=== PATIENT | female | born 1955 | race Caucasian/White ===

== ENCOUNTER 2016-05-12 15:11 | Emergency (ER) | payer MEDICARE, MEDICAID ==
[~2016-05-12] VITALS: Ht 170.2 cm; Wt 108.9 kg
[~2016-05-12 15:11] MED LIST: ALB.5NB20 HHN; ALBU8.5H2 IH; ALPR1T PO; ATEN50TA PO; CHL25T PO; CHLO100T22 PO; CHOL231P PO; CHOL4PAC2 PO; CLON1TAB36 PO; CPRH4T PO; CYCL-97 PO; DEXL60CA PO; DIPH25TA82 PO; FEXO180T PO; GBPN300C PO; HYDR-229 PO; LISI1TAB10 PO; LITH300T15 PO; LORA10TA7 PO; MAG355OR19 PO; MELO-198 PO; MIRT15TA6 PO; NIFE60TA19 PO; OMEP20CA6 PO; OMEP20TA2 PO; ONDAN4ODT PO; PRM25T PO; ROPI2TAB3 PO; SCR1T PO; SCR1T1 PO; SIMV20TA3 PO; SMV20T PO; TOPI200T19 PO; TRAM50TA2 PO; [UNRECOGNIZED DRUG - OTHER] PO
--- OUTSIDE RECORDS SUMMARY | 2016-05-12 15:20 | XMS REPORT | Continuity of Care Document ---
Author Author [facility] Organization [facility] Address Unknown Phone Unavailable Care Team Providers Care Train Station Server Name Role Phone Kwasi Rice PCP [phone] Source Comments Some departments are not documenting in the electronic medical record. If you do not see the information that you expected, contact Release of Information in the Health Information Management department at [phone] for further assistance in locating additional records.[facility] Active Allergies and Adverse Reactions Allergen Noted Date Severity Reactions Comments Adhesive Tape (Rosins) 01/15/2015 Medium ITCHING, REDNESS, EDEMA Aspirin 08/22/2014 Medium HIVES Codeine 08/22/2014 Medium HIVES Darvocet 12/20/2014 Medium HIVES Darvon 08/22/2014 Medium HIVES Ibuprofen 08/22/2014 Low NAUSEA ONLY Iodine 08/22/2014 Medium RASH Morphine 08/22/2014 Medium HIVES Niaspan 08/22/2014 Low ITCHING Other 08/22/2014 Low AGITATION antidepressants and antipsychotics Penicillins 08/22/2014 High SEIZURES Current Medications Prescription Sig. Disp. Refills Start End Date Status Date Black Cohosh 20 mg tab Take 20 mg by mouth twice Active daily. Indications: on hold rOPINIRole (REQUIP) 2 mg Take 4 mg by mouth at Active tablet bedtime daily. simvastatin (ZOCOR) 20 mg Take 20 mg by mouth at Active tablet bedtime daily. atenolol (TENORMIN) 50 mg Take 50 mg by mouth every Active tablet morning. cloNIDine HCl (CATAPRESS) Take 0.1 mg by mouth at Active 0.1 mg tablet bedtime daily. albuterol (VENTOLIN HFA, Inhale 2 Puffs by mouth Active PROAIR HFA) 90 every 6 hours as needed mcg/actuation inhaler for Wheezing. lisinopril/hydrochlorothi Take 1 Tab by mouth Active azide (ZESTORETIC) daily. 20/12.5 mg tablet 1 Tab NIFEdipine SR Take 60 mg by mouth every Active (PROCARDIA-XL; ADALAT CC) morning. 60 mg tablet fluticasone (FLONASE) 50 Apply 2 Sprays to each Active mcg/actuation nasal spray nostril as directed twice daily. loratadine 10 mg cap Take 10 mg by mouth every Active morning. diphenhydrAMINE Take 50 mg by mouth at Active (BENADRYL) 25 mg capsule bedtime as needed. albuterol 0.5% Inhale solution as Active (PROVENTIL; VENTOLIN) 2.5 directed every 4 hours as mg/0.5 mL nebu nebulizer needed. .083% nebulizer solution docusate calcium (SURFAK) Take 250 mg by mouth at Active 240 mg capsule bedtime as needed. Indications: CONSTIPATION, 2 po HS ALPRAZolam (XANAX) 0.5 mg Take 0.5 mg by mouth four Active tablet times daily as needed. oxyCODONE SR (OXYCONTIN) Take 40 mg by mouth every Active 40 mg tablet 12 hours cyclobenzaprine Take 10 mg by mouth three Active (FLEXERIL) 10 mg tablet times daily as needed for Muscle Cramps. polyethylene glycol 3350 Take 17 g by mouth as Active (GLYCOLAX; MIRALAX) 17 Needed. gram/dose powder Fluticasone-Salmeterol Inhale by mouth twice Active (ADVAIR HFA) 45-21 daily. mcg/actuation HFAA acetaminophen (TYLENOL) Take 325 mg by mouth Active 325 mg tablet every 4 hours as needed for Pain. oxyCODONE (ROXICODONE) 5 Take 1-2 Tabs by mouth 60 Tab 0 01/04/20 Active mg tablet every 4 hours as needed 15 for Pain oxyCODONE-acetaminophen Take 1 Tab by mouth every Active (PERCOCET; ENDOCET) 4 hours as needed 10-325 mg tablet bisacodyl (DULCOLAX) 5 mg Take 5 mg by mouth every Active tablet 24 hours as needed for Constipation. meloxicam (MOBIC) 15 mg Take by mouth daily. Active tablet cyproheptadine Take 4 mg by mouth at Active (PERIACTIN) 4 mg tablet bedtime daily. Active Problems Problem Noted Date Cervical stenosis of spinal canal 01/15/2015 Spondylosis, cervical 01/15/2015 Resolved Problems Problem Noted Date Resolved Date Cervical stenosis of spine 01/02/2015 04/02/2015 Social History Tobacco Use Types Packs/Day Years Used Date Never Smoker Smokeless Tobacco: Never Used Alcohol Use Drinks/Week oz/Week Comments Yes infrequent-about 1-3 times per year, last drink 03/2014 Last Filed Vital Signs Vital Sign Reading Time Taken Blood Pressure 114/70 04/02/2015 1:15 PM COMFORT STATION ATTENDANT Pulse 88 04/02/2015 1:15 PM COMFORT STATION ATTENDANT Temperature 36.7 C (98 F) 04/02/2015 1:15 PM COMFORT STATION ATTENDANT Respiratory Rate 16 04/02/2015 1:15 PM COMFORT STATION ATTENDANT Height 1.689 m (5' 6.5") 04/02/2015 1:15 PM COMFORT STATION ATTENDANT Weight 108.41 kg (239 lb) 04/02/2015 1:15 PM COMFORT STATION ATTENDANT Body Mass Index 38 04/02/2015 1:15 PM COMFORT STATION ATTENDANT Oxygen Saturation 96% 04/02/2015 1:15 PM COMFORT STATION ATTENDANT Plan of Care Date Type Specialty Providers Description 06/02/2016 Appointment Neurosurgery Kalie Ding MD [address] [facility] [address] [place] [address] [phone] (Fax) Health Maintenance Due Date Last Done Comments Hepatitis C Screening 1955 Physical (Comprehensive) 10/22/1962 Exam Pertussis Vaccine 10/22/1966 Tetanus Vaccine 10/22/1972 Cervical Cancer Screening 10/22/1976 Breast Cancer Screening 1995 Colorectal Cancer 10/22/2005 Screening Shingles Vaccine 2015 Influenza Vaccine 11/29/2015 Results from Last 3 Months Not on file
[2016-05-12 17:12] LABS: BASOPHILS % (AUTO) 0 % (0-10); EOSINOPHILS # (AUTO) 0.2 10^3/uL (0.0-0.3); EOSINOPHILS % (AUTO) 2 % (0-10); LYMPHOCYTES # (AUTO) 4.1 X 10^3 (1.0-4.0); LYMPHOCYTES % (AUTO) 33 % (12-44); MEAN CORPUSCULAR HEMOGLOBIN 28 PG (25-34); MEAN CORPUSCULAR HGB CONC 32 G/DL (32-36); MEAN CORPUSCULAR VOLUME 86 FL (80-99); MONOCYTES # (AUTO) 1.1 X 10^3 (0.0-1.0); MONOCYTES % (AUTO) 9 % (0-12); NEUTROPHILS # (AUTO) 7.2 X 10^3 (1.8-7.8); NEUTROPHILS % (AUTO) 57 % (42-75); PLATELET COUNT 331 10^3/uL (130-400); RED BLOOD COUNT 4.86 10^6/uL (4.35-5.85); WHITE BLOOD COUNT 12.7 10^3/uL (4.3-11.0)
[2016-05-12] MEDS ORDERED: MECLIZINE 25 MG (ANTIVERT) TAB PO ONE (17:15)
[2016-05-12 17:23] LABS: ALANINE AMINOTRANSFERASE 23 U/L (0-55); ALCOHOL < 10 MG/DL (<10); ANION GAP 14 MMOL/L (5-14); ASPARTATE AMINO TRANSFERASE 25 U/L (5-34); BILIRUBIN,TOTAL 0.3 MG/DL (0.1-1.0); BLOOD UREA NITROGEN 23 MG/DL (7-18); BUN/CREATININE RATIO 16; CALCIUM 9.6 MG/DL (8.5-10.1); CARBON DIOXIDE 26 MMOL/L (21-32); CHLORIDE 101 MMOL/L (98-107); CREATININE SERUM 1.47 MG/DL (0.60-1.30); GFR ESTIMATED 36; GLUCOSE 114 MG/DL (70-105); MAGNESIUM 2.4 MG/DL (1.8-2.4); SODIUM 141 MMOL/L (135-145); TOTAL PROTEIN 7.9 G/DL (6.4-8.2)
[2016-05-12 17:28] LABS: BILIRUBIN,URINE NEGATIVE (NEGATIVE); KETONES,URINE NEGATIVE (NEGATIVE); LEUKOCYTE ESTERASE ,URINE NEGATIVE (NEGATIVE); NITRITE,URINE NEGATIVE (NEGATIVE); PH,URINE 6 (5-9); PROTEIN,URINE NEGATIVE (NEGATIVE); UROBILINOGEN,URINE NORMAL (NORMAL)
[2016-05-12] MEDS ORDERED: ACET-93 PO (17:43)
[2016-05-12] MEDS ORDERED: DOCU250C11 PO (17:43)
[2016-05-12] MEDS ORDERED: OXYM-12 NS (17:43)
[2016-05-12] MEDS ORDERED: ALBU2.5V4 IH (17:43)
[2016-05-12] MEDS ORDERED: GABA600T2 PO (17:43)
[2016-05-12] MEDS ORDERED: ALPR0.5T7 PO (17:43)
[2016-05-12] MEDS ORDERED: BACL10TA PO (17:43)
[2016-05-12] MEDS ORDERED: LUBI24CA6 PO (17:43)
[2016-05-12] MEDS ORDERED: ATEN50TA PO (17:43)
[2016-05-12] MEDS ORDERED: BISA5TAB8 PO (17:43)
[2016-05-12] MEDS ORDERED: CLON0.1T PO (17:43)
[2016-05-12] MEDS ORDERED: OXYC40TA57 PO (17:43)
[2016-05-12] MEDS ORDERED: OXYC-465 PO (17:43)
[2016-05-12] MEDS ORDERED: LISI1TAB8 PO (17:43)
[2016-05-12] MEDS ORDERED: FURO80TA3 PO (17:43)
[2016-05-12] MEDS ORDERED: FLUT16SP22 NS (17:43)
[2016-05-12] MEDS ORDERED: NS IV 1000 ML 1,000 ML IV ONE (18:38)
[2016-05-12] MEDS ORDERED: KETOROLAC 30 MG/ML VIAL IVP ONE (18:45)
--- NOTE | 2016-05-12 18:46 | ED General ---
General Chief Complaint: Dizziness/Syncope Stated Complaint: DIZZINESS Nursing Triage Note: PT REPORTS SHE BEGAN FEELING DIZZY AT APPROX 1430. ALSO HAD RIGHT ARM NUMBNESS ET WEAKNESS. REPORTS SHE TOOK A BREATHING TREATMENT BECAUSE SHE FELT SOA. SHE IS VERY SLEEPY UPON ARRIVAL. ASSISTED OUT OF CAR INTO W/C. PT ABLE TO FOLLOW COMMANDS. Nursing Sepsis Screen: No Definite Risk Source of Information: Patient, Family Exam Limitations: No Limitations (PAMELA NUNEZ MD) History of Present Illness Time Seen by Provider: 16:55 Initial Comments This 60-year-old woman presents to emergency room with complaints of dizziness described as a spinning sensation and lightheadedness. Symptoms started today. She reports recently having an increased dose of Lasix a couple of weeks ago to 80 mg. She also recently had an increase in gabapentin dose from 300 mg to 600 mg. She also reports she was recently started on a muscle relaxer. She reports no dizziness if she keeps her head still and eyes closed. She reports increased dizziness with movement of the head in either direction. However, it was noted that when her head was turned to examine her ears, she smiled and giggled because she thought the otoscope exam tickled. This seemed inconsistent with her report of severe dizziness with head movements. She also reported that at one point today her right arm was numb. She denies any respiratory symptoms, fever, nausea, vomiting, or diarrhea. She recently finished antibiotics for sinusitis. She complains of light sensitivity and developing headache. Her primary care provider is Dr. Xiao, her pain management physician is Dr. Gordon, and her electrical automation engineer is Dr. Castro. (PAMELA NUNEZ MD) Allergies and Home Medications Allergies Coded Allergies: Penicillins (Unverified Allergy, Severe, ANAPHYLAXIS, 08/28/10) aspirin (Unverified Allergy, Mild, RASH, 08/28/10) iodine (Unverified Allergy, Unknown, RASH, 12/01/13) morphine (Unverified Allergy, Unknown, "MAKES GO OUT", 12/01/13) codeine (Unverified Adverse Reaction, Mild, N/V, 08/28/10) acetaminophen (Unverified Adverse Reaction, Unknown, 05/12/16) adhesive tape (Unverified Adverse Reaction, Unknown, 05/12/16) ibuprofen (Unverified Adverse Reaction, Unknown, 05/12/16) niacin (Unverified Adverse Reaction, Unknown, 05/12/16) propoxyphene (Unverified Adverse Reaction, Unknown, 05/12/16) Uncoded Allergies: ANTIDEPRESSANTS (Allergy, Unknown, MAKES SUICIDAL, 12/01/13) Home Medications Acetaminophen 500 Mg Tablet 1,000 MG PO Q6H PRN PRN PAIN (Reported) Albuterol 8.5 Gm Hfa.aer.ad 1 PUFF IH Q4H (Reported) 1 PUFFS Albuterol Sulfate 2.5 Mg/3 Ml Vial.neb 2.5 MG IH BID (Reported) Alprazolam 0.5 Mg Tablet 0.5 MG PO QID PRN PRN ANXIETY (Reported) Atenolol 50 Mg Tablet 50 MG PO DAILY (Reported) Baclofen 10 Mg Tablet 10 MG PO TID (Reported) Bisacodyl 5 Mg Tablet.dr 5 MG PO PM (Reported) Cholestyramine/Aspartame 231 Gm Powder 231 GM PO DAILY (Reported) Clonidine HCl 0.1 Mg Tablet 0.1 MG PO PM (Reported) Diphenhydramine Hcl 25 Mg Tablet 50 MG PO HS (Reported) Docusate Sodium 250 Mg Capsule 500 MG PO PM (Reported) Fluticasone Propionate 16 Gm Outing.susp 16 GM NS BID (Reported) Furosemide 80 Mg Tablet 80 MG PO DAILY (Reported) Gabapentin 600 Mg Tablet 600 MG PO TID (Reported) Lisinopril/Hydrochlorothiazide 1 Each Tablet 1 EACH PO DAILY (Reported) Loratadine 10 Mg Tablet 10 MG PO DAILY (Reported) Lubiprostone 24 Mcg Capsule 24 MCG PO BID (Reported) Mag Hydrox/Al Hydrox/Simeth 355 Ml Oral.susp 2-4 TSP PO QID PRN PRN (Reported) Meloxicam 7.5 Mg Tablet 1 EACH PO DAILY (Reported) Nifedipine 60 Mg Tablet.er 60 MG PO DAILY (Reported) Omeprazole 20 Mg Tablet.dr 20 MG PO DAILY (Reported) Oxycodone HCl 40 Mg Tab.er.12h 40 MG PO Q12H (Reported) Oxycodone HCl/Acetaminophen 1 Each Tablet 0.5 TAB PO TID PRN PRN PAIN (Reported ) Oxymetazoline HCl 30 Ml Outing 30 ML NS BID (Reported) Promethazine Hcl 25 Mg Tab 25 MG PO PRN PRN PRN NAUSEA (Reported) Ropinirole Hcl 2 Mg Tablet 4 MG PO HS (Reported) Simvastatin 20 Mg Tablet 20 MG PO HS (Reported) Tramadol Hcl 50 Mg Tablet 50 MG PO QID (Reported) Constitutional: no symptoms reported EENTM: no symptoms reported Respiratory: no symptoms reported Cardiovascular: see HPI Gastrointestinal: no symptoms reported Genitourinary: no symptoms reported : No Musculoskeletal: no symptoms reported Skin: no symptoms reported Psychiatric/Neurological: See HPI Hematologic/Lymphatic: No Symptoms Reported (PAMELA NUNEZ MD) Past Dpvgvpn-Prvrua-Iizxsy Hx Patient Social History Alcohol Use: Rarely Uses Recreational Drug Use: No Smoking Status: Never a Smoker Recent Foreign Travel: No Contact w/Someone Who Travel: No Recent Infectious Disease Expo: No Recent Hopitalizations: No (PAMELA NUNEZ MD) Immunizations Up To Date Date of Influenza Vaccine: Mar 07, 2012 (PAMELA NUNEZ MD) Surgeries HX Surgeries: Yes (hysterectomy,gb,t&a) Surgeries: Adenoidectomy, Gallbladder, Hysterectomy, Orthopedic, Tonsillectomy (PAMELA NUNEZ MD) Respiratory Hx Respiratory Disorders: Yes Respiratory Disorders: COPD (PAMELA NUNEZ MD) Cardiovascular Hx Cardiac Disorders: Yes (ENLARGED HEART, tachycardia) Cardiac Disorders: Hypertension (PAMELA NUNEZ MD) Neurological Hx Neurological Disorders: Yes (FEBRILE SEIZURES) (PAMELA NUNEZ MD) Reproductive System Hx Reproductive Disorders: No (PAMELA NUNEZ MD) Genitourinary Hx Genitourinary Disorders: Yes Genitourinary Disorders: Renal Failure (CKD) (PAMELA NUNEZ MD) Gastrointestinal Hx Gastrointestinal Disorders: Yes Gastrointestinal Disorders: Diverticulosis, Ulcer (PAMELA NUNEZ MD) Musculoskeletal Hx Musculoskeletal Disorders: Yes Musculoskeletal Disorders: Degenerate Disk Disease, Arthritis (PAMELA NUNEZ MD) Endocrine Hx Endocrine Disorders: No (PAMELA NUNEZ MD) HEENT HX ENT Disorders: No (PAMELA NUNEZ MD) Cancer Hx Cancer: No (PAMELA NUNEZ MD) Psychosocial Hx Psychiatric Problems: Yes Behavioral Health Disorders: Anxiety, Suicide Attempts, Depression (PAMELA NUNEZ MD) Blood Transfusions Hx Blood Disorders: No (PAMELA NUNEZ MD) Physical Exam Vital Signs Vital Sign - Last 12Hours 05/12/16 05/12/16 15:11 20:47 Temp 97.6 Pulse 88 Resp 18 B/P 135/90 Pulse Ox 95 (DARYN STEIN) Vital Signs Capillary Refill : Less Than 3 Seconds (PAMELA NUNEZ MD) General Appearance: No Apparent Distress WD/WN HEENT: PERRL/EOMI TMs Normal Normal ENT Inspection Pharynx Normal Neck: Normal InspectionNo Carotid Bruit, No JVD Respiratory: Chest Non Tender Lungs Clear Normal Breath Sounds No Accessory Muscle Use No Respiratory Distress Cardiovascular: Regular Rate, Rhythm No Edema No Murmur Gastrointestinal: Non Tender Soft Extremity: Normal Inspection No Pedal Edema Neurologic/Psychiatric: Alert Oriented x3 No Motor/Sensory Deficits Normal Mood/Affect soil chemist II-XII Norm as Tested Skin: Normal Color Warm/Dry (PAMELA NUNEZ MD) Progress/Results/Core Measures Results/Orders Lab Results Laboratory Tests Test 05/12/16 15:17 05/12/16 15:20 05/12/16 17:18 Range/Units Alanine Aminotransferase (ALT/SGPT) 23 0-55 U/L Albumin 4.0 3.2-4.5 G/DL Alkaline Phosphatase 94 40-136 U/L Anion Gap 14 5-14 MMOL/L Aspartate Amino Transf (AST/SGOT) 25 5-34 U/L BUN/Creatinine Ratio 16 Basophils # (Auto) 0.0 0.0-0.1 10^3/uL Basophils (%) (Auto) 0 0-10 % Blood Urea Nitrogen 23 H 7-18 MG/DL Calcium Level 9.6 8.5-10.1 MG/DL Carbon Dioxide Level 26 21-32 MMOL/L Chloride Level 101 98-107 MMOL/L Creatinine 1.47 H 0.60-1.30 MG/DL Eosinophils # (Auto) 0.2 0.0-0.3 10^3/uL Eosinophils (%) (Auto) 2 0-10 % Estimat Glomerular Filtration Rate 36 Free Thyroxine 0.98 0.70-1.48 NG/DL Glucose Level 114 H 70-105 MG/DL Hematocrit 42 35-52 % Hemoglobin 13.5 11.5-16.0 G/DL Lymphocytes # (Auto) 4.1 H 1.0-4.0 X 10^3 Lymphocytes (%) (Auto) 33 12-44 % Magnesium Level 2.4 1.8-2.4 MG/DL Mean Corpuscular Hemoglobin 28 25-34 PG Mean Corpuscular Hemoglobin Concent 32 32-36 G/DL Mean Corpuscular Volume 86 80-99 FL Mean Platelet Volume 12.0 H 7.4-10.4 FL Monocytes # (Auto) 1.1 H 0.0-1.0 X 10^3 Monocytes (%) (Auto) 9 0-12 % Neutrophils # (Auto) 7.2 1.8-7.8 X 10^3 Neutrophils (%) (Auto) 57 42-75 % Platelet Count 331 130-400 10^3/uL Potassium Level 4.0 3.6-5.0 MMOL/L Red Blood Count 4.86 4.35-5.85 10^6/uL Red Cell Distribution Width 15.0 H 10.0-14.5 % Serum Alcohol < 10 <10 MG/DL Sodium Level 141 135-145 MMOL/L TSH Odell Testing 0.14 L 0.35-4.94 UIU/ML Total Bilirubin 0.3 0.1-1.0 MG/DL Total Protein 7.9 6.4-8.2 G/DL White Blood Count 12.7 H 4.3-11.0 10^3/uL Glucometer 117 H 70-110 MG/DL Ur Tricyclic Antidepressants Screen NEGATIVE NEGATIVE Urine Amphetamines Screen NEGATIVE NEGATIVE Urine Bacteria NONE /HPF Urine Barbiturates Screen NEGATIVE NEGATIVE Urine Benzodiazepines Screen POSITIVE H NEGATIVE Urine Bilirubin NEGATIVE NEGATIVE Urine Cannabinoids Screen NEGATIVE NEGATIVE Urine Casts NONE /LPF Urine Clarity CLEAR Urine Cocaine Screen NEGATIVE NEGATIVE Urine Color YELLOW Urine Crystals NONE /LPF Urine Culture Indicated NO Urine Glucose (UA) NEGATIVE NEGATIVE Urine Ketones NEGATIVE NEGATIVE Urine Leukocyte Esterase NEGATIVE NEGATIVE Urine Methadone Screen NEGATIVE NEGATIVE Urine Methamphetamines Screen NEGATIVE NEGATIVE Urine Mucus NONE /LPF Urine Nitrite NEGATIVE NEGATIVE Urine Opiates Screen NEGATIVE NEGATIVE Urine Oxycodone Screen POSITIVE H NEGATIVE Urine Phencyclidine Screen NEGATIVE NEGATIVE Urine Propoxyphene Screen NEGATIVE NEGATIVE Urine Protein NEGATIVE NEGATIVE Urine RBC NONE /HPF Urine RBC (Auto) NEGATIVE NEGATIVE Urine Specific Icard 1.010 L 1.016-1.022 Urine Squamous Epithelial Cells 2-5 /HPF Urine Urobilinogen NORMAL NORMAL MG/DL Urine WBC NONE /HPF Urine pH 6 5-9 (DARYN STEIN) Medications Given in ED Current Medications Medications Dose Ordered Sig/Dariel Route Start Time Stop Time Status Last Admin Dose Admin Ketorolac Tromethamine 30 mg ONCE ONCE IVP 05/12/16 18:45 05/12/16 18:46 DC 05/12/16 18:46 30 MG Meclizine HCl 25 mg 25 mg ONCE ONCE PO 05/12/16 17:15 05/12/16 17:16 DC 05/12/16 17:28 25 MG Sodium Chloride 1,000 ml @ 0 mls/hr Q0M ONCE IV 05/12/16 18:38 05/12/16 18:41 DC 05/12/16 18:46 1,000 MLS/HR (DARYN STEIN) Vital Signs/I&O Vital Sign - Last 12Hours 05/12/16 05/12/16 15:11 20:47 Temp 97.6 Pulse 88 73 Resp 18 16 B/P 135/90 Pulse Ox 95 Intake and Output 05/13/16 00:00 Intake Total 1000 ml Balance 1000 ml (DARYN STEIN) Blood Pressure Mean: 105 Progress Note : Time: 18:49 Progress Note Repeat examination included the Sanjay-Hallpike maneuver. This was negative bilaterally and did not reproduce any symptoms or nystagmus. Labs were relatively unremarkable. Patient reports dizziness has improved with meclizine but she still feels lightheaded and has some headache. Toradol and IV fluids were ordered for further treatment. I suspect her symptoms are due to polypharmacy and medication adverse effects. Patient reports an ibuprofen adverse affect of stomach irritation but no true allergy. Toradol should be tolerated. Care of this patient was transitioned to Daryn Stein at this time. (PAMELA NUNEZ MD) ECG Initial ECG Impression Date: May 12, 2016 Initial ECG Impression Time: 15:25 Initial ECG Rate: 83 Initial ECG Rhythm: Normal Sinus Initial ECG Intervals: Normal Initial ECG Impression: Normal Comment Normal sinus rhythm with no ST elevation or depression. No abnormal intervals or axis deviation. (PAMELA NUNEZ MD) Departure Communication Progress Notes Patient care assumed from Dr. Nunez. Patient reports feeling much better after medications and IV fluids. Denies any current dizziness. Patient is alert and oriented 3, no acute distress. Patient is able ambulate without difficulty. All laboratory findings discussed with the patient. Plan for discharge to home. All return precautions were discussed with the patient as described in the discharge instructions of this report. Patient voices understanding and agrees with the treatment plan. (DARYN STEIN) Impression Impression: Primary Impression: Adverse drug effect Qualified Code: T88.7XXA - Unspecified adverse effect of drug or medicament, initial encounter Additional Impressions: Volume depletion Hyperthyroidism Disposition: HOME, SELF-CARE Condition: Improved Departure-Patient Inst. Decision time for Depature: 20:32 (DARYN STEIN) Referrals: PIPER XIAO MD (PCP/Family) Primary Care Physician Patient Instructions: Dehydration, Adult (DC), Hyperthyroidism (Overactive Thyroid) (DC) Add. Discharge Instructions: All discharge instructions reviewed with patient and/or family. Voiced understanding. Decrease gabapentin to 300 mg by mouth 3 times daily. Drink plenty fluids. No strenuous activities. Continue all other current medications. Follow-up with your family practitioner in the next 1-2 days for recheck and repeat labs, call tomorrow morning for appointment time. Return to the emergency department for worsened dizziness, headache, changes in vision, changes in behavior, slurred speech, facial drooping, chest pain, shortness of air, seizure, vomiting, decreased urination, numbness, weakness, or any other concerns. PAMELA NUNEZ MD May 12, 2016 18:46 DARYN STEIN May 12, 2016 20:37
[2016-05-12 20:47] VITALS: BP 99/62
== END 2016-05-12 20:46 | disposition home or self-care (01) ==
LOC: EDUNIT# 15:11 → ER 15:14
DX: R42 Dizziness and giddiness (principal); T48.205A Adverse effect of unspecified drugs acting on muscles, initial encounter; E86.9 Volume depletion, unspecified; E05.90 Thyrotoxicosis, unspecified without thyrotoxic crisis or storm; J44.9 Chronic obstructive pulmonary disease, unspecified; Z79.899 Other long term (current) drug therapy
CPT/HCPCS: 36415; 80053; 80306; 80320; 81000; 82962; 83735; 84439; 84443; 85025; 93005; 96361; 96374

== ENCOUNTER → 2016-09-12 | Outpatient (CLI) | payer MEDICARE, MEDICAID ==
[~2016-09-12] MED LIST changes: +ACET-93 PO; +ALBU2.5V4 IH; +ALPR0.5T7 PO; +BACL10TA PO; +BISA5TAB8 PO; +CLON0.1T PO; +DOCU250C11 PO; +FLUT16SP22 NS; +FURO80TA3 PO; +GABA600T2 PO; +LISI1TAB8 PO; +LUBI24CA6 PO; +OXYC-465 PO; +OXYC40TA57 PO; +OXYM-12 NS; +RT-ALBUTEROL SULF 2.5 MG/3 ML PRE-MIX VIAL IH ONE
== END ==
LOC: RT 14:03
PROVIDERS: ATTEND Family Medicine
DX: J44.9 Chronic obstructive pulmonary disease, unspecified (principal)
CPT/HCPCS: 94060; 94640; 94726; 94729

== ENCOUNTER → 2016-10-16 | Outpatient (CLI) | payer MEDICARE, MEDICAID ==
[~2016-10-16] MED LIST changes: -RT-ALBUTEROL SULF 2.5 MG/3 ML PRE-MIX VIAL IH ONE
--- NOTE | 2016-10-16 15:39 | Diagnostic Imaging Report ---
PROCEDURE: US left lower extremity venous. TECHNIQUE: Multiple real-time grayscale images were obtained over the left lower extremity in various projections. Additional duplex Doppler and color Doppler images were also obtained. INDICATION: Left leg swelling. FINDINGS: The left common femoral, superficial femoral and popliteal veins demonstrate normal response to compression, augmentation, and Valsalva. There are no abnormal left lower extremity fluid collections or masses. IMPRESSION: No evidence of deep venous thrombosis in the left lower extremity. Dictated by: Dictated on workstation # [id number]
== END ==
LOC: RAD 14:55
PROVIDERS: ATTEND Family Medicine
DX: R22.42 Localized swelling, mass and lump, left lower limb (principal)

== ENCOUNTER 2017-02-20 12:47 | Outpatient (RCR) | payer MEDICARE, MEDICAID ==
[2017-02-16 14:04] VITALS: BP 125/79
[2017-02-16] MEDS: IRON SUCROSE 200 MG/NS 100 ML (IVPB) IV SCH ×2 (14:26)
[2017-02-16 15:10] VITALS: BP 125/79
[2017-02-18 12:50] VITALS: BP 109/82
[2017-02-18] MEDS: IRON SUCROSE 200 MG/NS 100 ML (IVPB) IV SCH ×2 (13:11)
[~2017-02-20] VITALS: Ht 170.2 cm; Wt 108.9 kg
[2017-02-20] MEDS: IRON SUCROSE 200 MG/NS 100 ML (IVPB) IV SCH ×2 (13:09)
[2017-02-20 13:10] VITALS: BP 100/63
[2017-02-20 13:35] VITALS: BP 100/63
[2017-05-08] MEDS ORDERED: ONDA4TAB10 PO (09:17)
[2017-05-08] MEDS ORDERED: SULF-222 PO (09:17)
== END 2017-05-17 | disposition home or self-care (01) ==
LOC: SDC 12:47
PROVIDERS: ATTEND Internal Medicine Nephrology
DX: D50.9 Iron deficiency anemia, unspecified (principal); Z88.0 Allergy status to penicillin; Z88.5 Allergy status to narcotic agent; Z88.6 Allergy status to analgesic agent
CPT/HCPCS: 96365

== ENCOUNTER 2017-05-08 05:19 | Emergency (ER) | payer MEDICARE, MEDICAID ==
[~2017-05-08] VITALS: Ht 167.6 cm; Wt 117.9 kg
[2017-05-08] MEDS ORDERED: NS IV 1000 ML 1,000 ML IV ONE (06:50)
[2017-05-08] MEDS ORDERED: fentaNYL INJECTION 100 MCG/2 ML AMP IVP STA (06:50)
--- NOTE | 2017-05-08 06:59 | ED GI ---
General Chief Complaint: Abdominal/GI Problems Stated Complaint: VOMITING,FEVER- LOW GRADE,DIARRHEA Nursing Triage Note: pt states nausea, dry heiving, diarrhea since thursday. Sepsis Screen: No Definite Risk Source of Information: Patient Exam Limitations: No Limitations History of Present Illness Date Seen by Provider: May 08, 2017 Time Seen by Provider: 06:45 Initial Comments Here with report of nausea, vomiting (dry heaves) and diarrhea since Thursday morning. This is persisted since. States that she thinks she may have the flu or her diverticulitis is acting up. It is on long-term narcotics. Has history of Vivian fundoplication so was not actually vomiting but just dry heaving but she has had copious diarrhea and multiple episodes of stool incontinence. Complains of allover cramping and low-grade fever. Denies breathing problems, chest pain or upper respiratory symptoms. Timing/Duration: 1-2 Days Severity/Quality: Moderate, Severe, Cramping Location: Generalized Abdomen Radiation: No Radiation Activities at Onset: None Modifying Factors: Improves With Defecating, Worsens With Eating Associated Symptoms: No Back Pain, No Chest Pain, Fever/Chills, Nausea/Vomiting , Shortness of Air, Swelling/Mass in Abdomen, No Weakness Allergies and Home Medications Allergies Coded Allergies: Penicillins (Unverified Allergy, Severe, ANAPHYLAXIS, 08/28/10) aspirin (Unverified Allergy, Mild, RASH, 08/28/10) iodine (Unverified Allergy, Unknown, RASH, 12/01/13) morphine (Unverified Allergy, Unknown, "MAKES GO OUT", 12/01/13) codeine (Unverified Adverse Reaction, Mild, N/V, 08/28/10) acetaminophen (Unverified Adverse Reaction, Unknown, 05/12/16) adhesive tape (Unverified Adverse Reaction, Unknown, 05/12/16) ibuprofen (Unverified Adverse Reaction, Unknown, 05/12/16) niacin (Unverified Adverse Reaction, Unknown, 05/12/16) propoxyphene (Unverified Adverse Reaction, Unknown, 05/12/16) Uncoded Allergies: ANTIDEPRESSANTS (Allergy, Unknown, MAKES SUICIDAL, 12/01/13) Home Medications Acetaminophen 500 Mg Tablet, 1,000 MG PO Q6H PRN for PAIN, (Reported) Albuterol 8.5 Gm Hfa.aer.ad, 1 PUFF IH Q4H, (Reported) 1 PUFFS Albuterol Sulfate 2.5 Mg/3 Ml Vial.neb, 2.5 MG IH BID, (Reported) Alprazolam 0.5 Mg Tablet, 0.5 MG PO QID PRN for ANXIETY, (Reported) Atenolol 50 Mg Tablet, 50 MG PO DAILY, (Reported) Baclofen 10 Mg Tablet, 10 MG PO TID, (Reported) Bisacodyl 5 Mg Tablet.dr, 5 MG PO PM, (Reported) Cholestyramine/Aspartame 231 Gm Powder, 231 GM PO DAILY, (Reported) Clonidine HCl 0.1 Mg Tablet, 0.1 MG PO PM, (Reported) Diphenhydramine Hcl 25 Mg Tablet, 50 MG PO HS, (Reported) Docusate Sodium 250 Mg Capsule, 500 MG PO PM, (Reported) Fluticasone Propionate 16 Gm Jordan.susp, 16 GM NS BID, (Reported) Furosemide 80 Mg Tablet, 80 MG PO DAILY, (Reported) Gabapentin 600 Mg Tablet, 600 MG PO TID, (Reported) Lisinopril/Hydrochlorothiazide 1 Each Tablet, 1 EACH PO DAILY, (Reported) Loratadine 10 Mg Tablet, 10 MG PO DAILY, (Reported) Lubiprostone 24 Mcg Capsule, 24 MCG PO BID, (Reported) Mag Hydrox/Al Hydrox/Simeth 355 Ml Oral.susp, 2-4 TSP PO QID PRN, (Reported) Meloxicam 7.5 Mg Tablet, 1 EACH PO DAILY, (Reported) Nifedipine 60 Mg Tablet.er, 60 MG PO DAILY, (Reported) Omeprazole 20 Mg Tablet.dr, 20 MG PO DAILY, (Reported) Oxycodone HCl 40 Mg Tab.er.12h, 40 MG PO Q12H, (Reported) Oxycodone HCl/Acetaminophen 1 Each Tablet, 0.5 TAB PO TID PRN for PAIN, ( Reported) Oxymetazoline HCl 30 Ml Jordan, 30 ML NS BID, (Reported) Promethazine Hcl 25 Mg Tab, 25 MG PO PRN PRN for NAUSEA, (Reported) Ropinirole Hcl 2 Mg Tablet, 4 MG PO HS, (Reported) Simvastatin 20 Mg Tablet, 20 MG PO HS, (Reported) Tramadol Hcl 50 Mg Tablet, 50 MG PO QID, (Reported) Review of Systems Constitutional: see HPI, chills, fever EENTM: No Symptoms Reported Respiratory: No Symptoms Reported Cardiovascular: No Symptoms Reported Gastrointestinal: See HPI Genitourinary: No Symptoms Reported Musculoskeletal: No back pain, muscle pain, No neck pain Skin: no symptoms reported Psychiatric/Neurological: No Symptoms Reported All Other Systems Reviewed Negative Unless Noted: Yes Past Xdizwin-Yypyir-Rajdkk Hx Patient Social History Alcohol Use: Denies Use Recreational Drug Use: No Smoking Status: Never a Smoker Recent Foreign Travel: No Contact w/Someone Who Travel: No Recent Infectious Disease Expo: No Recent Hopitalizations: No Immunizations Up To Date Date of Pneumonia Vaccine: Dec 28, 2013 Date of Influenza Vaccine: Jan 16, 2017 Surgeries History of Surgeries: Yes (hiatal hernia with small amount of stomach removed) Surgeries: Adenoidectomy, Gallbladder, Hysterectomy, Orthopedic, Tonsillectomy Respiratory History of Respiratory Disorde: Yes Respiratory Disorders: COPD Cardiovascular History of Cardiac Disorders: Yes (ENLARGED HEART, tachycardia) Cardiac Disorders: Hypertension Neurological History of Neurological Disord: Yes (FEBRILE SEIZURES) Reproductive System Hx Reproductive Disorders: No Genitourinary Genitourinary Disorders: Renal Failure Gastrointestinal History of Gastrointestinal Di: Yes Gastrointestinal Disorders: Diverticulosis, Ulcer Musculoskeletal History of Musculoskeletal Dis: Yes Musculoskeletal Disorders: Degenerate Disk Disease, Arthritis Endocrine History of Endocrine Disorders: No Cancer History of Cancer: No Psychosocial History of Psychiatric Problem: Yes Behavioral Health Disorders: Anxiety, Suicide Attempts, Depression Blood Transfusions History of Blood Disorders: No Reviewed Nursing Assessment Reviewed/Agree w Nursing PMH: Yes Family Medical History Significant Family History: No Pertinent Family Hx Physical Exam Vital Signs VS - Last 72 Hours, by Label 05/08/17 06:25 Pulse 122 Resp 20 B/P (MAP) 167/91 (116) Pulse Ox 94 O2 Delivery Room Air Capillary Refill : Less Than 3 Seconds General Appearance: WD/WN, moderate distress (pain and abdominal cramping), obese HEENT: PERRL/EOMI, pharynx normal Neck: full range of motion, supple Respiratory: lungs clear, normal breath sounds Cardiovascular: no murmur, tachycardia Peripheral Pulses: 2+ Dorsalis Pedis (R), 2+ Left Dors-Pedis (L), 2+ Radial Pulses (R), 2+ Radial Pulses (L) Gastrointestinal: soft, abnormal bowel sounds (hyperactive 1), No guarding, No rebound, tenderness (mild diffuse) Extremities: non-tender, normal inspection Back: normal inspection, no CVA tenderness, no vertebral tenderness Neurologic/Psychiatric: alert, oriented x 3 Skin: normal color, warm/dry Progress/Results/Core Measures Results/Orders Lab Results Laboratory Tests Test 05/08/17 07:05 05/08/17 08:00 Range/Units White Blood Count 15.3 H 4.3-11.0 10^3/uL Red Blood Count 5.07 4.35-5.85 10^6/uL Hemoglobin 14.8 11.5-16.0 G/DL Hematocrit 44 35-52 % Mean Corpuscular Volume 87 80-99 FL Mean Corpuscular Hemoglobin 29 25-34 PG Mean Corpuscular Hemoglobin Concent 34 32-36 G/DL Red Cell Distribution Width 15.0 H 10.0-14.5 % Platelet Count 375 130-400 10^3/uL Mean Platelet Volume 10.0 7.4-10.4 FL Neutrophils (%) (Auto) 77 H 42-75 % Lymphocytes (%) (Auto) 14 12-44 % Monocytes (%) (Auto) 9 0-12 % Eosinophils (%) (Auto) 0 0-10 % Basophils (%) (Auto) 0 0-10 % Neutrophils # (Auto) 11.8 H 1.8-7.8 X 10^3 Lymphocytes # (Auto) 2.2 1.0-4.0 X 10^3 Monocytes # (Auto) 1.3 H 0.0-1.0 X 10^3 Eosinophils # (Auto) 0.0 0.0-0.3 10^3/uL Basophils # (Auto) 0.0 0.0-0.1 10^3/uL Neutrophils % (Manual) 76 % Lymphocytes % (Manual) 13 % Monocytes % (Manual) 10 % Eosinophils % (Manual) 0 % Basophils % (Manual) 1 % Band Neutrophils 0 % Blood Morphology Comment NORMAL Sodium Level 141 135-145 MMOL/L Potassium Level 3.6 3.6-5.0 MMOL/L Chloride Level 104 98-107 MMOL/L Carbon Dioxide Level 21 21-32 MMOL/L Anion Gap 16 H 5-14 MMOL/L Blood Urea Nitrogen 27 H 7-18 MG/DL Creatinine 1.28 0.60-1.30 MG/DL Estimat Glomerular Filtration Rate 42 BUN/Creatinine Ratio 21 Glucose Level 138 H 70-105 MG/DL Calcium Level 9.9 8.5-10.1 MG/DL Magnesium Level 2.3 1.8-2.4 MG/DL Total Bilirubin 0.3 0.1-1.0 MG/DL Aspartate Amino Transf (AST/SGOT) 20 5-34 U/L Alanine Aminotransferase (ALT/SGPT) 28 0-55 U/L Alkaline Phosphatase 108 40-136 U/L Total Protein 8.2 6.4-8.2 GM/DL Albumin 4.2 3.2-4.5 GM/DL Urine Color YELLOW Urine Clarity CLEAR Urine pH 5 5-9 Urine Specific Conner 1.025 H 1.016-1.022 Urine Protein 2+ H NEGATIVE Urine Glucose (UA) NEGATIVE NEGATIVE Urine Ketones NEGATIVE NEGATIVE Urine Nitrite NEGATIVE NEGATIVE Urine Bilirubin NEGATIVE NEGATIVE Urine Urobilinogen NORMAL NORMAL MG/DL Urine Leukocyte Esterase 2+ H NEGATIVE Urine RBC (Auto) 2+ H NEGATIVE Urine RBC 2-5 H /HPF Urine WBC 10-25 H /HPF Urine Squamous Epithelial Cells 10-25 H /HPF Urine Crystals NONE /LPF Urine Bacteria TRACE /HPF Urine Casts PRESENT /LPF Urine Hyaline Casts 2-5 H /LPF Urine Mucus NEGATIVE /LPF Urine Culture Indicated YES My Orders Orders - PABLO MAYO MD Cbc With Automated Diff (05/08/17 06:50) Comprehensive Metabolic Panel (05/08/17 06:50) Magnesium (05/08/17 06:50) Ua Culture If Indicated (05/08/17 06:50) Saline Lock/Iv-Start (05/08/17 06:50) Ns Iv 1000 Ml (Sodium Chloride 0.9%) (05/08/17 06:50) Ondansetron Injection (Zofran Injectio (05/08/17 07:00) Hyoscyamine Sl Tablet (Levsin Sl Tablet) (05/08/17 07:00) Fentanyl Injection (Sublimaze Injection (05/08/17 06:50) Ondansetron Injection (Zofran Injectio (05/08/17 07:00) Manual Differential (05/08/17 07:05) Urine Culture (05/08/17 08:00) Ns Iv 1000 Ml (Sodium Chloride 0.9%) (05/08/17 08:30) Ct Abdomen/Pelvis Wo (05/08/17 08:31) Medications Given in ED Current Medications Medications Dose Ordered Sig/Dariel Route Start Time Stop Time Status Last Admin Dose Admin Hyoscyamine Sulfate 0.125 mg ONCE ONCE SL 05/08/17 07:00 05/08/17 07:01 DC 05/08/17 07:02 0.125 MG Ondansetron HCl 4 mg ONCE ONCE IVP 05/08/17 07:00 05/08/17 07:01 DC 05/08/17 07:03 4 MG Ondansetron HCl 4 mg ONCE ONCE IVP 05/08/17 07:00 05/08/17 07:01 DC 05/08/17 07:03 4 MG Sodium Chloride 1,000 ml ONCE ONCE IV 05/08/17 08:30 05/08/17 08:31 DC 05/08/17 08:10 1,000 ML Sodium Chloride 1,000 ml @ 0 mls/hr Q0M ONCE IV 05/08/17 06:50 05/08/17 06:52 DC 05/08/17 07:02 0 MLS/HR Vital Signs/I&O Vital Sign - Last 12Hours 05/08/17 06:25 Pulse 122 Resp 20 B/P (MAP) 167/91 (116) Pulse Ox 94 O2 Delivery Room Air Blood Pressure Mean: 116 Progress Note : Progress Note Seen and evaluated. IV, labs, UA, normal saline 1 L bolus, Zofran 8 mg IV and Levsin 0.125 mg by mouth. We will give fentanyl 75 g IV and this she is complaining of pain but also because she is on chronic narcotics and with her significant diarrhea she may have some withdrawal effect which is compounding the problem. Monitor patient. 0820: repeat normal saline 1 L bolus. Attempted by mouth challenge with fluids and patient had vomiting right afterwards. Due to persistence, we will get CT scan. She is allergic to iodine to this will be a noncontrast scan and we're evaluating for obstruction. Monitor patient. 0908: CT complete shows no acute findings. We will try outpatient therapy with Zofran and initiate Bactrim DS for urinary tract infection. Patient will try clear liquid diet at home. If this fails that she' ll return and will likely require admission at that time for intractable nausea and vomiting. Discharged home with return precautions. Patient and family verbalize understanding instructions and agreement with plan. Departure Impression Impression: Primary Impression: Nausea and vomiting Qualified Codes: R11.14 - Bilious vomiting Additional Impressions: Urinary tract infection Qualified Codes: N30.00 - Acute cystitis without hematuria Dehydration Disposition: 01 HOME, SELF-CARE Condition: Stable Departure-Patient Inst. Decision time for Depature: 09:14 Referrals: [facility] [place] ([place]/Family) Primary Care Physician Patient Instructions: Acute Abdomen (Belly Pain), Adult (DC), Dehydration, Adult (DC), Nausea and Vomiting, Adult (DC), Urinary Tract Infection, Adult (DC) Add. Discharge Instructions: All discharge instructions reviewed with patient and/or family. Voiced understanding. Take medications as directed. Clear liquid diet for the next 24-48 hours and then advance as tolerated. Take small sips frequently but avoid drinking a lot at one time. Follow-up with your Dr. in one to 2 days for recheck. Return for worse pain, fever, vomiting, weakness, breathing problems or other concerns as needed. Scripts Sulfamethoxazole/Trimethoprim (Sulfamethoxazole-Tmp Ds Tablet) 1 Each Tablet 1 EACH PO BID, #10 TAB 0 Refills Prov: PABLO MAYO MD 05/08/17 Ondansetron HCl (Ondansetron HCl) 4 Mg Tablet 4 MG PO Q4H Y for NAUSEA/VOMITING-1ST LINE, #8 TAB Prov: PABLO MAYO MD 05/08/17 PABLO MAYO MD May 08, 2017 06:58
[2017-05-08] MEDS ORDERED: ONDANSETRON 4 MG/2 ML (SDV) Z0FRAN IVP ONE ×2 (07:00)
[2017-05-08] MEDS ORDERED: HYOSCYAMINE 0.125 MG (LEVSIN) TAB SL ONE (07:00)
[2017-05-08 07:19] LABS: BASOPHILS % (AUTO) 0 % (0-10); EOSINOPHILS % (AUTO) 0 % (0-10); HEMATOCRIT 44 % (35-52); HEMOGLOBIN 14.8 G/DL (11.5-16.0); LYMPHOCYTES # (AUTO) 2.2 X 10^3 (1.0-4.0); LYMPHOCYTES % (AUTO) 14 % (12-44); MEAN CORPUSCULAR HEMOGLOBIN 29 PG (25-34); MEAN CORPUSCULAR HGB CONC 34 G/DL (32-36); MEAN CORPUSCULAR VOLUME 87 FL (80-99); MONOCYTES # (AUTO) 1.3 X 10^3 (0.0-1.0); MONOCYTES % (AUTO) 9 % (0-12); NEUTROPHILS # (AUTO) 11.8 X 10^3 (1.8-7.8); NEUTROPHILS % (AUTO) 77 % (42-75); PLATELET COUNT 375 10^3/uL (130-400); RED BLOOD COUNT 5.07 10^6/uL (4.35-5.85); WHITE BLOOD COUNT 15.3 10^3/uL (4.3-11.0)
[2017-05-08 07:35] LABS: BAND NEUTROPHILS 0 %; BASOPHILS % (MANUAL) 1 %; EOSINOPHILS % (MANUAL) 0 %; LYMPHOCYTES % (MANUAL) 13 %; MONOCYTES % (MANUAL) 10 %; NEUTROPHILS % (MANUAL) 76 %; RBC MORPH NORMAL
[2017-05-08 07:39] LABS: ALBUMIN 4.2 GM/DL (3.2-4.5); BILIRUBIN,TOTAL 0.3 MG/DL (0.1-1.0); CALCIUM 9.9 MG/DL (8.5-10.1); CREATININE SERUM 1.28 MG/DL (0.60-1.30); MAGNESIUM 2.3 MG/DL (1.8-2.4); POTASSIUM 3.6 MMOL/L (3.6-5.0); TOTAL PROTEIN 8.2 GM/DL (6.4-8.2)
[2017-05-08 08:06] LABS: BILIRUBIN,URINE NEGATIVE (NEGATIVE); CLARITY,URINE CLEAR; COLOR,URINE YELLOW; GLUCOSE, URINE (UA) NEGATIVE (NEGATIVE); KETONES,URINE NEGATIVE (NEGATIVE); LEUKOCYTE ESTERASE ,URINE 2+ (NEGATIVE); NITRITE,URINE NEGATIVE (NEGATIVE); PH,URINE 5 (5-9); PROTEIN,URINE 2+ (NEGATIVE); UROBILINOGEN,URINE NORMAL (NORMAL)
[2017-05-08 08:14] LABS: BACTERIA,URINE TRACE /HPF
[2017-05-08] MEDS ORDERED: NS 1000 ML IV BAG IV ONE (08:30)
--- NOTE | 2017-05-08 09:01 | Diagnostic Imaging Report ---
PROCEDURE: CT abdomen and pelvis without contrast. TECHNIQUE: Multiple contiguous axial images were obtained through the abdomen and pelvis without the use of intravenous contrast. INDICATION: Abdominal pain. COMPARISON: CT abdomen and pelvis without contrast 08/24/2010. FINDINGS: Lung bases are clear. Cholecystectomy. There has been mild interval growth of a benign adrenal adenoma, now measuring up to 2.9 cm. The liver, pancreas, spleen, adrenals, kidneys, collecting systems and appendix are negative on this noncontrast exam. No free intraperitoneal air or fluid. Hysterectomy. Colonic diverticulosis without evidence of active diverticulitis. No evidence of bowel obstruction. No lymphadenopathy. Spondylotic changes in the visualized spine. No acute osseous findings. IMPRESSION: No acute CT findings in the abdomen or pelvis on this noncontrast exam. Dictated by: Dictated on workstation # [id number]
[2017-05-08] MEDS ORDERED: ONDA4TAB10 PO (09:17)
[2017-05-08] MEDS ORDERED: SULF-222 PO (09:17)
[2017-05-08 09:26] VITALS: BP 142/94
--- OUTSIDE RECORDS SUMMARY | 2017-05-10 07:56 | XMS REPORT | Continuity of Care Document ---
Author Author [employer] Organization [facility] Address Unknown Phone Unavailable Care Team Providers Care Bone Cooking Operator Name Role Phone [employer] Unavailable Unavailable Problems Medications Allergies, Adverse Reactions, Alerts Immunizations Results Vital Signs Encounters Location Location Details Encounter Type Encounter Number Reason For Visit Attending Provider ADM Date DC Date Status Source OUTPATIENT [id number] JAMES MILLER 10/13/20162016 Active [facility] OUTPATIENT [id number] JAMES MILLER 12/24/2016 Active [facility] OUTPATIENT [id number] JAMES MILLER 02/04/2017 Active [facility] OUTPATIENT [id number] JAMES MILLER 04/17/2017 Active [facility] O JAMES MILLER Active [facility] EXT RECOVERY [id number] KINA WARD Active [facility] Procedures Plan of Care Social History Assessment and Plan Family History Advance Directives Functional Status
--- OUTSIDE RECORDS SUMMARY | 2017-05-10 07:56 | XMS REPORT | Clinical Summary ---
Author Author [facility] Organization [facility] Address Unknown Phone Unavailable Care Team Providers Care Public Relations Officer Name Role Phone Kwasi Rice MD PCP Josie White RN Unavailable Unavailable Mulu Cooper RN Unavailable Unavailable Kalie Ding MD Unavailable Source Comments Some departments are not documenting in the electronic medical record. If you do not see the information that you expected, contact Release of Information in the Health Information Management department at [phone] for further assistance in locating additional records.[facility] Allergies Active Allergy Reactions Severity Noted Date Comments Adhesive Tape (Rosins) ITCHING, REDNESS, EDEMA Medium 01/15/2015 Aspirin HIVES Medium 08/22/2014 Codeine HIVES Medium 08/22/2014 Propoxyphene HIVES Medium 12/20/2014 N-Acetaminophen Propoxyphene HIVES Medium 08/22/2014 Gabapentin DIZZINESS, SYNCOPE High 06/02/2016 Ibuprofen NAUSEA ONLY Low 08/22/2014 Iodine RASH Medium 08/22/2014 Cephalexin HIVES Medium 10/13/2016 Pramipexole HIVES Medium 10/13/2016 Morphine HIVES Medium 08/22/2014 Niacin ITCHING Low 08/22/2014 Unclassified Drug AGITATION Low 08/22/2014 antidepressants and antipsychotics Penicillins SEIZURES High 08/22/2014 Current Medications Prescription Sig. Disp. Refills Start End Date Status Date simvastatin (ZOCOR) 20 mg Take 20 mg [...] mg tablet fluticasone (FLONASE) 50 Apply 2 sprays to each Active mcg/actuation nasal spray nostril as directed three times daily. loratadine 10 mg cap Take 10 mg by mouth every Active morning. diphenhydrAMINE Take 50 mg by mouth at Active (BENADRYL) 25 mg bedtime as needed. capsuleIndications: Indications: ALLERGIC ALLERGIC RHINITIS, RHINITIS, INSOMNIA INSOMNIA oxyCODONE SR (OXYCONTIN) Take 15 mg by mouth every Active 40 mg tablet 12 hours bisacodyl (DULCOLAX) 5 mg Take 5 mg by mouth every Active tablet 24 hours as needed for Constipation. oxymetazoline (AFRIN) Apply 2 Sprays to each Active 0.05 % nasal spray nostril as directed twice daily as needed. lubiprostone (AMITIZA) 24 Take 24 mcg by mouth Active mcg capIndications: twice daily as needed. CHRONIC IDIOPATHIC Indications: CHRONIC CONSTIPATION IDIOPATHIC CONSTIPATION baclofen (LIORESAL) 10 mg Take 10 mg by mouth daily Active tablet as needed for Muscle Cramps. furosemide (LASIX) 40 mg Take 40 mg by mouth every Active tablet morning. Docusate Sodium 250 mg Take 500 mg by mouth at Active cap bedtime daily. ALPRAZolam (XANAX) 0.5 mg Take 0.5 mg by mouth Active tabletIndications: daily as needed for ANXIETY Anxiety. Indications: ANXIETY dextromethorphan/guaiFENe Take 30 mL by mouth every Active sin (ROBITUSSIN-DM) 4 hours as needed. 10/100 mg/5 mL syrp oral Indications: COLD syrupIndications: COLD SYMPTOMS, COUGH SYMPTOMS, COUGH acetaminophen (TYLENOL) Take 500 mg by mouth Active 500 mg tablet every 6 hours as needed for Pain. Max of 4,000 mg of acetaminophen in 24 hours. albuterol 0.083% Inhale 1 vial solution by Active (PROVENTIL; VENTOLIN) 2.5 nebulizer as directed mg /3 mL (0.083 %) every 4 hours as needed nebulizer solution for Wheezing or Shortness of Breath. HYDROmorphone (DILAUDID) Take 1-2 tablets by mouth 90 tablet 0 Active 2 mg tablet every 4 hours as needed 17 for Pain ondansetron (ZOFRAN ODT) Dissolve 1 tablet by 30 tablet 0 11/18/19 Active 4 mg rapid dissolve mouth every 6 hours as [address] on tongue to disolve. methocarbamol (ROBAXIN) Take 1 tablet by mouth 90 tablet 0 11/18/19 Active 750 mg tablet three times daily as 17 needed for Spasms. oxybutynin XL (DITROPAN Take 15 mg by mouth Active XL) 15 mg tablet daily. oxyCODONE/acetaminophen Take 1 tablet by mouth Active (PERCOCET; ENDOCET; every 4 hours as needed ROXICET) 5/325 mg tablet for Pain ALPRAZolam (XANAX) 0.5 mg Take by mouth twice 04/17/19 Discontin tablet daily. 1 tablet in the 18 ued morning and 2 tablets at bedtime baclofen (LIORESAL) 10 mg Take 10 mg by mouth twice 04/17/19 Discontin tablet daily. 18 ued oxyCODONE/acetaminophen Take 1 tablet by mouth 04/17/19 Discontin (PERCOCET; ENDOCET) once Indications: half 18 ued 10/325 mg pill tabletIndications: half pill Active Problems Problem Noted Date Lumbar stenosis 11/13/2016 Cervical stenosis of spinal canal 01/15/2015 Spondylosis, cervical 01/15/2015 Resolved Problems Problem Noted Date Resolved Date Cervical stenosis of spine 01/02/2015 04/02/2015 Encounters Date Type Specialty Care Team Description 04/17/2017 Office Visit Neurosurgery Kalie Ding MD Spinal stenosis of lumbar region with neurogenic claudication (Primary Dx) from Last 3 Months Family History Medical History Relation Name Comments Heart problem Daughter Liver Disease Daughter Mental Illness Daughter Cancer Father melanoma Alzheimer's Mother Heart problem Mother Mental Illness Mother Heart problem Sister Mental Illness Sister Heart problem Sister Mental Illness Sister Relation Name Status Comments Daughter Alive Daughter Alive Father (Age 42) Mother Alive Sister Alive Sister Alive Social History Tobacco Use Types Packs/Day Years Used Date Never Smoker Smokeless Tobacco: Never Used Alcohol Use Drinks/Week oz/Week Comments Yes 0 Standard 0.0 infrequent-about 1-3 times per year drinks or equivalent Sex Assigned at Date Recorded Not on file Last Filed Vital Signs Vital Sign Reading Time Taken Blood Pressure 119/79 04/17/2017 9:03 AM TICKET ATTENDANT Pulse 76 04/17/2017 9:03 AM TICKET ATTENDANT Temperature 37.1 C (98.8 F) 12/04/2016 10:12 AM CDT Respiratory Rate 20 10/13/2016 1:02 PM CDT Oxygen Saturation 98% 04/17/2017 9:03 AM TICKET ATTENDANT Inhaled Oxygen - - Concentration Weight 116.1 kg (256 lb) 04/17/2017 9:03 AM TICKET ATTENDANT Height 168.6 cm (5' 6.38") 04/17/2017 9:03 AM TICKET ATTENDANT Body Mass Index 40.85 04/17/2017 9:03 AM TICKET ATTENDANT Plan of Treatment Health Maintenance Due Date Last Done Comments HEPATITIS C SCREENING 1955 PHYSICAL (COMPREHENSIVE) 10/22/1962 EXAM PERTUSSIS VACCINE 10/22/1966 TETANUS VACCINE 10/22/1972 CERVICAL CANCER SCREENING 10/22/1985 BREAST CANCER SCREENING 1995 COLORECTAL CANCER 10/22/2005 SCREENING SHINGLES VACCINE 2015 INFLUENZA VACCINE 10/28/2016 Implants Implanted Type Area Argon Tester Device Expiration Model / Identifier Date Serial / Lot Titanium Screw Bilateral: Neck Results Not on filefrom Last 3 Months
--- OUTSIDE RECORDS SUMMARY | 2017-05-10 07:56 | XMS REPORT | Encounter Summary ---
Author Author [facility] Organization [facility] Address Unknown Phone Unavailable Care Team Providers Care Retail Inventory Control Clerk Name Role Phone Kwasi Rice MD PCP Josei White RN Unavailable Unavailable Mulu Cooper RN Unavailable Unavailable Kalie Ding MD Unavailable Reason for Referral * Consult, Test & Treat Status Reason Specialty Diagnoses / Referred By Referred To Procedures Contact Contact Closed Specialty Diagnoses Kalie Ding [facility] Spinal stenosis ORTHOPEDIC AND Required of lumbar region [address] THERAPY claudication [place] [address] [place] [id number] Phone: Fax: Reason for Visit * Reason Comments Pain Encounter Details Date Type Department Care Team Description 04/17/2017 [facility] Kalie Ding MD Spinal stenosis of lumbar [address] region with neurogenic [address] [place] [address] claudication (Primary Dx) [place] [address] [place] [address] [phone] Social History Tobacco Use Types Packs/Day Years Used Date Never Smoker Smokeless Tobacco: Never Used Alcohol Use Drinks/Week oz/Week Comments Yes 0 Standard 0.0 infrequent-about 1-3 times per year drinks or equivalent Sex Assigned at Date Recorded Not on file as of this encounter Last Filed Vital Signs Vital Sign Reading Time Taken Blood Pressure 119/79 04/17/2017 9:03 AM CLINICAL MARKETING MANAGER Pulse 76 04/17/2017 9:03 AM CLINICAL MARKETING MANAGER Temperature - - Respiratory Rate - - Oxygen Saturation 98% 04/17/2017 9:03 AM CLINICAL MARKETING MANAGER Inhaled Oxygen - - Concentration Weight 116.1 kg (256 lb) 04/17/2017 9:03 AM CLINICAL MARKETING MANAGER Height 168.6 cm (5' 6.38") 04/17/2017 9:03 AM CLINICAL MARKETING MANAGER Body Mass Index 40.85 04/17/2017 9:03 AM CLINICAL MARKETING MANAGER in this encounter Functional Status Functional Status Response Date of Assessment Does the patient have a hearing impairment: No 04/17/2017 Does the patient have a visual impairment: Yes 12/24/2016 Does the patient have impaired ambulation: Yes 04/17/2017 Does the patient have an activity of daily living No 04/17/2017 (ADL) impairment: Does the patient have an instrumental activity of No 04/17/2017 daily living (IADL) impairment: Cognitive Status Response Date of Assessment Does the patient have a cognitive impairment: No 04/17/2017 as of this encounter Progress Notes * Kalie Ding MD - 04/17/2017 10:30 AM CLINICAL MARKETING MANAGER Formatting of this note may be different from the original. Subjective: History of Present Illness Mulu Rawls is a 61 y.o. female. She is here for follow-up. Have not seen her in some time. She says she has been having some issues with low hemoglobin without a clear cause of bleeding or source. She has had multiple transfusions. There is still working her up. She says her legs continue to feel much better than preoperatively although she is having some back pain. Overall she has no energy. Review of Systems Constitutional: Positive for activity change, appetite change and fatigue. HENT: Positive for rhinorrhea, sinus pressure and tinnitus. Eyes: Negative. Respiratory: Positive for shortness of breath and wheezing. Cardiovascular: Negative. Gastrointestinal: Negative. Endocrine: Negative. Genitourinary: Positive for enuresis. Musculoskeletal: Positive for arthralgias, back pain and neck stiffness. Skin: Negative. Allergic/Immunologic: Negative. Neurological: Positive for numbness. Hematological: Negative. Psychiatric/Behavioral: Positive for agitation. The patient is nervous/anxious. Objective: acetaminophen (TYLENOL) 500 mg tablet Take 500 mg by mouth every 6 hours as needed for Pain. Max of 4,000 mg of acetaminophen in 24 hours. albuterol (VENTOLIN HFA, PROAIR HFA) 90 mcg/actuation inhaler Inhale 2 Puffs by mouth every 6 hours as needed for Wheezing. albuterol 0.083% (PROVENTIL; VENTOLIN) 2.5 mg /3 mL (0.083 %) nebulizer solution Inhale 1 vial solution by nebulizer as directed every 4 hours as needed for Wheezing or Shortness of Breath. ALPRAZolam (XANAX) 0.5 mg tablet Take 0.5 mg by mouth daily as needed for Anxiety. Indications: ANXIETY atenolol (TENORMIN) 50 mg tablet Take 50 mg by mouth every morning. baclofen (LIORESAL) 10 mg tablet Take 10 mg by mouth daily as needed for Muscle Cramps. bisacodyl (DULCOLAX) 5 mg tablet Take 5 mg by mouth every 24 hours as needed for Constipation. cloNIDine HCl (CATAPRESS) 0.1 mg tablet Take 0.1 mg by mouth at bedtime daily. dextromethorphan/guaiFENesin (ROBITUSSIN-DM) 10/100 mg/5 mL syrp oral syrup Take 30 mL by mouth every 4 hours as needed. Indications: COLD SYMPTOMS, COUGH diphenhydrAMINE (BENADRYL) 25 mg capsule Take 50 mg by mouth at bedtime as needed. Indications: ALLERGIC RHINITIS, INSOMNIA Docusate Sodium 250 mg cap Take 500 mg by mouth at bedtime daily. fluticasone (FLONASE) 50 mcg/actuation nasal spray Apply 2 sprays to each nostril as directed three times daily. furosemide (LASIX) 40 mg tablet Take 40 mg by mouth every morning. HYDROmorphone (DILAUDID) 2 mg tablet Take 1-2 tablets by mouth every 4 hours as needed for Pain lisinopril/hydrochlorothiazide (ZESTORETIC) 20/12.5 mg tablet 1 Tab Take 1 Tab by mouth daily. loratadine 10 mg cap Take 10 mg by mouth every morning. lubiprostone (AMITIZA) 24 mcg cap Take 24 mcg by mouth twice daily as needed. Indications: CHRONIC IDIOPATHIC CONSTIPATION methocarbamol (ROBAXIN) 750 mg tablet Take 1 tablet by mouth three times daily as needed for Spasms. NIFEdipine SR (PROCARDIA-XL; ADALAT CC) 60 mg tablet Take 60 mg by mouth every morning. ondansetron (ZOFRAN ODT) 4 mg rapid dissolve tablet Dissolve 1 tablet by mouth every [address] on tongue to disolve. oxybutynin XL (DITROPAN XL) 15 mg tablet Take 15 mg by mouth daily. oxyCODONE SR (OXYCONTIN) 40 mg tablet Take 15 mg by mouth every 12 hours oxyCODONE/acetaminophen (PERCOCET; ENDOCET; ROXICET) 5/325 mg tablet Take 1 tablet by mouth every 4 hours as needed for Pain oxymetazoline (AFRIN) 0.05 % nasal spray Apply 2 Sprays to each nostril as directed twice daily as needed. simvastatin (ZOCOR) 20 mg tablet Take 20 mg by mouth at bedtime daily. Vitals: 04/17/17 0903 BP: 119/79 Pulse: 76 SpO2: 98% Weight: 116.1 kg (256 lb) Height: 168.6 cm (66.38") Body mass index is 40.85 kg/(m^2). Physical Exam On examination today in clinic she looks well. She is neurologically intact. Assessment and Plan: I think she is doing well following her lumbar decompression. Think she has some more global issues going on currently however I do think she would benefit from a course of therapy both both for core muscle strengthening as well as overall muscle strengthening. Given her prescription for that while in clinic today. From my perspective she can follow-up on a as needed basis at this point as I think she is done well from a lumbar surgery perspective. in this encounter Plan of Treatment Name Priority Associated Diagnoses Order Schedule AMB REFERRAL TO PHYSICAL OR OCCUPATIONAL Routine Spinal stenosis of lumbar Ordered: 04/17/2017 THERAPY region with neurogenic claudication as of this encounter Visit Diagnoses Diagnosis Spinal stenosis of lumbar region with neurogenic claudication - Primary Spinal stenosis, lumbar region, with neurogenic claudication
--- OUTSIDE RECORDS SUMMARY | 2017-05-10 07:57 | XMS REPORT | Continuity of Care Document ---
Author Author [facility] Address Unknown Phone Unavailable Allergies Active Description Code Type Severity Reaction Onset Reported/Identified Relationship to Patient Clinical Status Yes Penicillins [id number] Drug Allergy Severe ANAPHYLAXIS 08/28/2010 Yes aspirin [id number] Drug Allergy Mild RASH 08/28/2010 Yes codeine [id number] Drug Allergy Mild N/V 08/28/2010 Yes aspirin Drug Allergy N/A N/A 09/17/2010 Yes codeine Drug Allergy N/A N/A 09/17/2010 Yes iodine Drug Allergy N/A N/A 09/17/2010 Yes morphine Drug Allergy N/A N/A 09/17/2010 Yes Penicillins Drug Allergy N/A N/A 09/17/2010 Yes aspirin Drug Allergy 09/17/2010 Yes codeine Drug Allergy 09/17/2010 Yes iodine Drug Allergy 09/17/2010 Yes morphine Drug Allergy 09/17/2010 Yes Penicillins Drug Allergy 09/17/2010 Yes Prozac Drug Allergy N/A N/A 10/17/2010 Yes Wellbutrin Drug Allergy N/A N/A 10/17/2010 Yes Zoloft Drug Allergy N/A N/A 10/17/2010 Yes Prozac Drug Allergy 10/17/2010 Yes Wellbutrin Drug Allergy 10/17/2010 Yes Zoloft Drug Allergy 10/17/2010 Yes lithium Drug Allergy N/A N/A 12/27/2010 Yes lithium Drug Allergy 12/27/2010 Yes Depakote ER Drug Allergy N/A N/A 04/24/2011 Yes Depakote ER Drug Allergy 04/24/2011 Yes Niaspan Extended-Release Drug Allergy N/A N/A 08/14/2011 Yes Niaspan Extended-Release Drug Allergy 08/14/2011 Yes Latuda 80 mg tablet Drug Allergy N/A N/A 04/22/2012 Yes Latuda 80 mg tablet Drug Allergy 04/22/2012 Yes Prolixin 1 mg tablet Drug Allergy N/A N/A 08/12/2012 Yes ANTIDEPRESSANTS ANTIDEPRESSANTS Unknown MAKES SUICIDAL 12/01/2013 Yes iodine [id number] Drug Allergy Unknown RASH 12/01/2013 Yes morphine [id number] Drug Allergy Unknown "MAKES GO OUT" 12/01/2013 Yes acetaminophen [id number] Drug Allergy Unknown N/A 05/12/2016 Yes adhesive tape [id number] Drug Allergy Unknown N/A 05/12/2016 Yes ibuprofen [id number] Drug Allergy Unknown N/A 05/12/2016 Yes niacin [id number] Drug Allergy Unknown N/A 05/12/2016 Yes propoxyphene [id number] Drug Allergy Unknown N/A 05/12/2016 Medications There is no data. Problems Date Dx Coded Attending Type Code Diagnosis Diagnosed By 12/06/2009 MILY MONROE APRN 295.70 P SCHIZO AFFECTIVE 12/06/2009 MILY MONROE APRN 301.83 PD BORDERLINE 12/06/2009 MILY MONROE APRN 309.81 POSTTRAUMATIC STRESS DISORDER 12/06/2009 MILY MONROE APRN 314.00 CD ADHD INATTENTIVE 12/06/2009 MILY MONROE APRN 295.70 P SCHIZO AFFECTIVE 12/06/2009 MILY MONROE APRN 301.83 PD BORDERLINE 12/06/2009 MILY MONROE APRN 309.81 POSTTRAUMATIC STRESS DISORDER 12/06/2009 MILY MONROE APRN 314.00 CD ADHD INATTENTIVE 12/06/2009 295.70 P SCHIZO AFFECTIVE 12/06/2009 301.83 PD BORDERLINE 12/06/2009 309.81 POSTTRAUMATIC STRESS DISORDER 12/06/2009 314.00 CD ADHD INATTENTIVE 12/06/2009 295.70 P SCHIZO AFFECTIVE 12/06/2009 301.83 PD BORDERLINE 12/06/2009 309.81 POSTTRAUMATIC STRESS DISORDER 12/06/2009 314.00 CD ADHD INATTENTIVE 12/06/2009 295.70 P SCHIZO AFFECTIVE 12/06/2009 301.83 PD BORDERLINE 12/06/2009 309.81 POSTTRAUMATIC STRESS DISORDER 12/06/2009 314.00 CD ADHD INATTENTIVE 01/03/2010 MILY MONROE APRN 300.00 AN ANXIETY UNSPEC 01/03/2010 MILY MONROE APRN 301.9 PD PERS DIS NOS 01/03/2010 MILY MONROE APRN 300.00 AN ANXIETY UNSPEC 01/03/2010 MILY MONROE APRN 301.9 PD PERS DIS NOS 01/03/2010 300.00 AN ANXIETY UNSPEC 01/03/2010 301.9 PD PERS DIS NOS 01/03/2010 300.00 AN ANXIETY UNSPEC 01/03/2010 301.9 PD PERS DIS NOS 01/03/2010 300.00 AN ANXIETY UNSPEC 01/03/2010 301.9 PD PERS DIS NOS 03/06/2010 Ot 401.9 03/06/2010 Ot 724.2 03/06/2010 Ot V57.1 03/28/2010 Ot 401.9 03/28/2010 Ot 724.2 03/28/2010 Ot V57.1 08/29/2010 Ot 276.50 VOLUME DEPLETION, UNSPECIFIED 08/29/2010 Ot 401.9 HYPERTENSION NOS 08/29/2010 Ot 530.81 ESOPHAGEAL REFLUX 08/29/2010 Ot 562.10 DIVERTICULOSIS COLON (W/O MENT OF HEMORR 08/29/2010 Ot 584.9 ACUTE RENAL FAILURE, UNSPECIFIED 12/20/2010 MILY MONROE APRN V58.69 MEDICATION HIGH RISK 12/20/2010 MILY MONROE APRN V58.69 MEDICATION HIGH RISK 12/20/2010 V58.69 MEDICATION HIGH RISK 12/20/2010 V58.69 MEDICATION HIGH RISK 12/20/2010 V58.69 MEDICATION HIGH RISK 12/27/2010 Ot 787.01 NAUSEA WITH VOMITING 12/27/2010 Ot 787.91 DIARRHEA 12/27/2010 Ot V58.69 OTH MED,LT, CURRENT USE 07/08/2011 Ot 300.01 PANIC DISORDER WITHOUT AGORAPHOBIA 07/08/2011 Ot 311 DEPRESSIVE DISORDER NEC 07/08/2011 Ot 401.9 HYPERTENSION NOS 07/08/2011 Ot 477.9 ALLERGIC RHINITIS NOS 07/08/2011 Ot 530.81 ESOPHAGEAL REFLUX 07/08/2011 Ot 715.90 OSTEOARTHROS NOS-UNSPEC 07/08/2011 Ot 729.82 CRAMP IN LIMB 07/08/2011 Ot 786.50 CHEST PAIN NOS 07/08/2011 Ot V12.71 PERSONAL HISTORY OF PEPTIC ULCER DISEASE 07/08/2011 Ot V58.69 OTH MED,LT, CURRENT USE 11/06/2011 MILY MONROE APRN 295.63 P SCHIXO RESIDUAL SUBCHRONIC WITH ACUTE EXACERBATION 11/06/2011 MILY MONROE APRN 295.63 P SCHIXO RESIDUAL SUBCHRONIC WITH ACUTE EXACERBATION 11/06/2011 295.63 P SCHIXO RESIDUAL SUBCHRONIC WITH ACUTE EXACERBATION 11/06/2011 295.63 P SCHIXO RESIDUAL SUBCHRONIC WITH ACUTE EXACERBATION 11/06/2011 295.63 P SCHIXO RESIDUAL SUBCHRONIC WITH ACUTE EXACERBATION 11/17/2011 Ot 530.81 ESOPHAGEAL REFLUX 11/17/2011 Ot 786.50 CHEST PAIN NOS 06/07/2012 525.9 tooth pain 06/07/2012 525.9 tooth pain 06/07/2012 525.9 tooth pain 09/14/2012 PIPER XIAO MD Ot 719.45 JOINT PAIN-PELVIS 09/14/2012 PIPER XIAO MD Ot 959.6 HIP THIGH INJURY NOS 09/14/2012 PIPER XIAO MD Ot E000.8 OTHER EXTERNAL CAUSE STATUS 09/14/2012 PIPER XIAO MD Ot E849.0 ACCIDENT IN HOME 09/14/2012 PIPER XIAO MD Ot E885.9 FALL FROM SLIPPING, TRIPPING, OR STUMBLI 09/14/2012 PIPER XIAO MD Ot V57.1 PHYSICAL THERAPY NEC 05/25/2013 SHELBY SOSA DO Ot 401.9 HYPERTENSION NOS 05/25/2013 SHELBY SOSA DO Ot V62.84 SUICIDAL IDEATION 12/01/2013 TERRENCE HORN DO Ot 535.40 OTH SPECIFIED GASTRITIS,W/O MENTION OF H 12/01/2013 TERRENCE HORN DO Ot 553.3 DIAPHRAGMATIC HERNIA 12/15/2014 Ot 719.45 12/15/2014 Ot 786.05 12/15/2014 Ot V72.84 12/15/2014 Ot 719.45 12/15/2014 Ot 959.6 12/15/2014 Ot E000.8 12/15/2014 Ot E849.0 12/15/2014 Ot E888.9 12/15/2014 PIPER XIAO MD Ot 719.46 12/15/2014 PIPER XIAO MD Ot 722.10 12/15/2014 TERRENCE HORN DO Ot V72.84 12/15/2014 NINOSKA FULLER, PIPER Haroldo Ot 724.02 12/15/2014 LY[place] PA, BRANDI K Ot 272.4 12/15/2014 LY[place] PA, BRANDI K Ot 397.0 12/15/2014 LY[place]ES[place] PA, BRANDI K Ot 401.9 12/15/2014 LY[place]ES[place] PA, BRANDI K Ot 416.8 12/15/2014 LY[place]ES[place] PA, BRANDI K Ot 424.0 12/15/2014 LY[place] PA, BRANDI K Ot 786.50 12/15/2014 Ot 719.45 12/15/2014 Ot 786.05 12/15/2014 Ot V72.84 12/15/2014 Ot 719.45 12/15/2014 Ot 959.6 12/15/2014 Ot E000.8 12/15/2014 Ot E849.0 12/15/2014 Ot E888.9 12/15/2014 PIPRE XIAO MD Ot 719.46 12/15/2014 PIPER XIAO MD Ot 722.10 12/15/2014 TERRENCE HORN DO Ot V72.84 12/15/2014 PIPER XIAO MD Ot 724.02 12/15/2014 LYNN[place]JES[place] PA, BRANDI Zarco Ot 272.4 12/15/2014 LY[place] PA, BRANDI K Ot 397.0 12/15/2014 LY[place] PA, BRANDI K Ot 401.9 12/15/2014 L[place] PA, BRANDI K Ot 416.8 12/15/2014 L[place] PA, BRANDI K Ot 424.0 12/15/2014 LYNN-JES[place] PA, BRANDI K Ot 786.50 01/04/2015 JONATHAN FULLER, RIZWAN Mojica Ot 401.9 01/04/2015 JONATHAN FULLER, RIZWAN Mojica Ot 496 01/04/2015 JONATHAN FULLER, RIZWAN Mojica Ot 786.59 01/04/2015 RIZWAN CASTILLO MD Ot V45.89 01/10/2015 RIZWAN CASTILLO MD Ot 401.9 01/10/2015 RIZWAN CASTILLO MD Ot 496 01/10/2015 RIZWAN CASTILLO MD Ot 786.59 01/10/2015 RIZWAN CASTILLO MD Ot V45.89 05/21/2015 Ot 786.05 05/21/2015 Ot V72.84 05/21/2015 Ot 719.45 05/21/2015 Ot 959.6 05/21/2015 Ot E000.8 05/21/2015 Ot E849.0 05/21/2015 Ot E888.9 05/21/2015 PIPER XIAO MD Ot 719.46 05/21/2015 PIPER XIAO MD Ot 722.10 05/21/2015 TERRENCE HORN DO Ot V72.84 05/21/2015 PIPER XIAO MD Ot 724.02 05/21/2015 BRANDI RAMOS Ot 272.4 05/21/2015 BRANDI RAMOS Ot 397.0 05/21/2015 BRANDI RAMOS Ot 401.9 05/21/2015 BRANDI RAMOS Ot 416.8 05/21/2015 ROMELIA SALDANA, BRANDI K Ot 424.0 05/21/2015 BRANDI RAMOS K Ot 786.50 05/21/2015 RIZWAN CASTILLO MD Ot 401.9 05/21/2015 RIZWAN CASTILLO MD Ot 496 05/21/2015 RIZWAN CASTILLO MD Ot 786.59 05/21/2015 RIZWAN CASTILLO MD Ot V45.89 05/21/2015 LEANN ARMENTA MD Ot M47.816 SPONDYLOSIS W/O MYELOPATHY OR RADICULOPA 05/21/2015 LEANN ARMENTA MD Ot M53.3 SACROCOCCYGEAL DISORDERS, NOT ELSEWHERE 05/21/2015 LEANN ARMENTA MD Ot Z79.899 OTHER LONG-TERM (CURRENT) DRUG THERAPY 06/25/2015 Ot 786.05 06/25/2015 Ot V72.84 06/25/2015 Ot 719.45 06/25/2015 Ot 959.6 06/25/2015 Ot E000.8 06/25/2015 Ot E849.0 06/25/2015 Ot E888.9 06/25/2015 PIPER XIAO MD Ot 719.46 06/25/2015 PIPER XIAO MD Ot 722.10 06/25/2015 TERRENCE HORN DO Ot V72.84 06/25/2015 PIPER XIAO MD Ot 724.02 06/25/2015 ROMELIA SALDANA, BRANDI K Ot 272.4 06/25/2015 ROMELIA SALDANA, BRANDI K Ot 397.0 06/25/2015 ROMELIA SALDANA, BRANDI K Ot 401.9 06/25/2015 ROMELIA PA, BRANDI K Ot 416.8 06/25/2015 ROMELIA PA, BRANDI K Ot 424.0 06/25/2015 ROMELIA SALDANA, BRANDI K Ot 786.50 06/25/2015 JONATHAN FULLER, RIZWAN Mojica Ot 401.9 06/25/2015 RIZWAN CASTILLO MD Ot 496 06/25/2015 RIZWAN CASTILLO MD Ot 786.59 06/25/2015 RIZWAN CASTILLO MD Ot V45.89 06/25/2015 LEANN ARMENTA MD Ot M47.816 SPONDYLOSIS W/O MYELOPATHY OR RADICULOPA 06/25/2015 LEANN ARMENTA MD Ot M53.3 SACROCOCCYGEAL DISORDERS, NOT ELSEWHERE 06/25/2015 LEANN ARMENTA MD Ot Z79.899 OTHER LONG-TERM (CURRENT) DRUG THERAPY 07/03/2015 LEANN ARMENTA MD Ot M47.816 07/03/2015 LEANN ARMENTA MD Ot M53.3 07/03/2015 LEANN ARMENTA MD Ot Z79.899 10/05/2015 Ot 786.05 SHORTNESS OF BREATH 10/05/2015 Ot V72.84 EXAM PRE- OPERATIVE NOS 10/05/2015 Ot 719.45 JOINT PAIN- PELVIS 10/05/2015 Ot 959.6 HIP THIGH INJURY NOS 10/05/2015 Ot E000.8 OTHER EXTERNAL CAUSE STATUS 10/05/2015 Ot E849.0 ACCIDENT IN HOME 10/05/2015 Ot E888.9 FALL NOS 10/05/2015 PIPER XIAO MD Ot 719.46 JOINT PAIN-L/LEG 10/05/2015 PIPER XIAO MD Ot 722.10 LUMBAR DISC DISPLACEMENT 10/05/2015 TERRENCE HORN DO Ot V72.84 EXAM PRE-OPERATIVE NOS 10/05/2015 NINOSKA FULLER, PIPER Zarco Ot 724.02 SPINAL STENOSIS, LUMBAR REG, W/OUT NEURO 10/05/2015 BRANDI RAMOS Ot 272.4 HYPERLIPIDEMIA NEC/NOS 10/05/2015 BRANDI RAMOS Ot 397.0 TRICUSPID VALVE DISEASE 10/05/2015 BRANDI RAMOS Ot 401.9 HYPERTENSION NOS 10/05/2015 BRANDI RAMOS Ot 416.8 CHR PULMON HEART DIS NEC 10/05/2015 BRANDI RAMOS Ot 424.0 MITRAL VALVE DISORDER 10/05/2015 BRANDI RAMOS Ot 786.50 CHEST PAIN NOS 10/05/2015 JONATHAN FULLER, RIZWAN Mojica Ot 401.9 HYPERTENSION NOS 10/05/2015 RIZWAN CASTILLO MD Ot 496 CHR AIRWAY OBSTRUCT NEC 10/05/2015 RIZWAN CASTILLO MD Ot 786.59 CHEST PAIN NEC 10/05/2015 RIZWAN CASTILLO MD Ot V45.89 POSTSURGICAL STATES NEC 10/05/2015 LEANN AMRENTA MD Ot M47.816 SPONDYLOSIS W/O MYELOPATHY OR RADICULOPA 10/05/2015 LEANN ARMENTA MD Ot M53.3 SACROCOCCYGEAL DISORDERS, NOT ELSEWHERE 10/31/2015 LEANN ARMENTA MD, Ot M47.816 SPONDYLOSIS W/O MYELOPATHY OR RADICULOPA 10/31/2015 LEANN ARMENTA MD, Ot M53.3 SACROCOCCYGEAL DISORDERS, NOT ELSEWHERE 11/23/2015 LEANN ARMENTA MD Ot M47.816 SPONDYLOSIS W/O MYELOPATHY OR RADICULOPA 11/23/2015 LEANN ARMENTA MD, Ot M53.3 SACROCOCCYGEAL DISORDERS, NOT ELSEWHERE 11/23/2015 LEANN ARMENTA MD Ot Z79.899 OTHER LONG-TERM (CURRENT) DRUG THERAPY 01/03/2016 Ot 786.05 SHORTNESS OF BREATH 01/03/2016 Ot V72.84 EXAM PRE- OPERATIVE NOS 01/03/2016 Ot 719.45 JOINT PAIN- PELVIS 01/03/2016 Ot 959.6 HIP THIGH INJURY NOS 01/03/2016 Ot E000.8 OTHER EXTERNAL CAUSE STATUS 01/03/2016 Ot E849.0 ACCIDENT IN HOME 01/03/2016 Ot E888.9 FALL NOS 01/03/2016 PIPER XIAO MD Ot 719.46 JOINT PAIN-L/LEG 01/03/2016 PIPER XAIO MD Ot 722.10 LUMBAR DISC DISPLACEMENT 01/03/2016 TERRENCE HORN DO Ot V72.84 EXAM PRE-OPERATIVE NOS 01/03/2016 PIPER XIAO MD Ot 724.02 SPINAL STENOSIS, LUMBAR REG, W/OUT NEURO 01/03/2016 BRANDI RAMOS Ot 272.4 HYPERLIPIDEMIA NEC/NOS 01/03/2016 BRANDI RAMOS Ot 397.0 TRICUSPID VALVE DISEASE 01/03/2016 BRANDI RAMOS Ot 401.9 HYPERTENSION NOS 01/03/2016 BRANDI RAMOS Ot 416.8 CHR PULMON HEART DIS NEC 01/03/2016 BRANDI RAMOS Ot 424.0 MITRAL VALVE DISORDER 01/03/2016 BRANDI RAMOS Ot 786.50 CHEST PAIN NOS 01/03/2016 RIZWAN CASTILLO MD Ot 401.9 HYPERTENSION NOS 01/03/2016 JONATHAN FULLER, RIZWAN Mojica Ot 496 CHR AIRWAY OBSTRUCT NEC 01/03/2016 RIZWAN CASTILLO MD Ot 786.59 CHEST PAIN NEC 01/03/2016 RIZWAN CASTILLO MD Ot V45.89 POSTSURGICAL STATES NEC 01/04/2016 LEANN ARMENTA MD Ot M25.551 PAIN IN RIGHT HIP 01/04/2016 LEANN ARMENTA MD Ot M48.06 SPINAL STENOSIS, LUMBAR REGION 01/04/2016 LEANN ARMENTA MD Ot M51.25 OTHER INTERVERTEBRAL DISC DISPLACEMENT, 01/04/2016 LEANN ARMENTA MD Ot M51.26 OTHER INTERVERTEBRAL DISC DISPLACEMENT, 01/09/2016 LEANN ARMENTA MD Ot M25.551 PAIN IN RIGHT HIP 01/09/2016 LEANN ARMENTA MD Ot M48.06 SPINAL STENOSIS, LUMBAR REGION 01/09/2016 LEANN ARMENTA MD Ot M51.25 OTHER INTERVERTEBRAL DISC DISPLACEMENT, 01/09/2016 LEANN ARMENTA MD Ot M51.26 OTHER INTERVERTEBRAL DISC DISPLACEMENT, 01/28/2016 LEANN ARMENTA MD Ot M25.551 PAIN IN RIGHT HIP 01/28/2016 LEANN ARMENTA MD Ot M48.06 SPINAL STENOSIS, LUMBAR REGION 01/28/2016 LEANN ARMENTA MD Ot M51.25 OTHER INTERVERTEBRAL DISC DISPLACEMENT, 01/28/2016 LEANN ARMENTA MD Ot M51.26 OTHER INTERVERTEBRAL DISC DISPLACEMENT, 02/08/2016 Ot 786.05 SHORTNESS OF BREATH 02/08/2016 Ot V72.84 EXAM PRE- OPERATIVE NOS 02/08/2016 Ot 719.45 JOINT PAIN- PELVIS 02/08/2016 Ot 959.6 HIP THIGH INJURY NOS 02/08/2016 Ot E000.8 OTHER EXTERNAL CAUSE STATUS 02/08/2016 Ot E849.0 ACCIDENT IN HOME 02/08/2016 Ot E888.9 FALL NOS 02/08/2016 PIPER XIAO MD Ot 719.46 JOINT PAIN-L/LEG 02/08/2016 PIPER XIAO MD Ot 722.10 LUMBAR DISC DISPLACEMENT 02/08/2016 TERRENCE HORN DO Ot V72.84 EXAM PRE-OPERATIVE NOS 02/08/2016 PIPER XIAO MD Ot 724.02 SPINAL STENOSIS, LUMBAR REG, W/OUT NEURO 02/08/2016 BRANDI RAMOS Ot 272.4 HYPERLIPIDEMIA NEC/NOS 02/08/2016 BRANDI RAMOS Ot 397.0 TRICUSPID VALVE DISEASE 02/08/2016 BRANDI RAMOS Ot 401.9 HYPERTENSION NOS 02/08/2016 BRANDI RAMOS Ot 416.8 CHR PULMON HEART DIS NEC 02/08/2016 BRANDI RAMOS Ot 424.0 MITRAL VALVE DISORDER 02/08/2016 BRANDI RAMOS Ot 786.50 CHEST PAIN NOS 02/08/2016 RIZWAN CASTILLO MD Ot 401.9 HYPERTENSION NOS 02/08/2016 RIZWAN CASTILLO MD Ot 496 CHR AIRWAY OBSTRUCT NEC 02/08/2016 RIZWAN CASTILLO MD Ot 786.59 CHEST PAIN NEC 02/08/2016 RIZWAN CASTILLO MD Ot V45.89 POSTSURGICAL STATES NEC 02/08/2016 LEANN ARMENTA MD Ot M25.551 PAIN IN RIGHT HIP 02/08/2016 LEANN ARMENTA MD Ot M48.06 SPINAL STENOSIS, LUMBAR REGION 02/08/2016 LEANN ARMENTA MD Ot M51.25 OTHER INTERVERTEBRAL DISC DISPLACEMENT, 02/08/2016 LEANN ARMENTA MD Ot M51.26 OTHER INTERVERTEBRAL DISC DISPLACEMENT, 02/08/2016 Ot 786.05 SHORTNESS OF BREATH 02/08/2016 Ot V72.84 EXAM PRE- OPERATIVE NOS 02/08/2016 Ot 719.45 JOINT PAIN- PELVIS 02/08/2016 Ot 959.6 HIP THIGH INJURY NOS 02/08/2016 Ot E000.8 OTHER EXTERNAL CAUSE STATUS 02/08/2016 Ot E849.0 ACCIDENT IN HOME 02/08/2016 Ot E888.9 FALL NOS 02/08/2016 PIPER XIAO MD Ot 719.46 JOINT PAIN-L/LEG 02/08/2016 PIPER XIAO MD Ot 722.10 LUMBAR DISC DISPLACEMENT 02/08/2016 TERRENCE HORN DO Ot V72.84 EXAM PRE-OPERATIVE NOS 02/08/2016 PIPER XIAO MD Ot 724.02 SPINAL STENOSIS, LUMBAR REG, W/OUT NEURO 02/08/2016 BRANDI RAMOS Ot 272.4 HYPERLIPIDEMIA NEC/NOS 02/08/2016 BRANDI RAMOS Ot 397.0 TRICUSPID VALVE DISEASE 02/08/2016 BRANDI RAMOS Ot 401.9 HYPERTENSION NOS 02/08/2016 BRANDI RAMOS Ot 416.8 CHR PULMON HEART DIS NEC 02/08/2016 BRANDI RAMOS Ot 424.0 MITRAL VALVE DISORDER 02/08/2016 BRANDI RAMOS Ot 786.50 CHEST PAIN NOS 02/08/2016 RIZWAN CASTILLO MD Ot 401.9 HYPERTENSION NOS 02/08/2016 RIZWAN CASTILLO MD Ot 496 CHR AIRWAY OBSTRUCT NEC 02/08/2016 RIZWAN CASTILLO MD Ot 786.59 CHEST PAIN NEC 02/08/2016 RIZWAN CASTILLO MD Ot V45.89 POSTSURGICAL STATES NEC 02/08/2016 LEANN ARMENTA MD Ot M25.551 PAIN IN RIGHT HIP 02/08/2016 LEANN ARMENTA MD Ot M48.06 SPINAL STENOSIS, LUMBAR REGION 02/08/2016 LEANN ARMENTA MD Ot M51.25 OTHER INTERVERTEBRAL DISC DISPLACEMENT, 02/08/2016 LEANN ARMENTA MD Ot M51.26 OTHER INTERVERTEBRAL DISC DISPLACEMENT, 02/08/2016 LEANN ARMENTA MD Ot M47.816 SPONDYLOSIS W/O MYELOPATHY OR RADICULOPA 02/08/2016 LENAN ARMENTA MD Ot M48.06 SPINAL STENOSIS, LUMBAR REGION 02/08/2016 LEANN ARMENTA MD Ot M51.16 INTERVERTEBRAL DISC DISORDERS W RADICULO 02/08/2016 LEANN ARMENTA MD Ot M53.3 SACROCOCCYGEAL DISORDERS, NOT ELSEWHERE 02/08/2016 LEANN ARMENTA MD Ot M54.5 LOW BACK PAIN 02/13/2016 LEANN ARMENTA MD Ot M25.551 PAIN IN RIGHT HIP 02/13/2016 LEANN ARMENTA MD Ot M48.06 SPINAL STENOSIS, LUMBAR REGION 02/13/2016 LEANN ARMENTA MD Ot M51.25 OTHER INTERVERTEBRAL DISC DISPLACEMENT, 02/13/2016 LEANN ARMENTA MD Ot M51.26 OTHER INTERVERTEBRAL DISC DISPLACEMENT, 03/04/2016 RIZWAN CASTILLO MD Ot E78.2 MIXED HYPERLIPIDEMIA 03/04/2016 RIZWAN CASTILLO MD Ot F32.9 MAJOR DEPRESSIVE DISORDER, SINGLE EPISOD 03/04/2016 RIZWAN CASTILLO MD Ot F41.9 ANXIETY DISORDER, UNSPECIFIED 03/04/2016 RIZWAN CASTILLO MD Ot I27.2 OTHER SECONDARY PULMONARY HYPERTENSION 03/04/2016 RIZWAN CASTILLO MD Ot J44.9 CHRONIC OBSTRUCTIVE PULMONARY DISEASE, U 03/04/2016 RIZWAN CASTILLO MD Ot R00.2 PALPITATIONS 03/04/2016 RIZWAN CASTILLO MD Ot R53.83 OTHER FATIGUE 03/04/2016 RIZWAN CASTILLO MD Ot E78.2 MIXED HYPERLIPIDEMIA 03/04/2016 RIZWAN CASTILLO MD Ot F32.9 MAJOR DEPRESSIVE DISORDER, SINGLE EPISOD 03/04/2016 RIZWAN CASTILLO MD Ot F41.9 ANXIETY DISORDER, UNSPECIFIED 03/04/2016 RIZWAN CASTILLO MD Ot I27.2 OTHER SECONDARY PULMONARY HYPERTENSION 03/04/2016 RIZWAN CASTILLO MD Ot J44.9 CHRONIC OBSTRUCTIVE PULMONARY DISEASE, U 03/04/2016 RIZWAN CASTILLO MD Ot R00.2 PALPITATIONS 03/04/2016 RIZWAN CASTILLO MD Ot R53.83 OTHER FATIGUE 03/06/2016 RIZWAN CASTILLO MD Ot E78.2 MIXED HYPERLIPIDEMIA 03/06/2016 RIZWAN CASTILLO MD Ot F32.9 MAJOR DEPRESSIVE DISORDER, SINGLE EPISOD 03/06/2016 RIZWAN CASTILLO MD Ot F41.9 ANXIETY DISORDER, UNSPECIFIED 03/06/2016 RIZWAN CASTILLO MD Ot I27.2 OTHER SECONDARY PULMONARY HYPERTENSION 03/06/2016 RIZWAN CASTILLO MD Ot J44.9 CHRONIC OBSTRUCTIVE PULMONARY DISEASE, U 03/06/2016 RIZWAN CASTILLO MD Ot R00.2 PALPITATIONS 03/06/2016 RIZWAN CASTILLO MD Ot R53.83 OTHER FATIGUE 03/09/2016 RIZWAN CASTILLO MD Ot E78.2 MIXED HYPERLIPIDEMIA 03/09/2016 RIZWAN CASTILLO MD Ot F32.9 MAJOR DEPRESSIVE DISORDER, SINGLE EPISOD 03/09/2016 RIZWAN CASTILLO MD Ot F41.9 ANXIETY DISORDER, UNSPECIFIED 03/09/2016 RIZWAN CASTILLO MD Ot I27.2 OTHER SECONDARY PULMONARY HYPERTENSION 03/09/2016 RIZWAN CASTILLO MD Ot J44.9 CHRONIC OBSTRUCTIVE PULMONARY DISEASE, U 03/09/2016 RIZWAN CASTILLO MD Ot R00.2 PALPITATIONS 03/09/2016 RIZWAN CASTILLO MD Ot R53.83 OTHER FATIGUE 03/13/2016 LEANN ARMENTA MD Ot M47.816 SPONDYLOSIS W/O MYELOPATHY OR RADICULOPA 03/13/2016 LEANN ARMENTA MD Ot M48.06 SPINAL STENOSIS, LUMBAR REGION 03/13/2016 LEANN ARMENTA MD Ot M51.16 INTERVERTEBRAL DISC DISORDERS W RADICULO 03/13/2016 LEANN ARMENTA MD Ot M53.3 SACROCOCCYGEAL DISORDERS, NOT ELSEWHERE 03/13/2016 LEANN ARMENTA MD Ot M54.5 LOW BACK PAIN 03/14/2016 LEANN ARMENTA MD Ot M51.16 INTERVERTEBRAL DISC DISORDERS W RADICULO 03/27/2016 RIZWAN CASTILLO MD Ot E78.2 MIXED HYPERLIPIDEMIA 03/27/2016 RIZWAN CASTILLO MD Ot F32.9 MAJOR DEPRESSIVE DISORDER, SINGLE EPISOD 03/27/2016 RIZWAN CASTILLO MD Ot F41.9 ANXIETY DISORDER, UNSPECIFIED 03/27/2016 RIZWAN CASTILLO MD Ot I27.2 OTHER SECONDARY PULMONARY HYPERTENSION 03/27/2016 RIZWAN CASTILLO MD Ot J44.9 CHRONIC OBSTRUCTIVE PULMONARY DISEASE, U 03/27/2016 RIZWAN CASTILLO MD Ot R00.2 PALPITATIONS 03/27/2016 RIZWAN CASTILLO MD Ot R53.83 OTHER FATIGUE 04/02/2016 LEANN ARMENTA MD Ot M51.16 INTERVERTEBRAL DISC DISORDERS W RADICULO 04/03/2016 RIZWAN CASTILLO MD Ot E78.2 MIXED HYPERLIPIDEMIA 04/03/2016 RIZWAN CASTILLO MD Ot F32.9 MAJOR DEPRESSIVE DISORDER, SINGLE EPISOD 04/03/2016 RIZWAN CASTILLO MD Ot F41.9 ANXIETY DISORDER, UNSPECIFIED 04/03/2016 RIZWAN CASTILLO MD Ot I27.2 OTHER SECONDARY PULMONARY HYPERTENSION 04/03/2016 RIZWAN CASTILLO MD Ot J44.9 CHRONIC OBSTRUCTIVE PULMONARY DISEASE, U 04/03/2016 RIZWAN CASTILLO MD Ot R00.2 PALPITATIONS 04/03/2016 RIZWAN CASTILLO MD Ot R53.83 OTHER FATIGUE 05/12/2016 DARYN GAMEZ Ot E05.90 THYROTOXICOSIS, UNSP WITHOUT THYROTOXIC 05/12/2016 DARYN GAMEZ Ot E86.9 VOLUME DEPLETION, UNSPECIFIED 05/12/2016 DARYN GAMEZ Ot J44.9 CHRONIC OBSTRUCTIVE PULMONARY DISEASE, U 05/12/2016 DARYN GAMEZ Ot R42 DIZZINESS AND GIDDINESS 05/12/2016 DARYN GAMEZ Ot T48.205A ADVERSE EFFECT OF UNSP DRUGS ACTING ON M 05/12/2016 DARYN GAMEZ Ot Z79.899 OTHER LONG-TERM (CURRENT) DRUG THERAPY 09/10/2016 Ot 786.05 SHORTNESS OF BREATH 09/10/2016 Ot V72.84 EXAM PRE- OPERATIVE NOS 09/10/2016 Ot 719.45 JOINT PAIN- PELVIS 09/10/2016 Ot 959.6 HIP THIGH INJURY NOS 09/10/2016 Ot E000.8 OTHER EXTERNAL CAUSE STATUS 09/10/2016 Ot E849.0 ACCIDENT IN HOME 09/10/2016 Ot E888.9 FALL NOS 09/10/2016 PIPER XIAO MD Ot 719.46 JOINT PAIN-L/LEG 09/10/2016 PIPER XIAO MD Ot 722.10 LUMBAR DISC DISPLACEMENT 09/10/2016 TERRENCE HORN DO Ot V72.84 EXAM PRE-OPERATIVE NOS 09/10/2016 PIPER XIAO MD Ot 724.02 SPINAL STENOSIS, LUMBAR REG, W/OUT NEURO 09/10/2016 BRANDI RAMOS Ot 272.4 HYPERLIPIDEMIA NEC/NOS 09/10/2016 BRANDI RAMOS Ot 397.0 TRICUSPID VALVE DISEASE 09/10/2016 BRANDI RAMOS Ot 401.9 HYPERTENSION NOS 09/10/2016 BRANDI RAMOS Ot 416.8 CHR PULMON HEART DIS NEC 09/10/2016 BRANDI RAMOS Ot 424.0 MITRAL VALVE DISORDER 09/10/2016 BRANDI RAMOS Ot 786.50 CHEST PAIN NOS 09/10/2016 RIZWAN CASTILLO MD Ot 401.9 HYPERTENSION NOS 09/10/2016 RIZWAN CASTILLO MD Ot 496 CHR AIRWAY OBSTRUCT NEC 09/10/2016 RIZWAN CASTILLO MD Ot 786.59 CHEST PAIN NEC 09/10/2016 RIZWAN CASTILLO MD Ot V45.89 POSTSURGICAL STATES NEC 09/10/2016 RIZWAN CASTILLO MD Ot E78.2 MIXED HYPERLIPIDEMIA 09/10/2016 RIZWAN CASTILLO MD Ot F32.9 MAJOR DEPRESSIVE DISORDER, SINGLE EPISOD 09/10/2016 RIZWAN CASTILLO MD Ot F41.9 ANXIETY DISORDER, UNSPECIFIED 09/10/2016 RIZWAN CASTILLO MD Ot I27.2 OTHER SECONDARY PULMONARY HYPERTENSION 09/10/2016 RIZWAN CASTILLO MD Ot J44.9 CHRONIC OBSTRUCTIVE PULMONARY DISEASE, U 09/10/2016 RIZWAN CASTILLO MD Ot R00.2 PALPITATIONS 09/10/2016 RIZWAN CASTILLO MD Ot R53.83 OTHER FATIGUE 09/10/2016 KATHI FULLER, LEANN Mojica Ot M25.551 PAIN IN RIGHT HIP 09/10/2016 LEANN ARMENTA MD Ot M48.06 SPINAL STENOSIS, LUMBAR REGION 09/10/2016 LEANN ARMENTA MD Ot M51.25 OTHER INTERVERTEBRAL DISC DISPLACEMENT, 09/10/2016 LEANN ARMENTA MD Ot M51.26 OTHER INTERVERTEBRAL DISC DISPLACEMENT, 09/17/2016 PIPER XIAO MD Ot J44.9 CHRONIC OBSTRUCTIVE PULMONARY DISEASE, U 09/17/2016 PIPER XIAO MD Ot J44.9 CHRONIC OBSTRUCTIVE PULMONARY DISEASE, U 09/17/2016 PIPER XIAO MD Ot J44.9 CHRONIC OBSTRUCTIVE PULMONARY DISEASE, U 10/16/2016 PIPER XIAO MD Ot R22.42 LOCALIZED SWELLING, MASS AND LUMP, LEFT 11/06/2016 PIPER XIAO MD Ot R22.42 LOCALIZED SWELLING, MASS AND LUMP, LEFT 11/11/2016 PIPER XIAO MD Ot R22.42 LOCALIZED SWELLING, MASS AND LUMP, LEFT 11/24/2016 PIPER XIAO MD Ot J44.9 CHRONIC OBSTRUCTIVE PULMONARY DISEASE, U 12/04/2016 PIPER XIAO MD Ot J44.9 CHRONIC OBSTRUCTIVE PULMONARY DISEASE, U 02/17/2017 LISSETT GOMES MD Ot D50.9 IRON DEFICIENCY ANEMIA, UNSPECIFIED 02/17/2017 LISSETT GOMES MD Ot Z88.0 ALLERGY STATUS TO PENICILLIN 02/17/2017 LISSETT GOMES MD Ot Z88.5 ALLERGY STATUS TO NARCOTIC AGENT STATUS 02/17/2017 LISSETT GOMES MD R Ot Z88.6 ALLERGY STATUS TO ANALGESIC AGENT STATUS 02/18/2017 LISSETT GOMES MD Ot D50.9 IRON DEFICIENCY ANEMIA, UNSPECIFIED 02/18/2017 LISSETT GOMES MD Ot Z88.0 ALLERGY STATUS TO PENICILLIN 02/18/2017 LISSETT GOMES MD Ot Z88.5 ALLERGY STATUS TO NARCOTIC AGENT STATUS 02/18/2017 LISSETT GOMES MD Ot Z88.6 ALLERGY STATUS TO ANALGESIC AGENT STATUS 02/20/2017 LISSETT GOMES MD Ot D50.9 IRON DEFICIENCY ANEMIA, UNSPECIFIED 02/20/2017 LISSETT GOMES MD Ot Z88.0 ALLERGY STATUS TO PENICILLIN 02/20/2017 KHALID MD, LISSETT R Ot Z88.5 ALLERGY STATUS TO NARCOTIC AGENT STATUS 02/20/2017 LISSETT GOMES MD R Ot Z88.6 ALLERGY STATUS TO ANALGESIC AGENT STATUS 02/20/2017 LISSETT GOMES MD R Ot D50.9 IRON DEFICIENCY ANEMIA, UNSPECIFIED 02/20/2017 LISSETT GOMES MD R Ot Z88.0 ALLERGY STATUS TO PENICILLIN 02/20/2017 LISSETT GOMES MD R Ot Z88.5 ALLERGY STATUS TO NARCOTIC AGENT STATUS 02/20/2017 LISSETT GMOES MD R Ot Z88.6 ALLERGY STATUS TO ANALGESIC AGENT STATUS 03/24/2017 LISSETT GOMES MD Ot D50.9 IRON DEFICIENCY ANEMIA, UNSPECIFIED 03/24/2017 LISSETT GOMES MD Ot Z88.0 ALLERGY STATUS TO PENICILLIN 03/24/2017 LISSETT GOMES MD R Ot Z88.5 ALLERGY STATUS TO NARCOTIC AGENT STATUS 03/24/2017 LISSETT GOMES MD R Ot Z88.6 ALLERGY STATUS TO ANALGESIC AGENT STATUS 03/27/2017 LISSETT GOMES MD Ot D50.9 IRON DEFICIENCY ANEMIA, UNSPECIFIED 03/27/2017 LISSETT GOMES MD Ot Z88.0 ALLERGY STATUS TO PENICILLIN 03/27/2017 LISSETT GOMES MD R Ot Z88.5 ALLERGY STATUS TO NARCOTIC AGENT STATUS 03/27/2017 LISSETT GOMES MD R Ot Z88.6 ALLERGY STATUS TO ANALGESIC AGENT STATUS Procedures Code Description Performed By Performed On 45.16 08/28/2010 45.23 08/28/2010 Results Test Result Range Complete blood count (CBC) with automated white blood cell (WBC) differential - 05/12/16 15:17 Blood leukocytes automated count (number/volume) 12.7 10*3/uL 4.3-11.0 Blood erythrocytes automated count (number/volume) 4.86 10*6/uL 4.35-5.85 Venous blood hemoglobin measurement (mass/volume) 13.5 g/dL 11.5-16.0 Blood hematocrit (volume fraction) 42 % 35-52 Automated erythrocyte mean corpuscular volume 86 [foz_us] 80-99 Automated erythrocyte mean corpuscular hemoglobin (mass per erythrocyte) 28 pg 25-34 Automated erythrocyte mean corpuscular hemoglobin concentration measurement ( mass/volume) 32 g/dL 32-36 Automated erythrocyte distribution width ratio 15.0 % 10.0-14.5 Automated blood platelet count (count/volume) 331 10*3/uL 130-400 Automated blood platelet mean volume measurement 12.0 [foz_us] 7.4-10.4 Automated blood neutrophils/100 leukocytes 57 % 42-75 Automated blood lymphocytes/100 leukocytes 33 % 12-44 Blood monocytes/100 leukocytes 9 % 0-12 Automated blood eosinophils/100 leukocytes 2 % 0-10 Automated blood basophils/100 leukocytes 0 % 0-10 Blood neutrophils automated count (number/volume) 7.2 10*3 1.8-7.8 Blood lymphocytes automated count (number/volume) 4.1 10*3 1.0-4.0 Blood monocytes automated count (number/volume) 1.1 10*3 0.0-1.0 Automated eosinophil count 0.2 10*3/uL 0.0-0.3 Automated blood basophil count (count/volume) 0.0 10*3/uL 0.0-0.1 Comprehensive metabolic panel - 05/12/16 15:17 Serum or plasma sodium measurement (moles/volume) 141 mmol/L 135-145 Serum or plasma potassium measurement (moles/volume) 4.0 mmol/L 3.6-5.0 Serum or plasma chloride measurement (moles/volume) 101 mmol/L 98-107 Carbon dioxide 26 mmol/L 21-32 Serum or plasma anion gap determination (moles/volume) 14 mmol/L 5-14 Serum or plasma urea nitrogen measurement (mass/volume) 23 mg/dL 7-18 Serum or plasma creatinine measurement (mass/volume) 1.47 mg/dL 0.60-1.30 Serum or plasma urea nitrogen/creatinine mass ratio 16 NRG Serum or plasma creatinine measurement with calculation of estimated glomerular filtration rate 36 NRG Serum or plasma glucose measurement (mass/volume) 114 mg/dL 70-105 Serum or plasma calcium measurement (mass/volume) 9.6 mg/dL 8.5-10.1 Serum or plasma total bilirubin measurement (mass/volume) 0.3 mg/dL 0.1-1.0 Serum or plasma alkaline phosphatase measurement (enzymatic activity/volume) 94 U/L 40-136 Serum or plasma aspartate aminotransferase measurement (enzymatic activity/ volume) 25 U/L 5-34 Serum or plasma alanine aminotransferase measurement (enzymatic activity/volume ) 23 U/L 0-55 Serum or plasma protein measurement (mass/volume) 7.9 g/dL 6.4-8.2 Serum or plasma albumin measurement (mass/volume) 4.0 g/dL 3.2-4.5 Magnesium - 05/12/16 15:17 Magnesium 2.4 mg/dL 1.8-2.4 Serum or plasma thyroxine (T4) free measurement (mass/volume) - 05/12/16 15:17 Serum or plasma thyroxine (T4) free measurement (mass/volume) 0.98 ng/dL 0.70-1.48 Serum or plasma thyrotropin measurement by detection limit <=0.05 miu/l (units/ volume) - 05/12/16 15:17 Serum or plasma thyrotropin measurement by detection limit <=0.05 miu/l (units/ volume) 0.14 u[iU]/mL 0.35-4.94 Serum or plasma ethanol measurement (mass/volume) - 05/12/16 15:17 Serum or plasma ethanol measurement (mass/volume) < mg/dL <10 Capillary blood glucose measurement by glucometer (mass/volume) - 05/12/16 15: 20 Capillary blood glucose measurement by glucometer (mass/volume) 117 mg/dL 70-110 Complete urinalysis with reflex to culture - 05/12/16 17:18 Urine color determination YELLOW NRG Urine clarity determination CLEAR NRG Urine pH measurement by test strip 6 5-9 Specific gravity of urine by test strip 1.010 1.016- 1.022 Urine protein assay by test strip, semi-quantitative NEGATIVE NEGATIVE Urine glucose detection by automated test strip NEGATIVE NEGATIVE Erythrocytes detection in urine sediment by light microscopy NEGATIVE NEGATIVE Urine ketones detection by automated test strip NEGATIVE NEGATIVE Urine nitrite detection by test strip NEGATIVE NEGATIVE Urine total bilirubin detection by test strip NEGATIVE NEGATIVE Urine urobilinogen measurement by automated test strip (mass/volume) NORMAL NORMAL Urine leukocyte esterase detection by dipstick NEGATIVE NEGATIVE Automated urine sediment erythrocyte count by microscopy (number/high power field) NONE NRG Automated urine sediment leukocyte count by microscopy (number/high power field ) NONE NRG Bacteria detection in urine sediment by light microscopy NONE NRG Squamous epithelial cells detection in urine sediment by light microscopy 2-5 NRG Crystals detection in urine sediment by light microscopy NONE NRG Casts detection in urine sediment by light microscopy NONE NRG Mucus detection in urine sediment by light microscopy NONE NRG Complete urinalysis with reflex to culture NO NRG Urine drug screening test - 05/12/16 17:18 Urine phencyclidine detection by screening method NEGATIVE NEGATIVE Urine benzodiazepines detection by screening method POSITIVE NEGATIVE Urine cocaine detection NEGATIVE NEGATIVE Urine amphetamines detection by screening method NEGATIVE NEGATIVE Urine methamphetamine detection by screening method NEGATIVE NEGATIVE Urine cannabinoids detection by screening method NEGATIVE NEGATIVE Urine opiates detection by screening method NEGATIVE NEGATIVE Urine barbiturates detection NEGATIVE NEGATIVE Screening urine tricyclic antidepressants detection NEGATIVE NEGATIVE Urine methadone detection by screening method NEGATIVE NEGATIVE Urine oxycodone detection POSITIVE NEGATIVE Urine propoxyphene detection NEGATIVE NEGATIVE Complete blood count (CBC) with automated white blood cell (WBC) differential - 05/08/17 07:05 Blood leukocytes automated count (number/volume) 15.3 10*3/uL 4.3-11.0 Blood erythrocytes automated count (number/volume) 5.07 10*6/uL 4.35-5.85 Venous blood hemoglobin measurement (mass/volume) 14.8 g/dL 11.5-16.0 Blood hematocrit (volume fraction) 44 % 35-52 Automated erythrocyte mean corpuscular volume 87 [foz_us] 80-99 Automated erythrocyte mean corpuscular hemoglobin (mass per erythrocyte) 29 pg 25-34 Automated erythrocyte mean corpuscular hemoglobin concentration measurement ( mass/volume) 34 g/dL 32-36 Automated erythrocyte distribution width ratio 15.0 % 10.0-14.5 Automated blood platelet count (count/volume) 375 10*3/uL 130-400 Automated blood platelet mean volume measurement 10.0 [foz_us] 7.4-10.4 Automated blood neutrophils/100 leukocytes 77 % 42-75 Automated blood lymphocytes/100 leukocytes 14 % 12-44 Blood monocytes/100 leukocytes 9 % 0-12 Automated blood eosinophils/100 leukocytes 0 % 0-10 Automated blood basophils/100 leukocytes 0 % 0-10 Blood neutrophils automated count (number/volume) 11.8 10*3 1.8-7.8 Blood lymphocytes automated count (number/volume) 2.2 10*3 1.0-4.0 Blood monocytes automated count (number/volume) 1.3 10*3 0.0-1.0 Automated eosinophil count 0.0 10*3/uL 0.0-0.3 Automated blood basophil count (count/volume) 0.0 10*3/uL 0.0-0.1 Blood manual differential performed detection - 05/08/17 07:05 Blood monocytes/100 leukocytes 10 % NRG Manual blood segmented neutrophils/100 leukocytes 76 % NRG Blood band neutrophils/100 leukocytes 0 % NRG Manual blood lymphocytes/100 leukocytes 13 % NRG Manual eosinophils/100 leukocytes in nose 0 % NRG Manual blood basophils/100 leukocytes 1 % NRG Blood erythrocyte morphology finding identification NORMAL NRG Comprehensive metabolic panel - 05/08/17 07:05 Serum or plasma sodium measurement (moles/volume) 141 mmol/L 135-145 Serum or plasma potassium measurement (moles/volume) 3.6 mmol/L 3.6-5.0 Serum or plasma chloride measurement (moles/volume) 104 mmol/L 98-107 Carbon dioxide 21 mmol/L 21-32 Serum or plasma anion gap determination (moles/volume) 16 mmol/L 5-14 Serum or plasma urea nitrogen measurement (mass/volume) 27 mg/dL 7-18 Serum or plasma creatinine measurement (mass/volume) 1.28 mg/dL 0.60-1.30 Serum or plasma urea nitrogen/creatinine mass ratio 21 NRG Serum or plasma creatinine measurement with calculation of estimated glomerular filtration rate 42 NRG Serum or plasma glucose measurement (mass/volume) 138 mg/dL 70-105 Serum or plasma calcium measurement (mass/volume) 9.9 mg/dL 8.5-10.1 Serum or plasma total bilirubin measurement (mass/volume) 0.3 mg/dL 0.1-1.0 Serum or plasma alkaline phosphatase measurement (enzymatic activity/volume) 108 U/L 40-136 Serum or plasma aspartate aminotransferase measurement (enzymatic activity/ volume) 20 U/L 5-34 Serum or plasma alanine aminotransferase measurement (enzymatic activity/volume ) 28 U/L 0-55 Serum or plasma protein measurement (mass/volume) 8.2 g/dL 6.4-8.2 Serum or plasma albumin measurement (mass/volume) 4.2 g/dL 3.2-4.5 Magnesium - 05/08/17 07:05 Magnesium 2.3 mg/dL 1.8-2.4 Complete urinalysis with reflex to culture - 05/08/17 08:00 Urine color determination YELLOW NRG Urine clarity determination CLEAR NRG Urine pH measurement by test strip 5 5-9 Specific gravity of urine by test strip 1.025 1.016- 1.022 Urine protein assay by test strip, semi-quantitative 2+ NEGATIVE Urine glucose detection by automated test strip NEGATIVE NEGATIVE Erythrocytes detection in urine sediment by light microscopy 2+ NEGATIVE Urine ketones detection by automated test strip NEGATIVE NEGATIVE Urine nitrite detection by test strip NEGATIVE NEGATIVE Urine total bilirubin detection by test strip NEGATIVE NEGATIVE Urine urobilinogen measurement by automated test strip (mass/volume) NORMAL NORMAL Urine leukocyte esterase detection by dipstick 2+ NEGATIVE Automated urine sediment erythrocyte count by microscopy (number/high power field) [HPF] NRG Automated urine sediment leukocyte count by microscopy (number/high power field ) [HPF] NRG Bacteria detection in urine sediment by light microscopy TRACE NRG Squamous epithelial cells detection in urine sediment by light microscopy 10-25 NRG Crystals detection in urine sediment by light microscopy NONE NRG Casts detection in urine sediment by light microscopy PRESENT NRG Mucus detection in urine sediment by light microscopy NEGATIVE NRG Complete urinalysis with reflex to culture YES NRG Hyaline casts detection in urine sediment by light microscopy 2-5 NRG Bacterial urine culture - 05/08/17 08:00 Bacterial urine culture [id number] NRG COLONY COUNT 10,000/ML - 100,000/ML NRG FTX;REPORTABLE POSSIBLE MORE THAN ONE NRG URINE CULTURE RESULTS PLUS NRG Encounters ACCT No. Visit Date/Time Discharge Status Pt. Type Provider Facility Loc./Unit Complaint [id number] 06/09/2012 14:45:00 06/09/2012 23:59:59 CLS Outpatient [id number] 06/07/2012 15:33:00 06/07/2012 23:59:59 CLS Outpatient [id number] 04/06/2012 11:27:00 04/06/2012 23:59:59 CLS Outpatient FER TURNERSaima MILY DESMOND [id number] 12/18/2011 09:26:00 12/18/2011 23:59:59 CLS Outpatient FER TURNERSaima MILY LOGAN [id number] 08/12/2012 10:46:00 Document Registration [id number] 02/20/2017 12:47:00 02/20/2017 23:59:59 CLS Outpatient ELISEO FULLER, LISSETT Flynn [facility] IRON DEFICIENCY [id number] 10/22/2016 15:30:00 10/22/2016 23:59:59 CLS Preadmit PIPER XIAO MD [facility] RT COPD [id number] 10/16/2016 14:55:00 10/16/2016 23:59:59 CLS Outpatient PIPER XIAO MD [facility] RAD LT LEG SWELLING [id number] 09/12/2016 14:03:00 09/12/2016 23:59:59 CLS Outpatient PIPER XIAO MD [facility] RT COPD J44.9 [id number] 05/12/2016 15:14:00 05/12/2016 20:46:00 DIS Emergency SARITA PA, DARYN Hoffmann [facility] ER DIZZINESS [id number] 03/14/2016 13:22:00 03/14/2016 14:08:00 DIS Outpatient LEANN ARMENTA MD [facility] CARD DISC DISORDER [id number] 03/03/2016 10:18:00 03/03/2016 23:59:59 CLS Outpatient RIZWAN CASTILLO MD [facility] CARD ANXIETY,COPD,HEART PALPITATIONS [id number] 02/08/2016 10:12:00 02/08/2016 11:14:00 DIS Outpatient LEANN ARMENTA MD [facility] CARD DISC DISORDER [id number] 01/03/2016 12:25:00 01/03/2016 23:59:59 CLS Outpatient LEANN ARMENTA MD [facility] RAD LOW BACK PAIN [id number] 11/23/2015 10:42:00 11/23/2015 11:59:00 DIS Outpatient LEANN ARMENTA MD [facility] CARD SPONDYLOSIS [id number] 10/05/2015 09:27:00 10/05/2015 10:39:00 DIS Outpatient LEANN ARMENTA MD [facility] CARD SACROCOCCYGEAL DISORDERS [id number] 06/25/2015 10:36:00 06/25/2015 12:26:00 DIS Outpatient LEANN ARMENAT MD [facility] 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 [id number] 05/21/2015 13:28:00 05/21/2015 14:11:00 DIS Outpatient LEANN ARMENTA MD [facility] CARD SACROLIAC JOINT DISORDER [id number] 12/15/2014 07:20:00 12/15/2014 23:59:59 CLS Outpatient RIZWAN CASTILLO MD [facility] LAB CP,CHOLEYSTECTOMY,HTN, COPD [id number] 12/29/2013 08:27:00 12/29/2013 23:59:59 CLS Outpatient BRANDI RAMOS [facility] CARD CP,HLP [id number] 12/09/2013 07:51:00 12/09/2013 23:59:59 CLS Outpatient PIPER XIAO MD [facility] RAD CHRONIC PAIN WITH RADICULOPATHY [id number] 12/01/2013 11:39:00 12/01/2013 15:00:00 DIS Outpatient TERRENCE HORN DO [facility] SDC GERD [id number] 11/30/2013 07:31:00 11/30/2013 23:59:59 CLS Outpatient TERRENCE HORN DO [facility] PREOP GERD [id number] 06/23/2013 09:47:00 06/23/2013 23:59:59 CLS Outpatient PIPER XIAO MD [facility] RAD INCREASING LBP [id number] 05/25/2013 14:33:00 05/25/2013 20:47:00 DIS Emergency SHEILA SHELBY MUNGUIA [facility] ER OVERDOSE [id number] 08/31/2012 07:57:00 09/14/2012 13:30:00 DIS Outpatient PIPER XIAO MD [facility] REHAB R HIP PAIN [id number] 05/08/2017 07:24:00 Document Registration [id number] 12/15/2014 07:22:00 Document Registration [id number] 12/15/2014 07:22:00 Document Registration [id number] 06/30/2012 10:03:00 Document Registration [id number] 11/17/2011 10:18:00 Document Registration [id number] 11/14/2011 08:21:00 Document Registration [id number] 07/07/2011 12:16:00 Document Registration [id number] 12/27/2010 12:24:00 Document Registration [id number] 03/26/2010 13:20:00 Document Registration [id number] 03/05/2010 08:53:00 Document Registration [id number] 08/10/2009 11:58:00 Document Registration
== END 2017-05-08 09:26 | disposition home or self-care (01) ==
LOC: EDUNIT# 05:19 → ER 05:23
DX: N39.0 Urinary tract infection, site not specified (principal); E86.0 Dehydration; R11.2 Nausea with vomiting, unspecified; F41.9 Anxiety disorder, unspecified; F32.9 Major depressive disorder, single episode, unspecified; I10 Essential (primary) hypertension; M47.9 Spondylosis, unspecified; J44.9 Chronic obstructive pulmonary disease, unspecified; Z90.89 Acquired absence of other organs; Z90.710 Acquired absence of both cervix and uterus; Z87.19 Personal history of other diseases of the digestive system; Z91.5 Personal history of self-harm; Z88.0 Allergy status to penicillin; Z91.048 Other nonmedicinal substance allergy status; Z88.5 Allergy status to narcotic agent; Z88.8 Allergy status to other drugs, medicaments and biological substances; Z88.3 Allergy status to other anti-infective agents; Z88.6 Allergy status to analgesic agent
CPT/HCPCS: 36415; 74176; 80053; 81000; 83735; 85007; 85027; 87077; 87088; 87186; 96361; 96374; 96375

== ENCOUNTER 2017-05-11 10:55 | Emergency (ER) | payer MEDICARE, MEDICAID ==
[~2017-05-11] VITALS: Ht 167.6 cm; Wt 116.6 kg
[~2017-05-11 10:55] MED LIST changes: +ONDA4TAB10 PO; +SULF-222 PO
[2017-05-11 11:51] VITALS: BP 138/101
--- OUTSIDE RECORDS SUMMARY | 2017-05-14 12:24 | XMS REPORT | Continuity of Care Document ---
Author Author [employer] Organization [facility] Address Unknown Phone Unavailable Care Team Providers Care Floor Hand Name Role Phone [employer] Unavailable Unavailable Problems Medications Allergies, Adverse Reactions, Alerts Immunizations Results Vital Signs Encounters Location Location Details Encounter Type Encounter Number Reason For Visit Attending Provider ADM Date DC Date Status Source OUTPATIENT [id number] JAMES MILLER 10/13/20162016 Active [facility] OUTPATIENT [id number] JAMES MILLER 12/24/2016 Active [facility] OUTPATIENT [id number] JAMES MILLER 02/04/2017 Active [facility] OUTPATIENT [id number] JAMES MILLER 04/17/2017 Active [facility] O JAMES MILLER Active [facility] EXT RECOVERY [id number] KINA WARD Active [facility] Procedures Plan of Care Social History Assessment and Plan Family History Advance Directives Functional Status
--- OUTSIDE RECORDS SUMMARY | 2017-05-14 12:24 | XMS REPORT | Encounter Summary ---
Author Author [facility] Organization [facility] Address Unknown Phone Unavailable Care Team Providers Care Government Affairs Specialist Name Role Phone Kwasi Rice MD PCP Josie White RN Unavailable Unavailable Mulu Cooper RN Unavailable Unavailable Kalie Ding MD Unavailable Reason for Referral * Consult, Test & Treat Status Reason Specialty Diagnoses / Referred By Referred To Procedures Contact Contact Closed Specialty Diagnoses Kalie Ding [facility] Spinal stenosis ORTHOPEDIC AND Required of lumbar region [address] with neurogenic [address] THERAPY claudication [place] [address] [place] [address] Phone: Fax: Reason for Visit * Reason Comments Pain Encounter Details Date Type Department Care Team Description 04/17/2017 [facility] Visit [facility] Kalie Ding MD Spinal stenosis of lumbar [address] region with neurogenic [address]ESS [address] [place] [address] claudication (Primary Dx) [place]IVE [place] [address] [place] [address] [phone] Social History Tobacco Use Types Packs/Day Years Used Date Never Smoker Smokeless Tobacco: Never Used Alcohol Use Drinks/Week oz/Week Comments Yes 0 Standard 0.0 infrequent-about 1-3 times per year drinks or equivalent Sex Assigned at Date Recorded Not on file as of this encounter Last Filed Vital Signs Vital Sign Reading Time Taken Blood Pressure 119/79 04/17/2017 9:03 AM LIGHT BULB ASSEMBLER Pulse 76 04/17/2017 9:03 AM LIGHT BULB ASSEMBLER Temperature - - Respiratory Rate - - Oxygen Saturation 98% 04/17/2017 9:03 AM LIGHT BULB ASSEMBLER Inhaled Oxygen - - Concentration Weight 116.1 kg (256 lb) 04/17/2017 9:03 AM LIGHT BULB ASSEMBLER Height 168.6 cm (5' 6.38") 04/17/2017 9:03 AM LIGHT BULB ASSEMBLER Body Mass Index 40.85 04/17/2017 9:03 AM LIGHT BULB ASSEMBLER in this encounter Functional Status Functional Status [...] Kalie Ding MD - 04/17/2017 10:30 AM LIGHT BULB ASSEMBLER Formatting of this note may be different [...]
--- OUTSIDE RECORDS SUMMARY | 2017-05-14 12:24 | XMS REPORT | Clinical Summary ---
Author Author [facility] Organization [facility] Address Unknown Phone Unavailable Care Team Providers Care Handle Bar Assembler Name Role Phone Kwasi Rice MD PCP Josie White RN Unavailable Unavailable Mulu Cooper RN Unavailable Unavailable Kalie Ding MD Unavailable Source Comments Some departments are not documenting in the electronic medical record. If you do not see the information that you expected, contact Release of Information in the Health Information Management department at [phone] for further assistance in locating additional records.[facility] Allergies Active Allergy Reactions Severity [...] Taken Blood Pressure 119/79 04/17/2017 9:03 AM DATA ENTRY SPECIALIST Pulse 76 04/17/2017 9:03 AM DATA ENTRY SPECIALIST Temperature 37.1 C (98.8 F) 12/04/2016 10:12 AM CDT Respiratory Rate 20 10/13/2016 1:02 PM CDT Oxygen Saturation 98% 04/17/2017 9:03 AM DATA ENTRY SPECIALIST Inhaled Oxygen - - Concentration Weight 116.1 kg (256 lb) 04/17/2017 9:03 AM DATA ENTRY SPECIALIST Height 168.6 cm (5' 6.38") 04/17/2017 9:03 AM DATA ENTRY SPECIALIST Body Mass Index 40.85 04/17/2017 9:03 AM DATA ENTRY SPECIALIST Plan of Treatment Health Maintenance Due Date Last Done Comments HEPATITIS C SCREENING 1955 PHYSICAL (COMPREHENSIVE) 10/22/1962 EXAM PERTUSSIS VACCINE 10/22/1966 TETANUS VACCINE 10/22/1972 CERVICAL CANCER SCREENING 10/22/1985 BREAST CANCER SCREENING 1995 COLORECTAL CANCER 10/22/2005 SCREENING SHINGLES VACCINE 2015 INFLUENZA VACCINE 10/28/2016 Implants Implanted Type Area Dragline Operator Helper Device Expiration Model / Identifier Date Serial / Lot Titanium Screw Bilateral: Neck Results Not on filefrom Last 3 Months
--- OUTSIDE RECORDS SUMMARY | 2017-05-14 12:25 | XMS REPORT | Continuity of Care Document ---
Author Author [facility] Address Unknown Phone Unavailable Allergies Active Description Code Type Severity Reaction Onset Reported/Identified Relationship to Patient Clinical Status Yes Penicillins [id number] Drug Allergy Severe ANAPHYLAXIS 08/28/2010 Yes aspirin [id number] Drug Allergy Mild RASH 08/28/2010 Yes codeine [id number] Drug Allergy Mild N/V 08/28/2010 Yes aspirin [...] ANTIDEPRESSANTS Unknown MAKES SUICIDAL 12/01/2013 Yes iodine [id number] Drug Allergy Unknown RASH 12/01/2013 Yes morphine [id number] Drug Allergy Unknown "MAKES GO OUT" 12/01/2013 Yes acetaminophen [id number] Drug Allergy Unknown N/A 05/12/2016 Yes adhesive tape [id number] Drug Allergy Unknown N/A 05/12/2016 Yes ibuprofen [id number] Drug Allergy Unknown N/A 05/12/2016 Yes niacin [id number] Drug Allergy Unknown N/A 05/12/2016 Yes propoxyphene [id number] Drug Allergy Unknown N/A 05/12/2016 Medications There [...] 05/21/2015 LEANN ARMENTA MD Ot Z79.899 OTHER [facility] (CURRENT) DRUG THERAPY 06/25/2015 Ot 786.05 06/25/2015 [...] 06/25/2015 LEANN ARMENTA MD Ot Z79.899 OTHER [facility] (CURRENT) DRUG THERAPY 07/03/2015 LEANN ARMENTA MD [...] Ot V45.89 POSTSURGICAL STATES NEC 10/05/2015 LEANN ARMENTA MD Ot M47.816 SPONDYLOSIS W/O [...] 11/23/2015 LEANN ARMENTA MD Ot Z79.899 OTHER [facility] (CURRENT) DRUG THERAPY 01/03/2016 Ot 786.05 SHORTNESS OF BREATH 01/03/2016 Ot V72.84 EXAM PRE- OPERATIVE NOS 01/03/2016 Ot 719.45 JOINT PAIN- PELVIS 01/03/2016 Ot 959.6 HIP THIGH INJURY NOS 01/03/2016 Ot E000.8 OTHER EXTERNAL CAUSE STATUS 01/03/2016 Ot E849.0 ACCIDENT IN HOME 01/03/2016 Ot E888.9 FALL NOS 01/03/2016 PIPER XIAO MD Ot 719.46 JOINT PAIN-L/LEG 01/03/2016 PIPER XIAO MD Ot 722.10 LUMBAR DISC DISPLACEMENT 01/03/2016 [...] Ot M51.26 OTHER INTERVERTEBRAL DISC DISPLACEMENT, 01/09/2016 ELANN ARMENTA MD Ot M25.551 PAIN IN RIGHT [...] M47.816 SPONDYLOSIS W/O MYELOPATHY OR RADICULOPA 02/08/2016 LEANN ARMENTA MD Ot M48.06 SPINAL [...] M 05/12/2016 DARYN GAMEZ Ot Z79.899 OTHER [facility] (CURRENT) DRUG THERAPY 09/10/2016 Ot 786.05 SHORTNESS [...] culture - 05/08/17 08:00 Bacterial urine culture [id number] NRG COLONY COUNT 10,000/ML - 100,000/ML NRG FTX;REPORTABLE POSSIBLE MORE THAN ONE NRG URINE CULTURE RESULTS PLUS NRG Encounters ACCT No. Visit Date/Time Discharge Status Pt. Type Provider Facility Loc./Unit Complaint [id number] 06/09/2012 14:45:00 06/09/2012 23:59:59 CLS Outpatient [id number] 06/07/2012 15:33:00 06/07/2012 23:59:59 CLS Outpatient [id number] 04/06/2012 11:27:00 04/06/2012 23:59:59 CLS Outpatient FER TURNERSaima MILY DESMOND [id number] 12/18/2011 09:26:00 12/18/2011 23:59:59 CLS Outpatient FER TURNERSaima MILY LOGAN [id number] 08/12/2012 10:46:00 Document Registration [id number] 02/20/2017 12:47:00 02/20/2017 23:59:59 CLS Outpatient ELISEO FULLER, LISSETT Flynn [facility] IRON DEFICIENCY [id number] 10/22/2016 15:30:00 10/22/2016 23:59:59 CLS Preadmit PIPER XIAO MD [facility] RT COPD [id number] 10/16/2016 14:55:00 10/16/2016 23:59:59 CLS Outpatient PIPER XIAO MD [facility] RAD LT LEG SWELLING [id number] 09/12/2016 14:03:00 09/12/2016 23:59:59 CLS Outpatient PIPER XIAO MD [facility] RT COPD J44.9 [id number] 05/12/2016 15:14:00 05/12/2016 20:46:00 DIS Emergency SARITA PA, DARYN Hoffmann [facility] ER DIZZINESS [id number] 03/14/2016 13:22:00 03/14/2016 14:08:00 DIS Outpatient LEANN ARMENTA MD [facility] CARD DISC DISORDER [id number] 03/03/2016 10:18:00 03/03/2016 23:59:59 CLS Outpatient RIZWAN CASTILLO MD [facility] CARD ANXIETY,COPD,HEART PALPITATIONS [id number] 02/08/2016 10:12:00 02/08/2016 11:14:00 DIS Outpatient LEANN ARMENTA MD [facility] CARD DISC DISORDER [id number] 01/03/2016 12:25:00 01/03/2016 23:59:59 CLS Outpatient LEANN ARMENTA MD [facility] RAD LOW BACK PAIN [id number] 11/23/2015 10:42:00 11/23/2015 11:59:00 DIS Outpatient LEANN ARMENTA MD [facility] CARD SPONDYLOSIS [id number] 10/05/2015 09:27:00 10/05/2015 10:39:00 DIS Outpatient LEANN ARMENTA MD [facility] CARD SACROCOCCYGEAL DISORDERS [id number] 06/25/2015 10:36:00 06/25/2015 12:26:00 DIS Outpatient LEANN ARMENTA MD [facility] 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 [id number] 05/21/2015 13:28:00 05/21/2015 14:11:00 DIS Outpatient LEANN ARMENTA MD [facility] CARD SACROLIAC JOINT DISORDER [id number] 12/15/2014 07:20:00 12/15/2014 23:59:59 CLS Outpatient RIZWAN CASTILLO MD [facility] LAB CP,CHOLEYSTECTOMY,HTN, COPD [id number] 12/29/2013 08:27:00 12/29/2013 23:59:59 CLS Outpatient BRANDI RAMOS [facility] CARD CP,HLP [id number] 12/09/2013 07:51:00 12/09/2013 23:59:59 CLS Outpatient PIPER XIAO MD [facility] RAD CHRONIC PAIN WITH RADICULOPATHY [id number] 12/01/2013 11:39:00 12/01/2013 15:00:00 DIS Outpatient TERRENCE HORN DO [facility] SDC GERD [id number] 11/30/2013 07:31:00 11/30/2013 23:59:59 CLS Outpatient TERRENCE HORN DO [facility] PREOP GERD [id number] 06/23/2013 09:47:00 06/23/2013 23:59:59 CLS Outpatient PIPER XIAO MD [facility] RAD INCREASING LBP [id number] 05/25/2013 14:33:00 05/25/2013 20:47:00 DIS Emergency SHEILA SHELBY MUNGUIA [facility] ER OVERDOSE [id number] 08/31/2012 07:57:00 09/14/2012 13:30:00 DIS Outpatient PIPER XIAO MD [facility] REHAB R HIP PAIN [id number] 05/08/2017 07:24:00 Document Registration [id number] 12/15/2014 07:22:00 Document Registration [id number] 12/15/2014 07:22:00 Document Registration [id number] 06/30/2012 10:03:00 Document Registration [id number] 11/17/2011 10:18:00 Document Registration [id number] 11/14/2011 08:21:00 Document Registration [id number] 07/07/2011 12:16:00 Document Registration [id number] 12/27/2010 12:24:00 Document Registration [id number] 03/26/2010 13:20:00 Document Registration [id number] 03/05/2010 08:53:00 Document Registration [id number] 08/10/2009 11:58:00 Document Registration
== END 2017-05-11 12:22 | disposition left against medical advice (07) ==
LOC: EDUNIT# 10:55 → ER 10:58
DX: R19.8 Other specified symptoms and signs involving the digestive system and abdomen (principal)
CPT/HCPCS: 99281

== ENCOUNTER → 2017-06-08 | Outpatient (CLI) | payer MEDICARE, MEDICAID ==
--- NOTE | 2017-06-08 15:31 | Diagnostic Imaging Report ---
PROCEDURE: US Thyroid. TECHNIQUE: Multiple real-time grayscale images were obtained of the thyroid in various projections. INDICATION: Left thyroid nodule. COMPARISON: There are no prior studies available for comparison. FINDINGS: The thyroid gland is enlarged. The right lobe measures 5.3 x 2.7 x 2.2 cm while the left lobe is estimated to be 6.9 x 2.8 x 3.4 cm (normal gland size 4-5 x 2 x 2 cm). In the inferior pole of the left lobe, there appear to be two contiguous nodules. These have a conglomerate size of 3.5 x 3.2 x 4.7 cm. There is also a 1.9 x 1.2 x 2.1 cm nodule in the superior pole of the right lobe. I suspect that the appearance of the thyroid gland is related to a multinodular goiter. Even so, the possibility that one of these nodules is neoplastic in nature should still be considered. I would recommend that a nuclear medicine thyroid scan be performed for further evaluation. IMPRESSION: The thyroid gland is enlarged, and there are sizable nodules involving each lobe. While this appearance may be secondary to a multinodular goiter, the possibility that there is an underlying malignancy should still be considered. Recommendations as above. Dictated by: Dictated on workstation # [id number]
== END ==
LOC: RAD 10:55
PROVIDERS: ATTEND Nurse Practitioner Family
DX: E04.2 Nontoxic multinodular goiter (principal)
CPT/HCPCS: 76536

== ENCOUNTER → 2017-07-07 | Outpatient (CLI) | payer MEDICARE, MEDICAID ==
--- NOTE | 2017-07-08 12:18 | Diagnostic Imaging Report ---
INDICATION: Thyroid nodules. COMPARISON: Comparison is made with thyroid ultrasound from 06/08/2017. TECHNIQUE: Patient was administered 196 ?Ci of I-123 and 24 hour imaging and 24 hour uptake was performed. FINDINGS: 24-hour thyroid uptake is 38%. Normal values are typically 10-30%. Thyroid scan shows fairly homogeneous uptake of activity by both lobes of the thyroid. There may be mild photopenia involving the lower pole of the left lobe, corresponding to the solid mass at this location. No definite cold nodule in the right lobe is identified. IMPRESSION: 1. Mildly elevated 24 hour thyroid uptake of 38%, suggestive of mild hyperthyroidism. 2. Questionable slightly cold nodule in the lower pole of the left lobe of thyroid corresponding to the large solid mass on recent ultrasound. Neoplastic nodule cannot be entirely excluded and fine needle aspiration could be performed. Dictated by: Dictated on workstation # [id number]
== END ==
LOC: CARD 11:36
PROVIDERS: ATTEND Nurse Practitioner Family
DX: E04.2 Nontoxic multinodular goiter (principal)
CPT/HCPCS: 78014

== ENCOUNTER → 2017-07-22 | Outpatient (CLI) | payer MEDICARE, MEDICAID ==
[~2017-07-22] VITALS: Ht 167.6 cm; Wt 116.6 kg
[~2017-07-22] MED LIST changes: +ALBU0.63 IH; +ALBU2.5V4 NEB; +ALLO100T PO; +BUDE10.2 IH; +CETI10TA17 PO; +DIPH50CA30 PO; +FERR325T18 PO; +FURO40TA4 PO; +GUAI237L82 PO; +HYDR-34 PO; +IPRA3AMP INH; +LEVO88TA2 PO; +LIDOCAINE 1% INJ 50 ML (XYLOCAINE) VIAL IJ ONE; +LIDOCAINE 1% INJ 50 ML (XYLOCAINE) VIAL ONE; +LISI10TA2 PO; +LOPE2TAB64 PO; +METH750T3 PO; +NIFE60TA74 PO; +OXYM30SP NS; +RT-ALBUINH IH; +RT-SODIUM CHL INHALATION 3 ML VIAL ONE; +RT-epiNEPHrine (RACEMIC) 2.25% 0.5 ML VIAL ONE; +[UNRECOGNIZED DRUG - CODE] MC; +[UNRECOGNIZED DRUG - CODE] MC
[2017-07-22 14:28] VITALS: BP 134/87
[2017-07-22 15:09] VITALS: BP 130/79
--- NOTE | 2017-07-22 16:00 | Diagnostic Imaging Report ---
INDICATION: Left thyroid nodule. Patient presents for ultrasound-guided biopsy. FINDINGS: Patient was brought to the procedure room, placed on the table in the supine position. Ultrasound imaging over the left neck was performed to evaluate appropriate entry site. Skin of the left neck was prepped and draped in the usual sterile fashion. Small amount of 1% lidocaine was utilized for local anesthesia. Total of two passes were made into the nodule in the left lobe of the thyroid inferiorly. Note is made that the procedure was significantly compromised. Patient reportedly has history of COPD. The mass in the lower pole of the left lobe is extremely mobile with every respiration. In addition, the nodule is in the far inferior and posterior aspect of the left lobe, making access difficult. Fine-needle aspiration was attempted. IMPRESSION: Compromised study due to marked mobility of the lesion as well as the far posteroinferior location of the lesion within the left lobe of the thyroid. Fine-needle aspiration was attempted and pathology results are currently pending. If sample is nondiagnostic, consideration should be given to surgical excisional biopsy. Dictated by: Dictated on workstation # [id number]
== END ==
LOC: RAD 13:23
PROVIDERS: ATTEND Nurse Practitioner Family
DX: E04.1 Nontoxic single thyroid nodule (principal)
CPT/HCPCS: 76942; 88305

== ENCOUNTER 2017-08-17 05:38 | Outpatient (CLI) | payer MEDICARE, MEDICAID ==
[~2017-08-17] VITALS: Ht 167.6 cm; Wt 122.0 kg
[~2017-08-17 05:38] MED LIST changes: -ALBU0.63 IH; -ALBU2.5V4 NEB; -ALLO100T PO; -BUDE10.2 IH; -CETI10TA17 PO; -DIPH50CA30 PO; -FERR325T18 PO; -FURO40TA4 PO; -GUAI237L82 PO; -HYDR-34 PO; -IPRA3AMP INH; -LEVO88TA2 PO; -LIDOCAINE 1% INJ 50 ML (XYLOCAINE) VIAL IJ ONE; -LIDOCAINE 1% INJ 50 ML (XYLOCAINE) VIAL ONE; -LISI10TA2 PO; -LOPE2TAB64 PO; -METH750T3 PO; -NIFE60TA74 PO; -OXYM30SP NS; -RT-ALBUINH IH; -RT-SODIUM CHL INHALATION 3 ML VIAL ONE; -RT-epiNEPHrine (RACEMIC) 2.25% 0.5 ML VIAL ONE; -[UNRECOGNIZED DRUG - CODE] MC; -[UNRECOGNIZED DRUG - CODE] MC
[2017-08-17] MEDS ORDERED: LORA10TA7 PO (11:01)
[2017-08-17] MEDS ORDERED: RT-ALBUINH IH (11:01)
[2017-08-17] MEDS ORDERED: OXYM30SP NS (11:01)
[2017-08-17] MEDS ORDERED: FURO40TA4 PO (11:01)
[2017-08-17] MEDS ORDERED: FERR325T18 PO (11:01)
[2017-08-17] MEDS ORDERED: GUAI237L82 PO (11:01)
[2017-08-17] MEDS ORDERED: ONDA4TAB10 PO (11:01)
[2017-08-17] MEDS ORDERED: LISI10TA2 PO (11:01)
[2017-08-17] MEDS ORDERED: METH750T3 PO (11:01)
[2017-08-17] MEDS ORDERED: NIFE60TA74 PO (11:01)
[2017-08-17] MEDS ORDERED: SIMV20TA3 PO (11:01)
[2017-08-17] MEDS ORDERED: DIPH50CA30 PO (11:01)
[2017-08-17] MEDS ORDERED: ALBU0.63 IH (11:01)
[2017-08-17] MEDS ORDERED: CETI10TA17 PO (11:04)
[2017-08-17] MEDS ORDERED: BUDE10.2 IH (11:04)
[2017-08-17] MEDS ORDERED: LOPE2TAB64 PO (11:11)
[2017-08-17] MEDS ORDERED: ALLO100T PO (11:11)
[2017-08-17] MEDS ORDERED: ALBU2.5V4 NEB (13:31)
== END 2017-08-17 14:05 ==
LOC: PREOP 05:38
PROVIDERS: ATTEND Surgery
DX: Z01.818 Encounter for other preprocedural examination (principal)

== ENCOUNTER 2017-08-20 09:57 | Inpatient (IN) | payer MEDICARE, MEDICAID ==
[~2017-08-20] VITALS: Ht 167.6 cm; Wt 134.0 kg
[2017-08-20] VITALS (11 sets, daily range): BP systolic 121–168; BP diastolic 55–92
[~2017-08-20 09:57] MED LIST changes: +ALBU0.63 IH; +ALBU2.5V4 NEB; +ALLO100T PO; +BUDE10.2 IH; +CETI10TA17 PO; +DIPH50CA30 PO; +ETOMIDATE IV SOLN 20 MG/10 ML VIAL IV ONE; +FERR325T18 PO; +FURO40TA4 PO; +GUAI237L82 PO; +LISI10TA2 PO; +LOPE2TAB64 PO; +METH750T3 PO; +NIFE60TA74 PO; +OXYM30SP NS; +RT-ALBUINH IH; +SUCCINYLCHOLINE INJ 100 MG/5 ML SYR INJ ONE
[2017-08-20 10:48] LABS: BASOPHILS % (AUTO) 0 % (0-10); EOSINOPHILS # (AUTO) 0.2 10^3/uL (0.0-0.3); EOSINOPHILS % (AUTO) 2 % (0-10); HEMATOCRIT 40 % (35-52); HEMOGLOBIN 13.4 G/DL (11.5-16.0); LYMPHOCYTES # (AUTO) 3.2 X 10^3 (1.0-4.0); LYMPHOCYTES % (AUTO) 33 % (12-44); MEAN CORPUSCULAR HEMOGLOBIN 31 PG (25-34); MEAN CORPUSCULAR HGB CONC 34 G/DL (32-36); MEAN CORPUSCULAR VOLUME 91 FL (80-99); MEAN PLATELET VOLUME 9.9 FL (7.4-10.4); MONOCYTES # (AUTO) 0.8 X 10^3 (0.0-1.0); MONOCYTES % (AUTO) 9 % (0-12); NEUTROPHILS # (AUTO) 5.5 X 10^3 (1.8-7.8); NEUTROPHILS % (AUTO) 56 % (42-75); PLATELET COUNT 322 10^3/uL (130-400); RED CELL DISTRIBUTION WIDTH 15.2 % (10.0-14.5); WHITE BLOOD COUNT 9.7 10^3/uL (4.3-11.0)
[2017-08-20 11:02] LABS: CALCIUM 9.6 MG/DL (8.5-10.1); CREATININE SERUM 1.02 MG/DL (0.60-1.30); POTASSIUM 4.3 MMOL/L (3.6-5.0)
--- NOTE | 2017-08-20 11:09 | Progress Note-Pre Operative ---
Pre-Operative Progress Note H&P Reviewed The H&P was reviewed, patient examined and no changes noted. Date Seen by Provider: August 20, 2017 Time Seen by Provider: 11:00 Date H&P Reviewed: August 20, 2017 Time H&P Reviewed: 11:00 Pre-Operative Diagnosis: bilateral symptomatic thyroid nodules LORNA RODRIGUEZ MD August 20, 2017 11:09 am
[2017-08-20] MEDS ORDERED: CLINDAMYCIN 600 MG/50 ML IVPB 50 ML IV ONE (11:15)
[2017-08-20] MEDS: LACTATED RINGERS 1,000 ML IV PRN ×2 (11:30→13:43)
[2017-08-20] MEDS ORDERED: BUP/EPI 0.5% 1:200,000 (SENSORCAINE) 30 ML VIAL ONE (11:52)
[2017-08-20] MEDS ORDERED: proPOfol 200 MG/20 ML (DIPRIVAN) VIAL IV ONE ×2 (11:58→17:56)
[2017-08-20] MEDS ORDERED: ONDANSETRON 4 MG/2 ML (SDV) Z0FRAN ONE (11:58)
[2017-08-20] MEDS ORDERED: SUCCINYLCHOLINE INJ 100 MG/5 ML SYR ONE ×2 (11:58→19:00)
[2017-08-20] MEDS ORDERED: LIDOCAINE PF 2% 5 ML (XYLOCAINE) VIAL ONE (11:58)
[2017-08-20] MEDS ORDERED: DEXAMETHASONE 10 MG/ML (DECADRON) 1 ML VIAL ONE (11:58)
[2017-08-20] MEDS ORDERED: fentaNYL INJECTION 100 MCG/2 ML AMP ONE ×3 (11:59→15:25)
[2017-08-20] MEDS ORDERED: MIDAZOLAM 2 MG/2 ML (VERSED) VIAL ONE (11:59)
[2017-08-20] MEDS ORDERED: fentaNYL INJECTION 100 MCG/2 ML AMP IV ONE (12:00)
[2017-08-20] MEDS ORDERED: FAMOTIDINE 20MG/2ML IV (PEPCID) IV ONE (12:00)
[2017-08-20] MEDS ORDERED: PHENYLEPHRINE 100 MCG/ML 10 ML (ANESTHESIA) SYR ONE (13:34)
[2017-08-20] MEDS ORDERED: SEVOFLURANE (ULTANE) 15 ML INHAL SOLN ONE (13:49)
[2017-08-20] MEDS ORDERED: HYDROmorphone 1 MG/ML (DILAUDID) 1 ML SYRINGE ONE (15:27)
--- NOTE | 2017-08-20 15:29 | Progress Note-Post Operative ---
Post-Operative Progess Note Surgeon (s)/Advance Seal Delivery System Maintainer (s) Surgeon LORNA RODRIGUEZ MD Advance Seal Delivery System Maintainer: jarrell dale [employer] BUSINESS ANALYST Pre-Operative Diagnosis bilateral symptomatic thyroid nodules Post-Operative Diagnosis same Procedure & Operative Findings Date of Procedure 08/20/17 Procedure Performed/Findings total thyroidectomy Anesthesia Type GET Estimated Blood Loss Estimated blood loss (mL): minimal Specimens/Packing Specimens Removed thryoid LORNA RODRIGUEZ MD August 20, 2017 3:29 pm
[2017-08-20] MEDS ORDERED: ONDANSETRON 4 MG/2 ML (SDV) Z0FRAN IVP PRN ×2 (15:30)
[2017-08-20] MEDS ORDERED: fentaNYL INJECTION 100 MCG/2 ML AMP IVP PRN (15:30)
[2017-08-20] MEDS ORDERED: MEPERIDINE (DEMEROL) INJ 50 MG/ML IVP PRN (15:30)
[2017-08-20] MEDS ORDERED: RT-epiNEPHrine (RACEMIC) 2.25% 0.5 ML VIAL INH ONE (16:15)
[2017-08-20] MEDS ORDERED: methylPREDNISolone 125 MG (Solu-MEDROL) VIAL ONE (16:31)
[2017-08-20] MEDS ORDERED: diphenhydrAMINE 50 MG/ML INJ (BENADRYL) ONE (16:40)
[2017-08-20] MEDS ORDERED: EPINEPHrine INJECTION 1 MG/ML AMP ONE ×2 (16:41→17:05)
[2017-08-20] MEDS ORDERED: raNItidine 50 MG/2 ML INJ (ZANTAC) ONE (16:51)
[2017-08-20] MEDS ORDERED: RT-ALBUTEROL/IPRATROPIUM 3 ML (DUONEB) VIAL ONE (16:54)
[2017-08-20 17:05] LABS: ABG BASE EXCESS -2.6 MMOL/L (-2.5-2.5); ABG OXYGEN SATURATION 98 % (94-100); ABG PCO2 41 MMHG (35-45); ABG PH 7.35 (7.37-7.43); ABG PO2 94 MMHG (79-93); ABG TCO2 23.6 MMOL/L (21.0-31.0)
[2017-08-20 17:06] LABS: ALLENS TEST YES-POS; INSPIRED O2 40%; VENTILATOR NO
[2017-08-20] MEDS: fentaNYL INJECTION 100 MCG/2 ML AMP IVP PRN ×2 (17:36→18:48)
[2017-08-20] MEDS ORDERED: RT-ALBUTEROL/IPRATROPIUM 3 ML (DUONEB) VIAL INH PRN (18:00)
[2017-08-20] MEDS ORDERED: PROPOFOL DRIP (ICU) 100 ML IV SCH (18:00)
[2017-08-20] MEDS: RT-ALBUTEROL/IPRATROPIUM 3 ML (DUONEB) VIAL INH SCH ×2 (18:15→21:39)
[2017-08-20] MEDS ORDERED: CATHETER FLUSH 10 ML SYR IV PRN (18:15)
[2017-08-20] MEDS: PROPOFOL DRIP (ICU) 100 ML IV SCH ×2 (18:33→22:13)
--- NOTE | 2017-08-20 18:52 | Diagnostic Imaging Report ---
INDICATION: Intubated. COMPARISON: 07/07/2011. EXAMINATION: Single view of the chest was obtained. FINDINGS: ET tube in the midtrachea. There is bibasilar atelectasis left greater than right. The heart is prominent without pulmonary edema. There is no pneumothorax or effusion. IMPRESSION: 1. Basilar atelectasis. 2. Well-positioned ET tube. Dictated by: Dictated on workstation # [id number]
--- NOTE | 2017-08-20 18:54 | Anesthesia-Procedure Note ---
Procedures/Interventions Procedure Start/Stop/Diagnosis Date of Procedure: August 20, 2017 Start Time: 18:15 Referring Physician: Dr Vu Preprocedural Diagnosis: Respiratory Distress/Stridor Brief History Anesthesia Note Called by Dr Vu for emergent intubation S/P Thyroidectomy. Pt extremely anxious and having difficulty with speaking. SaO2 never dropped but Dr Vu concerned with how long patient can maintain her saturations with this distress. Pre-O2 and SaO2 100%. Versed 2 mg IV, Lidocaine 100 mg IV, Propofol 200 mg IV and Succinylcholine 100 mg IV given by me. 7.0 cuffed ETT passed through V.C. under direct visualization using the Moran video laryngoscope by Heather Rios, SRNA under my direct supervision. No hematoma noted and good view of V.C. (Grade 1). ETT secured at 22 cm at the teeth with BS + B/L and + EtCO2 color change. Vent settings and sedation protocol per Dr Raymundo. Pt tolerated the procedure well. We will be available as needed. Stop Time: 18:25 Postprocedural Diagnosis: S/P Thyroidectomy Intubation RSI: Yes 100% pre-Ox, [id number]: Yes Intubation Method: orotracheal Videoscope used: Yes (Moran) Grade View: 1 Positive End Tide CO2: Yes (color change) Breath Sounds after Intubation: bilateral-equal ETT Securred @ (cm): 22 Intubated with ease: Yes Intubation Complications: no complications FRANK BARBOSA DO August 20, 2017 18:54
[2017-08-20] MEDS ORDERED: LIDOCAINE BOLUS 100 MG/5 ML (IMS) SYR ONE (19:00)
[2017-08-20] MEDS ORDERED: MIDAZOLAM 5 MG/5 ML (VERSED) VIAL ONE (19:00)
[2017-08-20] MEDS: LACTATED RINGERS 1,000 ML IV SCH (19:06)
[2017-08-20 20:54] LABS: ABG BASE EXCESS -3.9 MMOL/L (-2.5-2.5); ABG OXYGEN SATURATION 97 % (94-100); ABG PCO2 37 MMHG (35-45); ABG PH 7.36 (7.37-7.43); ABG PO2 80 MMHG (79-93); ABG TCO2 21.9 MMOL/L (21.0-31.0)
[2017-08-20 20:55] LABS: ALLENS TEST YES-POS; INSPIRED O2 50%; PATIENT TEMP 97.1; VENTILATOR YES
--- NOTE | 2017-08-20 21:02 | OPERATIVE REPORT ---
DATE OF SERVICE: 08/20/2017 ATTENDING ACCOUNTING COORDINATOR: Rhiannon Barnett APRN. PREOPERATIVE DIAGNOSIS: Bilateral symptomatic thyroid nodules. POSTOPERATIVE DIAGNOSIS: Bilateral symptomatic thyroid nodules. PROCEDURE: Total thyroidectomy. SURGEON: Dr. Dio Vu. UNIVERSAL BANKER: Teto Hinojosa APRN. ANESTHESIA: General endotracheal. ESTIMATED BLOOD LOSS: Minimal. FINDINGS: Enlarged thyroid with multiple masses, bilateral lobes with the largest in the left. DISPOSITION: The patient tolerated the procedure well. The patient is a 61-year-old female who was initially referred over to us for neck fullness as well as dysphagia. She has stated that the seizure was not new and has been present for greater than 10 years and was tolerable. A thyroid ultrasound was performed which did show bilateral thyroid nodules. The one on the right side was approximately 2.1 x 1.9 cm along the superior aspect of the lobe. The left lobe lesion was far larger in size at 3.5 x 4.7 cm in size more along the inferior portion of the lobe. Thyroid scan was also performed which did show slightly elevated 24-hour uptake of 30% consistent with a hypothyroid state. The lower lobe was solid and cold as well. She also does report symptoms of hypothyroidism including weight loss, depression, severe fatigue, joint pain, constipation as well as short term memory loss, cold intolerance, brittle hair, nails and skin. She states that this has been going on for approximately 20 to 25 years. An attempted ultrasound-guided biopsy was made however, the results were nondiagnostic. Due to the characteristics of the lesions as well as the size and her symptoms, we will proceed with a total thyroidectomy and eventual thyroid replacement. If the final pathology does show any component of invasive malignancy, she may then be a candidate for radioactive iodine scan followed by ablation if this is positive as well as following her with thyroglobulin levels. The patient was brought to the operating room, laid supine on the table. After adequate IV pain and sedating medications and general endotracheal intubation, the patient was placed in a semi-Ortega position with the neck slightly extended. The neck, lower face and chest were then prepped and draped in standard surgical fashion. We then measured approximately 2 cm below the cricoid cartilage and marked this with a marking pen. The skin and subcutaneous tissue was then anesthetized using 0.5% Marcaine with epinephrine. A crescent-shaped skin incision 6 cm in size was then made using a 15 blade. The subcutaneous fat and platysma were then opened using electrocautery. Strap muscles identified and we then proceeded to create our tissue flap superiorly and inferiorly using blunt dissection as well as electrocautery. Good hemostasis was observed. The median raphe was then opened using electrocautery visualizing the isthmus lobe of the thyroid gland. We first proceeded with dissection of the left lobe of the thyroid which was much larger. The strap muscles were retracted laterally and the vidales ligament scored using electrocautery. We then proceeded with lateral to medial dissection of the thyroid lobe. First the middle thyroid vein was identified and cut using Sonicision. The recurrent laryngeal nerve as well as superior and inferior thyroid glands were identified and spared throughout the process. We then proceeded with our superior dissection identifying the superior thyroid artery and vein and dissect this out using a spatula and then sealed and transected this using a Sonicision with visualization of good hemostasis. This was close to the thyroid gland. We then proceeded with dissection of the inferior thyroidal artery and vein in a similar fashion and resected this. We then proceeded with our dissection more medially until the trachea was identified, taking the isthmus lobe as well. Good hemostasis was observed. We then turned our attention towards dissection of the right lobe of the thyroid gland. In a similar fashion, the strap muscles were retracted laterally and vidales ligament taken down using electrocautery. We then proceeded with a lateral to medial dissection again encompassing the middle thyroid vein which was gently dissected, cauterized and cut using the Sonicision. We then proceeded with superior thyroidal artery and vein identification, dissection using a spatula and cauterization and cutting using the Sonicision. This was again very close to the thyroid gland. We then proceeded with identification, dissection of the inferior thyroid artery and vein. The recurrent laryngeal as well as the parathyroid glands identified and spared. We then continued our dissection medially towards the trachea until the entire thyroid gland was removed. Thyroid gland was sent to pathology. Packs were placed for several minutes and the bilateral sides were irrigated and suctioned out with visualization of good hemostasis. The median raphe was then reapproximated using 3-0 Vicryl running suture. The platysma was then reapproximated using 3-0 Vicryl interrupted suture. Subcutaneous tissue was then loosely and approximated using interrupted 3-0 Vicryl suture. Skin was closed using 4-0 Monocryl running subcuticular suture. Wound was then cleaned and covered with Dermabond. The patient tolerated the procedure well. We will admit her to 23-hour observation and start a clear liquid diet and advance as tolerated. We will also proceed with DVT prophylaxis with calf SCDs as well as early ambulation and proceed with electrolyte laboratory work in the a.m. Job ID: [id number] DocumentID: [id number] Dictated Date: 08/20/2017 16:03:06 [employer]orer [employer] Date: 08/20/2017 21:02:07 Dictated By: DIO VU MD
[2017-08-21] VITALS (28 sets, daily range): BP systolic 119–182; BP diastolic 63–104
[2017-08-21] MEDS: PROPOFOL DRIP (ICU) 100 ML IV SCH ×7 (00:42→18:02)
[2017-08-21] MEDS: methylPREDNISolone 125 MG (Solu-MEDROL) VIAL IVP SCH ×3 (00:45→12:52)
[2017-08-21] MEDS: fentaNYL INJECTION 100 MCG/2 ML AMP IVP PRN ×4 (01:39→22:34)
[2017-08-21] MEDS: RT-ALBUTEROL/IPRATROPIUM 3 ML (DUONEB) VIAL INH SCH ×6 (02:23→22:04)
[2017-08-21 04:15] LABS: BASOPHILS % (AUTO) 0 % (0-10); EOSINOPHILS % (AUTO) 0 % (0-10); HEMATOCRIT 38 % (35-52); HEMOGLOBIN 12.7 G/DL (11.5-16.0); LYMPHOCYTES # (AUTO) 1.4 X 10^3 (1.0-4.0); LYMPHOCYTES % (AUTO) 9 % (12-44); MEAN CORPUSCULAR HEMOGLOBIN 30 PG (25-34); MEAN CORPUSCULAR HGB CONC 33 G/DL (32-36); MEAN CORPUSCULAR VOLUME 91 FL (80-99); MEAN PLATELET VOLUME 10.1 FL (7.4-10.4); MONOCYTES # (AUTO) 0.7 X 10^3 (0.0-1.0); MONOCYTES % (AUTO) 4 % (0-12); NEUTROPHILS # (AUTO) 13.6 X 10^3 (1.8-7.8); NEUTROPHILS % (AUTO) 87 % (42-75); PLATELET COUNT 289 10^3/uL (130-400); RED CELL DISTRIBUTION WIDTH 15.4 % (10.0-14.5); WHITE BLOOD COUNT 15.6 10^3/uL (4.3-11.0)
[2017-08-21 04:41] LABS: CALCIUM 9.5 MG/DL (8.5-10.1); CREATININE SERUM 1.06 MG/DL (0.60-1.30); PHOSPHORUS 3.3 MG/DL (2.3-4.7); POTASSIUM 4.3 MMOL/L (3.6-5.0)
[2017-08-21] MEDS: LACTATED RINGERS 1,000 ML IV SCH ×3 (04:42→22:42)
[2017-08-21] MEDS: KCL 20 MEQ TAB (K-DUR) PO SCH (05:43)
[2017-08-21] MEDS: MAGNESIUM 1 GM/100 ML IVPB 100 ML IV SCH (05:43)
[2017-08-21] MEDS: POTASSIUM CL 10MEQ/50ML IVPB 50 ML IV SCH (05:43)
[2017-08-21 05:51] LABS: ABG BASE EXCESS -2.5 MMOL/L (-2.5-2.5); ABG OXYGEN SATURATION 95 % (94-100); ABG PCO2 39 MMHG (35-45); ABG PH 7.37 (7.37-7.43); ABG PO2 71 MMHG (79-93); ABG TCO2 23.3 MMOL/L (21.0-31.0)
[2017-08-21 05:54] LABS: ALLENS TEST YES-POS; INSPIRED O2 30%; PATIENT TEMP 97.5; VENTILATOR YES
--- NOTE | 2017-08-21 06:32 | Diagnostic Imaging Report ---
INDICATION: Intubated patient. Status post surgery. COMPARISON: 08/20/2017 FINDINGS: Single frontal radiographic view of the chest was obtained and demonstrates indwelling endotracheal tube with tip at clavicular heads. Gastric tube tip terminates in the stomach. Cardiac silhouette and pulmonary vasculature is stable. Lungs show low inspiratory volumes with partial opacification left hemidiaphragm secondary to left basilar alveolar opacities. There is also suggestion of ovoid opacity within the lateral left lower lung field measuring approximately 1.1 cm. Right lung is relatively clear. No large effusion is seen on the right. No pneumothorax is identified on either side. Bony structures are unremarkable. IMPRESSION: 1. Low lung volumes with probable left basilar atelectasis and/or underlying effusion. 2. Ovoid opacity within the lateral left lower lung field. Suspect pulmonary nodule versus granuloma. Followup CT chest is recommended. Dictated by: Dictated on workstation # [id number]
--- NOTE | 2017-08-21 07:13 | Progress Note-Standard ---
Standard Progress Note Progress Notes/Assess & Plan Date Seen by Provider: August 21, 2017 Time Seen by Provider: 06:30 Progress/Assessment & Plan ENT-Melanie Patient seen evaluated Had total thyroid yesterday with post-op stridor requiring intubation ? of an allegric reaction Unsure of exact time frame from extubation to re-intubation this am -sedated iwth propofol and intubated exam Neck-no swelling incision flat and wil-nop redness fiberoptic laryngospcoy-no swelling seein on orpharynx can't assess cords because of ET tube IMP Post-op Stridor afte Total thyroidecotmy Rec: 1. Options 1. extubated/ treat with racemic epi and observe closeely-if need to re- intubate then will need a trach 2. trach fololowed by direct laryngsocpy to assess the cords 3. transfer to a higher level of car-KU Will talk with Dr Vu and get time course of events and go voe rthe options he has at this time Thanks for hte consult-full consult is dictated Final Diagnosis Stridor Post-oip Total Thyroidectomy MILES CHRISTIANSEN MD August 21, 2017 7:13 am
--- NOTE | 2017-08-21 07:16 | Pulmonary Consultation ---
History of Present Illness History of Present Illness Date of Consultation 08/20/17 1600 Late entry today's date is 08/21/16 Time Seen by Provider: 07:11 Date of Admission History of Present Illness 61yo with hx of COPD, morbid obesity who is s/p thyroidectomy transferred to ICU for recovery. I was asked to see patient because of respiratory distress and stridor. Pt has a graspy voice and is too weak/SOB to talk. Unable to obtain ROS. I discussed with anesthesia and Dr. Vu. Pt does not appear to be tolerating extubation. Duoneb and racemic epi given via nebulizer. pt was also given epi IM x 2, Benadryl, solumedrol, and pepcid without improvement. PT has had multiple episodes of anaphylaxis in the past. She has multiple medicine allergies. Allergies and Home Medications Allergies Coded Allergies: Penicillins (Unverified Allergy, Severe, ANAPHYLAXIS, 08/28/10) aspirin (Unverified Allergy, Mild, RASH, 08/28/10) gabapentin (Verified Allergy, Unknown, 08/17/17) iodine (Unverified Allergy, Unknown, RASH, 12/01/13) morphine (Unverified Allergy, Unknown, "MAKES GO OUT", 12/01/13) pramipexole (Verified Allergy, Unknown, HIVES, 08/17/17) codeine (Unverified Adverse Reaction, Mild, N/V, 08/28/10) acetaminophen (Unverified Adverse Reaction, Unknown, 05/12/16) adhesive tape (Unverified Adverse Reaction, Unknown, 05/12/16) ibuprofen (Unverified Adverse Reaction, Unknown, 05/12/16) niacin (Unverified Adverse Reaction, Unknown, 05/12/16) propoxyphene (Unverified Adverse Reaction, Unknown, 05/12/16) Uncoded Allergies: ANTIDEPRESSANTS (Allergy, Unknown, MAKES SUICIDAL, 12/01/13) Home Medications Acetaminophen 500 Mg Tablet, 1,000 MG PO Q6H PRN for PAIN-MILD, (Reported) TAKE 2 (500MG) TABS Albuterol Sulfate 1 Puff Puff, 2 PUFF IH Q6H PRN for SHORTNESS OF BREATH, ( Reported) 1 PUFF = 90 MCG Albuterol Sulfate 2.5 Mg/3 Ml Vial.neb, 2.5 MG NEB Q6H PRN for SHORTNESS OF BREATH, (Reported) Allopurinol 100 Mg Tablet, 100 MG PO DAILY, (Reported) Atenolol 50 Mg Tablet, 50 MG PO DAILY, (Reported) Budesonide/Formoterol Fumarate 10.2 Gm Hfa.aer.ad, 1 PUFF IH BID, (Reported) Cetirizine HCl 10 Mg Tablet, 10 MG PO HS, (Reported) Clonidine HCl 0.1 Mg Tablet, 0.1 MG PO HS, (Reported) Diphenhydramine HCl 50 Mg Capsule, 50 MG PO HS, (Reported) Ferrous Sulfate 325 Mg Tablet, 325 MG PO 1200, (Reported) Fluticasone Propionate 16 Gm [place].susp, 1 SPRAY NS TID, (Reported) Furosemide 40 Mg Tablet, 40 MG PO DAILY, (Reported) Guaifenesin/Dextromethorphan 237 Ml Liquid, 2 TBS PO HS, (Reported) Lisinopril 10 Mg Tablet, 10 MG PO DAILY, (Reported) Loperamide HCl 2 Mg Tablet, 2 MG PO UD PRN for DIARRHEA, (Reported) Loratadine 10 Mg Tablet, 10 MG PO DAILY, (Reported) Methocarbamol 750 Mg Tablet, 750 MG PO BID, (Reported) Nifedipine 60 Mg Tablet.er, 60 MG PO DAILY, (Reported) Ondansetron HCl 4 Mg Tablet, 4 MG PO Q4H PRN for NAUSEA/VOMITING-1ST LINE, ( Reported) Oxymetazoline HCl 30 Ml [place], 1 SPRAY NS BID, (Reported) Simvastatin 20 Mg Tablet, 20 MG PO HS, (Reported) Past Khedzuj-Snwfyy-Ylbynt Hx Patient Social History Alcohol Use: Rarely Uses Number of Drinks Today: 0 Recreational Drug Use: No Smoking Status: Never a Smoker Recent Foreign Travel: No Contact w/Someone Who Travel: No Recent Infectious Disease Expo: No Recent Hopitalizations: No Physical Abuse: No Sexual Abuse: No Mistreated: No Fear: No Immunizations Up To Date Date of Pneumonia Vaccine: Dec 28, 2013 Date of Influenza Vaccine: Jan 16, 2017 Seasonal Allergies Seasonal Allergies: Yes Past Medical History Surgeries: Yes (hiatal hernia with small amount of stomach removed, BACK SX x3) Adenoidectomy, Gallbladder, Hysterectomy, Orthopedic, Tonsillectomy Respiratory: Yes COPD Cardiac: Yes (ENLARGED HEART, tachycardia) Hypertension Neurological: Yes (FEBRILE SEIZURES) Reproductive Disorders: No Genitourinary: Yes (CHRONIC KIDNEY DZ) Renal Failure Gastrointestinal: Yes (PEPTIC ULCER, ) Diverticulosis, Ulcer Musculoskeletal: Yes (OSTEOARTHRITIS) Degenerate Disk Disease, Arthritis, Chronic Back Pain Endocrine: Yes (bilat thryoid mass) Cancer: Yes Skin What Type of Treatment Did You: Surgical Intervention Psychosocial: Yes Anxiety, PTSD, Suicide Attempts, Personality Disorder, Depression Integumentary: No Blood Disorders: Yes (anemia) Family Medical History No Pertinent Family Hx Review of Systems Time Seen by Provider: 07:15 Exam Exam Vital Signs Date Time Temp Pulse Resp B/P (MAP) Pulse Ox O2 Delivery O2 Flow Rate FiO2 08/21/17 06:54 113 20 95 30 08/21/17 06:00 106 21 127/67 (87) 94 Mechanical Ventilator 30.00 08/21/17 05:18 104 18 127/63 93 Mechanical Ventilator 30.00 08/21/17 05:00 106 18 128/64 (85) 93 Mechanical Ventilator 30.00 08/21/17 04:00 111 20 135/65 (88) 92 Mechanical Ventilator 30.00 08/21/17 04:00 96 Mechanical Ventilator 30 08/21/17 03:11 97.9 114 24 135/71 97 Mechanical Ventilator 30.00 08/21/17 03:00 110 16 135/71 (92) 92 Mechanical Ventilator 30.00 08/21/17 02:23 104 19 93 30 08/21/17 02:00 104 20 137/75 (95) 94 Mechanical Ventilator 30.00 08/21/17 01:00 100 08/21/17 01:00 100 21 182/104 (130) 95 Mechanical Ventilator 30.00 08/21/17 00:42 97 21 159/83 Mechanical Ventilator 50.00 08/21/17 00:00 96 19 154/81 (105) 93 Mechanical Ventilator 30.00 08/21/17 00:00 96 Mechanical Ventilator 30 08/20/17 23:00 98 19 153/78 (103) 94 Mechanical Ventilator 30.00 08/20/17 22:13 97.1 104 20 156/81 98 Mechanical Ventilator 50.00 08/20/17 22:00 106 18 168/92 (117) 97 Mechanical Ventilator 30.00 08/20/17 21:39 97 21 128/64 (85) 94 Mechanical Ventilator 30.00 08/20/17 21:39 96 17 95 30 08/20/17 21:00 106 25 156/86 (109) 97 Mechanical Ventilator 50.00 08/20/17 20:00 98 Mechanical Ventilator 50 08/20/17 20:00 100 20 123/55 (77) 94 Mechanical Ventilator 50.00 08/20/17 19:45 101 22 129/65 (86) 94 Mechanical Ventilator 50.00 08/20/17 19:30 101 20 121/64 (83) 94 Mechanical Ventilator 50.00 08/20/17 19:15 98 20 123/68 (86) 95 Mechanical Ventilator 50.00 08/20/17 19:00 100 08/20/17 19:00 100 20 137/65 (89) 94 Mechanical Ventilator 50.00 08/20/17 18:37 Mechanical Ventilator 40 08/20/17 18:37 96.9 08/20/17 18:33 96.9 101 22 143/75 99 Face Tent 40.00 08/20/17 18:15 101 25 95 50 08/20/17 17:06 Face Tent 10.00 40 08/20/17 16:14 Face Tent 10.00 40 08/20/17 12:15 96.9 76 22 151/89 (109) 97 Room Air I & O 08/21/17 07:00 Intake Total 3000 ml Output Total 1700 ml Balance 1300 ml General Appearance: Anxious, Obese, Severe Distress HEENT: PERRL/EOMI, Moist Mucous Membranes, Other (neck is dressed no significant edema. ) Respiratory: Accessory Muscle Use, Decreased Breath Sounds, Respiratory Distress, Stridor, Wheezing Cardiovascular: No Edema, Tachycardia Capillary Refill: Less Than 3 Seconds Gastrointestinal: normal bowel sounds, non tender, soft Extremity: Normal Capillary Refill, Normal Inspection Neurologic/Psychiatric: Alert, Depressed Affect Skin: Normal Color, Warm/Dry Lymphatic: No Adenopathy Results Lab Laboratory Tests 08/20/17 10:35 08/21/17 03:37 Assessment/Plan Assessment/Plan -Acute on chronic respiratory failure -Pt will probably need reintubation -SVN give with duoneb and racemic epi -SOlumedrol 125mg given x 1 Anaphylaxis -SOlumedrol, Benadryl, Pepcid, epinephrin - given -monitor -S/p total thyroidectomy morbid obesity Critical Care: Critically Ill Patient Time spent with patient (mins): 80min DAVE BARCENAS DO August 21, 2017 07:16
--- NOTE | 2017-08-21 07:25 | Pulmonary Progress Note ---
Subjective Time Seen by Provider: 07:25 Subjective/Events-last exam PT is awake but intubated on vent. Exam Exam Vital Signs Date Time Temp Pulse Resp B/P (MAP) Pulse Ox O2 Delivery O2 Flow Rate FiO2 08/21/17 06:54 113 20 95 30 08/21/17 06:00 106 21 127/67 (87) 94 Mechanical Ventilator 30.00 08/21/17 05:18 104 18 127/63 93 Mechanical Ventilator 30.00 08/21/17 05:00 106 18 128/64 (85) 93 Mechanical Ventilator 30.00 08/21/17 04:00 111 20 135/65 (88) 92 Mechanical Ventilator 30.00 08/21/17 04:00 96 Mechanical Ventilator 30 08/21/17 03:11 97.9 114 24 135/71 97 Mechanical Ventilator 30.00 08/21/17 03:00 110 16 135/71 (92) 92 Mechanical Ventilator 30.00 08/21/17 02:23 104 19 93 30 08/21/17 02:00 104 20 137/75 (95) 94 Mechanical Ventilator 30.00 08/21/17 01:00 100 08/21/17 01:00 100 21 182/104 (130) 95 Mechanical Ventilator 30.00 08/21/17 00:42 97 21 159/83 Mechanical Ventilator 50.00 08/21/17 00:00 96 19 154/81 (105) 93 Mechanical Ventilator 30.00 08/21/17 00:00 96 Mechanical Ventilator 30 08/20/17 23:00 98 19 153/78 (103) 94 Mechanical Ventilator 30.00 08/20/17 22:13 97.1 104 20 156/81 98 Mechanical Ventilator 50.00 08/20/17 22:00 106 18 168/92 (117) 97 Mechanical Ventilator 30.00 08/20/17 21:39 97 21 128/64 (85) 94 Mechanical Ventilator 30.00 08/20/17 21:39 96 17 95 30 08/20/17 21:00 106 25 156/86 (109) 97 Mechanical Ventilator 50.00 08/20/17 20:00 98 Mechanical Ventilator 50 08/20/17 20:00 100 20 123/55 (77) 94 Mechanical Ventilator 50.00 08/20/17 19:45 101 22 129/65 (86) 94 Mechanical Ventilator 50.00 08/20/17 19:30 101 20 121/64 (83) 94 Mechanical Ventilator 50.00 08/20/17 19:15 98 20 123/68 (86) 95 Mechanical Ventilator 50.00 08/20/17 19:00 100 08/20/17 19:00 100 20 137/65 (89) 94 Mechanical Ventilator 50.00 08/20/17 18:37 Mechanical Ventilator 40 08/20/17 18:37 96.9 08/20/17 18:33 96.9 101 22 143/75 99 Face Tent 40.00 08/20/17 18:15 101 25 95 50 08/20/17 17:06 Face Tent 10.00 40 08/20/17 16:14 Face Tent 10.00 40 08/20/17 12:15 96.9 76 22 151/89 (109) 97 Room Air I & O 08/21/17 07:00 Intake Total 3000 ml Output Total 1700 ml Balance 1300 ml General Appearance: Anxious, Obese, Severe Distress HEENT: PERRL/EOMI, Moist Mucous Membranes, Other (neck is dressed no significant edema. ) Respiratory: Accessory Muscle Use, Decreased Breath Sounds, Respiratory Distress, Stridor, Wheezing Cardiovascular: No Edema, Tachycardia Capillary Refill: Less Than 3 Seconds Gastrointestinal: normal bowel sounds, non tender, soft Extremity: Normal Capillary Refill, Normal Inspection Neurologic/Psychiatric: Alert, Depressed Affect Skin: Normal Color, Warm/Dry Lymphatic: No Adenopathy Results Lab Laboratory Tests 08/20/17 10:35 08/21/17 03:37 Assessment/Plan Assessment/Plan -Acute on chronic respiratory failure -Will attempt extubation today. I have discussed with Dr. Vu and Dr. Navarro -SVN give with duoneb and racemic epi -SOlumedrol - continue Anaphylaxis vs vocal cord paralysis -requiring reintubation -Pt can move air around ET tube easily with balloon deflated. -S/p total thyroidectomy morbid obesity 233 Critical Care: Critically Ill Patient DAVE BARCENAS DO August 21, 2017 07:25
[2017-08-21] MEDS ORDERED: RT-epiNEPHrine (RACEMIC) 2.25% 0.5 ML VIAL ONE (07:31)
[2017-08-21] MEDS ORDERED: LORazepam INJ 2 MG/ML (ATIVAN) VIAL ONE (07:39)
[2017-08-21] MEDS ORDERED: methylPREDNISolone 125 MG (Solu-MEDROL) VIAL IM ONE (08:00)
[2017-08-21] MEDS ORDERED: LORazepam INJ 2 MG/ML (ATIVAN) VIAL IVP ONE (08:00)
--- NOTE | 2017-08-21 08:23 | Pulmonary Progress Note ---
Standard Progress Note Progress Notes Date Seen by Provider: August 21, 2017 Time Seen by Provider: 08:11 Called to patients room emergently secondary to respiratory distress post extubation. Pt has inspiratory/expiratory wheezing and accessory muscle use. Assessment & Plan -Acute on chronic respiratory failure -immediately post extubation pt went into respiratory distress with stridor -SVN give with duoneb and racemic epi -SOlumedrol -give 125mg IV x 1 Anaphylaxis vs vocal cord paralysis -requiring reintubation -Pt can move air around ET tube easily with balloon deflated. -S/p total thyroidectomy morbid obesity I d/w with Dr. Vu and Dr. Navarro. Dr. Navarro was in OR and not available for another 20min. I was attempting to hold off on intubation so Dr. Navarro could evaluate her vocal cords. Pt was rapidly declining. at bedside and all questions answered. Secondary to rapid decline anesthesia was called for emergent reintubation. Pt was successfully reintubated without complication. Vocal cords appeared to be fixed and not moving at all with reintubation. Dr. Navarro is going to discuss next treatment option with Dr. Vu. 60min spent with patient family and medical staff regarding patient's critical condition. DAVE BARCENAS DO August 21, 2017 08:23
[2017-08-21] MEDS ORDERED: PROPOFOL DRIP (ICU) 100 ML IV ONE (08:24)
--- NOTE | 2017-08-21 08:35 | Diagnostic Imaging Report ---
INDICATION: Intubation Frontal chest obtained at 824 hours a.m. and compared to same day at 3:16 a.m. ET tube is seen with tip overlying mid trachea. NG tube seen with tip overlying the stomach. There is some right perihilar atelectasis. There is poor inspiration. Nodular density overlying left midlung is unchanged. There is no pneumothorax or pleural fluid. IMPRESSION: ET tube tip overlies mid trachea. There is some mild right perihilar atelectasis. There is a nodular density overlying the left midlung which is unchanged compared to the prior study. There is no new finding otherwise seen. Dictated by: Dictated on workstation # [id number]
[2017-08-21] MEDS: PANTOPRAZOLE 40 MG/10 ML (PROTONIX) VIAL IV SCH (09:27)
[2017-08-21] MEDS: DEXMEDETOMIDINE INJECTION 200 MCG in NS (IVPB) 50 ML IV SCH (10:26)
[2017-08-21] MEDS ORDERED: LIDOCAINE/EPI 1%-1:200,000 (XYLOCAINE) 10 ML VIAL ONE (10:57)
[2017-08-21] MEDS ORDERED: LIDOCAINE 1% INJ 20 ML 20 ML VIAL ONE (11:11)
--- NOTE | 2017-08-21 11:11 | Progress Note-Standard ---
Standard Progress Note Progress Notes/Assess & Plan Time Seen by Provider: 07:50 Final Diagnosis Consulted per Dr. Raymundo for emergent intubation. Upon arrival to bedside noticed pt in obvious respiratory distress, stridorous respirations. O2 sat above 96% but pt working hard to maintain. Pt unable to phonate. Dr. Raymundo, RN' s, and RT at bedside. Report obtained. Etomidate 20 mg given IV with direct laryngoscopy. Vocal cords open with no movement. Sux 60 mg IV with positive visual placement of ETT using Glidescope. (+ETCO2, bilateral breath sounds) VSS report to RN's, RT, Dr. Navarro and Dr. Raymundo, care assumed. ASA 4 JALEN JACKSON CRNA August 21, 2017 11:11
[2017-08-21] MEDS ORDERED: MIDAZOLAM 2 MG/2 ML (VERSED) VIAL ONE (11:12)
[2017-08-21] MEDS ORDERED: proPOfol 200 MG/20 ML (DIPRIVAN) VIAL IV ONE (11:12)
--- NOTE | 2017-08-21 11:40 | Diagnostic Imaging Report ---
CT NECK/CHEST WO INDICATION: Thyroid surgery yesterday. Potential nerve damage. TECHNIQUE: Unenhanced CT imaging of the neck and chest was performed. Sagittal and coronal reformats are created and submitted for interpretation. COMPARISON: None available. FINDINGS: CT neck: ET and orogastric tubes are in place. The ET tube is in good position with the balloon inflated in the subglottic airway. Assessment of the vocal cords is very limited with ET tube in place. Moderate amount of soft tissue gas is present in the anterior neck from recent thyroid resection. No fluid collection within the neck. No cervical lymphadenopathy. No abnormality in the nasopharynx. No concerning focal osseous lesion in the cervical spine. ACDF changes are present at C5-C6. No hydrocephalus or space-occupying mass within the visualized aspects of the brain. Orbits are unremarkable where seen. Paranasal sinuses and mastoid air cells are clear. CT chest: ET tube has tip terminating approximately 3 cm above the [place] in good position. Enteric tube has tip terminating in the proximal stomach. There is small amount of pneumomediastinum secondary to recent neck dissection for thyroid surgery. No fluid collection within the mediastinum. There is no lymphadenopathy or mass lesion along the expected courses of the recurrent laryngeal nerves in the upper mediastinum. Heart is normal in size without pericardial effusion. Normal caliber thoracic aorta. Trace bilateral pleural effusions. Calcified left lower lobe pulmonary nodules compatible with old granulomatous infection. There are bandlike areas of atelectasis in the bilateral lower lobes. Subtotal consolidations in the medial aspects of the bilateral lower lobes are also likely due to atelectasis. No concerning focal osseous lesion in the chest. IMPRESSION: 1. Soft tissue gas in the neck and mediastinum is compatible with recent thyroid surgery. No postoperative fluid collections within the neck or mediastinum. 2. No cervical or mediastinal lymphadenopathy. No mass lesions along the expected courses of the vagus or recurrent laryngeal nerves on either side. 3. Endotracheal tube is in place which limits evaluation of the vocal cords. No endoluminal mass within the trachea. 4. Bilateral lower lobe opacities favor subtotal atelectasis. Dictated by: Dictated on workstation # [id number]
[2017-08-21] MEDS ORDERED: LACTATED RINGERS 1,000 ML IV PRN ×2 (11:59→12:34)
--- NOTE | 2017-08-21 12:46 | Progress Note-Standard ---
Standard Progress Note Progress Notes/Assess & Plan Date Seen by Provider: August 21, 2017 Time Seen by Provider: 12:30 Progress/Assessment & Plan ENT-Melanie Patient seen evaluated Had total thyroid yesterday with post-op stridor requiring intubation ? of an allegric reaction Unsure of exact time frame from extubation to re-intubation this am -sedated iwth propofol and intubated exam Neck-no swelling incision flat and wil-nop redness fiberoptic laryngospcoy-no swelling seein on orpharynx can't assess cords because of ET tube IMP Post-op Stridor afte Total thyroidecotmy Rec: 1. Options 1. extubated/ treat with racemic epi and observe closeely-if need to re- intubate then will need a trach 2. trach fololowed by direct laryngsocpy to assess the cords 3. transfer to a higher level of car-[facility] Will talk with Dr Vu and get time course of events and go voe rthe options he has at this time Thanks for hte consult-full consult is dictated ENT-08/21-1230 extubation attempted and failed within 5 minutes-had to be intubated talked with firend/significant other-needs trach for airway vocal [id number] mobile at this time and are in parmedia postion risks benefits of trach discussed with family- ct neck/chest showed effsuions at base of chest but nothng much else in neck or chest will proceed to the OR for a trach as soon as crew available went to OR-trach placed -number 6 cuffed shiley cuffed needs to be inflated for today-if off of the vent tomorrow and doing well then will deflate cuff and begin diet and show her how to talk pcxr today to rule out pneumo will have to see how cords do -hopefully chico lcome back-time will tell MILES CHRISTIANSEN MD August 21, 2017 12:46 pm
--- NOTE | 2017-08-21 13:32 | Diagnostic Imaging Report ---
INDICATION: Respiratory distress. Comparison is made with prior examination from 08/21/17. FINDINGS: There is cardiomegaly. There is some venous congestion. There is bibasilar atelectasis and/or pneumonitis. There is no pleural effusion or pneumothorax. Tracheostomy tube and nasogastric tube are in satisfactory position. IMPRESSION: Bibasilar atelectasis and/or pneumonitis and some mild central pulmonary venous congestion. Dictated by: Dictated on workstation # [id number]
--- NOTE | 2017-08-21 15:48 | Progress Note (SOAP) ---
Subjective Date Seen by Provider: August 21, 2017 Time Seen by Provider: 09:00 Subjective/Events-last exam failed extubation last night. number of reasons including airway edema, COPD, vocal cord paralysis. attempted extubation trail this am however continued to fail and re-intubated. Objective Exam Vital Signs Date Time Temp Pulse Resp B/P (MAP) Pulse Ox O2 Delivery O2 Flow Rate FiO2 08/21/17 14:34 86 18 94 50 08/21/17 14:00 87 18 157/82 (107) 93 Mechanical Ventilator 50.00 08/21/17 13:52 89 157/82 Mechanical Ventilator 50.00 08/21/17 13:00 92 08/21/17 13:00 92 21 150/81 (104) 93 Mechanical Ventilator 50.00 08/21/17 12:55 97.6 Mechanical Ventilator 50.00 08/21/17 11:00 108 30 145/74 (97) 94 Mechanical Ventilator 50.00 08/21/17 10:26 109 150/70 Mechanical Ventilator 50.00 08/21/17 10:00 111 19 147/72 (97) 94 Mechanical Ventilator 50.00 08/21/17 09:28 112 153/66 Mechanical Ventilator 50.00 08/21/17 09:00 115 22 149/72 (97) 98 Mechanical Ventilator 50.00 08/21/17 08:12 Mechanical Ventilator 50.00 08/21/17 08:08 129 29 100 100 08/21/17 08:00 134 42 170/87 (114) 100 Mechanical Ventilator 100.00 08/21/17 08:00 98.2 Mechanical Ventilator 100.00 08/21/17 07:00 117 25 152/86 (108) 95 Mechanical Ventilator 30.00 08/21/17 06:54 113 20 95 30 08/21/17 06:00 106 21 127/67 (87) 94 Mechanical Ventilator 30.00 08/21/17 05:18 104 18 127/63 93 Mechanical Ventilator 30.00 08/21/17 05:00 106 18 128/64 (85) 93 Mechanical Ventilator 30.00 08/21/17 04:00 111 20 135/65 (88) 92 Mechanical Ventilator 30.00 08/21/17 04:00 96 Mechanical Ventilator 30 08/21/17 03:11 97.9 114 24 135/71 97 Mechanical Ventilator 30.00 5/25/18 03:00 110 16 135/71 (92) 92 Mechanical Ventilator 30.00 08/21/17 02:23 104 19 93 30 08/21/17 02:00 104 20 137/75 (95) 94 Mechanical Ventilator 30.00 08/21/17 01:00 100 08/21/17 01:00 100 21 182/104 (130) 95 Mechanical Ventilator 30.00 08/21/17 00:42 97 21 159/83 Mechanical Ventilator 50.00 08/21/17 00:00 96 19 154/81 (105) 93 Mechanical Ventilator 30.00 08/21/17 00:00 96 Mechanical Ventilator 30 08/20/17 23:00 98 19 153/78 (103) 94 Mechanical Ventilator 30.00 08/20/17 22:13 97.1 104 20 156/81 98 Mechanical Ventilator 50.00 08/20/17 22:00 106 18 168/92 (117) 97 Mechanical Ventilator 30.00 08/20/17 21:39 97 21 128/64 (85) 94 Mechanical Ventilator 30.00 08/20/17 21:39 96 17 95 30 08/20/17 21:00 106 25 156/86 (109) 97 Mechanical Ventilator 50.00 08/20/17 20:00 98 Mechanical Ventilator 50 08/20/17 20:00 100 20 123/55 (77) 94 Mechanical Ventilator 50.00 08/20/17 19:45 101 22 129/65 (86) 94 Mechanical Ventilator 50.00 08/20/17 19:30 101 20 121/64 (83) 94 Mechanical Ventilator 50.00 08/20/17 19:15 98 20 123/68 (86) 95 Mechanical Ventilator 50.00 08/20/17 19:00 100 08/20/17 19:00 100 20 137/65 (89) 94 Mechanical Ventilator 50.00 08/20/17 18:37 Mechanical Ventilator 40 08/20/17 18:37 96.9 08/20/17 18:33 96.9 101 22 143/75 99 Face Tent 40.00 08/20/17 18:15 101 25 95 50 08/20/17 17:06 Face Tent 10.00 40 08/20/17 16:14 Face Tent 10.00 40 I & O 08/21/17 07:00 Intake Total 3000 ml Output Total 1700 ml Balance 1300 ml Capillary Refill : Less Than 3 Seconds General Appearance: Anxious HEENT: PERRL/EOMI Neck: Full Range of Motion, Other (wound intact, no fluid collection or hematoma. ) Respiratory: Rales, Respiratory Distress, Rhonci, Stridor Cardiovascular: Regular Rate, Rhythm Gastrointestinal: normal bowel sounds, non tender, soft Extremity: Normal Capillary Refill Neurologic/Psychiatric: Alert, Oriented x3 Skin: Normal Color Lymphatic: No Adenopathy Results Lab Laboratory Tests 08/20/17 16:58: Blood Gas Puncture Site RT RAD, Blood Gas Patient Temperature 97.0, Arterial Blood pH 7.35L, Arterial Blood Partial Pressure CO2 41, Arterial Blood Partial Pressure O2 94H, Arterial Blood HCO3 22L, Arterial Blood Total CO2 23.6, Arterial Blood Oxygen Saturation 98, Arterial Blood Base Excess -2.6L, Jin Test YES-POS, Blood Gas Ventilator Setting NO, Blood Gas Inspired Oxygen 40% 08/20/17 20:49: Blood Gas Puncture Site RT RAD, Blood Gas Patient Temperature 97.1, Arterial Blood pH 7.36L, Arterial Blood Partial Pressure CO2 37, Arterial Blood Partial Pressure O2 80, Arterial Blood HCO3 21L, Arterial Blood Total CO2 21.9, Arterial Blood Oxygen Saturation 97, Arterial Blood Base Excess -3.9L, Jin Test YES-POS, Blood Gas Ventilator Setting YES, Blood Gas Inspired Oxygen 50% 08/21/17 03:37: White Blood Count 15.6H, Red Blood Count 4.20L, Hemoglobin 12.7, Hematocrit 38, Mean Corpuscular Volume 91, Mean Corpuscular Hemoglobin 30, Mean Corpuscular Hemoglobin Concent 33, Red Cell Distribution Width 15.4H, Platelet Count 289, Mean Platelet Volume 10.1, Neutrophils (%) (Auto) 87H, Lymphocytes (%) (Auto) 9L , Monocytes (%) (Auto) 4, Eosinophils (%) (Auto) 0, Basophils (%) (Auto) 0, Neutrophils # (Auto) 13.6H, Lymphocytes # (Auto) 1.4, Monocytes # (Auto) 0.7, Eosinophils # (Auto) 0.0, Basophils # (Auto) 0.0, Sodium Level 142, Potassium Level 4.3, Chloride Level 109H, Carbon Dioxide Level 18L, Anion Gap 15H, Blood Urea Nitrogen 18, Creatinine 1.06, Estimat Glomerular Filtration Rate 53, BUN/ Creatinine Ratio 17, Glucose Level 172H, Calcium Level 9.5, Phosphorus Level 3.3 , Magnesium Level 2.0 08/21/17 05:35: Blood Gas Puncture Site R RAD, Blood Gas Patient Temperature 97.5, Arterial Blood pH 7.37, Arterial Blood Partial Pressure CO2 39, Arterial Blood Partial Pressure O2 71L, Arterial Blood HCO3 22L, Arterial Blood Total CO2 23.3, Arterial Blood Oxygen Saturation 95, Arterial Blood Base Excess -2.5, Jin Test YES-POS, Blood Gas Ventilator Setting YES, Blood Gas Inspired Oxygen 30% Microbiology 08/20/17 MRSA Screen - Final, Complete MRSA not isolated Assessment/Plan Assessment/Plan Assess & Plan/Chief Complaint respiratory failure s/p total thyroidectomy. ENT consulted and tracheostomy placed. underlying pulmonary disease and will need ween off vent. possible neuroproaxia vs. other recurrent laryngeal nerve injury. one stable, will need further studies and possible laryngotomy. Clinical Quality Measures DVT/VTE Risk/Contraindication: Risk Factor Score Per Nursin RFS Level Per Nursing on Admit: 4+=Very High LORNA RODRIGUEZ MD August 21, 2017 3:48 pm
[2017-08-21] MEDS ORDERED: HALOPERIDOL 5 MG/ML (HALDOL) AMP IM PRN (21:45)
[2017-08-21] MEDS: ENOXAPARIN 40 MG/0.4 ML (LOVENOX) SYR SC SCH (22:42)
[2017-08-22] VITALS (35 sets, daily range): BP systolic 110–165; BP diastolic 49–95
[2017-08-22] MEDS: fentaNYL INJECTION 100 MCG/2 ML AMP IVP PRN ×2 (00:03→18:32)
[2017-08-22] MEDS: methylPREDNISolone 125 MG (Solu-MEDROL) VIAL IVP SCH ×8 (00:04→23:49)
[2017-08-22] MEDS: PROPOFOL DRIP (ICU) 100 ML IV SCH ×7 (00:04→22:19)
[2017-08-22] MEDS: RT-ALBUTEROL/IPRATROPIUM 3 ML (DUONEB) VIAL INH SCH ×6 (02:39→23:00)
[2017-08-22] MEDS: DEXMEDETOMIDINE INJECTION 200 MCG in NS (IVPB) 50 ML IV SCH ×3 (02:57→20:39)
[2017-08-22 03:48] LABS: ABG BASE EXCESS 1.1 MMOL/L (-2.5-2.5); ABG OXYGEN SATURATION 93 % (94-100); ABG PCO2 42 MMHG (35-45); ABG PO2 63 MMHG (79-93); ABG TCO2 26.8 MMOL/L (21.0-31.0)
[2017-08-22 03:51] LABS: ALLENS TEST YES-POS; INSPIRED O2 30%; PATIENT TEMP 97.9; VENTILATOR YES
[2017-08-22 04:02] LABS: BASOPHILS % (AUTO) 0 % (0-10); EOSINOPHILS % (AUTO) 0 % (0-10); HEMATOCRIT 38 % (35-52); HEMOGLOBIN 12.3 G/DL (11.5-16.0); LYMPHOCYTES # (AUTO) 1.1 X 10^3 (1.0-4.0); LYMPHOCYTES % (AUTO) 6 % (12-44); MEAN CORPUSCULAR HEMOGLOBIN 31 PG (25-34); MEAN CORPUSCULAR HGB CONC 32 G/DL (32-36); MEAN CORPUSCULAR VOLUME 96 FL (80-99); MEAN PLATELET VOLUME 10.3 FL (7.4-10.4); MONOCYTES # (AUTO) 1.5 X 10^3 (0.0-1.0); MONOCYTES % (AUTO) 9 % (0-12); NEUTROPHILS # (AUTO) 15.4 X 10^3 (1.8-7.8); NEUTROPHILS % (AUTO) 85 % (42-75); PLATELET COUNT 221 10^3/uL (130-400); RED BLOOD COUNT 3.98 10^6/uL (4.35-5.85); RED CELL DISTRIBUTION WIDTH 16.6 % (10.0-14.5)
[2017-08-22 04:59] LABS: BAND NEUTROPHILS 0 %; BASOPHILS % (MANUAL) 0 %; EOSINOPHILS % (MANUAL) 0 %; LYMPHOCYTES % (MANUAL) 7 %; MONOCYTES % (MANUAL) 3 %; NEUTROPHILS % (MANUAL) 90 %
[2017-08-22 05:00] LABS: ANISOCYTOSIS SLIGHT; SMUDGE CELLS SLIGHT; STOMATOCYTES SLIGHT; TARGET CELLS SLIGHT; TOXIC GRANULATION/VACUOLAZATIO 1+
[2017-08-22 05:06] LABS: BUN/CREATININE RATIO 19; CALCIUM 9.5 MG/DL (8.5-10.1); CARBON DIOXIDE 17 MMOL/L (21-32); CHLORIDE 111 MMOL/L (98-107); CREATININE SERUM 0.93 MG/DL (0.60-1.30); GFR ESTIMATED > 60; GLUCOSE 169 MG/DL (70-105); MAGNESIUM 2.2 MG/DL (1.8-2.4); PHOSPHORUS 2.6 MG/DL (2.3-4.7); POTASSIUM 4.2 MMOL/L (3.6-5.0); SODIUM 145 MMOL/L (135-145)
[2017-08-22] MEDS: POTASSIUM CL 10MEQ/50ML IVPB 50 ML IV SCH (05:49)
[2017-08-22] MEDS: MAGNESIUM 1 GM/100 ML IVPB 100 ML IV SCH (05:49)
[2017-08-22] MEDS: KCL 20 MEQ TAB (K-DUR) PO SCH (05:50)
[2017-08-22] MEDS: inSUlin ASPART (NovoLOG) 1 UNIT/0.01 ML (CHARGE PER UNIT) SQ SCH ×4 (05:51→23:50)
--- NOTE | 2017-08-22 06:33 | Progress Note-Standard ---
Standard Progress Note Progress Notes/Assess & Plan Date Seen by Provider: August 22, 2017 Time Seen by Provider: 06:30 Progress/Assessment & Plan [facility] Patient seen evaluated Had total thyroid yesterday with post-op stridor requiring intubation ? of an allegric reaction Unsure of exact time frame from extubation to re-intubation this am -sedated iwth propofol and intubated exam Neck-no swelling incision flat and wil-nop redness fiberoptic laryngospcoy-no swelling seein on orpharynx can't assess cords because of ET tube IMP Post-op Stridor afte Total thyroidecotmy Rec: 1. Options 1. extubated/ treat with racemic epi and observe closeely-if need to re- intubate then will need a trach 2. trach fololowed by direct laryngsocpy to assess the cords 3. transfer to a higher level of car-KU Will talk with Dr Vu and get time course of events and go voe rthe options he has at this time Thanks for hte consult-full consult is dictated ENT- extubation attempted and failed within 5 minutes-had to be intubated talked with firend/significant other-needs trach for airway vocal [id number] mobile at this time and are in parmedia postion risks benefits of trach discussed with family- ct neck/chest showed effsuions at base of chest but nothng much else in neck or chest will proceed to the OR for a trach as soon as crew available went to OR-trach placed -number 6 cuffed shiley cuffed needs to be inflated for today-if off of the vent tomorrow and doing well then will deflate cuff and begin diet and show her how to talk pcxr today to rule out pneumo will have to see how cords do -hopefully chico lcome back-time will tell Sabrina-08/23-601 Patient seen-trach site looks good -mild drainage sedated this am-awake last pm still on vent-hopefully can make progress in getting off of vent and to trach collar once on trach collar then can let balloon down and teach how to use t eusebia to talk once off of vent then could get rid of ng tube and start on liquids as well- mobilize once just on trach collar and get aggressive3 pulm toilet measures as ct showed atelectasis will follow up on thursday MILES CHRISTIANSEN MD August 22, 2017 6:33 am
[2017-08-22] MEDS: PANTOPRAZOLE 40 MG/10 ML (PROTONIX) VIAL IV SCH (08:27)
[2017-08-22] MEDS: LACTATED RINGERS 1,000 ML IV SCH ×2 (09:28→19:31)
--- NOTE | 2017-08-22 11:04 | Anesthesia-General Post-Op ---
General Patient Condition Cardiovascular: Satisfactory Post Op Complications Complications None Follow Up Care/Instructions Patient Instructions None needed. Anesthesia/Patient Condition Patient Condition PT REMAINS SEDATED AND ON VENTILATOR S/P TRACHEOSTOMY PLACEMENT. CURRENTLY TOLERATING 30% FiO2 WITH VENT SETTINGS. STAFF REPORTS A SEDATION WEANING TRIAL LATER TODAY. NO OTHER COMPLICATIONS REPORTED. ODELL QUINN CRNA August 22, 2017 11:04
--- NOTE | 2017-08-22 12:19 | Progress Note (SOAP) ---
Subjective Date Seen by Provider: August 22, 2017 Time Seen by Provider: 11:00 Subjective/Events-last exam patient arousable and no change in mental status. able to converse via writing. airway secure and tracheostomy intact. increase WBC which may be atelectasis vs. early pneumonia. currently weening vent. no bowel fxn yet. Objective Exam Vital Signs Date Time Temp Pulse Resp B/P (MAP) Pulse Ox O2 Delivery O2 Flow Rate FiO2 08/22/17 10:55 92 18 94 30 08/22/17 08:45 100 20 93 30 08/22/17 08:30 130/67 08/22/17 08:00 Mechanical Ventilator 30 08/22/17 08:00 97.7 102 17 130/67 (88) 93 Mechanical Ventilator 30.00 08/22/17 07:00 105 08/22/17 06:49 97 18 93 30 08/22/17 06:00 99 18 127/65 (85) 92 Mechanical Ventilator 30.00 08/22/17 05:00 106 20 124/79 (94) 93 Mechanical Ventilator 30.00 08/22/17 04:32 109 16 92 30 08/22/17 04:20 111 18 92 30 08/22/17 04:00 Mechanical Ventilator 30 08/22/17 04:00 97.9 08/22/17 04:00 115 26 116/62 (80) 92 Mechanical Ventilator 30.00 08/22/17 03:02 128/59 08/22/17 03:00 122 21 110/49 (69) 95 Mechanical Ventilator 30.00 08/22/17 02:40 104 23 95 30 08/22/17 02:00 98 18 121/95 (104) 93 Mechanical Ventilator 30.00 08/22/17 01:00 100 23 120/58 (78) 93 Mechanical Ventilator 30.00 08/22/17 01:00 100 08/22/17 00:04 134/61 08/22/17 00:00 Mechanical Ventilator 30 08/22/17 00:00 107 27 96 40 08/22/17 00:00 108 134/61 (85) 97 Mechanical Ventilator 30.00 08/21/17 23:00 108 28 119/63 (81) 96 Mechanical Ventilator 40.00 08/21/17 22:05 109 21 99 50 08/21/17 22:00 110 19 152/74 (100) 99 Mechanical Ventilator 40.00 08/21/17 21:08 111 31 95 Mechanical Ventilator 40.00 08/21/17 21:00 116 25 165/80 (108) 99 Mechanical Ventilator 50.00 08/21/17 20:00 Mechanical Ventilator 50 08/21/17 20:00 121 21 159/72 (101) 97 Mechanical Ventilator 50.00 08/21/17 19:17 96 21 95 50 08/21/17 19:00 96 08/21/17 19:00 96 20 150/74 (99) 95 Mechanical Ventilator 50.00 08/21/17 18:02 155/79 08/21/17 18:00 101 20 155/79 (104) 95 Mechanical Ventilator 50.00 08/21/17 17:00 107 20 153/74 (100) 94 Mechanical Ventilator 50.00 08/21/17 16:01 115 23 95 50 08/21/17 16:00 98.4 Mechanical Ventilator 50.00 08/21/17 16:00 Mechanical Ventilator 50 08/21/17 14:34 86 18 94 50 08/21/17 14:00 87 18 157/82 (107) 93 Mechanical Ventilator 50.00 08/21/17 13:52 89 157/82 Mechanical Ventilator 50.00 08/21/17 13:00 92 08/21/17 13:00 92 21 150/81 (104) 93 Mechanical Ventilator 50.00 08/21/17 12:55 97.6 Mechanical Ventilator 50.00 I & O 08/22/17 07:00 Intake Total 1200 ml Output Total 2475 ml Balance -1275 ml Capillary Refill : Less Than 3 Seconds General Appearance: No Apparent Distress HEENT: PERRL/EOMI, Other (tracheostomy intact, no redness/erythema, no bleeding ) Neck: Full Range of Motion Respiratory: Chest Non Tender, Lungs Clear Cardiovascular: Regular Rate, Rhythm Gastrointestinal: normal bowel sounds, non tender, soft Extremity: Normal Capillary Refill Neurologic/Psychiatric: Alert Skin: Normal Color Lymphatic: No Adenopathy Results Lab Laboratory Tests 08/22/17 03:35: Blood Gas Puncture Site R RAD, Blood Gas Patient Temperature 97.9, Arterial Blood pH 7.40, Arterial Blood Partial Pressure CO2 42, Arterial Blood Partial Pressure O2 63L, Arterial Blood HCO3 26, Arterial Blood Total CO2 26.8, Arterial Blood Oxygen Saturation 93L, Arterial Blood Base Excess 1.1, Jin Test YES-POS, Blood Gas Ventilator Setting YES, Blood Gas Inspired Oxygen 30% 08/22/17 03:39: White Blood Count 18.0H, Red Blood Count 3.98L, Hemoglobin 12.3, Hematocrit 38, Mean Corpuscular Volume 96, Mean Corpuscular Hemoglobin 31, Mean Corpuscular Hemoglobin Concent 32, Red Cell Distribution Width 16.6H, Platelet Count 221, Mean Platelet Volume 10.3, Neutrophils (%) (Auto) 85H, Lymphocytes (%) (Auto) 6L , Monocytes (%) (Auto) 9, Eosinophils (%) (Auto) 0, Basophils (%) (Auto) 0, Neutrophils # (Auto) 15.4H, Lymphocytes # (Auto) 1.1, Monocytes # (Auto) 1.5H, Eosinophils # (Auto) 0.0, Basophils # (Auto) 0.0, Neutrophils % (Manual) 90, Lymphocytes % (Manual) 7, Monocytes % (Manual) 3, Eosinophils % (Manual) 0, Basophils % (Manual) 0, Band Neutrophils 0, Smudge Cells SLIGHT, Toxic Granulation 1+, Anisocytosis SLIGHT, Target Cells SLIGHT, Stomatocytes SLIGHT, Sodium Level 145, Potassium Level 4.2, Chloride Level 111H, Carbon Dioxide Level 17L, Anion Gap 17H, Blood Urea Nitrogen 18, Creatinine 0.93, Estimat Glomerular Filtration Rate > 60, BUN/Creatinine Ratio 19, Glucose Level 169H, Calcium Level 9.5, Phosphorus Level 2.6, Magnesium Level 2.2 08/22/17 08:52: Triglycerides Level 289H 08/22/17 12:01: Glucometer 193H Microbiology 08/20/17 MRSA Screen - Final, Complete MRSA not isolated Assessment/Plan Assessment/Plan Assess & Plan/Chief Complaint respiratory failure s/p total thyroidectomy. ENT consulted and tracheostomy placed. underlying pulmonary disease and will need ween off vent. possible neuroproaxia vs. other recurrent laryngeal nerve injury. one stable, will need further studies and possible laryngotomy. currently weening vent. has OG tube in now however may remove when bowel fxn returns. Clinical Quality Measures DVT/VTE Risk/Contraindication: Risk Factor Score Per Nursin RFS Level Per Nursing on Admit: 4+=Very High LORNA RODRIGUEZ MD August 22, 2017 12:19
--- NOTE | 2017-08-22 13:38 | Diagnostic Imaging Report ---
EXAMINATION: Portable erect AP chest at 03:03 a.m. INDICATION: Respiratory distress. FINDINGS: The mild cardiomegaly noted on the prior exam of 08/21/2017 is again evident and no different. There is still some atelectasis/infiltrate and fluid in each lung base. The upper lungs remain generally clear, aside from a small area of increased density in the right suprahilar region. The calcified granuloma in the left lower lobe seen previously is again evident and unchanged. The mediastinum is not widened. There does seem to be less gas in the soft tissues near the tracheostomy tube than noted on the prior exam. The tracheostomy tube itself remains unchanged in position. The osseous structures are intact. The NG line is stable in position. IMPRESSION: Stable chest. There has been no adverse change since the prior exam. A follow-up study will be recommended for continued evaluation. Dictated by: Dictated on workstation # [id number]
--- NOTE | 2017-08-22 14:13 | Progress Note-Hospitalist ---
Progress Note Progress Notes/Assess & Plan Date Seen 08/22/17 Time Seen by Provider: 14:08 Assess & Plan/Chief Complaint The patient is a 61-year-old white female who had a total thyroidectomy on . Postoperatively she showed signs of respiratory distress and was not able to be extubated. The attempt at extubation lasted approximately 5 minutes and required reintubation. Subsequently Dr. Navarro performed tracheostomy on 08/21. He did not feel there was significant swelling in the neck. It appeared that her vocal cords were not functioning well and it is his hope that with time recovery of function will allow her to be tracheostomy free as well. Today she is sedated and resting on the ventilator. Breath sounds are clear. CV is regular. The remainder of the vital signs are satisfactory as well. It is noted that there is a reddish brown material in the OG tube suggesting blood. This will be examined in the laboratory. Impression: Postop total thyroidectomy. 2.failure of extubation postoperative ostensibly as a consequence of laryngeal dysfunction. Plan: OG aspirate to lab for evaluation. If negative plan to decrease and ultimately discontinue sedation. If cords are indeed the cause of her ventilatory failure the tracheostomy showed Solve problem. Will follow with you Labs Laboratory Tests 08/21/17 03:37 08/22/17 03:39 Patient resulted labs reviewed. Labs Laboratory Tests 08/22/17 03:39 PABLO ALDRIDGE MD August 22, 2017 14:13
[2017-08-22] MEDS: ENOXAPARIN 40 MG/0.4 ML (LOVENOX) SYR SC SCH (20:33)
[2017-08-23] VITALS (35 sets, daily range): BP systolic 91–182; BP diastolic 52–106
[2017-08-23] MEDS: PROPOFOL DRIP (ICU) 100 ML IV SCH ×3 (01:06→06:18)
[2017-08-23] MEDS: RT-ALBUTEROL/IPRATROPIUM 3 ML (DUONEB) VIAL INH SCH ×6 (02:09→22:39)
[2017-08-23] MEDS: DEXMEDETOMIDINE INJECTION 200 MCG in NS (IVPB) 50 ML IV SCH ×5 (03:11→23:10)
[2017-08-23 03:19] LABS: ABG BASE EXCESS 3.8 MMOL/L (-2.5-2.5); ABG OXYGEN SATURATION 95 % (94-100); ABG PCO2 41 MMHG (35-45); ABG PH 7.44 (7.37-7.43); ABG PO2 72 MMHG (79-93); ABG TCO2 29.1 MMOL/L (21.0-31.0)
[2017-08-23 03:23] LABS: ALLENS TEST YES-POS
[2017-08-23 03:24] LABS: INSPIRED O2 30%; PATIENT TEMP 97.9; VENTILATOR YES
[2017-08-23 03:42] LABS: BASOPHILS % (AUTO) 0 % (0-10); EOSINOPHILS % (AUTO) 0 % (0-10); HEMATOCRIT 37 % (35-52); HEMOGLOBIN 11.9 G/DL (11.5-16.0); LYMPHOCYTES # (AUTO) 0.8 X 10^3 (1.0-4.0); LYMPHOCYTES % (AUTO) 5 % (12-44); MEAN CORPUSCULAR HEMOGLOBIN 30 PG (25-34); MEAN CORPUSCULAR HGB CONC 33 G/DL (32-36); MEAN CORPUSCULAR VOLUME 93 FL (80-99); MEAN PLATELET VOLUME 10.8 FL (7.4-10.4); MONOCYTES # (AUTO) 0.7 X 10^3 (0.0-1.0); MONOCYTES % (AUTO) 5 % (0-12); NEUTROPHILS # (AUTO) 12.7 X 10^3 (1.8-7.8); NEUTROPHILS % (AUTO) 89 % (42-75); PLATELET COUNT 267 10^3/uL (130-400); RED BLOOD COUNT 3.92 10^6/uL (4.35-5.85); RED CELL DISTRIBUTION WIDTH 16.3 % (10.0-14.5); WHITE BLOOD COUNT 14.2 10^3/uL (4.3-11.0)
[2017-08-23 04:03] LABS: BUN/CREATININE RATIO 22; CARBON DIOXIDE 24 MMOL/L (21-32); CHLORIDE 109 MMOL/L (98-107); CREATININE SERUM 0.78 MG/DL (0.60-1.30); GFR ESTIMATED > 60; GLUCOSE 181 MG/DL (70-105); MAGNESIUM 2.3 MG/DL (1.8-2.4); POTASSIUM 3.9 MMOL/L (3.6-5.0); SODIUM 145 MMOL/L (135-145)
[2017-08-23] MEDS: fentaNYL INJECTION 100 MCG/2 ML AMP IVP PRN ×4 (04:15→19:39)
[2017-08-23] MEDS: POTASSIUM CL 10MEQ/50ML IVPB 50 ML IV SCH (05:44)
[2017-08-23] MEDS: MAGNESIUM 1 GM/100 ML IVPB 100 ML IV SCH (05:44)
[2017-08-23] MEDS: KCL 20 MEQ TAB (K-DUR) PO SCH (05:44)
[2017-08-23] MEDS: methylPREDNISolone 125 MG (Solu-MEDROL) VIAL IVP SCH ×3 (06:09→19:25)
[2017-08-23] MEDS: LACTATED RINGERS 1,000 ML IV SCH ×2 (06:09→16:37)
[2017-08-23] MEDS: inSUlin ASPART (NovoLOG) 1 UNIT/0.01 ML (CHARGE PER UNIT) SQ SCH ×3 (06:09→19:23)
--- NOTE | 2017-08-23 07:00 | Progress Note-Standard ---
Standard Progress Note Progress Notes/Assess & Plan Date Seen by Provider: August 23, 2017 Time Seen by Provider: 07:00 Progress/Assessment & Plan [facility] Patient seen evaluated Had total thyroid yesterday with post-op stridor requiring intubation ? of an allegric reaction Unsure of exact time frame from extubation to re-intubation this am -sedated iwth propofol and intubated exam Neck-no swelling incision flat and wil-nop redness fiberoptic laryngospcoy-no swelling seein on orpharynx can't assess cords because of ET tube IMP Post-op Stridor afte Total thyroidecotmy Rec: 1. Options 1. extubated/ treat with racemic epi and observe closeely-if need to re- intubate then will need a trach 2. trach fololowed by direct laryngsocpy to assess the cords 3. transfer to a higher level of car-KU Will talk with Dr Vu and get time course of events and go voe rthe options he has at this time Thanks for hte consult-full consult is dictated ENT- extubation attempted and failed within 5 minutes-had to be intubated talked with firend/significant other-needs trach for airway vocal [id number]-ltz mobile at this time and are in parmedia postion risks benefits of trach discussed with family- ct neck/chest showed effsuions at base of chest but nothng much else in neck or chest will proceed to the OR for a trach as soon as crew available went to OR-trach placed -number 6 cuffed shiley cuffed needs to be inflated for today-if off of the vent tomorrow and doing well then will deflate cuff and begin diet and show her how to talk pcxr today to rule out pneumo will have to see how cords do -hopefully chico lcome back-time will tell Sabrina-08/22 Patient seen-trach site looks good -mild drainage sedated this am-awake last pm still on vent-hopefully can make progress in getting off of vent and to trach collar once on trach collar then can let balloon down and teach how to use t eusebia to talk once off of vent then could get rid of ng tube and start on liquids as well- mobilize once just on trach collar and get aggressive3 pulm toilet measures as ct showed atelectasis will follow up on thursday am ENT-Melanie-08/23-7am patient still on vent but hopefully off today once off vent-can deflate balloon on trach and show how to talk by placing her finger over trach will need new number 6 shileyu cuffed trach tube to bedside-plan on changing trach maybe on thu or once off vent and balloon down then can begin to start on clear liquids as long as ok with other dr's. will follow-up on Thursday MILES CHRISTIANSEN MD August 23, 2017 7:00 am
[2017-08-23] MEDS: PANTOPRAZOLE 40 MG/10 ML (PROTONIX) VIAL IV SCH (07:56)
--- NOTE | 2017-08-23 08:46 | Diagnostic Imaging Report ---
INDICATION: Post thyroidectomy.. TECHNIQUE: Single view chest 4:08 AM. CORRELATION STUDY: 08/22/2017 FINDINGS: Tracheostomy tube is present, unchanged in its orientation. Insertion site indeterminate. Heart size enlarged, mediastinum prominent. Vascular appears slightly increased. Appears be increasing areas of atelectasis about the lung bases. Small effusions not excluded. IMPRESSION: 1. Increasing areas of atelectasis about the lung bases. 2. Cardiac enlargement with prominent mediastinum perhaps very slightly more prominent from prior study. This could be technical, given recent surgery, fluid collection/hematoma would be difficult to exclude. Clinical correlation recommended. Faxed to Dr Vu at 8:45 a.m. by cvb Dictated by: Dictated on workstation # [id number]
--- NOTE | 2017-08-23 12:16 | Progress Note ---
Subjective Time Seen by Provider: 11:57 Subjective/Events-last exam Pt seen and examined, she is on vent but awake and alert communicating by writing. Complained of tube in her mouth and denied nausea. Review of Systems General: No Chills, No Night Sweats; Fatigue Pulmonary: No Cough Cardiovascular: No: Chest Pain Objective Exam Vital Signs Date Time Temp Pulse Resp B/P (MAP) Pulse Ox O2 Delivery O2 Flow Rate FiO2 08/23/17 10:42 93 22 98 30 08/23/17 08:17 98 18 99 30 08/23/17 08:00 Mechanical Ventilator 30 08/23/17 07:00 100 08/23/17 07:00 97.1 100 16 118/68 (85) 99 Mechanical Ventilator 30.00 08/23/17 06:40 85 18 95 30 08/23/17 06:30 85 18 95 30 08/23/17 06:18 170/101 08/23/17 06:00 77 16 134/80 (98) 95 Mechanical Ventilator 30.00 08/23/17 05:00 86 16 179/100 (126) 95 Mechanical Ventilator 30.00 08/23/17 04:27 105 18 94 08/23/17 04:20 182/92 08/23/17 04:00 Mechanical Ventilator 30 08/23/17 04:00 97.9 08/23/17 04:00 103 24 182/92 (122) 92 Mechanical Ventilator 30.00 08/23/17 03:43 106 13 92 30 08/23/17 03:42 107 20 92 30 08/23/17 03:00 110 24 178/91 (120) 92 Mechanical Ventilator 30.00 08/23/17 02:09 85 16 93 30 08/23/17 02:00 88 16 176/94 (121) 93 Mechanical Ventilator 30.00 08/23/17 01:06 171/93 08/23/17 01:00 94 08/23/17 00:07 100 17 93 30 08/23/17 00:00 98 15 171/89 (116) 93 Mechanical Ventilator 30.00 08/22/17 23:57 97.0 08/22/17 23:53 Mechanical Ventilator 30 08/22/17 23:00 85 16 162/91 (114) 93 Mechanical Ventilator 30.00 08/22/17 23:00 87 17 93 30 5/26/18 22:19 145/89 08/22/17 22:00 91 17 165/89 (114) 93 Mechanical Ventilator 30.00 08/22/17 21:00 98 16 162/89 (113) 93 Mechanical Ventilator 30.00 08/22/17 20:34 102 20 92 30 08/22/17 20:00 112 16 160/80 (106) 92 Mechanical Ventilator 30.00 08/22/17 20:00 97.1 08/22/17 20:00 Mechanical Ventilator 30 08/22/17 19:31 150/77 08/22/17 19:00 117 15 140/71 (94) 91 Mechanical Ventilator 30.00 08/22/17 19:00 117 08/22/17 18:21 101 22 93 30 08/22/17 18:00 93 17 156/84 (108) 95 Mechanical Ventilator 30.00 08/22/17 17:00 101 16 152/83 (106) 95 Mechanical Ventilator 30.00 08/22/17 16:49 101 19 94 30 08/22/17 16:36 97.3 08/22/17 16:10 152/74 08/22/17 16:00 110 19 152/74 (100) 94 Mechanical Ventilator 30.00 08/22/17 16:00 Mechanical Ventilator 30 08/22/17 15:00 114 18 143/71 (95) 93 Mechanical Ventilator 30.00 08/22/17 14:12 5 23 92 30 08/22/17 14:00 89 17 154/78 (103) 94 Mechanical Ventilator 30.00 08/22/17 13:00 98 08/22/17 13:00 96 18 151/72 (98) 94 Mechanical Ventilator 30.00 08/22/17 12:37 99 19 93 30 08/22/17 12:17 149/63 I & O 08/23/17 07:00 Intake Total 2504 ml Output Total 1915 ml Balance 589 ml Capillary Refill : Less Than 3 Seconds General Appearance: No Apparent Distress, Obese HEENT: PERRL/EOMI, Other (tracheostomy intact, no redness/erythema, no bleeding ) Respiratory: Chest Non Tender, Lungs Clear Cardiovascular: Regular Rate, Rhythm Gastrointestinal: normal bowel sounds, non tender, soft Neurologic/Psychiatric: Alert Skin: Normal Color Results Lab Laboratory Tests 08/22/17 18:02: Glucometer 201H 08/22/17 23:45: Glucometer 168H 08/23/17 03:10: White Blood Count 14.2H, Red Blood Count 3.92L, Hemoglobin 11.9, Hematocrit 37, Mean Corpuscular Volume 93, Mean Corpuscular Hemoglobin 30, Mean Corpuscular Hemoglobin Concent 33, Red Cell Distribution Width 16.3H, Platelet Count 267, Mean Platelet Volume 10.8H, Neutrophils (%) (Auto) 89H, Lymphocytes (%) (Auto) 5L, Monocytes (%) (Auto) 5, Eosinophils (%) (Auto) 0, Basophils (%) (Auto) 0, Neutrophils # (Auto) 12.7H, Lymphocytes # (Auto) 0.8L, Monocytes # (Auto) 0.7, Eosinophils # (Auto) 0.0, Basophils # (Auto) 0.0, Blood Gas Puncture Site R RAD , Blood Gas Patient Temperature 97.9, Arterial Blood pH 7.44H, Arterial Blood Partial Pressure CO2 41, Arterial Blood Partial Pressure O2 72L, Arterial Blood HCO3 28H, Arterial Blood Total CO2 29.1, Arterial Blood Oxygen Saturation 95, Arterial Blood Base Excess 3.8H, Jin Test YES-POS, Blood Gas Ventilator Setting YES, Blood Gas Inspired Oxygen 30%, Sodium Level 145, Potassium Level 3.9, Chloride Level 109H, Carbon Dioxide Level 24, Anion Gap 12, Blood Urea Nitrogen 17, Creatinine 0.78, Estimat Glomerular Filtration Rate > 60, BUN/ Creatinine Ratio 22, Glucose Level 181H, Calcium Level 9.0, Phosphorus Level 3.0 , Magnesium Level 2.3 08/23/17 10:56: Glucometer 153H Microbiology 08/20/17 MRSA Screen - Final, Complete MRSA not isolated Assessment/Plan Assessment/Plan Assessment/Plan Respiratory failure s/p total thyroidectomy with subsequent tracheostomy placed. COPD - underlying pulmonary disease and will start weaning off vent today possible neuroproaxia vs. other recurrent laryngeal nerve injury. one stable, will need further studies and possible laryngotomy. Maximum medical care. Clinical Quality Measures DVT/VTE Risk/Contraindication: Risk Factor Score Per Nursin RFS Level Per Nursing on Admit: 4+=Very High ANJUM CORDERO DO August 23, 2017 12:16
--- NOTE | 2017-08-23 15:02 | Progress Note-Hospitalist ---
Progress Note Progress Notes/Assess & Plan Date Seen 08/23/17 Time Seen by Provider: 14:59 Assessment & Plan The patient was taken off sedation early this morning. As she awakened she was placed on SIMV. As she tolerated this the assisted function was reduced in stepwise fashion and she tolerated this well. She is now on blow-by and maintaining saturations. She is alert enough to write me a note of questions. The plan is to give her some CPAP support through the tracheostomy tonight. Physical exam: She is alert and able to print out reasonable questions. Lungs are clear to auscultation. CV is regular. SaO2 is satisfactory. Impression: Hypoxia/respiratory failure presumably secondary to vocal cord dysfunction and relative obstruction. Plan: Proceed with above plans. PABLO ALDRIDGE MD August 23, 2017 15:02
[2017-08-23] MEDS ORDERED: cloNIDine 0.2 MG PATCH (CATAPRES TTS) TDSY TD NR (15:12)
[2017-08-23] MEDS: ENOXAPARIN 40 MG/0.4 ML (LOVENOX) SYR SC SCH (20:45)
[2017-08-24] VITALS (44 sets, daily range): BP systolic 120–183; BP diastolic 50–111
[2017-08-24] MEDS: methylPREDNISolone 125 MG (Solu-MEDROL) VIAL IVP SCH ×5 (00:04→23:44)
[2017-08-24] MEDS: inSUlin ASPART (NovoLOG) 1 UNIT/0.01 ML (CHARGE PER UNIT) SQ SCH ×4 (00:04→18:19)
[2017-08-24] MEDS: DEXMEDETOMIDINE INJECTION 200 MCG in NS (IVPB) 50 ML IV SCH ×5 (00:43→16:32)
[2017-08-24] MEDS: LACTATED RINGERS 1,000 ML IV SCH ×3 (02:03→23:21)
[2017-08-24] MEDS: RT-ALBUTEROL/IPRATROPIUM 3 ML (DUONEB) VIAL INH SCH ×6 (02:38→21:53)
[2017-08-24] MEDS: POTASSIUM CL 10MEQ/50ML IVPB 50 ML IV SCH (06:27)
[2017-08-24] MEDS: MAGNESIUM 1 GM/100 ML IVPB 100 ML IV SCH (06:28)
[2017-08-24] MEDS: KCL 20 MEQ TAB (K-DUR) PO SCH (06:28)
--- NOTE | 2017-08-24 06:33 | Progress Note-Standard ---
Standard Progress Note Progress Notes/Assess & Plan Date Seen by Provider: August 24, 2017 Time Seen by Provider: 06:30 Progress/Assessment & Plan [facility] Patient seen evaluated Had total thyroid yesterday with post-op stridor requiring intubation ? of an allegric reaction Unsure of exact time frame from extubation to re-intubation this am -sedated iwth propofol and intubated exam Neck-no swelling incision flat and wil-nop redness fiberoptic laryngospcoy-no swelling seein on orpharynx can't assess cords because of ET tube IMP Post-op Stridor afte Total thyroidecotmy Rec: 1. Options 1. extubated/ treat with racemic epi and observe closeely-if need to re- intubate then will need a trach 2. trach fololowed by direct laryngsocpy to assess the cords 3. transfer to a higher level of car-[facility] Will talk with Dr Vu and get time course of events and go voe rthe options he has at this time Thanks for hte consult-full consult is dictated ENT- extubation attempted and failed within 5 minutes-had to be intubated talked with firend/significant other-needs trach for airway vocal jvyhs-drityzdq-frs mobile at this time and are in parmedia postion risks benefits of trach discussed with family- ct neck/chest showed effsuions at base of chest but nothng much else in neck or chest will proceed to the OR for a trach as soon as crew available went to OR-trach placed -number 6 cuffed shiley cuffed needs to be inflated for today-if off of the vent tomorrow and doing well then will deflate cuff and begin diet and show her how to talk pcxr today to rule out pneumo will have to see how cords do -hopefully chico lcome back-time will tell Sabrina-08/22- Patient seen-trach site looks good -mild drainage sedated this am-awake last pm still on vent-hopefully can make progress in getting off of vent and to trach collar once on trach collar then can let balloon down and teach how to use t eusebia to talk once off of vent then could get rid of ng tube and start on liquids as well- mobilize once just on trach collar and get aggressive3 pulm toilet measures as ct showed atelectasis will follow up on thursday am ENT-Melanie-08/23-7am patient still on vent but hopefully off today once off vent-can deflate balloon on trach and show how to talk by placing her finger over trach will need new number 6 shileyu cuffed trach tube to bedside-plan on changing trach maybe on thu or once off vent and balloon down then can begin to start on clear liquids as long as ok with other dr's. will follow-up on Thursday ENT-08/24 Off of vent most of day yesterday and on trach collar-sign coughing so they rested her last night with CPAP breathing well thru trach trach site-bruised but minimal swelling and minimal drainage spoke with patient this am-will plan on changing trach on thu or trach home care arrangmetns will need to mbe made can start that on thursday will need suciton and mist machine for home hopefully can mobilize t man and start clear liquids today take cuff down when off of the CPAP-would wexpect some continued coughing bot hfrom trach and her lungs and COPD overall looks good fro ma trach standpoint MILES CHRISTIANSEN MD August 24, 2017 6:33 am
--- NOTE | 2017-08-24 08:07 | Diagnostic Imaging Report ---
Indication: Thyroidectomy. Comparison made with prior examination of 08/23/2017. Findings: There is cardiomegaly. There is some venous congestion. Some bibasilar atelectasis and/or pneumonitis. Impression: Bibasilar atelectasis and/or pneumonitis. Cardiomegaly, mild venous congestion. Dictated by: Dictated on workstation # [id number]
[2017-08-24] MEDS: PANTOPRAZOLE 40 MG/10 ML (PROTONIX) VIAL IV SCH (08:44)
[2017-08-24] MEDS: PROPOFOL DRIP (ICU) 100 ML IV SCH ×2 (09:32→16:40)
--- NOTE | 2017-08-24 11:21 | Progress Note ---
Subjective Time Seen by Provider: 09:56 Subjective/Events-last exam Pt seen and examined, she appears comfortable. However, she was put back on vent last night and then this am secondary to coughing fits. Pt is very anxious and scared about her trach. Review of Systems General: No Chills, No Night Sweats Pulmonary: Cough Cardiovascular: No: Chest Pain Gastrointestinal: No: Nausea, Vomiting Objective Exam Vital Signs Date Time Temp Pulse Resp B/P (MAP) Pulse Ox O2 Delivery O2 Flow Rate FiO2 08/24/17 10:16 80 19 100 45 08/24/17 08:32 Mechanical Ventilator 45 08/24/17 08:32 Mechanical Ventilator 45.00 08/24/17 08:30 67 18 100 45 08/24/17 08:00 96.6 86 21 165/87 (113) 100 Trach Collar 50.00 08/24/17 07:00 98 08/24/17 07:00 100 Trach Collar 12.00 50 08/24/17 06:38 67 18 100 45 08/24/17 06:00 66 21 171/93 (119) 100 NIV CPAP 50.00 08/24/17 05:00 91 30 175/99 (124) 100 NIV CPAP 50.00 08/24/17 04:00 103 19 169/94 (119) 100 NIV CPAP 50.00 08/24/17 04:00 NIV CPAP 50 08/24/17 04:00 97.9 08/24/17 03:00 99 13 183/95 (124) 99 NIV CPAP 50.00 08/24/17 02:38 65 13 99 45 08/24/17 02:00 65 12 181/94 (123) 99 NIV CPAP 50.00 08/24/17 01:00 64 08/24/17 01:00 64 13 179/90 (119) 99 NIV CPAP 50.00 08/24/17 00:00 98.2 08/24/17 00:00 64 14 180/91 (120) 100 NIV CPAP 50.00 08/24/17 00:00 NIV CPAP 50 08/23/17 23:33 93 27 99 NIV CPAP 50.00 08/23/17 23:00 73 24 160/83 (108) 100 NIV CPAP 30.00 08/23/17 22:39 53 15 93 30 08/23/17 22:00 86 34 157/83 (107) 96 NIV CPAP 30.00 5/27/18 21:56 83 16 100 30 08/23/17 21:47 86 27 100 NIV CPAP 30.00 08/23/17 21:00 56 29 149/93 (111) 100 Trach Collar 40.00 08/23/17 20:00 97.9 58 16 141/100 (114) 100 Trach Collar 40.00 08/23/17 20:00 Trach Collar 40 08/23/17 19:00 92 29 149/84 (105) 100 Trach Collar 40.00 08/23/17 19:00 96 08/23/17 18:54 99 Face Tent 10.00 35 08/23/17 18:00 73 10 162/83 (109) 100 Trach Collar 40.00 08/23/17 17:00 75 11 162/87 (112) 100 Trach Collar 40.00 08/23/17 16:00 Trach Collar 40 08/23/17 16:00 98 13 172/86 (114) 95 Trach Collar 40.00 08/23/17 15:00 89 16 148/75 (99) 99 Mechanical Ventilator 30.00 08/23/17 14:20 74 14 94 30 08/23/17 14:00 66 14 180/100 (126) 95 Mechanical Ventilator 30.00 08/23/17 13:00 97.9 65 12 179/106 (130) 98 Mechanical Ventilator 30.00 08/23/17 13:00 79 08/23/17 12:00 96 9 171/105 (127) 98 Mechanical Ventilator 30.00 08/23/17 12:00 Mechanical Ventilator 30 I & O 08/24/17 07:00 Output Total 1300 ml Balance -1300 ml Capillary Refill : Less Than 3 Seconds General Appearance: No Apparent Distress, Obese HEENT: PERRL/EOMI, Other (tracheostomy intact, no redness/erythema, no bleeding ) Respiratory: Chest Non Tender, Lungs Clear Cardiovascular: Regular Rate, Rhythm Gastrointestinal: normal bowel sounds, non tender, soft Neurologic/Psychiatric: Alert Skin: Normal Color Results Lab Laboratory Tests 08/23/17 19:12: Glucometer 131H 08/24/17 00:04: Glucometer 148H Microbiology 08/20/17 MRSA Screen - Final, Complete MRSA not isolated Assessment/Plan Assessment/Plan Assessment/Plan Respiratory failure s/p total thyroidectomy with subsequent tracheostomy placed. COPD - underlying pulmonary disease possible neuroproaxia vs. other recurrent laryngeal nerve injury. one stable, will need further studies and possible laryngotomy. Pt was off vent, but then placed back on. Will continue to try and get her off vent. Will order speech therapy to do swallow study prior to starting diet. Maximum medical care. Clinical Quality Measures DVT/VTE Risk/Contraindication: Risk Factor Score Per Nursin RFS Level Per Nursing on Admit: 4+=Very High ANJUM CORDERO DO August 24, 2017 11:21
--- NOTE | 2017-08-24 13:52 | Progress Note-Hospitalist ---
Progress Note Progress Notes/Assess & Plan Date Seen 08/24/17 Time Seen by Provider: 13:49 Assessment & Plan The patient apparently had some difficulties and was placed back on the ventilator at 0900. She looks quite comfortable at this time. SaO2 is excellent. Physical exam: She is quite alert and writes many messages and questions. She believes that the trachea feels very dry. Lungs are clear to auscultation. CV is regular. Impression: Postop total thyroidectomy. 2.apparent vocal cord dysfunction following surgery. Plan: Go back to PABLO COLEMAN MD August 24, 2017 13:52
[2017-08-24] MEDS ORDERED: meTOprolol 5 MG/5 ML (LOPRESSOR) VIAL ONE (15:29)
[2017-08-24] MEDS: fentaNYL INJECTION 100 MCG/2 ML AMP IVP PRN ×2 (15:39→23:44)
[2017-08-24] MEDS ORDERED: DILTIAZEM 25 MG/5 ML INJ (CARDIZEM) VIAL ONE (15:39)
[2017-08-24] MEDS ORDERED: D5W 100 ML IVPB 100 ML IV ONE (15:44)
[2017-08-24] MEDS ORDERED: meTOprolol 5 MG/5 ML (LOPRESSOR) VIAL IV ONE (15:45)
[2017-08-24] MEDS ORDERED: DILTIAZEM INJECTION 125 MG in D5W 100 ML IVPB 100 ML IV SCH (15:45)
[2017-08-24] MEDS ORDERED: DILTIAZEM 25 MG/5 ML INJ (CARDIZEM) VIAL IVP NR (15:48)
[2017-08-24] MEDS: DILTIAZEM 125 MG/25 ML IV (CARDIZEM) IV ONE ×2 (15:54→15:55)
--- NOTE | 2017-08-24 16:39 | Diagnostic Imaging Report ---
Portable erect AP chest at 4:14 p.m. INDICATION: Respiratory distress. FINDINGS: The appearance of the chest has improved since the exam performed earlier today at 3:31 a.m. as both lung bases are better aerated. There is still some residual atelectasis/infiltrate bilaterally. The upper lungs remain clear. The nodular density overlying the left midlung seen on the previous study is again evident and no different. The heart is stable in size. The mediastinum is not widened. The osseous structures are intact. The tracheostomy tube seen previously is again evident and no different. IMPRESSION: The appearance of the chest has improved since the prior exam as both lung bases do seem better aerated. There is still some residual atelectasis/infiltrate bilaterally, however. A followup study would be recommended for continued evaluation. Dictated by: Dictated on workstation # [id number]
[2017-08-24] MEDS: DEXMEDETOMIDINE 400 MCG/NS 100 ML IV DRIP IV SCH ×4 (19:23→23:44)
[2017-08-24] MEDS: ENOXAPARIN 40 MG/0.4 ML (LOVENOX) SYR SC SCH (21:16)
[2017-08-25] VITALS (48 sets, daily range): BP systolic 94–176; BP diastolic 41–106
[2017-08-25] MEDS: PROPOFOL DRIP (ICU) 100 ML IV SCH ×2 (00:44→06:40)
[2017-08-25] MEDS: inSUlin ASPART (NovoLOG) 1 UNIT/0.01 ML (CHARGE PER UNIT) SQ SCH ×4 (00:44→18:03)
[2017-08-25] MEDS: RT-ALBUTEROL/IPRATROPIUM 3 ML (DUONEB) VIAL INH SCH ×6 (01:21→22:05)
[2017-08-25] MEDS: DEXMEDETOMIDINE 400 MCG/NS 100 ML IV DRIP IV SCH ×2 (04:27)
[2017-08-25] MEDS: methylPREDNISolone 125 MG (Solu-MEDROL) VIAL IVP SCH ×3 (06:19→18:06)
[2017-08-25] MEDS: KCL 20 MEQ TAB (K-DUR) PO SCH (06:39)
[2017-08-25] MEDS: MAGNESIUM 1 GM/100 ML IVPB 100 ML IV SCH (06:39)
[2017-08-25] MEDS: POTASSIUM CL 10MEQ/50ML IVPB 50 ML IV SCH (06:39)
--- NOTE | 2017-08-25 08:16 | Diagnostic Imaging Report ---
INDICATION: Intubation. COMPARISON: 08/24/2017. FINDINGS: Upright portable view of the chest is obtained. Tracheostomy tube is unchanged. Heart size and pulmonary vasculature appear unremarkable. No pneumothorax or pleural fluid suspected. The left lung appears fairly clear. There is persistent atelectasis at the right lung base similar to the prior study. Nodular density lateral left mid lung is unchanged likely calcified granuloma seen on prior CT. No new abnormality is seen. IMPRESSION: Improved aeration to left lung base. There is persistent unchanged right basilar atelectasis. Otherwise stable chest. Dictated by: Dictated on workstation # [id number]
[2017-08-25] MEDS: PANTOPRAZOLE 40 MG/10 ML (PROTONIX) VIAL IV SCH (08:50)
--- NOTE | 2017-08-25 09:10 | Speech Therapy Progress Note ---
Therapy Progress Note Consultation received for a bedside swallowing evaluation and the patient's chart was extensively reviewed. Per chart review, the patient has frequently received ventilator support. The patient was replaced on the ventilator yesterday, 08/24/2017. Due to placement of the ventilator, the patient is not appropriate for a swallow evaluation secondary to the necessity of tracheostomy cuff inflation. While the patient remains on the ventilator, the cuff of her tracheostomy will be inflated. IF aspiration occurs, the aspirated material will remain on top of the inflated cuff until the cuff is deflated at a later time. IF aspiration occurs and the material remains on top of the inflated cuff , the aspirated material will enter the lungs once the cuff is deflated. Due to the patient's necessity to return to ventilator frequently (often within 24 hours of removal), the speech pathologist will complete the swallow evaluation when the patient is removed from the ventilator for 24 hours ( improved stability) and her cuff is deflated. The RN stated Dr. Navarro wanted to advance the patient's diet consistency to clear liquids while Dr. Juárez wished to have the patient remain NPO until after her swallow evaluation. The speech pathologist stated the RN will need to clarify which orders to follow by discussing the situation with the physicians; as the clinician does not place orders, this is an area that will need to be decided upon by her treating physicians. The speech pathologist will follow up with the patient on this date to update her on the plan of care and initiate treatment. FLYNN WELCH August 25, 2017 09:10
[2017-08-25] MEDS ORDERED: LORazepam INJ 2 MG/ML (ATIVAN) VIAL IVP PRN (10:30)
[2017-08-25] MEDS: LACTATED RINGERS 1,000 ML IV SCH ×2 (10:45→21:12)
--- NOTE | 2017-08-25 10:51 | Progress Note-Hospitalist ---
Subjective HPI/CC On Admission Date Seen by Provider: August 25, 2017 Time Seen by Provider: 10:43 Subjective/Events-last exam Pt is very anxious regarding return of bowel function. Has had 2 small soft stools. Would like something to stop her stools. No other concerns. Discussed with RN. Was placed on trach shield this morning and doing well. Objective Exam Vital Signs Vital Signs Date Time Temp Pulse Resp B/P (MAP) Pulse Ox O2 Delivery O2 Flow Rate FiO2 08/25/17 10:27 Trach Collar 12.00 50 08/25/17 09:22 100 08/25/17 09:07 65 15 08/25/17 09:00 140/93 (109) 08/25/17 08:00 96.5 Capillary Refill : Less Than 3 Seconds General Appearance: No Apparent Distress, Anxious, Obese Neck: Other (trach) Respiratory: Lungs Clear, Other (trach shield) Cardiovascular: Regular Rate, Rhythm, No Murmur Gastrointestinal: Normal Bowel Sounds, Non Tender, Soft Genital/Rectal: Other (yang) Extremity: No Calf Tenderness, No Pedal Edema Neurologic/Psychiatric: Alert, Oriented x3 Results/Procedures Lab Patient resulted labs reviewed. Assessment/Plan Assessment and Plan Assess & Plan/Chief Complaint vocal cord paralysis s/p thyroidectomy Critical Care Critical Care: Critically Ill Patient Diagnosis/Problems Diagnosis/Problems (1) Vocal cord dysfunction Assessment & Plan: s/p trach on 08/21 on trach shield currently Pulm consulted, appreciate recs (2) Atrial fibrillation with RVR Assessment & Plan: Cardiology consulted, appreciate recs On Dilt gtt currently New onset last night- currently regular rate (3) Hyperthyroidism Status: Acute Assessment & Plan: s/p thyroidectomy (4) HYPERTENSION Status: Acute Assessment & Plan: Relatively well controlled currently (5) Diarrhea Status: Acute Assessment & Plan: Offered rectal tube- pt declined Will monitor Still NPO Qualifiers: Diarrhea type: unspecified type Qualified Codes: R19.7 - Diarrhea, unspecified Clinical Quality Measures DVT/VTE Risk/Contraindication: Risk Factor Score Per Nursin RFS Level Per Nursing on Admit: 4+=Very High TJ GIRALDO MD August 25, 2017 10:51
[2017-08-25] MEDS: ENOXAPARIN 40 MG/0.4 ML (LOVENOX) SYR SC SCH ×2 (10:52→22:30)
--- NOTE | 2017-08-25 12:55 | Consultation-Cardiology ---
HPI-Cardiology Cardiology Consultation Date of Consultation 08/25/17 Date of Admission Time Seen by Provider: 11:45 Indication: atrial fibrillation HPI 61-year-old lady with history of hyperthyroidism, underwent thyroidectomy complicated by vocal cord dysfunction, patient has been in respiratory failure, underwent tracheostomy. Had an episode of atrial fibrillation with rapid ventricular response lasted for about an hour yesterday, improved after starting Cardizem drip and converted to sinus rhythm. Has been in sinus rhythm since then, patient is fairly anxious. Denied any chest pain, denied any palpitation, no syncope or near syncopal episodes in the past. Currently concerned about having mild diarrhea. She has been on blood pressure medications as an outpatient. Home Medications & Allergies Allergies: Coded Allergies: Penicillins (Unverified Allergy, Severe, ANAPHYLAXIS, 08/28/10) aspirin (Unverified Allergy, Mild, RASH, 08/28/10) gabapentin (Verified Allergy, Unknown, 08/17/17) iodine (Unverified Allergy, Unknown, RASH, 12/01/13) morphine (Unverified Allergy, Unknown, "MAKES GO OUT", 12/01/13) pramipexole (Verified Allergy, Unknown, HIVES, 08/17/17) codeine (Unverified Adverse Reaction, Mild, N/V, 08/28/10) acetaminophen (Unverified Adverse Reaction, Unknown, 05/12/16) adhesive tape (Unverified Adverse Reaction, Unknown, 05/12/16) ibuprofen (Unverified Adverse Reaction, Unknown, 05/12/16) niacin (Unverified Adverse Reaction, Unknown, 05/12/16) propoxyphene (Unverified Adverse Reaction, Unknown, 05/12/16) Uncoded Allergies: ANTIDEPRESSANTS (Allergy, Unknown, MAKES SUICIDAL, 12/01/13) Home Medication List Reviewed: Yes FRO-[id number]-[id number] Hx Patient Social History Marital Status: Alcohol Use: Rarely Uses Recreational Drug Use: No Smoking Status: Never a Smoker Recent Foreign Travel: No Recent Infectious Disease Expo: No Recent Hopitalizations: No Physical Abuse Screen: No Sexual Abuse: No Immunizations Up To Date Date of Pneumonia Vaccine: Dec 28, 2013 Date of Influenza Vaccine: Jan 16, 2017 Past Medical History Past medical history as discussed below Family Medical History Significant Family History: No Pertinent Family Hx Family Medical Hx Noncontributory to her current condition Constitutional: see HPI, malaise, weakness EENTM: see HPI, no symptoms reported Respiratory: see HPI, other (has tracheostomy) Cardiovascular: see HPI; No chest pain, No edema, No Hx of Intervention, No palpitations, No syncope, No vascular heart diseas, No other Gastrointestinal: no symptoms reported, see HPI, diarrhea Genitourinary: see HPI, other (has a catheter) Musculoskeletal: no symptoms reported, see HPI Skin: no symptoms reported, see HPI Psychiatric/Neurological: No Symptoms Reported, See HPI Reviewed Test Results Reviewed Test Results Lab Laboratory Tests Test 08/24/17 16:04 08/24/17 18:15 Range/Units Troponin I < 0.30 <0.30 NG/ML Glucometer 195 H 70-110 MG/DL Physical Exam Vital Signs Vital Signs - First Documented 08/20/17 08/20/17 12:15 16:14 Temp 96.9 Pulse 76 Resp 22 B/P (MAP) 151/89 (109) Pulse Ox 97 O2 Delivery Room Air O2 Flow Rate 10.00 FiO2 40 Capillary Refill : Less Than 3 Seconds General Appearance: WD/WN, Mild Distress Eyes: Bilateral Eye Normal Inspection, Bilateral Eye PERRL, Bilateral Eye EOMI HEENT: PERRL/EOMI, Other (has tracheostomy tube) Neck: Normal Inspection, Non Tender, Supple Respiratory: Chest Non Tender, No Accessory Muscle Use, No Respiratory Distress , Crackles Cardiovascular: Regular Rate, Rhythm, No Edema, No Gallop, No JVD, No Murmur, Normal Peripheral Pulses Gastrointestinal: Normal Bowel Sounds, No Organomegaly, No Pulsatile Mass, Non Tender, Soft Back: Normal Inspection Extremity: Normal Capillary Refill, Normal Inspection Neurologic/Psychiatric: Alert, Other (anxiety) Skin: Normal Color, Warm/Dry Lymphatic: No Adenopathy A/P-Cardiology Admission Diagnosis Paroxysmal atrial fibrillation Hyperthyroidism Respiratory failure Hypertension Assessment/Plan Transient atrial fibrillation, converted to sinus rhythm on Cardizem drip, lasted for about an hour. Has been on Cardizem drip, I will stop the drip and monitor, no previous history of atrial fibrillation, no further episodes were noted. Status post thyroidectomy with vocal cord dysfunction and respiratory failure, has tracheostomy at this time. Managed by Dr. Navarro and Dr. Vu. Cardiac catheterization was done in June 2011 which showed normal coronaries, no significant obstructive disease, continue to monitor Hypertension, currently cannot take anything by mouth, I will start her on Lopressor 5 mg IV every 6 hours with close monitoring to her blood pressure, stop the Cardizem drip at this point History of palpitation, improved after using beta blockers in the past. Hyperlipidemia, monitor lipids as an outpatient Depression, anxiety, schizoaffective disorder, Bipolar disorder, followed by primary care physician Mild bilateral carotid stenosis, nonobstructive disease, last ultrasound was done in May 2017 History of chronic back pain Clinical Quality Measures DVT/VTE Risk/Contraindication: Risk Factor Score Per Nursin RFS Level Per Nursing on Admit: 4+=Very High RIZWAN CASTILLO MD August 25, 2017 12:55
[2017-08-25] MEDS: meTOprolol 5 MG/5 ML (LOPRESSOR) VIAL IV SCH (18:06)
--- NOTE | 2017-08-25 18:20 | Progress Note (SOAP) ---
Subjective Date Seen by Provider: August 25, 2017 Time Seen by Provider: 17:30 Subjective/Events-last exam has been improving in past 24 hrs. awake and alert and answers all questions appropriately. on trach mask now and off ventilator. speech/swallow eval once off vent for 24hrs. mild diarrhea. no neck pain. on fever/chills. another attempt at PICC in am with light sedation/pain meds. Objective Exam Vital Signs Date Time Temp Pulse Resp B/P (MAP) Pulse Ox O2 Delivery O2 Flow Rate FiO2 08/25/17 18:00 62 14 107/66 (80) 98 Trach Collar 50.00 08/25/17 17:00 71 18 125/90 (102) 96 Trach Collar 50.00 08/25/17 16:00 Trach Collar 50 08/25/17 16:00 68 18 139/65 (89) 100 Trach Collar 50.00 08/25/17 15:00 71 17 87 Trach Collar 50.00 08/25/17 14:45 100 Trach Collar 12.00 50 08/25/17 14:00 70 22 110/106 (107) 100 Trach Collar 50.00 08/25/17 13:00 64 18 130/90 (103) 99 Trach Collar 50.00 08/25/17 13:00 64 08/25/17 12:49 98.4 08/25/17 12:00 Trach Collar 50 08/25/17 12:00 70 17 110/41 (64) 94 Trach Collar 50.00 08/25/17 11:00 67 15 142/71 (94) 95 Trach Collar 50.00 08/25/17 10:27 Trach Collar 12.00 50 08/25/17 10:00 67 21 134/84 (101) 97 Trach Collar 50.00 08/25/17 09:22 100 Trach Collar 12.00 50 08/25/17 09:07 65 15 100 45 08/25/17 09:00 84 8 140/93 (109) 96 Trach Collar 50.00 08/25/17 08:00 Mechanical Ventilator 45 08/25/17 08:00 96.5 65 20 111/85 (94) 98 Mechanical Ventilator 45.00 08/25/17 07:00 85 08/25/17 07:00 82 21 161/89 (113) 97 Mechanical Ventilator 45.00 08/25/17 06:45 64 13 155/87 (109) 96 Mechanical Ventilator 45.00 08/25/17 06:30 77 29 144/92 (109) 91 Mechanical Ventilator 45.00 08/25/17 06:28 66 20 100 45 08/25/17 06:15 59 11 161/92 (115) 99 Mechanical Ventilator 45.00 08/25/17 06:00 61 10 160/88 (112) 100 Mechanical Ventilator 45.00 08/25/17 05:45 63 11 153/88 (109) 100 Mechanical Ventilator 45.00 08/25/17 05:30 64 13 168/95 (119) 100 Mechanical Ventilator 45.00 08/25/17 05:15 64 9 172/95 (120) 99 Mechanical Ventilator 45.00 08/25/17 05:00 67 9 176/98 (124) 96 Mechanical Ventilator 45.00 08/25/17 04:45 73 9 153/92 (112) 98 Mechanical Ventilator 45.00 08/25/17 04:30 79 10 162/105 (124) 97 Mechanical Ventilator 45.00 08/25/17 04:15 76 10 174/91 (118) 100 Mechanical Ventilator 45.00 08/25/17 04:00 97.1 08/25/17 04:00 88 19 161/91 (114) 100 Mechanical Ventilator 45.00 08/25/17 04:00 Mechanical Ventilator 45 08/25/17 03:55 20 08/25/17 03:45 79 18 152/87 (108) 99 Mechanical Ventilator 45.00 08/25/17 03:35 86 23 97 45 08/25/17 03:30 88 29 146/92 (110) 90 Mechanical Ventilator 45.00 08/25/17 03:15 81 15 157/85 (109) 97 Mechanical Ventilator 45.00 08/25/17 03:00 77 25 165/87 (113) 98 Mechanical Ventilator 45.00 08/25/17 02:45 80 30 170/87 (114) 98 Mechanical Ventilator 45.00 08/25/17 02:30 83 19 170/85 (113) 97 Mechanical Ventilator 45.00 08/25/17 02:15 87 35 167/90 (115) 97 Mechanical Ventilator 45.00 08/25/17 02:00 86 28 162/82 (108) 97 Mechanical Ventilator 45.00 08/25/17 01:45 80 22 157/78 (104) 95 Mechanical Ventilator 45.00 08/25/17 01:30 72 26 136/83 (100) 96 Mechanical Ventilator 45.00 08/25/17 01:21 78 18 98 45 08/25/17 01:15 73 24 136/78 (97) 95 Mechanical Ventilator 45.00 08/25/17 01:00 60 08/25/17 01:00 67 21 158/82 (107) 95 Mechanical Ventilator 45.00 08/25/17 00:45 70 20 156/86 (109) 96 Mechanical Ventilator 45.00 08/25/17 00:30 69 28 161/84 (109) 96 Mechanical Ventilator 45.00 08/25/17 00:15 72 20 152/87 (108) 95 Mechanical Ventilator 45.00 08/25/17 00:00 97.1 08/25/17 00:00 Mechanical Ventilator 45 08/25/17 00:00 72 27 170/88 (115) 94 Mechanical Ventilator 45.00 08/24/17 23:45 73 25 154/84 (107) 100 Mechanical Ventilator 45.00 08/24/17 23:39 72 12 97 45 08/24/17 23:00 72 25 162/85 (110) 97 Mechanical Ventilator 45.00 08/24/17 22:00 76 19 154/84 (107) 100 Mechanical Ventilator 45.00 08/24/17 21:53 75 18 99 45 08/24/17 21:45 70 21 136/85 (102) 93 Mechanical Ventilator 45.00 08/24/17 21:30 72 23 141/61 (87) 98 Mechanical Ventilator 45.00 08/24/17 21:00 74 26 146/81 (102) 100 Mechanical Ventilator 45.00 08/24/17 20:45 92 25 150/50 (83) 100 Mechanical Ventilator 45.00 08/24/17 20:30 78 24 151/71 (97) 100 Mechanical Ventilator 45.00 08/24/17 20:15 80 24 152/69 (96) 100 Mechanical Ventilator 45.00 08/24/17 20:09 81 13 100 45 08/24/17 20:00 97.0 82 25 149/75 (99) 99 Mechanical Ventilator 45.00 08/24/17 20:00 Mechanical Ventilator 45 08/24/17 19:45 84 25 149/75 (99) 100 Mechanical Ventilator 45.00 08/24/17 19:30 82 24 150/73 (98) 100 Mechanical Ventilator 45.00 08/24/17 19:15 89 22 143/69 (93) 100 Mechanical Ventilator 45.00 08/24/17 19:00 80 25 151/85 (107) 99 Mechanical Ventilator 45.00 08/24/17 19:00 80 08/24/17 18:14 74 13 99 45 I & O 08/25/17 07:00 Intake Total 1254 ml Output Total 745 ml Balance 509 ml Capillary Refill : Less Than 3 Seconds General Appearance: No Apparent Distress HEENT: PERRL/EOMI Neck: Full Range of Motion Respiratory: Chest Non Tender, Normal Breath Sounds Cardiovascular: Regular Rate, Rhythm Gastrointestinal: normal bowel sounds, non tender, soft Extremity: Normal Capillary Refill Neurologic/Psychiatric: Alert, Oriented x3 Skin: Normal Color Lymphatic: No Adenopathy Results Lab Laboratory Tests 08/24/17 18:15: Glucometer 195H 08/25/17 12:45: Glucometer 118H 08/25/17 18:03: Glucometer 124H Microbiology 08/20/17 MRSA Screen - Final, Complete MRSA not isolated Assessment/Plan Assessment/Plan Assess & Plan/Chief Complaint respiratory failure s/p total thyroidectomy. ENT consulted and tracheostomy placed. underlying pulmonary disease and now weened off vent and on trach mask. will need speech/swallow eval once off vent 24hrs. possible neuroproaxia vs. other recurrent laryngeal nerve injury. once stable, will need further studies and possible laryngotomy. however patient able to vocalize while occluding trach. if swallow intact will start recommended diet and heplock IV to allow for ambulation. PICC for potential TPN and frequent blood draws and other IV meds. she is amenable to this with mild sedation(ativan and fentanyl just before) Clinical Quality Measures DVT/VTE Risk/Contraindication: Risk Factor Score Per Nursin RFS Level Per Nursing on Admit: 4+=Very High LORNA RODRIGUEZ MD August 25, 2017 6:20 pm
[2017-08-26] VITALS (18 sets, daily range): BP systolic 128–198; BP diastolic 61–103
[2017-08-26] MEDS: methylPREDNISolone 125 MG (Solu-MEDROL) VIAL IVP SCH ×5 (00:19→23:27)
[2017-08-26] MEDS: meTOprolol 5 MG/5 ML (LOPRESSOR) VIAL IV SCH ×6 (00:27→23:27)
[2017-08-26] MEDS: inSUlin ASPART (NovoLOG) 1 UNIT/0.01 ML (CHARGE PER UNIT) SQ SCH ×3 (00:28→12:10)
[2017-08-26] MEDS: RT-ALBUTEROL/IPRATROPIUM 3 ML (DUONEB) VIAL INH SCH ×6 (01:40→22:00)
[2017-08-26] MEDS: POTASSIUM CL 10MEQ/50ML IVPB 50 ML IV SCH (05:44)
[2017-08-26] MEDS: MAGNESIUM 1 GM/100 ML IVPB 100 ML IV SCH (05:44)
[2017-08-26] MEDS: KCL 20 MEQ TAB (K-DUR) PO SCH (05:45)
--- NOTE | 2017-08-26 05:53 | Pulmonary Progress Note ---
Subjective Time Seen by Provider: 06:02 Subjective/Events-last exam pt is awake and alert. SOB is improved. Exam Exam Vital Signs Date Time Temp Pulse Resp B/P (MAP) Pulse Ox O2 Delivery O2 Flow Rate FiO2 08/26/17 05:00 61 22 167/97 (120) 96 Trach Collar 50.00 08/26/17 04:00 97.6 08/26/17 04:00 55 18 179/94 (122) 98 Trach Collar 50.00 08/26/17 04:00 Trach Collar 50 08/26/17 03:00 60 16 136/65 (88) 90 Trach Collar 50.00 08/26/17 02:00 61 16 128/62 (84) 100 Trach Collar 50.00 08/26/17 01:40 93 Trach Collar 12.00 50 08/26/17 01:00 56 08/26/17 01:00 56 24 146/61 (89) 92 Trach Collar 50.00 08/26/17 00:00 61 13 143/66 (91) 93 Trach Collar 50.00 08/26/17 00:00 Trach Collar 50 08/25/17 23:00 61 27 101/58 (72) 99 Trach Collar 50.00 08/25/17 22:05 97 Trach Collar 12.00 50 08/25/17 22:00 59 15 145/72 (96) 96 Trach Collar 50.00 08/25/17 21:00 50 26 128/75 (92) 92 Trach Collar 50.00 08/25/17 20:00 98.0 Trach Collar 50.00 08/25/17 20:00 Trach Collar 50 08/25/17 20:00 54 19 129/71 (90) 100 Trach Collar 50.00 08/25/17 19:00 55 21 121/88 (99) 100 Trach Collar 50.00 08/25/17 19:00 57 08/25/17 18:45 94 Trach Collar 12.00 50 08/25/17 18:00 62 14 107/66 (80) 98 Trach Collar 50.00 08/25/17 17:00 71 18 125/90 (102) 96 Trach Collar 50.00 08/25/17 16:00 Trach Collar 50 08/25/17 16:00 68 18 139/65 (89) 100 Trach Collar 50.00 08/25/17 15:00 71 17 87 Trach Collar 50.00 08/25/17 14:45 100 Trach Collar 12.00 50 08/25/17 14:00 70 22 110/106 (107) 100 Trach Collar 50.00 08/25/17 13:00 64 18 130/90 (103) 99 Trach Collar 50.00 08/25/17 13:00 64 08/25/17 12:49 98.4 08/25/17 12:00 Trach Collar 50 08/25/17 12:00 70 17 110/41 (64) 94 Trach Collar 50.00 08/25/17 11:00 67 15 142/71 (94) 95 Trach Collar 50.00 08/25/17 10:27 Trach Collar 12.00 50 08/25/17 10:00 67 21 134/84 (101) 97 Trach Collar 50.00 08/25/17 09:22 100 Trach Collar 12.00 50 08/25/17 09:07 65 15 100 45 08/25/17 09:00 84 8 140/93 (109) 96 Trach Collar 50.00 08/25/17 08:00 Mechanical Ventilator 45 08/25/17 08:00 96.5 65 20 111/85 (94) 98 Mechanical Ventilator 45.00 08/25/17 07:00 85 08/25/17 07:00 82 21 161/89 (113) 97 Mechanical Ventilator 45.00 08/25/17 06:45 64 13 155/87 (109) 96 Mechanical Ventilator 45.00 08/25/17 06:30 77 29 144/92 (109) 91 Mechanical Ventilator 45.00 08/25/17 06:28 66 20 100 45 08/25/17 06:15 59 11 161/92 (115) 99 Mechanical Ventilator 45.00 08/25/17 06:00 61 10 160/88 (112) 100 Mechanical Ventilator 45.00 I & O 08/26/17 07:00 Intake Total 0 ml Output Total 675 ml Balance -675 ml General Appearance: No Apparent Distress HEENT: PERRL/EOMI Neck: Full Range of Motion Respiratory: Chest Non Tender, Normal Breath Sounds Cardiovascular: Regular Rate, Rhythm Capillary Refill: Less Than 3 Seconds Gastrointestinal: normal bowel sounds, non tender, soft Extremity: Normal Capillary Refill Neurologic/Psychiatric: Alert, Oriented x3 Skin: Normal Color Lymphatic: No Adenopathy Assessment/Plan Assessment/Plan Acute respiratory failure secondary to vocal cord dysfunction -S/p tracheostomy -Pt is doing well off vent -Swallow eval today -Speech therapy consulted Atelectasis with hypoxemia -increase activity -Titrate oxygen as tolerated -SVNs Deconditioning -PT/OT ambulate and up to chair -D/C yang today if pt does well getting out of bed Afib RVR -Cardiology following Hyperthyroid s/p thyroidectomy HTN Diarrhea Labs and radiology reviewed. 233 Critical Care: Critically Ill Patient DAVE BARCENAS DO August 26, 2017 05:53
[2017-08-26] MEDS: LACTATED RINGERS 1,000 ML IV SCH ×3 (06:12→18:09)
--- NOTE | 2017-08-26 08:06 | Diagnostic Imaging Report ---
EXAMINATION: Chest radiograph, portable AP view. DATE: August 26, 2017 at 0327 hours. INDICATION: 61-year-old female, respiratory distress. COMPARISON: August 25, 2017. FINDINGS: There is a tracheostomy tube. There is cervical spine hardware. Stable overall appearance of the cardiomediastinal silhouette. There is a nodular opacity projecting over the left midlung measuring 8 mm in size. Lung volumes are somewhat low. There are streaky opacities in the right lung base and left medial lung base which are essentially unchanged. IMPRESSION: 1. Unchanged streaky opacities in the lung bases. 2. 8 mm nodular opacity overlying the left midlung which correlates with calcified granuloma comparing with prior CT chest August 21, 2017. Dictated by: Dictated on workstation # [id number]
--- NOTE | 2017-08-26 08:08 | Progress Note-Hospitalist ---
Subjective HPI/CC On Admission Date Seen by Provider: August 26, 2017 Time Seen by Provider: 08:03 Subjective/Events-last exam Pt reports doing better today. Still having loose stools but no other complaints. She is requesting to brush her teeth. Objective Exam Vital Signs Vital Signs Date Time Temp Pulse Resp B/P (MAP) Pulse Ox O2 Delivery O2 Flow Rate FiO2 08/26/17 07:00 56 08/26/17 06:25 93 Trach Collar 12.00 50 08/26/17 06:00 28 162/101 (121) 08/26/17 04:00 97.6 Capillary Refill : Less Than 3 Seconds General Appearance: No Apparent Distress, Obese Neck: Other (trach in place) Respiratory: Lungs Clear, No Respiratory Distress Cardiovascular: Regular Rate, Rhythm, No Murmur Gastrointestinal: Normal Bowel Sounds, Non Tender, Soft Neurologic/Psychiatric: Alert, Oriented x3 Results/Procedures Lab Patient resulted labs reviewed. Assessment/Plan Assessment and Plan Assess & Plan/Chief Complaint vocal cord paralysis s/p thyroidectomy Critical Care Critical Care: Critically Ill Patient Diagnosis/Problems Diagnosis/Problems (1) Vocal cord dysfunction Assessment & Plan: s/p trach on 08/21 on trach shield currently- maintained off vent overnight Pulm consulted, appreciate recs Speech study today (2) Atrial fibrillation with RVR Status: Resolved Assessment & Plan: Cardiology consulted, appreciate recs Dilt gtt DC-ed yesterday On Lopressor and well controlled (3) Hyperthyroidism Status: Acute Assessment & Plan: s/p thyroidectomy (4) HYPERTENSION Status: Acute Assessment & Plan: Mildly elevated this AM (5) Diarrhea Status: Acute Assessment & Plan: Offered rectal tube- pt declined Will monitor Still NPO If passes swallow study can start lomotil Qualifiers: Diarrhea type: unspecified type Qualified Codes: R19.7 - Diarrhea, unspecified Clinical Quality Measures DVT/VTE Risk/Contraindication: Risk Factor Score Per Nursin RFS Level Per Nursing on Admit: 4+=Very High TJ GIRALDO MD August 26, 2017 8:08 am
[2017-08-26] MEDS: PANTOPRAZOLE 40 MG/10 ML (PROTONIX) VIAL IV SCH (08:40)
--- NOTE | 2017-08-26 08:52 | Occupational Therapy Eval ---
OT Evaluation-General/PLF Medical Diagnosis Admission Date 08/20/17 Medical Diagnosis: Total Thyroidectomy Onset Date: August 20, 2017 Therapy Diagnosis Therapy Diagnosis: Weakness Height/Weight Height (Feet): 5 Height (Inches): 6.00 Weight (Pounds): 292 Weight (Ounces): 2.0 Precautions Precautions/Isolations: Aspiration (Pt placed on trach on 08/25), Fall Prevention, Standard Precautions Safety Interventions: Bed Exit Alarm Weight Bear Status Weight Bearing Restriction: Weight Bearing/Tolerated Referral Referral Reason: Evaluation/Treatment Medical History Pertinent Medical History: CAD, COPD, HTN Additional Medical History Pt has history of lumbar ORIF x 2, and history of neck ORIF x 2 Social History Home: Single Level Current Living Status: Spouse Pt has 24 hour caretakers that are present to assist her with bathing, dressing , toileting, IADLs, and functional ambulation. ADL-Prior Level of Function DME/Equipment: Bath Chair, Grab Bars DME/Equipment Comments Pt also has FWW and cane at home. OT Current Status Subjective Pt with no reports of pain, only discomfort due to placement of trach. Mental Status/Objective Patient Orientation: Person, Place, Time Attachments: Central Line, IV, Other-See Comments (Pt also has trach mask in place. ) Current Upper Extremity ROM Pt's UE ROM WNL. Upper Extremity Strength BUE gross muscle strength of 3/5 ADL-Treatment Functional [place] Measure 0=Not Assessed/NA 4=Minimal Assistance 1=Total Assistance 5=Supervision or Setup 2=Maximal Assistance 6=Modified [place] 3=Moderate Assistance 7=Complete IndependenceIRFPAI Quality Coding Scale 6 Independent with activity with or without an assistive device 5 Patient requires set up or clean up by helper. Patient completes activity by themselves 4 Supervision or touching assist (CGA). [place] provide cues , steadying assist 3 The helper provides less than half the effort to complete the activity 2 The helper provides more than half the effort to complete the activity 1 Dependent. The helper does all the effort to complete an activity 7 Patient refused to complete or attempt activity 9 The patient did not perform the activity before the current illness or injury 88 Not attempted due to Medical conditions or safety concerns Grooming (FIM): 5 Upper Body Dressing (FIM): 2 Toileting (FIM): 1 Transfers (B, C, W/C) (FIM): 2 Education OT Patient Education: Correct positioning, Energy conservation, Exercise program, Modified ADL techniques, Purpose of tx/functional activities, Transfer techniques Teaching Recipient: Patient Teaching Methods: Demonstration Response to Teaching: Verbalize Understanding, Return Demonstration OT Short Term Goals Short Term Goals Time Frame: Sep 04, 2017 Toileting(FIM): 4 Transfers (B,C,W/C) (FIM): 4 Additional Short Term Goals: 3-ImproveStrength/Luci 1=Demonstrate adherence to instructed precautions during ADL tasks. 2=Patient will verbalize/demonstrate understanding of assistive devices/ modifications for ADL. 3=Patient will improve strength/tolerance for activity to enable patient to perform ADL's. OT Correction Goals Helper Shear Operator Goals Time Frame: Sep 04, 2017 Toileting(FIM): 5 Transfers (B,C,W/C) (FIM): 5 Additional Goals: 3-ImproveStrength/Luci 1=Demonstrate adherence to instructed precautions during ADL tasks. 2=Patient will verbalize/demonstrate understanding of assistive devices/ modifications for ADL. 3=Patient will improve strength/tolerance for activity to enable patient to perform ADL's. OT Education/Plan Problem List/Assessment Assessment: Decreased Activ Tolerance, Decreased Safety Aware, Decreased UE Strength, Impaired Bed Mobility, Impaired Funct Balance, Impaired I ADL's, Impaired Self-Care Skills Discharge Recommendations Plan/Recommendations: Continue POC Therapy D/C Recommendations: Acute Rehab Treatment Plan/Plan of Care Patient would benefit from OT for education, treatment and training to promote independence in ADL's, mobility, safety and/or upper extremity function for ADL' s. Plan of Care: ADL Retraining, Caregiver Training, Functional Mobility, UE Funct Exercise/Act Treatment Duration: Sep 04, 2017 Frequency: 5 times per week Estimated Hrs Per Day: .5 hour per day Rehab Potential: Good Time/GCodes Start Time: 08:20 Stop Time: 08:55 Total Time Billed (hr/min): 35 Billed Treatment Time visit, [facility] [place] 35 minutes NURY DE LEON OT August 26, 2017 08:52
--- NOTE | 2017-08-26 09:30 | ST Mod Barium Swallow ---
Speech Evaluation-General Medical Diagnosis Total Thyroidectomy; Bilateral Vocal Cord Paralysis Onset Date: August 20, 2017 Therapy Diagnosis Therapy Diagnosis: Mild Pharyngeal Dysphagia; Aphonia (secondary to tracheostomy) Precautions Precautions: Aspiration Precautions/Isolations: Aspiration (Pt placed on trach on 08/25), Fall Prevention, Standard Precautions Referral Referring Physician: Dr. Micheal Juárez Reason for Referral: Evaluation/Treatment Bedside Swallowing Evaluation (Robles Blue Dye Test) Medical History Pertinent Medical History: CAD, COPD, HTN Current History The patient underwent a total thyroidectomy on 08/20/2017. Following the thyroidectomy, the patient experienced shortness of breath and required intubation. At attempted extubation, the patient was scoped with a flexible endoscope and was found to have bilateral vocal cord paralysis with the cords in the paramedian position. The patient received a tracheostomy tube shortly afterwards. The patient was placed on a ventilator due to respiratory distress, however, has been without ventilator support for 24 hours at this time. Social History Current Living Status: Spouse Speech Mod Barium Swallow Prior Level of Function The patient denied prior challenges with swallowing or signs/symptoms of aspiration with consistencies she consumed at home (regular solids with thin liquids). The patient did report her thyroid was "so large" it often felt like "I was swallowing around something." Oral Motor Skills Dentition Natural Dentures: Full (Natural.) Lingual Protrusion: Normal Lingual ROM: Normal Lingual Strength: Normal Velum: Normal Volitional Dry Swallow: Yes (The patient denied odynophagia, however, did display a facial grimace upon swallowing.) Voluntary Cough: Yes Textures-Lateral View Lateral View Food Presentation: Thin Liquid via Spoon (Ice Chips, Thin Liquid) , Thin Liquid via Straw, Pureed Solids Oral Phase Labial Closure: No Impairment (WFL) Bolus Formation Pooling L/R: No Impairment (WFL) Bolus Formation Placement: No Impairment (WFL) A/P Lingual Propulsion: No Impairment (WFL) Lingual Movement: No Impairment (WFL) Speech-Plan Treatment Plan Rehab Potential: FLYNN Bassett August 26, 2017 09:29
[2017-08-26] MEDS: ENOXAPARIN 40 MG/0.4 ML (LOVENOX) SYR SC SCH ×2 (09:35→21:48)
--- NOTE | 2017-08-26 09:38 | ST Dysphagia Evaluation ---
Speech Evaluation-General Medical Diagnosis Total Thyroidectomy; Bilateral Vocal Cord Paralysis Onset Date: August 20, 2017 Therapy Diagnosis Therapy Diagnosis: Mild Pharyngeal Dysphagia; Aphonia (secondary to tracheostomy) Precautions Precautions: Aspiration Precautions/Isolations: Aspiration (Pt placed on trach on 08/25), Fall Prevention, Standard Precautions Referral Referring Physician: Dr. Micheal Juárez Reason for Referral: Evaluation/Treatment Clinical Bedside Swallowing Evaluation (Robles Blue Dye Test) Medical History Pertinent Medical History: CAD, COPD, HTN Current History The patient underwent a total thyroidectomy on 08/20/2017. Following the thyroidectomy, the patient experienced shortness of breath and required intubation. At attempted extubation, the patient was scoped with a flexible endoscope and was found to have bilateral vocal cord paralysis with the cords in the paramedian position. The patient received a tracheostomy tube shortly afterwards. The patient was placed on a ventilator due to respiratory distress, however, has been without ventilator support for 24 hours at this time. Social History Current Living Status: Spouse Speech PLF/Current-Dysphagia Prior Level of Function The patient denied swallowing challenges or signs/symptoms of aspiration with any consistency she consumes at home (regular diet with thin liquids). The patient does report her left thyroid was "so big" if felt like "I was swallowing around something." Subjective The patient was seated upright in bed and greeted the clinician appropriately upon entrance. The patient stated she was anxious, however, was agreeable to participation in the dysphagia evaluation. The process of the evaluation was extensively discussed and the patient denied questions or concerns. At this time, the patient is writing on a piece of paper to communicate due to the aphonia caused by her tracheostomy. The patient was encouraged and taught to digitally occlude her tracheostomy to aid in vocalization. The patient was able to demonstrate this to the clinician throughout the session. CXR: 08/26/2017: 1. Unchanged streaky opacities in the lung bases. 2. 8 mm nodular opacity overlying the left midlung which correlates with calcified granuloma comparing with prior CT chest August 21, 2017. Cognitive Status Patient Orientation: Person, Place, Time, Situation Oral Motor Skills Dentition: Natural Ability to Follow Directions: Excellent The patient is NPO pending the results of the bedside swallowing evaluation. Oral Expression Ability: No Impairment (The patient expresses wants and needs fluently throughout writing and digital occlusion of tracheostomy site.) Tracheostomy Type: Cuffed (Cuff deflated.), Shiley (Size 6.) Voice Voice Phonatory-Based Quality: Aphonia (Dysphonic with trach occlusion.) Voice Pitch: Normal Voice Loudness: Mildly Soft/Quiet (With tracheostomy occlusion.) Face Facial Symmetry: Symmetrical Oral-Facial Assessment Oral-Facial Dentition: Normal Labial Seal Description: Normal Smile: Normal Puff Cheeks: Normal Lingual Protrusion: Normal Lingual ROM: Normal Lingual Strength: Normal Pharynx Velopharyngeal Move.: Normal Volitional Dry Swallow: Yes (The patient denied odynophagia, however, did grimace intermittently throughout the evaluation.) Voluntary Cough: Yes Can Clear Throat Volitionally: Yes Productive Cough: Yes Productive Throat Clear: Yes Dysphagia Evaluation Consistencies Presented: Thin Liquid (Ice chips, Water), Pureed No oral impairments were noted throughout the evaluation. Pharyngeal Phase: Reduced Laryngeal Elevation Decreased laryngeal elevation was noted throughout the evaluation which may be secondary to tracheostomy placement. - No signs/symptoms of aspiration were demonstrated with five ice chips (dyed blue), five ounces of water (dyed blue- teaspoon and straw drinks), or puree ( chocolate-brown). Following all bolus trials, the patient's inner cannula was assessed for dyed or colored bolus material. Additionally, the patient was encouraged to produce a rigorous cough for evaluation of dyed or color material from the lungs through the tracheostomy site. The inner cannula and all secretions expectorated were clear of dye or colored bolus material. The patient 's SpO2% remained stable at 95% with the trach shield in place. Dietary Recommendations: Mechanical Soft (A list of approved items were extensively discussed and recorded for a patient on the tablet she was using.) Liquid Recommendations: Thin - Crush medication and place in puree for administration. Swallowing Precautions: Decreased Bolus 1/2 Tsp, Small Bites and Sips, Sitting 90 Degrees 30 Post Intake Dysphagia Evaluation Summary The patient demonstrated mild pharyngeal dysphagia characterized by reduced laryngeal elevation and odynophagia. No signs/symptoms of aspiration were demonstrated with any consistency completed throughout the extensive evaluation. - OBSERVE FOR ANY BLUE OR BROWN EXPECTORATIONS FROM THE TRACHEOSTOMY SITE. IF BOLUS COLORED MATERIAL IS FOUND IN THE TRACHEOSTOMY SITE OR EXPECTORATED FROM THE TRACHEOSTOMY SITE BY THE PATIENT, PLACE THE PATIENT NPO AND CONTACT SPEECH PATHOLOGY IMMEDIATELY. Speech Short Term Goals Short Term Goals Short Term Goals 1. The patient will tolerate 10/10 bolus trials of thin liquid without any signs /symptoms of aspiration or laryngeal penetration. Time Frame-STG: Three Days Speech Correction Goals Nurse Staff [facility] Goals 1. The patient will tolerate the least restrictive diet without signs/symptoms of aspiration or laryngeal penetration. Time Frame: One Week Speech-Plan Treatment Plan Speech Therapy Treatment Plan: Continue Plan of Care Continue skilled speech pathology to target swallowing safety. Treatment Duration: Sep 02, 2017 Frequency: 3 times per week Estimated Hrs Per Day: .25 hour per day Rehab Potential: Good Safety Risks/Education Teaching Recipient: Patient, Significant Other Teaching Methods: Demonstration, Handout, Discussion Response to Teaching: Verbalize Understanding, Return Demonstration Education Topics Provided: An extensive discussion regarding the signs/symptoms of aspiration, permitted food and liquid consistencies, swallowing strategies and recommendations, and vocal cord function were provided to the patient and her . The patient and her denied questions or concerns at this time, however, were encouraged to follow up with the clinician if any questions arise in the future. The clinician deferred all tracheostomy care and home supply questions to respiratory therapy or nursing. The clinician will continue to follow the patient for diet consistency tolerance. Time Speech Therapy Time In: 09:00 Speech Therapy Time Out: 09:35 Total Billed Time: 35 Billed Treatment Time 1, FLYNN SWENSON August 26, 2017 09:38
--- NOTE | 2017-08-26 10:18 | Physical Therapy Evaluation ---
PT Evaluation-General Medical Diagnosis Admission Date 08/20/2017 Medical Diagnosis: Total Thyroidectomy; Bilateral Vocal Cord Paralysis Onset Date: August 20, 2017 Therapy Diagnosis Therapy Diagnosis: weakness;abn gait Height/Weight Height (Feet): 5 Height (Inches): 6.00 Weight (Pounds): 292 Weight (Ounces): 2.0 Precautions Precautions/Isolations: Aspiration (Pt placed on trach on 08/25), Fall Prevention, Standard Precautions Referral Physician: Breanne Reason for Referral: Evaluation/Treatment Medical History Pertinent Medical History: Atrial Fib, CAD, COPD, HTN Current History Pt originally admitted for thyroidectomy; resulted vocal cord dysfunction and subsequent respiratory failure; pt place on a vent with a tracheostomy to follow. PT orders received due to lengthy medical stay with complications and has been bedridden. Reviewed History: Yes Social History Home: Single Level Current Living Status: Spouse Prior/Core FIM Prior Level of Function Functional Phelps Measure 0=Not Assessed/NA 4=Minimal Assistance 1=Total Assistance 5=Supervision or Setup 2=Maximal Assistance 6=Modified Phelps 3=Moderate Assistance 7=Complete Phelps Pt used a cane at [facility]. Limited information obtained as no family present and pt having a hard time vocalizing. PT Evaluation-Current Subjective Indicates she needs to use the commode. Wants to get out of bed. Denies pain. Does report feeling dizzy with initial standing. Pain Numeric Pain Scale: 0-No Pain Location: No Pain Reported Objective Patient Orientation: Person, Place, Time, Situation Problem Solving: Fair (seems a bit impulsive) Attachments: Oxygen, Galloway Catheter, IV ROM/Strength ROM Lower Extremities WNL Strength Lower Extremities WFL Integumentary/Posture Integumentary Refer to nursing notes. Bowel Incontinence: No Bladder Incontinence: Galloway Cath Posture normal and symmetrical Neuromuscular (Tone, Coordination, Reflexes) functional Sensory Vision: Wears Glasses Hearing: Functional Sensation Right Lower Extremit: Intact Sensation Left Lower Extremity: Intact Transfers Functional Phelps Measure 0=Not Assessed/NA 4=Minimal Assistance 1=Total Assistance 5=Supervision or Setup 2=Maximal Assistance 6=Modified Phelps 3=Moderate Assistance 7=Complete Phelps Transfers (B, C, W/C) (FIM): 3 Supine to/from Sit: 3 Sit to/from Stand: 4 (CGA for safety. ) Gait Mode of Locomotion: Walk Anticipated Mode of Locomotion: Walk Gait Assistive Device: FWW Comments/Gait Description steps only to transfer to the commode. Balance Sitting Static: Good Sitting Dynamic: Good Standing Static: Fair Standing Dynamic: Fair Treatment Sit to stand x 5 reps and transferred to the commode; post BM, (max assist for jaylyn care); Pt able to stand for a few minutes while jaylyn care perfomed and pt stood to move while the commode was moved and the chair behind her. Pt up in chair post treatment with needs met. Pt used FWW for support with transfers and standing. Assessment/Needs Lengthy acute stay with a general decline in functional mobility and ability to tolerate activity. She will benefit from skilled PT to address strength and mobility to allow her to return home as before. 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 Time Frame: Sep 02, 2017 Transfers (B,C,W/C) (FIM): 6 Gait (FIM): 6 PT Plan Problem List Problem List: Activity Tolerance, Functional Strength, Safety, Balance, Gait, Transfer, Bed Mobility Treatment/Plan Treatment Plan: Continue Plan of Care Treatment Plan: Bed Mobility, Education, Functional Activity Luci, Functional Strength, Gait, Safety, Therapeutic Exercise, Transfers Treatment Duration: Sep 02, 2017 Frequency: 6 times per week Estimated Hrs Per Day: .25 hour per day Patient and/or Family Agrees t: Yes Safety Risks/Education Patient Education: Transfer Techniques, Safety Issues Teaching Recipient: Patient Teaching Methods: Discussion Response to Teaching: Reinforcement Needed Time/GCodes Time In: 930 Time Out: 1000 Total Billed Treatment Time: 30 Total Billed Treatment visit EVM 15 FA 15 AARON ESCAMILLA PT August 26, 2017 10:18
--- NOTE | 2017-08-26 10:40 | Cardiology Progress Note ---
Subjective Date Seen by Provider: August 26, 2017 Time Seen by Provider: 10:37 Subjective/Events-last exam patient is laying down in bed, feeling better today. No chest pain. Review of Systems General: No Chills, No Night Sweats; Fatigue, Malaise; No Appetite, No Other HEENT: No Head Aches, No Visual Changes, No Eye Pain, No Ear Pain, No Dysphasia , No Sinus Congestion, No Post Nasal Drip, No Sore Throat, No Other Pulmonary: Dyspnea; No Cough, No Pleuritic Chest Pain, No Other Cardiovascular: Edema; No: Chest Pain, Palpitations, Orthopnea, Paroxysmal Noc. Dyspnea, Lt Headedness, Other Objective-Cardiology Exam Last Set of Vital Signs Vital Signs 08/26/17 08/26/17 08/26/17 08:50 10:00 10:12 Temp 97.4 Pulse 63 Resp 16 B/P (MAP) 145/63 (90) Pulse Ox 91 O2 Delivery Trach Collar O2 Flow Rate 12.00 FiO2 50 Capillary Refill : Less Than 3 Seconds I&O Intake and Output 08/26/17 00:00 Intake Total 100 ml Output Total 820 ml Balance -720 ml Intake Oral 0 ml IV Total 100 ml Output Urine Total 820 ml General: Alert, Cooperative, Mild Distress HEENT: Atraumatic, EOMI Neck: Supple, No Thyromegaly Lungs: Normal Air Movement, Other (bilateral rhonchi) Heart: Regular Rate, Normal S1, Normal S2 Abdomen: Normal Bowel Sounds, No Tenderness Extremities: No Clubbing, No Cyanosis Skin: No Rashes Neuro: Other (has tracheostomy) Psych/Mental Status: Other (history of depression) Results Lab Laboratory Tests Test 08/25/17 12:45 08/25/17 18:03 Range/Units Glucometer 118 H 124 H 70-110 MG/DL A/P-Cardiology Admission Diagnosis Paroxysmal atrial fibrillation Hyperthyroidism Respiratory failure Hypertension Assessment/Plan Transient atrial fibrillation, converted to sinus rhythm on Cardizem drip, lasted for about an hour. currently off Cardizem drip, maintained on IV Lopressor. Continue to monitor Status post thyroidectomy with vocal cord dysfunction and respiratory failure, has tracheostomy at this time. Managed by Dr. Navarro and Dr. Vu. Acute respiratory failure, status post tracheostomy, managed by Dr. Raymundo Cardiac catheterization was done in June 2011 which showed normal coronaries, no significant obstructive disease, continue to monitor Hypertension, continue to monitor on IV Lopressor History of palpitation, improved after using beta blockers in the past. Hyperlipidemia, monitor lipids as an outpatient Depression, anxiety, schizoaffective disorder, Bipolar disorder, followed by primary care physician Mild bilateral carotid stenosis, nonobstructive disease, last ultrasound was done in May 2017 History of chronic back pain Clinical Quality Measures DVT/VTE Risk/Contraindication: Risk Factor Score Per Nursin RFS Level Per Nursing on Admit: 4+=Very High RIZWAN CASTILLO MD August 26, 2017 10:40
--- NOTE | 2017-08-26 11:02 | Progress Note-Standard ---
Standard Progress Note Progress Notes/Assess & Plan Date Seen by Provider: August 26, 2017 Time Seen by Provider: 11:00 Progress/Assessment & Plan ENTLibia Patient seen evaluated Had total thyroid yesterday with post-op stridor requiring intubation ? of an allegric reaction Unsure of exact time frame from extubation to re-intubation this am -sedated iwth propofol and intubated exam Neck-no swelling incision flat and wil-nop redness fiberoptic laryngospcoy-no swelling seein on orpharynx can't assess cords because of ET tube IMP Post-op Stridor afte Total thyroidecotmy Rec: 1. Options 1. extubated/ treat with racemic epi and observe closeely-if need to re- intubate then will need a trach 2. trach fololowed by direct laryngsocpy to assess the cords 3. transfer to a higher level of car-KU Will talk with Dr Vu and get time course of events and go voe rthe options he has at this time Thanks for hte consult-full consult is dictated ENT- extubation attempted and failed within 5 minutes-had to be intubated talked with firend/significant other-needs trach for airway vocal [id number] mobile at this time and are in parmedia postion risks benefits of trach discussed with family- ct neck/chest showed effsuions at base of chest but nothng much else in neck or chest will proceed to the OR for a trach as soon as crew available went to OR-trach placed -number 6 cuffed shiley cuffed needs to be inflated for today-if off of the vent tomorrow and doing well then will deflate cuff and begin diet and show her how to talk pcxr today to rule out pneumo will have to see how cords do -hopefully chico lcome back-time will tell Sabrina-08/22 Patient seen-trach site looks good -mild drainage sedated this am-awake last pm still on vent-hopefully can make progress in getting off of vent and to trach collar once on trach collar then can let balloon down and teach how to use t eusebia to talk once off of vent then could get rid of ng tube and start on liquids as well- mobilize once just on trach collar and get aggressive3 pulm toilet measures as ct showed atelectasis will follow up on thursday am ENTLibia-08/23-7am patient still on vent but hopefully off today once off vent-can deflate balloon on trach and show how to talk by placing her finger over trach will need new number 6 shileyu cuffed trach tube to bedside-plan on changing trach maybe on thu or once off vent and balloon down then can begin to start on clear liquids as long as ok with other dr's. will follow-up on Thursday ENT-08/24 Off of vent most of day yesterday and on trach collar-sign coughing so they rested her last night with CPAP breathing well thru trach trach site-bruised but minimal swelling and minimal drainage spoke with patient this am-will plan on changing trach on thu or trach home care arrangmetns will need to mbe made can start that on thursday will need suciton and mist machine for home hopefully can mobilize t man and start clear liquids today take cuff down when off of the CPAP-would wexpect some continued coughing bot hfrom trach and her lungs and COPD overall looks good fro ma trach standpoint Sabrina-08/26-11am patient off vent trach site looks good will change trach to a number 6 cuffless ronny and melissa then begin to show how toa kte care of trach-talk with finger over trach diet as trey from my standpoint will need trach supplies at home as well as mist and suction machine-not sure if she is g oing to need oxygen or not MILES CHRISTIANSEN MD August 26, 2017 11:02 am
[2017-08-26] MEDS: LOPERAMIDE 2 MG (IMODIUM) CAP PO PRN ×2 (11:08→13:44)
--- NOTE | 2017-08-26 15:45 | Progress Note (SOAP) ---
Subjective Date Seen by Provider: August 26, 2017 Time Seen by Provider: 15:00 Subjective/Events-last exam doing well. able to talk while occluding trach. passed swallow study and tolerating soft diet. on minimal trach mask O2. Objective Exam Vital Signs Date Time Temp Pulse Resp B/P (MAP) Pulse Ox O2 Delivery O2 Flow Rate FiO2 08/26/17 15:04 96 Trach Collar 12.00 50 08/26/17 13:00 61 30 198/91 (126) 97 Trach Collar 50.00 08/26/17 13:00 61 08/26/17 12:00 65 13 189/103 (131) 99 Trach Collar 50.00 08/26/17 11:50 Trach Collar 50 08/26/17 11:42 97.8 08/26/17 10:12 91 Trach Collar 12.00 50 08/26/17 10:00 63 16 145/63 (90) 97 Trach Collar 50.00 08/26/17 09:00 52 17 166/94 (118) 97 Trach Collar 50.00 08/26/17 08:50 97.4 08/26/17 08:00 Trach Collar 50 08/26/17 08:00 66 15 164/93 (116) 100 Trach Collar 50.00 08/26/17 07:00 56 24 157/81 (106) 95 Trach Collar 50.00 08/26/17 07:00 56 08/26/17 06:25 93 Trach Collar 12.00 50 08/26/17 06:00 52 28 162/101 (121) 95 Trach Collar 50.00 08/26/17 05:00 61 22 167/97 (120) 96 Trach Collar 50.00 08/26/17 04:00 97.6 08/26/17 04:00 55 18 179/94 (122) 98 Trach Collar 50.00 08/26/17 04:00 Trach Collar 50 08/26/17 03:00 60 16 136/65 (88) 90 Trach Collar 50.00 08/26/17 02:00 61 16 128/62 (84) 100 Trach Collar 50.00 08/26/17 01:40 93 Trach Collar 12.00 50 08/26/17 01:00 56 08/26/17 01:00 56 24 146/61 (89) 92 Trach Collar 50.00 08/26/17 00:00 61 13 143/66 (91) 93 Trach Collar 50.00 08/26/17 00:00 Trach Collar 50 08/25/17 23:00 61 27 101/58 (72) 99 Trach Collar 50.00 08/25/17 22:05 97 Trach Collar 12.00 50 08/25/17 22:00 59 15 145/72 (96) 96 Trach Collar 50.00 08/25/17 21:00 50 26 128/75 (92) 92 Trach Collar 50.00 08/25/17 20:00 98.0 Trach Collar 50.00 08/25/17 20:00 Trach Collar 50 08/25/17 20:00 54 19 129/71 (90) 100 Trach Collar 50.00 08/25/17 19:00 55 21 121/88 (99) 100 Trach Collar 50.00 08/25/17 19:00 57 08/25/17 18:45 94 Trach Collar 12.00 50 08/25/17 18:00 62 14 107/66 (80) 98 Trach Collar 50.00 08/25/17 17:00 71 18 125/90 (102) 96 Trach Collar 50.00 08/25/17 16:00 Trach Collar 50 08/25/17 16:00 68 18 139/65 (89) 100 Trach Collar 50.00 I & O 08/26/17 07:00 Intake Total 0 ml Output Total 850 ml Balance -850 ml Capillary Refill : Less Than 3 Seconds General Appearance: No Apparent Distress HEENT: PERRL/EOMI Neck: Full Range of Motion Respiratory: Chest Non Tender, Lungs Clear, Normal Breath Sounds Cardiovascular: Regular Rate, Rhythm Gastrointestinal: normal bowel sounds, non tender, soft Extremity: Normal Capillary Refill Neurologic/Psychiatric: Alert, Oriented x3 Skin: Normal Color Lymphatic: No Adenopathy Results Lab Laboratory Tests 08/25/17 18:03: Glucometer 124H Microbiology 08/20/17 MRSA Screen - Final, Complete MRSA not isolated Assessment/Plan Assessment/Plan Assess & Plan/Chief Complaint respiratory failure s/p total thyroidectomy. ENT consulted and tracheostomy placed. underlying pulmonary disease and now weened off vent and on trach mask. will need speech/swallow eval once off vent 24hrs. possible neuroproaxia vs. other recurrent laryngeal nerve injury. once stable, will need further studies and possible laryngotomy. however patient able to vocalize while occluding trach. swallow intact and tolerating liquids and soft diet. will transfer to floor. arrange for home health. Clinical Quality Measures DVT/VTE Risk/Contraindication: Risk Factor Score Per Nursin RFS Level Per Nursing on Admit: 4+=Very High LORNA RODRIGUEZ MD August 26, 2017 3:45 pm
[2017-08-26] MEDS: oxyCODONE/APAP 5/325MG (PERCOCET 5) TABLET PO PRN ×2 (17:01→23:27)
[2017-08-27] VITALS (7 sets, daily range): BP systolic 123–169; BP diastolic 58–82
[2017-08-27] MEDS: fentaNYL INJECTION 100 MCG/2 ML AMP IVP PRN ×2 (00:15→16:22)
[2017-08-27] MEDS: RT-ALBUTEROL/IPRATROPIUM 3 ML (DUONEB) VIAL INH SCH ×6 (01:59→22:29)
[2017-08-27] MEDS: LACTATED RINGERS 1,000 ML IV SCH ×2 (03:15→12:37)
[2017-08-27] MEDS: oxyCODONE/APAP 5/325MG (PERCOCET 5) TABLET PO PRN ×4 (04:42→22:17)
[2017-08-27] MEDS: methylPREDNISolone 125 MG (Solu-MEDROL) VIAL IVP SCH ×4 (05:40→23:57)
[2017-08-27] MEDS: meTOprolol 5 MG/5 ML (LOPRESSOR) VIAL IV SCH ×4 (05:43→23:57)
[2017-08-27] MEDS: PANTOPRAZOLE 40 MG (PROTONIX) TAB PO SCH (08:47)
[2017-08-27] MEDS: LOPERAMIDE 2 MG (IMODIUM) CAP PO PRN ×2 (10:33→12:35)
[2017-08-27] MEDS: ENOXAPARIN 40 MG/0.4 ML (LOVENOX) SYR SC SCH ×2 (10:34→22:16)
[2017-08-27] MEDS ORDERED: DIPHENOXYLATE/ATROPINE 2.5MG/0.025MG (LOMOTIL) TAB PO PRN (12:00)
--- NOTE | 2017-08-27 12:01 | Speech Therapy Daily Note ---
Speech Daily Progress Note Subjective Date Seen by Provider: August 27, 2017 Time Seen by Provider: 10:20 The patient was seated upright in bed upon entrance. The patient greeted the clinician and was agreeable to participation in the dysphagia treatment session. The patient denied any overt signs/symptoms of aspiration or laryngeal penetration with the consistency she is currently consuming. Expectorations from the trach site have not been tinged any food or liquid consistency the patient has ate since the initiation of her diet. The patient is eager to return to a regular diet on this date. Objective Thin Liquid (via straw), Solid (jorge luis crackers): No signs/symptoms of aspiration were demonstrated throughout the evaluation. The patient's vocal quality remained clear. Recommendations: - Regular consistency diet with thin liquids, as tolerated. - Small, single bites and sips. - Alternate solids and liquids on a 1:1 ratio. - Take pills whole in liquid or puree. - Upright and alert for all PO. - Slow rate of intake. - Digitally occlude tracheostomy site for swallowing and voice. - Monitor for food or liquid tinged secretions from the tracheostomy site. If witnessed, place the patient NPO and contact speech pathology immediately. Speech pathology to initiate Passy Rosie Speaking Valve trials in the near future following a discussion with RT, who agrees the patient is appropriate at this time. Assessment Assessment Current Status: Excellent Progress Treatment Plan Continue Plan of Care Speech Short Term Goals Short Term Goals Short Term Goals 1. The patient will tolerate 10/10 bolus trials of thin liquid without any signs /symptoms of aspiration or laryngeal penetration. Time Frame-STG: Three Days Speech Fci Goals Fci Goals 1. The patient will tolerate the least restrictive diet without signs/symptoms of aspiration or laryngeal penetration. Time Frame: One Week Speech-Plan Treatment Plan Speech Therapy Treatment Plan: Continue Plan of Care Continue skilled speech pathology to target improved swallowing safety. Treatment Duration: Sep 02, 2017 Frequency: 3 times per week Estimated Hrs Per Day: .25 hour per day Rehab Potential: Good Safety Risks/Education Teaching Recipient: Patient Teaching Methods: Discussion Response to Teaching: Verbalize Understanding Education Topics Provided: Diet Upgrade, Swallowing Strategies Time Speech Therapy Time In: 10:20 Speech Therapy Time Out: 10:40 Total Billed Time: 20 Billed Treatment Time Deena SUNDAY FLYNN WELCH August 27, 2017 12:00
--- NOTE | 2017-08-27 12:02 | Progress Note-Hospitalist ---
Subjective HPI/CC On Admission Date Seen by Provider: August 27, 2017 Time Seen by Provider: 11:56 Subjective/Events-last exam Pt reports feeling better but still have loose stools. Discussed discharge plan and she would like to go home. She has two caretakers who are with her 40 hours a week each who will need trach care education. Objective Exam Vital Signs Vital Signs Date Time Temp Pulse Resp B/P (MAP) Pulse Ox O2 Delivery O2 Flow Rate FiO2 08/27/17 10:42 92 Trach Collar 10.00 35 08/27/17 08:00 96.4 79 20 123/58 (79) Capillary Refill : Less Than 3 Seconds General Appearance: No Apparent Distress, Obese Neck: Other Respiratory: Lungs Clear, No Respiratory Distress Cardiovascular: Regular Rate, Rhythm, No Murmur Gastrointestinal: Normal Bowel Sounds, Non Tender, Soft Extremity: No Calf Tenderness, No Pedal Edema Neurologic/Psychiatric: Alert, Oriented x3 Results/Procedures Lab Patient resulted labs reviewed. Assessment/Plan Assessment and Plan Assess & Plan/Chief Complaint vocal cord paralysis s/p thyroidectomy Critical Care Critical Care: Critically Ill Patient Diagnosis/Problems Diagnosis/Problems (1) Vocal cord dysfunction Assessment & Plan: s/p trach on 08/21 on trach shield currently Pulm consulted, appreciate recs Speech to evaluate for speaking valve today Discussed with RT who will do trach care education with patient and caretakers (2) Atrial fibrillation with RVR Status: Resolved Assessment & Plan: Cardiology consulted, appreciate recs On Lopressor and well controlled Switch to oral when okay with cardiology (3) Hyperthyroidism Status: Acute Assessment & Plan: s/p thyroidectomy T4 ordered- will start thyroid supplement if needed (4) HYPERTENSION Status: Acute Assessment & Plan: Mildly elevated this AM (5) Diarrhea Status: Acute Assessment & Plan: Offered rectal tube- pt declined Will monitor Qualifiers: Diarrhea type: unspecified type Qualified Codes: R19.7 - Diarrhea, unspecified Clinical Quality Measures DVT/VTE Risk/Contraindication: Risk Factor Score Per Nursin RFS Level Per Nursing on Admit: 4+=Very High TJ GIRALDO MD August 27, 2017 12:02 pm
--- NOTE | 2017-08-27 12:25 | Occupational Ther Daily Note ---
OT Current Status-Daily Note Subjective Pt alert, sitting in recliner. Pt agrees to therapy. No c/o pain. 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 Pt completed 5 UE exercises against gravity to increase strength and activity tolerance for daily functional tasks. Pt able to set self up for eating and uses regular utensils to feed self. Physician in room after therapy. Reported to nrsg that pt was wanting items for her soup. After therapy, pt sitting in recliner with call light/phone in reach. All needs met in room. OT Short Term Goals Short Term Goals Time Frame: Sep 04, 2017 Toileting(FIM): 4 Transfers (B,C,W/C) (FIM): 4 Additional Short Term Goals: 3-ImproveStrength/Luci 1=Demonstrate adherence to instructed precautions during ADL tasks. 2=Patient will verbalize/demonstrate understanding of assistive devices/ modifications for ADL. 3=Patient will improve strength/tolerance for activity to enable patient to perform ADL's. OT Clinical Technologist Goals Clinical Technologist Goals Time Frame: Sep 04, 2017 Toileting(FIM): 5 Transfers (B,C,W/C) (FIM): 5 Additional Goals: 3-ImproveStrength/Luci 1=Demonstrate adherence to instructed precautions during ADL tasks. 2=Patient will verbalize/demonstrate understanding of assistive devices/ modifications for ADL. 3=Patient will improve strength/tolerance for activity to enable patient to perform ADL's. OT Education/Plan Discharge Recommendations Plan/Recommendations: Continue POC Treatment Plan/Plan of Care Patient would benefit from OT for education, treatment and training to promote independence in ADL's, mobility, safety and/or upper extremity function for ADL' s. Plan of Care: ADL Retraining, Caregiver Training, Functional Mobility, UE Funct Exercise/Act Treatment Duration: Sep 04, 2017 Frequency: 5 times per week Estimated Hrs Per Day: .5 hour per day Rehab Potential: Good Time/GCodes Start Time: 11:40 Stop Time: 11:55 Total Time Billed (hr/min): 15 Billed Treatment Time 1 visit-FA 1 (15 min) AARON CARRILLO August 27, 2017 12:25
--- NOTE | 2017-08-27 12:43 | Physical Therapy Daily Note ---
PT Daily Note-Current Subjective Smiling. Reports she has had a shower this morning. Wants to get up to the chair. Pain Numeric Pain Scale: 0-No Pain Location: No Pain Reported Mental Status Patient Orientation: Person, Place, Time, Situation Transfers Functional Bowman Measure 0=Not Assessed/NA 4=Minimal Assistance 1=Total Assistance 5=Supervision or Setup 2=Maximal Assistance 6=Modified [place] 3=Moderate Assistance 7=Complete IndependenceIRFPAI Quality Coding Scale 6 Independent with activity with or without an assistive device 5 Patient requires set up or clean up by helper. Patient completes activity by themselves 4 Supervision or touching assist (CGA). [place] provide cues , steadying assist 3 The helper provides less than half the effort to complete the activity 2 The helper provides more than half the effort to complete the activity 1 Dependent. The helper does all the effort to complete an activity 7 Patient refused to complete or attempt activity 9 The patient did not perform the activity before the current illness or injury 88 Not attempted due to Medical conditions or safety concerns Transfers (B, C, W/C) (FIM): 5 Supine to/from Sit: 5 Sit to/from Stand: 5 Bed to/from Chair: 5 SBA for safety but pt did not need any extra assist. Treatments Pt transferred sup to sit to stand with SBA. Pt took 5-6 steps to transfer to the chair. Pt stood at chair and performed weight shifting, marching and calf raises all to facilitate functional standing tolerance and prepare for gait activities. Assessment Current Status: Good Progress Safe with transfer. Progressing well. Did will with tolerance to activity. PT Short Term Goals Short Term Goals Transfers (B,C,W/C) (FIM): 4 PT Group Home Goals Group Home Goals PT Group Home Goals Time Frame: Sep 02, 2017 Transfers (B,C,W/C) (FIM): 6 Gait (FIM): 6 PT Plan Problem List Problem List: Activity Tolerance, Functional Strength, Safety, Balance, Gait, Transfer, Bed Mobility Treatment/Plan Treatment Plan: Continue Plan of Care Treatment Plan: Bed Mobility, Education, Functional Activity Luci, Functional Strength, Gait, Safety, Therapeutic Exercise, Transfers Treatment Duration: Sep 02, 2017 Frequency: 6 times per week Estimated Hrs Per Day: .25 hour per day Patient and/or Family Agrees t: Yes Safety Risks/Education Patient Education: Transfer Techniques Teaching Recipient: Patient Teaching Methods: Discussion Response to Teaching: Reinforcement Needed Time/GCodes Time In: 1100 Time Out: 1124 Total Billed Treatment Time: 24 Total Billed Treatment visit FA 24 AARON ESCAMILLA PT August 27, 2017 12:43
--- NOTE | 2017-08-27 13:40 | ST Dysphonia Evaluation ---
Speech Evaluation-General Medical Diagnosis Total Thyroidectomy; Bilateral Vocal Cord Paralysis Onset Date: August 20, 2017 Therapy Diagnosis Therapy Diagnosis: Aphonia (secondary to tracheostomy) Precautions Precautions: Aspiration Precautions/Isolations: Fall Prevention, Standard Precautions Referral Referring Physician: Dr. Micheal Juárez Reason for Referral: Evaluation/Treatment Passy-Rosie Speaking Valve Evaluation Medical History Pertinent Medical History: Atrial Fib, CAD, COPD, HTN Current History The patient recently underwent a total thyroidectomy on 08/20/2017 which resulted in bilateral vocal cord paralysis. Following discovery of bilateral vocal cord paralysis (paramedian position), a tracheostomy was placed (08/25/2017 ). Reviewed History: Yes Social History Current Living Status: Spouse Speech Dysphonia PLF/Current Objective Evaluation Breathing Pattern Is: Thoracic (Most often, intermittently, abdominal.) Position: Sitting Phonation Quality: Hoarse (Harsh, intermittently dysphonic.) Due to recent placement of a tracheostomy tube, speech pathology was consulted for Passy-[place] Speaking Valve Trials (PMV). PMV Trials were initiated on this date with the below results and data: Baseline Information: - Tracheostomy Information: Gm, #6, Uncuffed. - Trach Shield currently in place. - SpO2% at 97% at baseline prior to placement of the PMV. - Digital occlusion of the tracheostomy site was completed by the clinician and patient. The patient was able to easily count to ten without labored respirations. No significant backflow of air was experienced with digital occlusion was removed. Education, Instructions: - The PMV was extensively reviewed with the patient prior to placement. All contents of the package were discussed in detail, as well as, safety precautions. - The patient was educated on placement and removal of the PMV and was able to demonstrate these tasks independently. - The patient was educated regarding the importance of removal of the PMV with any experienced shortness of breath, respiratory distress, and throughout all periods of sleep. - Cleaning instructions were provided and demonstrated by the clinician. - A PMV warning sign was placed at the head of the bed. PMV Trials: - The PMV was initially placed by the clinician. - With the PMV in place, the patient's SpO2% increased to 99%. - Following five, ten, fifteen, and twenty minute intervals, the patient's SpO2 % remained stable at 99%. - The patient verbalized no discomfort or respiratory distress throughout the trial. - The patient's vocal intensity improved, however, her quality remained somewhat dysphonic and harsh. - At the completion, the patient wished to rest and independently removed the PMV and placed the device at bedside in its storage container. The patient denied any additional questions or concerns and was able to repeat the cleaning, care, and placement instructions and warnings to the clinician. The patient was encouraged to wear the PMV during waking hours and throughout PO intake. Time In: 13:45 Time Out: 14:15 Total Evaluation Time: 30 minutes 1, SPSNDCOMP Speech Short Term Goals Short Term Goals Short Term Goals 1. The patient will tolerate 10/10 bolus trials of thin liquid without any signs /symptoms of aspiration or laryngeal penetration. 2. The patient will tolerate the PMV for 30 minutes without a decrease in SpO2% or the presence of increased respiratory effort. Time Frame-STG: Three Days Speech Fci Goals Item Processing Clerk Goals 1. The patient will tolerate the least restrictive diet without signs/symptoms of aspiration or laryngeal penetration. 2. The patient will tolerate extended periods (waking hours) of PMV wear without a decrease in SpO2% or the presence of increased respiratory effort. Time Frame: One Week FLYNN WELCH August 27, 2017 13:40
--- NOTE | 2017-08-27 14:40 | Progress Note (SOAP) ---
Subjective Date Seen by Provider: August 27, 2017 Time Seen by Provider: 14:00 Subjective/Events-last exam doing much better. able to talk with one way valve button on trach. tolerating diet, no dysphagia. Objective Exam Vital Signs Date Time Temp Pulse Resp B/P (MAP) Pulse Ox O2 Delivery O2 Flow Rate FiO2 08/27/17 12:00 97.4 78 20 150/69 (96) 95 Trach Collar 50.00 08/27/17 10:42 92 Trach Collar 10.00 35 08/27/17 08:07 92 Trach Collar 10.00 35 08/27/17 08:00 Trach Collar 10.00 08/27/17 08:00 96.4 79 20 123/58 (79) 97 Trach Collar 50.00 08/27/17 05:53 58 158/78 (104) 08/27/17 05:00 96.3 49 18 169/71 (103) 97 Trach Collar 50.00 08/27/17 02:02 95 Trach Collar 10.00 35 08/27/17 00:00 98.7 56 16 143/67 (92) 95 Trach Collar 50.00 08/26/17 22:04 96 Trach Collar 10.00 35 08/26/17 20:05 96 Trach Collar 10.00 08/26/17 19:58 97.8 60 20 181/85 (117) 97 Trach Collar 50.00 08/26/17 18:22 94 Trach Collar 12.00 40 08/26/17 16:30 97.6 61 20 157/86 (109) 98 Trach Collar 50.00 08/26/17 16:00 68 18 187/80 (115) 94 Trach Collar 50.00 08/26/17 15:04 96 Trach Collar 12.00 50 08/26/17 15:00 52 24 182/97 (125) 95 Trach Collar 50.00 I & O 08/27/17 07:00 Intake Total 2540 ml Output Total 1150 ml Balance 1390 ml Capillary Refill : Less Than 3 Seconds General Appearance: No Apparent Distress HEENT: PERRL/EOMI Neck: Full Range of Motion Respiratory: Chest Non Tender, Lungs Clear Cardiovascular: Regular Rate, Rhythm Gastrointestinal: normal bowel sounds, non tender, soft Extremity: Normal Capillary Refill Neurologic/Psychiatric: Alert, Oriented x3 Skin: Normal Color Lymphatic: No Adenopathy Results Lab Microbiology 08/20/17 MRSA Screen - Final, Complete MRSA not isolated Assessment/Plan Assessment/Plan Assess & Plan/Chief Complaint respiratory failure s/p total thyroidectomy. ENT consulted and tracheostomy placed. underlying pulmonary disease and now weened off vent and on trach mask. will need speech/swallow eval once off vent 24hrs. possible neuroproaxia vs. other recurrent laryngeal nerve injury. once stable, will need further studies and possible laryngotomy. however patient able to vocalize while occluding trach. swallow intact and tolerating liquids and soft diet. will transfer to floor. arrange for home health. f/u in office one week from d/c. Clinical Quality Measures DVT/VTE Risk/Contraindication: Risk Factor Score Per Nursin RFS Level Per Nursing on Admit: 4+=Very High LORNA RODRIGUEZ MD August 27, 2017 2:40 pm
[2017-08-27] MEDS ORDERED: [UNRECOGNIZED DRUG - CODE] MC (16:01)
[2017-08-27] MEDS ORDERED: [UNRECOGNIZED DRUG - CODE] MC (16:01)
[2017-08-28] VITALS: BP 184/77
[2017-08-28] MEDS: RT-ALBUTEROL/IPRATROPIUM 3 ML (DUONEB) VIAL INH SCH ×3 (02:55→09:52)
[2017-08-28] MEDS: PANTOPRAZOLE 40 MG (PROTONIX) TAB PO SCH (06:11)
[2017-08-28] MEDS: meTOprolol 5 MG/5 ML (LOPRESSOR) VIAL IV SCH ×2 (06:14→12:37)
[2017-08-28] MEDS: methylPREDNISolone 125 MG (Solu-MEDROL) VIAL IVP SCH ×2 (06:14→12:37)
--- NOTE | 2017-08-28 07:03 | Progress Note-Standard ---
Standard Progress Note Progress Notes/Assess & Plan Date Seen by Provider: Aug 28, 2017 Time Seen by Provider: 06:30 Progress/Assessment & Plan [facility] Patient seen evaluated Had total thyroid yesterday with post-op stridor requiring intubation ? of an allegric reaction Unsure of exact time frame from extubation to re-intubation this am -sedated iwth propofol and intubated exam Neck-no swelling incision flat and wil-nop redness fiberoptic laryngospcoy-no swelling seein on orpharynx can't assess cords because of ET tube IMP Post-op Stridor afte Total thyroidecotmy Rec: 1. Options 1. extubated/ treat with racemic epi and observe closeely-if need to re- intubate then will need a trach 2. trach fololowed by direct laryngsocpy to assess the cords 3. transfer to a higher level of car-KU Will talk with Dr Vu and get time course of events and go voe rthe options he has at this time Thanks for hte consult-full consult is dictated ENT- extubation attempted and failed within 5 minutes-had to be intubated talked with firend/significant other-needs trach for airway vocal spiie-itksopwn-hcv mobile at this time and are in parmedia postion risks benefits of trach discussed with family- ct neck/chest showed effsuions at base of chest but nothng much else in neck or chest will proceed to the OR for a trach as soon as crew available went to OR-trach placed -number 6 cuffed shiley cuffed needs to be inflated for today-if off of the vent tomorrow and doing well then will deflate cuff and begin diet and show her how to talk pcxr today to rule out pneumo will have to see how cords do -hopefully chico lcome back-time will tell Sabrina-08/22- Patient seen-trach site looks good -mild drainage sedated this am-awake last pm still on vent-hopefully can make progress in getting off of vent and to trach collar once on trach collar then can let balloon down and teach how to use t eusebia to talk once off of vent then could get rid of ng tube and start on liquids as well- mobilize once just on trach collar and get aggressive3 pulm toilet measures as ct showed atelectasis will follow up on thursday am Sabrina-08/23-7am patient still on vent but hopefully off today once off vent-can deflate balloon on trach and show how to talk by placing her finger over trach will need new number 6 shileyu cuffed trach tube to bedside-plan on changing trach maybe on thu or once off vent and balloon down then can begin to start on clear liquids as long as ok with other dr's. will follow-up on Thursday ENT-08/24 Off of vent most of day yesterday and on trach collar-sign coughing so they rested her last night with CPAP breathing well thru trach trach site-bruised but minimal swelling and minimal drainage spoke with patient this am-will plan on changing trach on thu or trach home care arrangmetns will need to mbe made can start that on thursday will need suciton and mist machine for home hopefully can mobilize t man and start clear liquids today take cuff down when off of the CPAP-would wexpect some continued coughing bot hfrom trach and her lungs and COPD overall looks good fro ma trach standpoint Sabrina-08/26-11am patient off vent trach site looks good will change trach to a number 6 cuffless shiley and farrowing worker then begin to show how toa kte care of trach-talk with finger over trach diet as trey from my standpoint will need trach supplies at home as well as mist and suction machine-not sure if she is g oing to need oxygen or not Sabrina Ding well-down on regular floor now states she is reday to go home can talk easily with trach in place-taking diet well Trach site looks good from my standoint ready to go home will need a mist machine and a suciton machine at home also will need a new number 6 cuffless fenestrated shiley when she comes back in to hte office RTC-2 weeks Sabrina swanson later this am with the apt time will not plan on seeing her anymore in hospital unless you call-thanks MILES CHRISTIANSEN MD Aug 28, 2017 7:03 am
[2017-08-28 08:00] VITALS: BP 160/80
[2017-08-28] MEDS ORDERED: LEVO88TA2 PO (08:52)
[2017-08-28] MEDS: oxyCODONE/APAP 5/325MG (PERCOCET 5) TABLET PO PRN (08:56)
[2017-08-28] MEDS: ENOXAPARIN 40 MG/0.4 ML (LOVENOX) SYR SC SCH (08:57)
--- NOTE | 2017-08-28 09:01 | Progress Note-Hospitalist ---
Subjective HPI/CC On Admission Date Seen by Provider: Aug 28, 2017 Time Seen by Provider: 08:57 Subjective/Events-last exam public opinion survey taker at bedside ready for trach training. Awaiting her other virtual reality specialist to arrive. Objective Exam Vital Signs Vital Signs Date Time Temp Pulse Resp B/P (MAP) Pulse Ox O2 Delivery O2 Flow Rate FiO2 08/28/17 06:38 96 Trach Collar 10.00 35 08/28/17 00:00 96.7 76 16 184/77 (112) Capillary Refill : Less Than 3 Seconds General Appearance: No Apparent Distress, Obese Neck: Other (trach in place) Respiratory: No Respiratory Distress Neurologic/Psychiatric: Alert, Oriented x3 Skin: Normal Color, Warm/Dry Results/Procedures Lab Patient resulted labs reviewed. Assessment/Plan Assessment and Plan Assess & Plan/Chief Complaint vocal cord paralysis s/p thyroidectomy Critical Care Critical Care: Critically Ill Patient Diagnosis/Problems Diagnosis/Problems (1) Vocal cord dysfunction Assessment & Plan: s/p trach on 08/21 on trach shield currently Pulm consulted, appreciate recs Received speaking valve yesterday RT will do trach care education with patient and caretakers Discussed with Dr Raymundo who will call [facility] to arrange for trach supplies Ok for DC from my point of view, defer to primary attending (2) Atrial fibrillation with RVR Status: Resolved Assessment & Plan: Cardiology consulted, appreciate recs On Lopressor and well controlled Switch to oral when okay with cardiology On atenolol at home (3) Hyperthyroidism Status: Acute Assessment & Plan: s/p thyroidectomy T4 lower limits of normal Will start low dose supplement and have her follow up with her PCP for further monitoring (4) HYPERTENSION Status: Acute Assessment & Plan: Mildly elevated this AM (5) Diarrhea Status: Acute Assessment & Plan: Offered rectal tube- pt declined Will monitor Qualifiers: Diarrhea type: unspecified type Qualified Codes: R19.7 - Diarrhea, unspecified Clinical Quality Measures DVT/VTE Risk/Contraindication: Risk Factor Score Per Nursin RFS Level Per Nursing on Admit: 4+=Very High TJ GIRALDO MD Aug 28, 2017 9:01 am
[2017-08-28] MEDS ORDERED: HYDR-34 PO (09:44)
--- NOTE | 2017-08-28 09:46 | Discharge Inst-Surgical ---
D/C Lap Instructions-KIDO New, Converted, or Re-Newed RX: RX on Chart Follow Up Appt in [address] Navarro as instructed Activity as tolerated No driving while on pain medications Incentive Spirometry use every 2 hours while awake Regular Diet Symptoms to Report: Fever over 101 degree F, Nausea/Vomiting Infection Signs and Symptoms to report: Increased redness, Foul odor of wound, Increased drainage Bathing instructions: May shower Operative Area Clean/Dry; Keep incision clean/dry If any problems/questions: Contact your physician or go to Emergency Room SACHIN BLANTON APRN Aug 28, 2017 9:46 am
--- NOTE | 2017-08-28 10:21 | Speech Therapy Daily Note ---
Speech Daily Progress Note Subjective Date Seen by Provider: Aug 28, 2017 Time Seen by Provider: 08:15 The patient was seated upright in recliner upon entrance. The patient greeted the clinician and was agreeable to a voice treatment session. The patient presented with multiple questions for the clinician to address with her physicians and nursing staff: - The patient was unhappy she was not upgraded to a regular diet as planned the prior day. The clinician contacted the RN, who agreed to place the updated diet in the patient's medical chart. - The patient was concerned of her inability to receive adequate oxygen products due to the absence of three prong connectors at her current residence. Per RN, home health would be visiting with the patient and her significant other to make appropriate arrangements and education. - The patient was informed Dr. Vu would not be in to see her on this date. The patient was concerned with Dr. Vu was not present, she would be unable to be discharged. Per RN, Dr. Atkinson is covering for Dr. Vu and would be able to make appropriate discharge orders and instructions. - The patient has transport until noon for discharge. She wished to have this information relayed to nursing staff. The clinician provided this information to nursing staff, however, did program counselor the patient regarding the possibility that a pre-noon discharge may not be feasible. The patient reported satisfaction with the above information and denied additional questions or concerns at this time. Objective PMV Trials: - The PMV was independently placed by the patient as the clinician entered the room. - With the PMV in place, the patient's SpO2% was 98% at baseline. - Following five, ten, and fifteen minute intervals, the patient's SpO2% remained stable at 98%. - The patient verbalized no discomfort or respiratory distress throughout the trial. The patient consumed breakfast items without difficulty. - The patient's vocal intensity improved, however, her quality remained somewhat dysphonic and harsh. The patient denied any additional questions or concerns and was able to repeat the cleaning, care, and placement instructions and warnings to the clinician. The patient was encouraged to wear the PMV during waking hours and throughout PO intake. At this time, the patient remains an excellent candidate for PMV use. Assessment Assessment Current Status: Excellent Progress Treatment Plan Continue Plan of Care Speech Short Term Goals Short Term Goals Short Term Goals 1. The patient will tolerate 10/10 bolus trials of thin liquid without any signs /symptoms of aspiration or laryngeal penetration. 2. The patient will tolerate the PMV for 30 minutes without a decrease in SpO2% or the presence of increased respiratory effort. Time Frame-STG: Three Days Speech Half-Way Goals Bench Examiner Goals 1. The patient will tolerate the least restrictive diet without signs/symptoms of aspiration or laryngeal penetration. 2. The patient will tolerate extended periods (waking hours) of PMV wear without a decrease in SpO2% or the presence of increased respiratory effort. Time Frame: One Week Speech-Plan Treatment Plan Speech Therapy Treatment Plan: Continue Plan of Care Continue skilled speech pathology to target improved vocalizations with PMV use. Treatment Duration: Sep 02, 2017 Frequency: 3 times per week Estimated Hrs Per Day: .25 hour per day Rehab Potential: Good Safety Risks/Education Teaching Recipient: Patient Teaching Methods: Demonstration, Discussion Response to Teaching: Verbalize Understanding, Return Demonstration Education Topics Provided: PMV (precautions, use, care, instructions) Time Speech Therapy Time In: 08:15 Speech Therapy Time Out: 08:30 Total Billed Time: 15 Billed Treatment Time HERNAN Shaffer [facility] Aug 28, 2017 10:21
--- NOTE | 2017-08-28 12:34 | Progress Note (SOAP) ---
Subjective Date Seen by Provider: Aug 28, 2017 Time Seen by Provider: 12:25 Subjective/Events-last exam Patient reports doing well and ready to go home. Cleared by swallow eval. for regular diet. Patient reports she has been tolerating diet. No N/V. No Fever/ chills. No abdominal pain. Having BMs. Breathing ok and denies any issues. Objective Exam Vital Signs Date Time Temp Pulse Resp B/P (MAP) Pulse Ox O2 Delivery O2 Flow Rate FiO2 08/28/17 09:53 96 Trach Collar 10.00 35 08/28/17 08:00 97.1 63 20 160/80 (106) 97 Trach Collar 50.00 08/28/17 06:38 96 Trach Collar 10.00 35 08/28/17 02:55 94 Trach Collar 10.00 35 08/28/17 00:00 96.7 76 16 184/77 (112) 97 Trach Collar 50.00 08/27/17 22:30 98 Trach Collar 10.00 35 08/27/17 20:15 96.3 56 20 168/76 (106) 95 Trach Collar 50.00 08/27/17 20:00 Trach Collar 10.00 08/27/17 18:59 97 Trach Collar 10.00 35 08/27/17 15:25 97.5 56 18 163/82 (109) 97 Trach Collar 50.00 08/27/17 14:45 95 10.00 08/27/17 14:38 90 Trach Collar 10.00 35 I & O 08/28/17 07:00 Intake Total 2530 ml Output Total 2 ml Balance 2528 ml Capillary Refill : Less Than 3 Seconds General Appearance: No Apparent Distress, WD/WN HEENT: PERRL/EOMI Neck: Full Range of Motion, Normal Inspection, Supple, Other (Mid transverse incision C/D/I. Trach in place.) Respiratory: Chest Non Tender, Lungs Clear, Normal Breath Sounds, No Accessory Muscle Use, No Respiratory Distress Cardiovascular: Regular Rate, Rhythm, No Edema Gastrointestinal: normal bowel sounds, non tender, soft Extremity: Normal Capillary Refill, Normal Inspection, Normal Range of Motion Neurologic/Psychiatric: Alert, Oriented x3 Skin: Normal Color, Warm/Dry Results Lab Microbiology 08/20/17 MRSA Screen - Final, Complete MRSA not isolated Assessment/Plan Assessment/Plan Assess & Plan/Chief Complaint respiratory failure s/p total thyroidectomy. ENT consulted and tracheostomy placed. underlying pulmonary disease and now weened off vent and on trach mask. will need speech/swallow eval once off vent 24hrs. possible neuroproaxia vs. other recurrent laryngeal nerve injury. once stable, will need further studies and possible laryngotomy. however patient able to vocalize while occluding trach. swallow intact and cleared for regular diet. May DC home with home health. f/u in office one week from d/c. F/U with Dr. Navarro as instructed. Clinical Quality Measures DVT/VTE Risk/Contraindication: Risk Factor Score Per Nursin RFS Level Per Nursing on Admit: 4+=Very High SACHIN BLANTON DIRECTOR OF ONCOLOGY Aug 28, 2017 12:34
--- OUTSIDE RECORDS SUMMARY | 2017-08-31 09:56 | XMS REPORT ---
Author Author ALYSA LUIS Organization [facility] Address [address] [place] [address] Care Team Providers Care Firefighting Equipment Specialist Name Role Phone LUIS WATT Unavailable PROBLEMS Type Condition ICD9-CM Code CGK12-RA Code Onset Dates Condition Status SNOMED Code Problem Other seasonal allergic rhinitis J30.2 Active 917949004 Problem Body mass index (BMI) of 40.0-44.9 in adult Z68.41 Active 322000351 Problem Morbid (severe) obesity due to excess calories E66.01 Active 48530747411536 Problem Sleep-disordered breathing G47.30 Active 810853367 Problem Encounter for therapeutic drug level monitoring Z51.81 Active 705268031 Problem Chronic GERD K21.9 Active 175258294 Problem Chronic obstructive pulmonary disease, unspecified COPD type J44.9 Active 67457130 Problem Restless leg syndrome G25.81 Active 01770428 Problem Heart disease I51.9 Active 00758510 Problem Unspecified disorder of the teeth and supporting structures 525.9 Active 886698213 Problem Chronic prescription opiate use Z79.891 Active 876946206 Problem Low back pain at multiple sites M54.5 Active 395607548 Problem Schizophrenic disorders, residual type, 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 Active 99713558 Problem Chronic constipation K59.09 Active 295170757 Problem 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 Active 43765293 Problem Other allergic rhinitis J30.89 Active 737249986 ALLERGIES No Information ENCOUNTERS Encounter Location Date Diagnosis [facility] [address] [facility] [id number] [address] 14 Apr, 2017 [facility] [address] [facility] [id number] [address] Apr, [address] [id number] [place] [id number] Apr, [facility] [address] [facility] [address] [id number] [place] [id number] Apr, [facility] [address]00565100[place] [address] Apr, [facility] [id number] [address] Mar, [facility] [id number] [place] [address] Mar, [facility] [id number] [place] [address] Mar, [facility] [address] [place] [address] Mar, Encounter for therapeutic drug level monitoring Z51.81 [facility] [id number] [place] [address] 6[address] Mar, [facility] [address]00565100[place] [address] Mar, [facility] [id number] [place] [address] 9570 Mar, Chronic prescription opiate use Z79.891 ; Low back pain at multiple sites M54.5 and BMI 40.0-44.9, adult Z68.41 [facility] [address]00565100[place] [address] Feb, [facility] [id number] [place] [id number] Feb, [facility] [address] [id number] [place] [address] 15 Feb, 2017 Sleep-disordered breathing G47.30 ; Other seasonal allergic rhinitis J30.2 ; Chronic prescription opiate use Z79.891 and BMI 40.0-44.9, adult Z68.41 [facility] [address] [id number] [address] Feb, [facility] [address] [facility] [id number] [address] Feb, [facility] [address] [id number] [address] Feb, [facility] [address] [id number] [address] Feb, [facility] [address] [id number] [address] Jan, Encounter for therapeutic drug level monitoring Z51.81 and BMI 45.0-49.9, adult Z68.42 [facility] [address] [id number] [address] Jan, [facility] [address] [id number] [place] [id number] Jan, [facility] [address] [id number] [address] Jan, [facility] [address] [id number] [place] [id number] Jan, [facility] [address] [id number][place] [id number] Jan, [facility] [address] [id number] [place] [id number] Jan, [facility] [address] [facility] [id number] [address] Dec, [facility] [address] [id number] [place] [id number] Dec, Low back pain at multiple sites [...] index (BMI) of 40.0-44.9 in adult Z68.41 [facility] [address]00565100[place] [id number] Oct, Dental examination V72.2 [facility] [address]00565100[place] [address] 14 Jun, 2014 [facility] [id number] [place] [address]- 64[address] Jun, [facility] [address]00565100[place] [address] 8[address] July, [facility] [id number] [place] [address]- 2991 July, [facility] [id number] [place] [address]- 7[address] July, [facility] [address]00565100[place] [address] 5[address] May, [facility] [id number] [address]- 0[address] May, [facility] [id number] [address]- 7[address] Mar, [facility] [id number] [address] 0[address] Mar, [facility] [id number] [address] 28[address] Mar, [facility] [address]00565100[place] [address] 7[address] Mar, [facility] [address] [id number] [address] Mar, [facility] [address]00565100[place] [address] Feb, [facility] [address] [id number] [place] [address] 2546 Feb, [facility] [address] [id number] [place] [address] Feb, [facility] [place] [facility] [address] [id number] [place] [address] 2546 Feb, [facility] [address] [id number] [place] [address]- 3[address] Nov, [facility] [place] [facility] [address] [id number] [place] [address] 2546 Oct, [facility] [address] [id number] [place] [address]- 8096 Sep, [facility] [place] [facility] [address] [id number] [place] [address] 2546 Aug, [facility] [address] [id number] [place] [address]- 7[address] July, [facility] [place] [facility] [address] [id number] [place] [address]- 2536 July, [facility] [place] [facility] [address] [id number] [place] [address]- 9685 May, [facility] [place] [facility] [address] [id number] [place] [address]- 6737 May, [facility] [place] [facility] [address] [id number] [place] [address]- 0985 Apr, [facility] [place] [facility] [address] [id number] [place] [address] 2544 Mar, [facility] [place] [facility] [address] [id number] [place] [address]- 61[address] Feb, [facility] [place] [facility] [address] [id number] [place] [address]- 1986 Feb, [facility] [place] [facility] [address] [id number] [place] [address]- 9[address] Jan, [facility] [address] [id number] [address]- 56[address] Jan, [facility] [address] [id number] [address]- 9627 Jan, [facility] [address] [id number] [address]- 8361 Dec, [facility] [address] [id number] [address]- 0194 Feb, [facility] [address] [id number] [address]- 5099 Jan, [facility] [address] [id number] [address]- 1429 Jan, IMMUNIZATIONS No Known Immunizations SOCIAL HISTORY Never Assessed REASON FOR VISIT Refill request PLAN OF CARE VITAL SIGNS MEDICATIONS Unknown [...]
--- OUTSIDE RECORDS SUMMARY | 2017-08-31 09:56 | XMS REPORT | Clinical Summary ---
Author Author [facility] Organization [facility] Address Unknown Phone Unavailable Care Team Providers Care Reducing Salon Attendant Name Role Phone Kwasi Rice MD PCP Josie White RN Unavailable Unavailable Mulu Cooper RN Unavailable Unavailable Kalie Ding MD Unavailable Source Comments Some departments are not documenting in the electronic medical record. 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 Inhaled Oxygen - - Concentration Weight 116.1 kg (256 lb) 04/17/2017 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 Height 168.6 cm (5' 6.38") 04/17/2017 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 Body Mass Index 40.85 04/17/2017 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
--- OUTSIDE RECORDS SUMMARY | 2017-08-31 09:57 | XMS REPORT ---
Author Author ANASTASIA ESTES Organization [facility] Address [address] [place] [address] Care Team Providers Care Affiliate Marketing Coordinator Name Role Phone ANASTASIA ESTES Unavailable PROBLEMS Type Condition ICD9-CM Code PIO88-RD Code Onset Dates Condition Status SNOMED Code Problem Other seasonal allergic rhinitis J30.2 Active 893891412 Problem Body mass index (BMI) of 40.0-44.9 in adult Z68.41 Active 791135546 Problem Morbid (severe) obesity due to excess calories E66.01 Active 93567793439008 Problem Sleep-disordered breathing G47.30 Active 596741194 Problem Encounter for therapeutic drug level monitoring Z51.81 Active 598777058 Problem Chronic GERD K21.9 Active 155694821 Problem Chronic obstructive pulmonary disease, unspecified COPD type J44.9 Active 93372961 Problem Restless leg syndrome G25.81 Active 34168517 Problem Heart disease I51.9 Active 05514902 Problem Unspecified disorder of the teeth and supporting structures 525.9 Active 242174665 Problem Chronic prescription opiate use Z79.891 Active 482141541 Problem Low back pain at multiple sites M54.5 Active 549908040 Problem Schizophrenic disorders, residual type, 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 Active 24291556 Problem Chronic constipation K59.09 Active 656528725 Problem 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 Active 28011043 Problem Other allergic rhinitis J30.89 Active 325209035 ALLERGIES No Information ENCOUNTERS Encounter Location Date Diagnosis [facility] [address] [facility] [id number], [place] [address] Apr, [facility] [address] [facility] [id number], [place] [address] Apr, [address] [id number] [place] [id number] Apr, [facility] [address] [id number] [place] [id number] Apr, [facility] [address]00565100[place], [place] [address] Apr, [facility] [address]00565100[place], [place] [address] 9[address] Mar, [facility] [id number] [place] [address]- 9608 Mar, [facility] [id number] [place] [address]- 5716 Mar, [facility] [address] [place] [address] Mar, Encounter for therapeutic drug level monitoring Z51.81 [facility] [address] [id number], [place] [address]- [address] Mar, [facility] [address]65100[place], [place] [address]- 2924 Mar, [facility] [address]65100[place], [place] [address]- [address] Mar, Chronic prescription opiate use Z79.891 ; Low back pain at multiple sites M54.5 and BMI 40.0-44.9, adult Z68.41 [facility] [address]65[address], [place] [address]- [address] Feb, [facility] [id number], [place] [id number] Feb, [facility] [address] [id number] [place]TH[place] [id number] Feb, Sleep-disordered breathing G47.30 ; Other seasonal allergic rhinitis J30.2 ; Chronic prescription opiate use Z79.891 and BMI 40.0-44.9, adult Z68.41 [facility] [address] [facility] [id number], [place] [address]- 387[address] Feb, [facility] [address] [facility] [id number], [place]- 4802 Feb, [facility] [address] [facility] [id number] [address]- 0701 Feb, [facility] [address] [facility] [id number][place] [address]697 Feb, [facility] [address] [facility] [id number], [place] [address]- 1424 Jan, Encounter for therapeutic drug level monitoring Z51.81 and BMI 45.0-49.9, adult Z68.42 [facility] [address] [facility] [id number], [place] [address]- 0874 Jan, [facility] [address] [id number] [place] [id number] Jan, [facility] [address] [facility] [id number] [address]- 0627 Jan, [facility] [address] [id number] [place] [id number] Jan, [facility] [address] [facility] [id number][place] [address] Jan, [facility] [address] [id number] [place] [id number] Jan, [facility] [address] [facility] [id number], [place] [address]- 1243 Dec, [facility] [address] [id number] [place] [id number] Dec, Low back pain at multiple sites [...] index (BMI) of 40.0-44.9 in adult Z68.41 [facility] [address] [id number], [place] [id number] Oct, Dental examination V72.2 [facility] [address] [id number] [place] [address]- 8[address] 14 Jun, 2014 [facility] [id number] [place] [address], [place] [address]- 5902 Jun, [facility] [address] [facility] [id number] [place] [address]- 6195 July, [facility] [id number] [place] [address], [place] [address]- 5407 July, [facility] [address] [id number] [address]- [address] July, [facility] [address] [id number] [place] [address]- 2417 May, [facility] [address] [id number] [place] [address]- 1826 May, [facility] [address]65100[place] [address] Mar, [facility] [address]00565100[place], [place] [address]- 6[address] Mar, [facility] [address]00565100[place] [address]- [address] Mar, [facility] [address] [id number], [place] [address]- 4477 Mar, [facility] [address]00565100[place], [place] [address]- 5086 Mar, [facility] [address] [facility] [id number], [place] [address]- 3956 04 Feb, 2012 [facility] [address]00565100[place], [place] [address]- 4764 Feb, [facility] [address] [id number] [place] [address]- 2546 Feb, [facility] [place] [facility] [address] [id number] [place] [address]- 2546 Feb, [facility] [place] [facility] [address] [id number] [place] [address]- 2546 Nov, [facility] [place] [facility] [address] [id number] [place] [address]- 2546 Oct, [facility] [place] [facility] [address] [id number] [place] [address]- 2546 Sep, [facility] [place] [facility] [address] [id number] [place] [address]- 2546 Aug, [facility] [place] [facility] [address] [id number] [place] [address]- 2546 July, [facility] [place] [facility] [address] [id number] [place] [address]- 2546 July, [facility] [place] [facility] [address] [id number] [place] [address]- 6094 May, [facility] [place] [facility] [address] [id number] [place] [address] 2546 May, [facility] [place] [facility] [address] [id number] [place] [address]- 2546 Apr, [facility] [place] [facility] [address] [id number], [place] [address]- 2546 Mar, [facility] [place] [facility] [address] [id number] [place] [address]- 2546 Feb, [facility] [place] [facility] [address] [facility] [id number] [place] [address]- 2546 Feb, [facility] [place] [facility] [address] [id number] [place] [address]- 2546 Jan, [facility] [place] [facility] [address] [facility] [id number], [place] [address]- 0083 Jan, [facility] [address] [facility] [id number], [place] [address]- 3956 Jan, [facility] [address] [facility] [id number], [place] [address]- 5980 Dec, [facility] [address] [facility] [id number], [place] [address]- 4736 Feb, [facility] [address] [facility] [id number], [place] [address]- 6288 Jan, [facility] [address] [facility] [id number][place] [address]- 4853 Jan, IMMUNIZATIONS No Known Immunizations SOCIAL HISTORY Never Assessed REASON FOR VISIT Requests return call PLAN OF CARE VITAL SIGNS MEDICATIONS Medication Instructions Dosage Frequency Start Date End Date Duration Status OxyContin 20 mg Orally at bedtime 1 tablet Feb, Feb, 14 days Active OxyCODONE HCl ER 30 MG Orally Once a day in the morning 1 tablet Feb, Feb, 14 days Active Oxycodone-Acetaminophen 10-325 MG Orally 6 times a day 1/2 tablet as needed 4h Feb, Feb, 14 days Active RESULTS No Results PROCEDURES No [...] toncil as child Surgical History gall bladder 2003 Surgical History hernia 2014 Surgical History total hysterectomy 1980 Surgical History 3 back surgeries Hospitalization History hernia 2014 Hospitalization History toncil as child Hospitalization History back surgeries
--- OUTSIDE RECORDS SUMMARY | 2017-08-31 10:00 | XMS REPORT | Continuity of Care Document ---
Author Author [facility] Address Unknown Phone Unavailable Allergies Active Description Code Type Severity Reaction Onset Reported/Identified Relationship to Patient Clinical Status Yes Penicillins [id number] Drug Allergy Severe ANAPHYLAXIS 08/28/2010 Yes aspirin [id number] Drug Allergy Mild RASH 08/28/2010 Yes codeine [id number] Drug Allergy Mild N/V 08/28/2010 Yes aspirin [...] ANTIDEPRESSANTS Unknown MAKES SUICIDAL 12/01/2013 Yes iodine [id number] Drug Allergy Unknown RASH 12/01/2013 Yes morphine [id number] Drug Allergy Unknown "MAKES GO OUT" 12/01/2013 Yes acetaminophen [id number] Drug Allergy Unknown N/A 05/12/2016 Yes adhesive tape [id number] Drug Allergy Unknown N/A 05/12/2016 Yes ibuprofen [id number] Drug Allergy Unknown N/A 05/12/2016 Yes niacin [id number] Drug Allergy Unknown N/A 05/12/2016 Yes propoxyphene [id number] Drug Allergy Unknown N/A 05/12/2016 Yes gabapentin [id number] Drug Allergy Unknown N/A 08/17/2017 Yes pramipexole [id number] Drug Allergy Unknown HIVES 08/17/2017 Medications There [...] 05/21/2015 Ot E849.0 05/21/2015 Ot E888.9 05/21/2015 PIEPR RICE MD Ot 719.46 05/21/2015 PIPER RICE [...] 05/21/2015 LEANN ARMENTA MD Ot Z79.899 OTHER ALF (CURRENT) DRUG THERAPY 06/25/2015 Ot 786.05 06/25/2015 [...] 06/25/2015 LEANN ARMENTA MD Ot Z79.899 OTHER ALF (CURRENT) DRUG THERAPY 07/03/2015 LEANN ARMENTA MD [...] 11/23/2015 LEANN ARMENTA MD Ot Z79.899 OTHER DRYWALL CONTRACTOR (CURRENT) DRUG THERAPY 01/03/2016 Ot 786.05 SHORTNESS [...] 722.10 LUMBAR DISC DISPLACEMENT 01/03/2016 KORY DO TRERENCE Ot V72.84 EXAM PRE-OPERATIVE NOS 01/03/2016 PIPER [...] Ot 397.0 TRICUSPID VALVE DISEASE 02/08/2016 BRANDI RAOMS Ot 401.9 HYPERTENSION NOS 02/08/2016 BRANDI RAMOS [...] M 05/12/2016 DARYN GAMEZ Ot Z79.899 OTHER ALF (CURRENT) DRUG THERAPY 09/10/2016 Ot 786.05 SHORTNESS [...] ALLERGY STATUS TO NARCOTIC AGENT STATUS 05/08/2017 LISSETT GOMES MD, Ot Z88.6 ALLERGY STATUS TO ANALGESIC AGENT STATUS 05/08/2017 PABLO MAYO MD Ot E86.0 DEHYDRATION 05/08/2017 PABLO MAYO MD, Ot F32.9 MAJOR DEPRESSIVE DISORDER, SINGLE EPISOD 05/08/2017 PALBO MAYO MD, Ot F41.9 ANXIETY DISORDER, UNSPECIFIED 05/08/2017 PABLO MAYO MD, Ot I10 ESSENTIAL (PRIMARY) HYPERTENSION 05/08/2017 PABLO MAYO MD, Ot J44.9 CHRONIC OBSTRUCTIVE PULMONARY DISEASE, U 05/08/2017 PBALO MAYO MD, Ot M47.9 SPONDYLOSIS, UNSPECIFIED 05/08/2017 PABLO MAOY MD, Ot N39.0 URINARY TRACT INFECTION, SITE [...] Z90.89 ACQUIRED ABSENCE OF OTHER ORGANS 05/08/2017 [place] MD, PABLO D Ot Z91.048 OTHER NONMEDICINAL [...] Ot D50.9 IRON DEFICIENCY ANEMIA, UNSPECIFIED 05/17/2017 ELISEO FULLER, LISSETT Carlos Ot Z88.0 ALLERGY [...] ANALGESIC AGENT STATUS 06/09/2017 NELLIE XIAO R POSTER Ot E04.2 NONTOXIC MULTINODULAR GOITER 06/30/2017 NELLIE, XIAO R POSTER Ot E04.2 NONTOXIC MULTINODULAR GOITER 07/06/2017 NELLIE, XIAO R POSTER Ot E04.2 NONTOXIC MULTINODULAR GOITER 07/08/2017 NELLIE IXAO R POSTER Ot E04.2 NONTOXIC MULTINODULAR GOITER 07/28/2017 HARVINDER, SACHIN L POSTER Ot E04.1 NONTOXIC SINGLE THYROID NODULE 07/28/2017 HARVINDER, SACHIN L POSTER Ot E04.1 NONTOXIC SINGLE THYROID NODULE 07/28/2017 HARVINDER, SACHIN L POSTER Ot E04.1 NONTOXIC SINGLE THYROID NODULE 07/28/2017 NELLIE XIAO R POSTER Ot E04.2 NONTOXIC MULTINODULAR GOITER 08/05/2017 NELLIE, XIAO R POSTER Ot E04.2 NONTOXIC MULTINODULAR GOITER 08/13/2017 HARVINDER, SACHIN L POSTER Ot E04.1 NONTOXIC SINGLE THYROID NODULE 08/17/2017 [...] MD, Ot I25.10 ATHSCL HEART DISEASE OF [place] CORONARY 08/22/2017 LORNA RODRIGUEZ MD, Ot J44.9 [...] MD Ot I25.10 ATHSCL HEART DISEASE OF [place] CORONARY 08/23/2017 LORNA RODRIGUEZ MD Ot J44.9 [...] MD Ot I25.10 ATHSCL HEART DISEASE OF [place] CORONARY 08/24/2017 LORNA RODRIGUEZ MD Ot J44.9 [...] MD Ot I25.10 ATHSCL HEART DISEASE OF [place] CORONARY 08/25/2017 LORNA RODRIGUEZ MD, Ot J44.9 [...] MD Ot I25.10 ATHSCL HEART DISEASE OF [place] CORONARY 08/25/2017 LORNA RODRIGUEZ MD Ot J44.9 [...] MD Ot I25.10 ATHSCL HEART DISEASE OF [place] CORONARY 08/25/2017 LORNA RODRIGUEZ MD Ot J44.9 [...] HYPERTENSIVE CHRONIC KIDNEY DISEASE W ST 08/26/2017 OLRNA RODRIGUEZ MD Ot I25.10 ATHSCL HEART DISEASE OF [place] CORONARY 08/26/2017 LORNA RODRIGUEZ MD Ot J44.9 [...] MAJOR DEPRESSIVE DISORDER, SINGLE EPISOD 08/26/2017 LORNA RORDIGUEZ MD Ot F41.9 ANXIETY DISORDER, UNSPECIFIED 08/26/2017 LORNA RODRIGUEZ MD Ot F43.10 POST-TRAUMATIC STRESS DISORDER, UNSPECIF 08/26/2017 LORNA RODRIGUEZ MD Ot I12.9 HYPERTENSIVE CHRONIC KIDNEY DISEASE W ST 08/26/2017 LORNA RODRIGUEZ MD Ot I25.10 ATHSCL HEART DISEASE OF [place] CORONARY 08/26/2017 LORNA RODRIGUEZ MD Ot J44.9 [...] MD Ot I25.10 ATHSCL HEART DISEASE OF [place] CORONARY 08/26/2017 LORNA RODRIGUEZ MD Ot J44.9 [...] MD Ot I25.10 ATHSCL HEART DISEASE OF [place] CORONARY 08/26/2017 LORNA RODRIGUEZ MD Ot J44.9 CHRONIC OBSTRUCTIVE PULMONARY DISEASE, U 08/26/2017 LORNA RODRIGUEZ MD Ot J96.20 ACUTE AND CHR RESP FAILURE, UNSP W HYPOX 08/26/2017 LORNA RODRIGUEZ MD, Ot N18.3 CHRONIC KIDNEY DISEASE, STAGE 3 (MODERAT 08/26/2017 LORNA RODRIGUEZ MD Ot Z68.41 BODY MASS INDEX (BMI) 40.0-44.9, ADULT 08/27/2017 LORNA RODRIGUEZ MD Ot E04.2 NONTOXIC MULTINODULAR GOITER 08/27/2017 LORNA RODRIGUEZ MD Ot E66.01 MORBID (SEVERE) OBESITY DUE TO EXCESS CA 08/27/2017 LORNA RODRIGUEZ MD Ot E78.5 HYPERLIPIDEMIA, UNSPECIFIED 08/27/2017 LORNA RODRIGUEZ MD Ot F32.9 MAJOR DEPRESSIVE DISORDER, SINGLE EPISOD 08/27/2017 LORNA RODRIGUEZ MD Ot F41.9 ANXIETY DISORDER, UNSPECIFIED 08/27/2017 LORNA RODRIGUEZ MD Ot F43.10 POST-TRAUMATIC STRESS DISORDER, UNSPECIF 08/27/2017 LORNA RODRIGUEZ MD Ot I12.9 HYPERTENSIVE CHRONIC KIDNEY DISEASE W ST 08/27/2017 LORNA RODRIGUEZ MD Ot I25.10 ATHSCL HEART DISEASE OF [place] CORONARY 08/27/2017 LORNA RODRIGUEZ MD, Ot J44.9 CHRONIC OBSTRUCTIVE PULMONARY DISEASE, U 08/27/2017 LORNA RODRIGUEZ MD Ot J96.20 ACUTE AND CHR RESP FAILURE, UNSP W HYPOX 08/27/2017 LORNA RODRIGUEZ MD, Ot N18.3 CHRONIC KIDNEY DISEASE, STAGE 3 (MODERAT 08/27/2017 LORNA RODRIGUEZ MD Ot Z68.41 BODY MASS INDEX (BMI) 40.0-44.9, ADULT 08/28/2017 LORNA RODRIGUEZ MD Ot E04.2 NONTOXIC MULTINODULAR GOITER 08/28/2017 LORNA RODRIGUEZ MD Ot E66.01 MORBID (SEVERE) OBESITY DUE TO EXCESS CA 08/28/2017 OLRNA RODRIGUEZ MD Ot E78.5 HYPERLIPIDEMIA, UNSPECIFIED 08/28/2017 LORNA RODRIGUEZ MD Ot F32.9 MAJOR DEPRESSIVE DISORDER, SINGLE EPISOD 08/28/2017 LORNA RODRIGUEZ MD, Ot F41.9 ANXIETY DISORDER, UNSPECIFIED 08/28/2017 LORNA RODRIGUEZ MD, Ot F43.10 POST-TRAUMATIC STRESS DISORDER, UNSPECIF 08/28/2017 LORNA RODRIGUEZ MD, Ot I12.9 HYPERTENSIVE CHRONIC KIDNEY DISEASE W ST 08/28/2017 LORNA RODRIGUEZ MD, Ot I25.10 ATHSCL HEART DISEASE OF [place] CORONARY 08/28/2017 LORNA RODRIGUEZ MD, Ot J44.9 CHRONIC OBSTRUCTIVE PULMONARY DISEASE, U 08/28/2017 LORNA RODRIGUEZ MD, Ot J96.20 ACUTE AND CHR RESP FAILURE, UNSP W HYPOX 08/28/2017 LORNA RODRIGUEZ MD, Ot N18.3 CHRONIC KIDNEY DISEASE, STAGE 3 (MODERAT 08/28/2017 LORNA RODRIGUEZ MD, Ot Z68.41 BODY MASS [...] culture - 05/08/17 08:00 Bacterial urine culture [id number] NRG COLONY COUNT 10,000/ML - 100,000/ML NRG FTX;REPORTABLE SENSITIVITY NOT USUALLY PERFORMED FOR NRG URINE CULTURE RESULTS PLUS NRG FREE TEXT ENTRY 2 THIS ORGANISM. [facility] Bacterial susceptibility panel - 05/08/17 08:00 Gentamicin [...] susceptibility test by minimum inhibitory concentration - NRG Complete blood count (CBC) with automated [...] automated white blood cell (WBC) differential - 05/26/18 03:39 Blood leukocytes automated count (number/volume) 18.0 [...] measurement by glucometer (mass/volume) 124 mg/dL 70-110 Complete blood count (CBC) with automated white blood cell (WBC) differential - 08/29/17 11:06 Blood leukocytes automated count (number/volume) 16.3 10*3/uL 4.3-11.0 Blood erythrocytes automated count (number/volume) 4.24 10*6/uL 4.35-5.85 Venous blood hemoglobin measurement (mass/volume) 13.2 g/dL 11.5-16.0 Blood hematocrit (volume fraction) 38 % 35-52 Automated erythrocyte mean corpuscular volume 91 [foz_us] 80-99 Automated erythrocyte mean corpuscular hemoglobin (mass per erythrocyte) 31 pg 25-34 Automated erythrocyte mean corpuscular hemoglobin concentration measurement ( mass/volume) 34 g/dL 32-36 Automated erythrocyte distribution width ratio 14.9 % 10.0-14.5 Automated blood platelet count (count/volume) 282 10*3/uL 130-400 Automated blood platelet mean volume measurement 11.2 [foz_us] 7.4-10.4 Automated blood neutrophils/100 leukocytes 73 % 42-75 Automated blood lymphocytes/100 leukocytes 17 % 12-44 Blood monocytes/100 leukocytes 9 % 0-12 Automated blood eosinophils/100 leukocytes 1 % 0-10 Automated blood basophils/100 leukocytes 0 % 0-10 Blood neutrophils automated count (number/volume) 11.9 10*3 1.8-7.8 Blood lymphocytes automated count (number/volume) 2.8 10*3 1.0-4.0 Blood monocytes automated count (number/volume) 1.5 10*3 0.0-1.0 Automated eosinophil count 0.1 10*3/uL 0.0-0.3 Automated blood basophil count (count/volume) 0.0 10*3/uL 0.0-0.1 Whole blood basic metabolic panel - 08/29/17 11:06 Serum or plasma sodium measurement (moles/volume) 141 mmol/L 135-145 Serum or plasma potassium measurement (moles/volume) 3.7 mmol/L 3.6-5.0 Serum or plasma chloride measurement (moles/volume) 106 mmol/L 98-107 Carbon dioxide 25 mmol/L 21-32 Serum or plasma anion gap determination (moles/volume) 10 mmol/L 5-14 Serum or plasma urea nitrogen measurement (mass/volume) 20 mg/dL 7-18 Serum or plasma creatinine measurement (mass/volume) 0.85 mg/dL 0.60-1.30 Serum or plasma urea nitrogen/creatinine mass ratio 24 NRG Serum or plasma creatinine measurement with calculation of estimated glomerular filtration rate > NRG Serum or plasma glucose measurement (mass/volume) 103 mg/dL 70-105 Serum or plasma calcium measurement (mass/volume) 8.1 mg/dL 8.5-10.1 Blood manual differential performed detection - 08/29/17 11:06 Blood monocytes/100 leukocytes 10 % NRG Manual blood segmented neutrophils/100 leukocytes 65 % NRG Blood band neutrophils/100 leukocytes 2 % NRG Manual blood lymphocytes/100 leukocytes 23 % NRG Blood erythrocyte morphology finding identification NORMAL NRG Complete blood count (CBC) with automated white blood cell (WBC) differential - 08/30/17 03:08 Blood leukocytes automated count (number/volume) 14.0 10*3/uL 4.3-11.0 Blood erythrocytes automated count (number/volume) 4.24 10*6/uL 4.35-5.85 Venous blood hemoglobin measurement (mass/volume) 12.7 g/dL 11.5-16.0 Blood hematocrit (volume fraction) 38 % 35-52 Automated erythrocyte mean corpuscular volume 91 [foz_us] 80-99 Automated erythrocyte mean corpuscular hemoglobin (mass per erythrocyte) 30 pg 25-34 Automated erythrocyte mean corpuscular hemoglobin concentration measurement ( mass/volume) 33 g/dL 32-36 Automated erythrocyte distribution width ratio 14.9 % 10.0-14.5 Automated blood platelet count (count/volume) 252 10*3/uL 130-400 Automated blood platelet mean volume measurement 11.1 [foz_us] 7.4-10.4 Automated blood neutrophils/100 leukocytes 68 % 42-75 Automated blood lymphocytes/100 leukocytes 23 % 12-44 Blood monocytes/100 leukocytes 8 % 0-12 Automated blood eosinophils/100 leukocytes 1 % 0-10 Automated blood basophils/100 leukocytes 0 % 0-10 Blood neutrophils automated count (number/volume) 9.5 10*3 1.8-7.8 Blood lymphocytes automated count (number/volume) 3.2 10*3 1.0-4.0 Blood monocytes automated count (number/volume) 1.2 10*3 0.0-1.0 Automated eosinophil count 0.1 10*3/uL 0.0-0.3 Automated blood basophil count (count/volume) 0.0 10*3/uL 0.0-0.1 Comprehensive metabolic panel - 08/30/17 03:08 Serum or plasma sodium measurement (moles/volume) 143 mmol/L 135-145 Serum or plasma potassium measurement (moles/volume) 3.3 mmol/L 3.6-5.0 Serum or plasma chloride measurement (moles/volume) 106 mmol/L 98-107 Carbon dioxide 24 mmol/L 21-32 Serum or plasma anion gap determination (moles/volume) 13 mmol/L 5-14 Serum or plasma urea nitrogen measurement (mass/volume) 21 mg/dL 7-18 Serum or plasma creatinine measurement (mass/volume) 0.77 mg/dL 0.60-1.30 Serum or plasma urea nitrogen/creatinine mass ratio 27 NRG Serum or plasma creatinine measurement with calculation of estimated glomerular filtration rate > NRG Serum or plasma glucose measurement (mass/volume) 102 mg/dL 70-105 Serum or plasma calcium measurement (mass/volume) 7.9 mg/dL 8.5-10.1 Serum or plasma total bilirubin measurement (mass/volume) 0.5 mg/dL 0.1-1.0 Serum or plasma alkaline phosphatase measurement (enzymatic activity/volume) 63 U/L 40-136 Serum or plasma aspartate aminotransferase measurement (enzymatic activity/ volume) 18 U/L 5-34 Serum or plasma alanine aminotransferase measurement (enzymatic activity/volume ) 40 U/L 0-55 Serum or plasma protein measurement (mass/volume) 5.4 g/dL 6.4-8.2 Serum or plasma albumin measurement (mass/volume) 3.0 g/dL 3.2-4.5 Encounters ACCT No. Visit Date/Time Discharge Status Pt. Type Provider Facility Loc./Unit Complaint [id number] 06/09/2012 14:45:00 06/09/2012 23:59:59 CLS Outpatient [id number] 06/07/2012 15:33:00 06/07/2012 23:59:59 CLS Outpatient [id number] 04/06/2012 11:27:00 04/06/2012 23:59:59 CLS Outpatient MILY MONROE APRN [id number] 12/18/2011 09:26:00 12/18/2011 23:59:59 CLS Outpatient MILY MONROE APRN [id number] 08/12/2012 10:46:00 Document Registration [id number] 08/05/2017 10:17:00 08/05/2017 23:59:00 DIS Outpatient XIAO BALLARD [id number] 10/22/2016 00:00:00 10/22/2016 23:59:00 DIS Outpatient Piper Rice [id number] 09/10/2016 08:07:00 09/10/2016 23:59:00 DIS Outpatient Piper Rice [id number] 07/24/2016 09:45:00 07/24/2016 23:59:00 DIS Outpatient Piper Rice [id number] 05/01/2016 07:35:00 05/01/2016 07:35:00 CAN Outpatient Piper Rice [id number] 04/30/2016 19:21:00 04/30/2016 23:59:00 DIS Outpatient Piper Rice [id number] 02/20/2016 18:55:00 02/20/2016 23:59:00 DIS Outpatient Piper Rice [id number] 08/20/2017 09:57:00 08/28/2017 13:14:00 DIS Outpatient LORNA RODRIGUEZ MD [facility] RESPIRATORY DISTRESS [id number] 08/25/2017 14:09:00 08/25/2017 23:59:59 CLS Preadmit MILES ANGELES DO [facility] RAD POST LAMINECTOMY CHRONIC PAIN [id number] 08/17/2017 05:38:00 08/17/2017 14:05:00 DIS Outpatient LORNA RODRIGUEZ MD [facility] PREOP BILATERAL THYROID MASS [id number] 07/22/2017 13:23:00 07/22/2017 23:59:59 CLS Outpatient SACHIN BLANTON POSTER [facility] RAD LT THYROID MASS [id number] 07/08/2017 11:30:00 07/08/2017 23:59:59 CLS Preadmit XIAO BALLARD POSTER [facility] CARD [id number] 07/07/2017 11:36:00 07/07/2017 23:59:59 CLS Outpatient XIAO BALLARD POSTER [facility] CARD [id number] 06/08/2017 10:55:00 06/08/2017 23:59:59 CLS Outpatient XIAO BALLARD POSTER [facility] RAD LEFT THYROID NODULE [id number] 05/18/2017 00:23:00 05/18/2017 23:59:59 CLS Preadmit LISSETT GOMES MD [facility] IRON DEFICIENCY [id number] 02/20/2017 12:47:00 05/17/2017 00:01:00 DIS Outpatient LISSETT GOMES MD [facility] IRON DEFICIENCY [id number] 05/11/2017 10:58:00 05/11/2017 12:22:00 DIS Emergency BENJAMÍN GRIFFITH MD [facility] ER CAN'T KEEP FOOD DOWN,DT FROM NARCOTIC WITHDRAWAL [id number] 05/08/2017 05:23:00 05/08/2017 09:26:00 DIS Emergency PABLO MAYO MD [facility] ER VOMITING,FEVER- LOW GRADE,DIARRHEA [id number] 10/22/2016 15:30:00 10/22/2016 23:59:59 CLS Preadmit PIPER RICE MD [facility] RT COPD [id number] 10/16/2016 14:55:00 10/16/2016 23:59:59 CLS Outpatient PIPER RICE MD [facility] RAD LT LEG SWELLING [id number] 09/12/2016 14:03:00 09/12/2016 23:59:59 CLS Outpatient PIPER RICE MD [facility] RT COPD J44.9 [id number] 05/12/2016 15:14:00 05/12/2016 20:46:00 DIS Emergency DARYN GAMEZ [facility] ER DIZZINESS [id number] 03/14/2016 13:22:00 03/14/2016 14:08:00 DIS Outpatient LEANN ARMENTA MD [facility] DISC DISORDER [id number] 03/03/2016 10:18:00 03/03/2016 23:59:59 CLS Outpatient RIZWAN CASTILLO MD [facility] ANXIETY,COPD,HEART PALPITATIONS [id number] 02/08/2016 10:12:00 02/08/2016 11:14:00 DIS Outpatient LEANN ARMENTA MD [facility] DISC DISORDER [id number] 01/03/2016 12:25:00 01/03/2016 23:59:59 CLS Outpatient LEANN ARMENTA MD [facility] LOW BACK PAIN [id number] 11/23/2015 10:42:00 11/23/2015 11:59:00 DIS Outpatient LEANN ARMENTA MD [facility] CARD SPONDYLOSIS [id number] 10/05/2015 09:27:00 10/05/2015 10:39:00 DIS Outpatient LEANN ARMENTA MD [facility] CARD SACROCOCCYGEAL DISORDERS [id number] 06/25/2015 10:36:00 06/25/2015 12:26:00 DIS Outpatient LEANN ARMENTA MD [facility] SPONDYLOSIS W/O MYELOPATHY OR RADICULOPATHY [id number] 05/21/2015 13:28:00 05/21/2015 14:11:00 DIS Outpatient LEANN ARMENTA MD [facility] CARD SACROLIAC JOINT DISORDER [id number] 12/15/2014 07:20:00 12/15/2014 23:59:59 CLS Outpatient RIZWAN CASTILLO MD [facility] LAB CP,CHOLEYSTECTOMY,HTN, COPD [id number] 12/29/2013 08:27:00 12/29/2013 23:59:59 CLS Outpatient BRANDI RAMOS [facility] CARD CP,HLP [id number] 12/09/2013 07:51:00 12/09/2013 23:59:59 CLS Outpatient PIPER RICE MD [facility] RAD CHRONIC PAIN WITH RADICULOPATHY [id number] 12/01/2013 11:39:00 12/01/2013 15:00:00 DIS Outpatient TERRENCE HORN DO [facility] SDC GERD [id number] 11/30/2013 07:31:00 11/30/2013 23:59:59 CLS Outpatient TERRENCE HORN DO [facility] PREOP GERD [id number] 06/23/2013 09:47:00 06/23/2013 23:59:59 CLS Outpatient PIPER RICE MD [facility] RAD INCREASING LBP [id number] 05/25/2013 14:33:00 05/25/2013 20:47:00 DIS Emergency SHEILA SHELBY MUNGUIA [facility] ER OVERDOSE [id number] 08/31/2012 07:57:00 09/14/2012 13:30:00 DIS Outpatient PIPER RICE MD [facility] REHAB R HIP PAIN [id number] 08/29/2017 12:11:00 ACT Inpatient CHELSEA NESS MD [facility] 4TH RECENT TRACK PLACEMENT, INABILITY TO CARE FOR SELF [id number] 12/15/2014 07:22:00 Document Registration [id number] 12/15/2014 07:22:00 Document Registration [id number] 06/30/2012 10:03:00 Document Registration [id number] 11/17/2011 10:18:00 Document Registration [id number] 11/14/2011 08:21:00 Document Registration [id number] 07/07/2011 12:16:00 Document Registration [id number] 12/27/2010 12:24:00 Document Registration [id number] 03/26/2010 13:20:00 Document Registration [id number] 03/05/2010 08:53:00 Document Registration [id number] 08/10/2009 11:58:00 Document Registration [id number] 04/07/2017 13:00:00 04/07/2017 23:59:59 [facility] Outpatient LUIS WATT CECY
--- NOTE | 2017-09-10 04:53 | DISCHARGE SUMMARY ---
DATE OF SERVICE: ATTENDING INTERNATIONAL ACCOUNT MANAGER: Rhiannon Barnett APRN. ADMISSION DIAGNOSIS: Bilateral symptomatic thyroid nodules. DISCHARGE DIAGNOSES: Bilateral symptomatic thyroid nodules with respiratory distress requiring a tracheostomy. ADDITIONAL DIAGNOSES: Degenerative joint disease, hypertension, coronary artery disease, chronic obstructive pulmonary disease, allergic rhinitis, lung cysts morbid obesity, diverticulosis, restless leg syndrome, peptic ulcer disease, chronic kidney disease, hyperlipidemia, bronchitis, spinal stenosis, anxiety, depression, borderline personality disorder, post-traumatic stress disorder. PRINCIPAL PROCEDURE: Total thyroidectomy. ADDITIONAL PROCEDURE: Tracheostomy placement. Complications of respiratory failure requiring tracheostomy placement. DISPOSITION: Home in stable condition. The patient is a 61-year-old female who was referred over to us for a fullness sensation in the neck as well as dysphagia. She has had the dysphagia for greater than 10 years; however, this was initially tolerable. Over time, this grew larger in size and became much more symptomatic. An ultrasound was performed, which did show bilateral thyroid nodules. Left lesion was larger at approximately 5 x 3.5 cm in size as well as another lesion on the right lobe. This was followed by a thyroid scan, which did show a slight elevated 24-hour uptake. The left lower lobe lesion appeared to be solid as well as cold. She also had multitude of symptoms of hypothyroidism including weight gain, depression, severe fatigue, joint pain, constipation, short-term memory loss, cold intolerance, brittle hair, nails and skin. An attempt at an ultrasound-guided biopsy was made; however, the results were nondiagnostic. Due to the characteristics of the lesion as well as the size and her symptoms, it was recommended to proceed with a total thyroidectomy and thyroid replacement therapy. It was also explained to her if this lesion did show a malignancy, she may be followed with radioactive iodine ablation as well as thyroglobulin levels. PAST MEDICAL HISTORY: Degenerative joint disease, hypertension, coronary artery disease, COPD, allergic rhinitis, lung cysts, morbid obesity, diverticulosis, restless leg syndrome, peptic ulcer disease, chronic kidney disease, hyperlipidemia, bronchitis, spinal stenosis, anxiety, depression, borderline personality disorder, PTSD. PAST SURGICAL HISTORY: Tonsillectomy, laparoscopic hiatal hernia repair and Vivian fundoplication, total hysterectomy, cholecystectomy, lumbar ORIF x2, neck ORIF x2. ALLERGIES: GABAPENTIN, ADHESIVE TAPE, ASPIRIN, CEPHALEXIN, CODEINE, IODINE, MORPHINE, PRAMIPEXOLE, PAROXETINE, AMITRIPTYLINE, PENICILLIN, IBUPROFEN, NIACIN, SURGICAL GLUE, NIASPAN, NUMEROUS ANTIDEPRESSANTS AND ANTIPSYCHOTIC MEDICATIONS. MEDICATIONS: Nifedipine, lisinopril, atenolol, clonidine, Lasix, fluticasone spray, albuterol, ProAir, loratadine, Banophen, Robitussin, Zofran, iron, simvastatin, methocarbamol, allopurinol. SOCIAL HISTORY: Negative smoker. Rare alcohol. FAMILY HISTORY: Mother, hypertension. Father, melanoma cyst. Two sisters with ovarian cancer. On 08/20/2017, she underwent a total thyroidectomy. Surgery was uneventful with visualization of bilateral recurrent laryngeal nerves. After extubation postoperatively, she did have significant stridor. She was brought to recovery in the ICU at the time and continued to have stridor and was struggling with ventilation and was intubated. A trial of extubation was attempted the following day due to adequate arterial blood gases; however, again continued to have stridor requiring reintubation. ENT was consulted and due to the endotracheal tube, it was hard to visualize the conditions of the vocal cords. Upon intubation under video laryngoscopy, it appeared that the vocal cords were not moving; however, were open. 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 ENT then placed a tracheostomy tube for easy ventilation as well as quicker removal from the dependence on the ventilator. Pulmonology was also consulted and the ventilator was weaned off until a trach mask was used. She continued to improve and a swallow study was performed by speech pathology with no deficits in her swallowing mechanism as well as no risk of aspiration. She was started on a clear liquid diet and advanced to regular diet without any difficulty. The tracheostomy tube was switched over to a fenestrated tube and a one-way button was also used p.r.n. and she was able to talk without any difficulty. She was discharged home on 08/28/2017. HOMEGOING INSTRUCTIONS: Diet as tolerated. No activity restrictions; however, no heavy lifting or exertion for the next two weeks. She will have home health for tracheostomy care. She will be instructed to follow up with us in the office in approximately 2 weeks. However, she also is scheduled to follow up with ENT. Job ID: [id number] DocumentID: [id number] Dictated Date: 09/09/2017 16:18:22 Manager Of Creative Services Date: 09/10/2017 04:53:31 Dictated By: LORNA RODRIGUEZ MD
== END 2017-08-28 13:14 | disposition home health service (06) | DRG 3 ==
LOC: UNDOFXSDCACCOM 09:57 → SDC 09:57 → UNDOFXSDCRRACCOM 09:57 → ICU 16:15 → SDC 16:15 → ICU 16:42 → UNDOFXSDCACCOM 08-25 12:04 → UNDOFXSDCRRACCOM 08-25 12:04 → 4TH 08-25 12:05 → ICU 08-25 12:05 → UNDOFXSDCSVC 08-26 16:30 → ICU 08-26 16:30 → 4TH 08-26 16:30 → SDC 08-28 13:14
PROVIDERS: ADMIT Surgery; ATTEND Surgery
PROC: 5A1955Z Respiratory Ventilation, Greater than 96 Consecutive Hours (ICD-10-PCS; 2017-08-20)
PROC: 0GTK0ZZ Resection of Thyroid Gland, Open Approach (ICD-10-PCS; principal; 2017-08-20 13:18)
PROC: 0B110F4 Bypass Trachea to Cutaneous with Tracheostomy Device, Open Approach (ICD-10-PCS; 2017-08-21)
DX: C73 Malignant neoplasm of thyroid gland (principal); E05.90 Thyrotoxicosis, unspecified without thyrotoxic crisis or storm; J96.20 Acute and chronic respiratory failure, unspecified whether with hypoxia or hypercapnia; J38.02 Paralysis of vocal cords and larynx, bilateral; I12.9 Hypertensive chronic kidney disease with stage 1 through stage 4 chronic kidney disease, or unspecified chronic kidney disease; N18.3 Chronic kidney disease, stage 3 (moderate); J44.9 Chronic obstructive pulmonary disease, unspecified; E66.01 Morbid (severe) obesity due to excess calories; Z68.41 Body mass index [BMI] 40.0-44.9, adult; I48.0 Paroxysmal atrial fibrillation; I25.10 Atherosclerotic heart disease of native coronary artery without angina pectoris; R19.7 Diarrhea, unspecified; E78.5 Hyperlipidemia, unspecified; F41.9 Anxiety disorder, unspecified; F32.9 Major depressive disorder, single episode, unspecified; F43.10 Post-traumatic stress disorder, unspecified
CPT/HCPCS: 36415; 36600; 70490; 71045; 71250; 80048; 82805; 82962; 83735; 84100; 84439; 84478; 84484; 85007; 85025; 85027; 87081; 88307; 93005; 93306; 94002; 94640; 94664; 94760; 94799

== ENCOUNTER 2017-08-29 10:05 | Inpatient (IN) | payer MEDICARE, MEDICAID ==
[~2017-08-29] VITALS: Ht 167.6 cm; Wt 130.8 kg
[~2017-08-29 10:05] MED LIST changes: -ETOMIDATE IV SOLN 20 MG/10 ML VIAL IV ONE; +HYDR-34 PO; +LEVO88TA2 PO; -SUCCINYLCHOLINE INJ 100 MG/5 ML SYR INJ ONE; +[UNRECOGNIZED DRUG - CODE] MC; +[UNRECOGNIZED DRUG - CODE] MC
--- OUTSIDE RECORDS SUMMARY | 2017-08-29 10:20 | XMS REPORT | Clinical Summary ---
Author Author [facility] Organization [facility] Address Unknown Phone Unavailable Care Team Providers Care Clarifier Operator Helper Name Role Phone Kwasi Rice MD PCP Josie White RN Unavailable Unavailable Mulu Cooper RN Unavailable Unavailable Kalie Ding MD Unavailable Source Comments Some departments are not documenting in the electronic medical record. If you do not see the information that you expected, contact Release of Information in the Health Information Management department at [phone] for further assistance in locating additional records.[facility] Allergies Active Allergy Reactions Severity Noted Date [...] needed ROXICET) 5/325 mg tablet for Pain Active Problems Problem Noted Date Lumbar stenosis 11/13/2016 Cervical stenosis of spinal canal 01/15/2015 Spondylosis, cervical 01/15/2015 Resolved Problems Problem Noted Date Resolved Date Cervical stenosis of spine 01/02/2015 04/02/2015 Family History Medical History Relation Name Comments [...] Taken Blood Pressure 119/79 04/17/2017 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 Pulse 76 04/17/2017 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 Temperature 37.1 C (98.8 F) 12/04/2016 10:12 AM CDT Respiratory Rate 20 10/13/2016 1:02 PM CDT Oxygen Saturation 98% 04/17/2017 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 Inhaled Oxygen - - Concentration Weight 116.1 kg (256 lb) 04/17/2017 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 Height 168.6 cm (5' 6.38") 04/17/2017 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 Body Mass Index 40.85 04/17/2017 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
--- OUTSIDE RECORDS SUMMARY | 2017-08-29 10:20 | XMS REPORT ---
Author Author ALYSA LUIS Organization [facility] Address [address] [place] [address] Care Team Providers Care Automat Car Attendant Name Role Phone LUIS WATT Unavailable PROBLEMS Type Condition ICD9-CM Code [id number] Code Onset Dates Condition Status SNOMED Code Problem Other seasonal allergic rhinitis J30.2 Active 278356400 Problem Body mass index (BMI) of 40.0-44.9 in adult Z68.41 Active 667493969 Problem Morbid (severe) obesity due to excess calories E66.01 Active 36502813397745 Problem Sleep-disordered breathing G47.30 Active 804439218 Problem Encounter for therapeutic drug level monitoring Z51.81 Active 152001494 Problem Chronic GERD K21.9 Active 192913789 Problem Chronic obstructive pulmonary disease, unspecified COPD type J44.9 Active 25341266 Problem Restless leg syndrome G25.81 Active 27500077 Problem Heart disease I51.9 Active 19102956 Problem Unspecified disorder of the teeth and supporting structures 525.9 Active 929662488 Problem Chronic prescription opiate use Z79.891 Active 177623147 Problem Low back pain at multiple sites M54.5 Active 249156096 Problem Schizophrenic disorders, residual type, 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 Active 28503925 Problem Chronic constipation K59.09 Active 430881871 Problem 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 Active 99027063 Problem Other allergic rhinitis J30.89 Active 216038167 ALLERGIES No Information ENCOUNTERS Encounter Location Date Diagnosis [facility] [address] [facility] [id number], [place] [address] 14 Apr, 2017 [facility] [address] [facility] [id number], [place] [address] Apr, [address] [id number] [id number] Apr, [facility] [address] [facility] [address] [id number] [id number] Apr, [facility] [address], [place] [address] Apr, [facility] [address]65[address], [place] [address] Mar, [facility] [id number] [place] [address] Mar, [facility] [id number] [place] [address] Mar, [facility] [address] [place] [address] Mar, Encounter for therapeutic drug level monitoring Z51.81 [facility] [id number] [place] [address] Mar, [facility] [address]65[address], [place] [address] Mar, [facility] [id number] [place] [address] Mar, Chronic prescription opiate use Z79.891 ; Low back pain at multiple sites M54.5 and BMI 40.0-44.9, adult Z68.41 [facility] [address], [place] [address] Feb, [facility] [id number] [id number] Feb, [facility] [address] [facility] [address] [id number][place] [id number] 15 Feb, 2017 Sleep-disordered breathing G47.30 ; Other seasonal allergic rhinitis J30.2 ; Chronic prescription opiate use Z79.891 and BMI 40.0-44.9, adult Z68.41 [facility] [address] [id number], [place] [address] Feb, [facility] [address] [facility] [id number], [place] [address] Feb, [facility] [id number], [place] [address] Feb, [facility] [address] [id number], [place] [address] Feb, [facility] [id number], [place] [address] Jan, Encounter for therapeutic drug level monitoring Z51.81 and BMI 45.0-49.9, adult Z68.42 [facility] [address] [id number], [place] [address] Jan, [facility] [address] [id number][place] [id number] Jan, [facility] [address] [id number], [place] [address] Jan, [facility] [address] [id number][place] [id number] Jan, [facility] [address] [id number] [id number] Jan, [facility] [address] [id number] [id number] Jan, [facility] [address] [facility] [id number], [place] [address] Dec, [facility] [address] [id number][place] [id number] Dec, Low back pain at multiple sites M54.5 ; 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 ; Heart disease I51.9 ; Other seasonal allergic rhinitis J30.2 ; Other allergic rhinitis J30.89 ; Chronic obstructive pulmonary disease, unspecified COPD type J44.9 ; Restless leg syndrome G25.81 ; Chronic GERD K21.9 ; Chronic prescription opiate use Z79.891 ; Chronic constipation K59.09 ; Morbid (severe) obesity due to excess calories E66.01 and Body mass index (BMI) of 40.0-44.9 in adult Z68.41 [facility] [address] [id number] Oct, Dental examination V72.2 [facility] [address]65[address], [place] [address] 14 Jun, 2014 [facility] [id number] [place] [address] Jun, [facility] [address], [place] [address] July, [facility] [id number] [place] [address] July, [facility] [id number] [place] [address] July, [facility] [address]65[address], [place] [address] May, [facility] [address], [place] [address] May, [facility] [address], [place] [address] Mar, [facility] [address], [place] [address] Mar, [facility] [address], [place] [address] Mar, [facility] [address], [place] [address] Mar, [facility] [address] [id number] [address] Mar, [facility] [address] [address] Feb, [facility] [id number] [place] [address] Feb, [facility] [address] [id number] [place] [address] Feb, [facility] [place] [facility] [address] [id number] [place] [address] Feb, [facility] [address] [id number] [place] [address] Nov, [facility] [place] [facility] [address] [id number] [place] [address] Oct, [facility] [address] [id number] [place] [address] Sep, [facility] [place] [facility] [address] [id number] [place] [address] Aug, [facility] [address] [id number] [place] [address] July, [facility] [place] [facility] [address] [id number] [place] [address] July, [facility] [place] [facility] [address] [id number] [place] [address] May, [facility] [place] [facility] [address] [id number] [place] [address] May, [facility] [place] [facility] [address] [id number] [place] [address] Apr, [facility] [place] [facility] [address] [id number] [place] [address] Mar, [facility] [place] [facility] [address] [id number] [place] [address] Feb, [facility] [place] [facility] [address] [id number] [place] [address] Feb, [facility] [place] [facility] [address] [id number] [place] [address] Jan, [facility] [address] [facility] [id number], [place] [address] Jan, [facility] [id number], [place] [address] Jan, [facility] [id number], [place] [address] Dec, [facility] [id number], [place] [address] Feb, [facility] [id number], [place] [address] Jan, [facility] [id number], [place] [address] Jan, IMMUNIZATIONS No Known Immunizations SOCIAL HISTORY Never Assessed REASON FOR VISIT Mauro SALDANA PLAN OF CARE VITAL SIGNS MEDICATIONS Unknown Medications RESULTS No Results PROCEDURES No Known procedures INSTRUCTIONS MEDICATIONS ADMINISTERED No Known Medications MEDICAL (GENERAL) HISTORY Type Description Date Medical History Degenerative Disc Medical History osteoarthritis Medical History Both sacroiliac joint DJD Medical History bentisois Medical History Hypertension Medical History Heart Disease Medical History Mole Malignant Medical History Recurrent Siinusitis Medical History Allergic Rhinitis Medical History COPD Medical History Cysts in lungs Medical History Enlarged thyroid gland Medical History L5-S1 Bulge Medical History Obesity Medical History Diverticulosis Medical History Peptic Ulcer Disease Medical History Restless leg Syndrom Medical History Restless Leg Syndrome Medical History Post Menopause Medical History Pityriasis Rosea (Carrier) Medical History Mental Illness-PTSD/Mood disorder/Depression Medical History Chronic Kidney Disease Stage 3 w/ kidney stones Medical History Tear in right Shoulder Medical History Willy fundoplication Surgical History narcisa 2014 Surgical History toncil as child Surgical History gall bladder 2004 Surgical History hernia 2014 Surgical History total hysterectomy 1980 Surgical History 3 back surgeries Hospitalization History hernia 2014 Hospitalization History toncil as child Hospitalization History back surgeries
--- OUTSIDE RECORDS SUMMARY | 2017-08-29 10:20 | XMS REPORT ---
Author Author ALYSA LUIS Organization [facility] Address [address] [place] [address] Care Team Providers Care Orthopedic Shoe Fitter Name Role Phone LUIS WATT Unavailable PROBLEMS Type Condition ICD9-CM Code TWK20-OW Code Onset Dates Condition Status SNOMED Code Problem Other seasonal allergic rhinitis J30.2 Active 061924504 Problem Body mass index (BMI) of 40.0-44.9 in adult Z68.41 Active 776981606 Problem Morbid (severe) obesity due to excess calories E66.01 Active 25681880748315 Problem Sleep-disordered breathing G47.30 Active 310445301 Problem Encounter for therapeutic drug level monitoring Z51.81 Active 265166204 Problem Chronic GERD K21.9 Active 863307854 Problem Chronic obstructive pulmonary disease, unspecified COPD type J44.9 Active 16267768 Problem Restless leg syndrome G25.81 Active 77358313 Problem Heart disease I51.9 Active 23452041 Problem Unspecified disorder of the teeth and supporting structures 525.9 Active 393346897 Problem Chronic prescription opiate use Z79.891 Active 281840938 Problem Low back pain at multiple sites M54.5 Active 421244414 Problem Schizophrenic disorders, residual type, 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 Active 05890219 Problem Chronic constipation K59.09 Active 670120946 Problem 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 Active 62364397 Problem Other allergic rhinitis J30.89 Active 090717554 ALLERGIES No Information ENCOUNTERS Encounter Location Date Diagnosis [facility] [address] [facility] [id number], [place] [address] 14 Apr, 2017 [facility] [address] [facility] [id number], [place] [address] Apr, [address] [id number] [place] [id number] Apr, [facility] [address] [facility] [facility] [address] [id number] [place] [id number] Apr, [facility] [address]005[address], [place] [address] Apr, [facility] [address], [place] [address] Mar, [facility] [address] [place] [address] 74[address] Mar, [facility] [address] [place] [address]- 3046 Mar, [facility] [address] [place] [address] Mar, Encounter for therapeutic drug level monitoring Z51.81 [facility] [id number] [place] [address] Mar, [facility] [address], [place] [address] Mar, [facility] [id number] [place] [address] 5964 Mar, Chronic prescription opiate use Z79.891 ; Low back pain at multiple sites M54.5 and BMI 40.0-44.9, adult Z68.41 [facility] [address]00565100[place], [place] [address] Feb, [facility] [id number] [id number] Feb, [facility] [address] [facility] [address] [id number] [place] [id number] 15 Feb, 2017 Sleep-disordered breathing G47.30 ; Other seasonal allergic rhinitis J30.2 ; Chronic prescription opiate use Z79.891 and BMI 40.0-44.9, adult Z68.41 [facility] [address] [id number], [place] [address] Feb, [facility] [address] [facility] [id number], [place] [address] Feb, [facility] [address] [id number], [place] [address] Feb, [facility] [address] [id number], [place] [address] Feb, [facility] [address] [id number], [place] [address] Jan, Encounter for therapeutic drug level monitoring Z51.81 and BMI 45.0-49.9, adult Z68.42 [facility] [address] [id number], [place] [address] Jan, [facility] [id number] [place] [id number] Jan, [facility] [address] [id number], [place] [address] Jan, [facility] [id number] [place] [id number] Jan, [facility] [address] [id number] [id number] Jan, [facility] [id number] [place] [id number] Jan, [facility] [address] [facility] [id number][place] [address] Dec, [facility] [id number] [place] [id number] Dec, Low back pain at multiple sites [...] index (BMI) of 40.0-44.9 in adult Z68.41 [facility] [address]00565100[place] [address] Oct, Dental examination V72.2 [facility] [address]005[address]100[place], [place] [address] 14 Jun, 2014 [facility] [id number] [place] [address]- 6151 Jun, [facility] [address]00565100[place], [place] [address] July, [facility] [id number] [place] [address]- 5884 July, [facility] [id number] [place] [id number] 69[address] July, [facility] [address]00565100[place], [place] [address] 3[address] May, [facility] [address]00565100[place], [place] [address] 3[address] May, [facility] [address]00565100[place], [place] [address] 7[address] Mar, [facility] [address]00565100[place], [place] [address] 8787 Mar, [facility] [address]00565100[place], [place] [address] 6[address] Mar, [facility] [address]100[place], [place] [address] 5[address] Mar, [facility] [address] [id number] Mar, [facility] [address]65100[place] [address] Feb, [facility] [address] [id number] [place] [address] 2546 Feb, [facility] [address] [id number] [place] [address]- [address] Feb, [facility] [place] [facility] [address] [id number] [place] [address] 2546 Feb, [facility] [address] [id number] [place] [address]- 9646 Nov, [facility] [place] [facility] [address] [id number] [place] [address] 2546 Oct, [facility] [address] [id number] [place] [address]- 6036 Sep, [facility] [place] [facility] [address] [id number] [place] [address] 2546 Aug, [facility] [address] [id number] [place] [address]- 0705 July, [facility] [place] [facility] [address] [id number] [place] [address]- 8833 July, [facility] [place] [facility] [address] [id number] [place] [address]- 3887 May, [facility] [place] [facility] [address] [id number] [place] [address]- 6168 May, [facility] [place] [facility] [address] [id number] [place] [address]- 8502 Apr, [facility] [place] [facility] [address] [id number] [place] [address] 2549 Mar, [facility] [place] [facility] [address] [id number] [place] [address]- 7106 Feb, [facility] [place] [facility] [address] [id number] [place] [address]- 2106 Feb, [facility] [place] [facility] [address] [id number] [place] [address]- 7164 Jan, [facility] [address] [facility] [id number], [place] [address] Jan, [facility] [address] [id number], [place] [address]- 4914 Jan, [facility] [address] [id number], [place] [address]- 2739 Dec, [facility] [address] [id number], [place] [address]- 4903 Feb, [facility] [address] [id number], [place] [address]- 7141 Jan, [facility] [address] [id number], [place] [address]- 3421 Jan, IMMUNIZATIONS No Known Immunizations SOCIAL HISTORY Never Assessed REASON FOR VISIT Requests return call PLAN OF CARE VITAL SIGNS MEDICATIONS Medication Instructions Dosage Frequency Start Date End Date Duration Status ProAir HFA 108 (90 Base) MCG/ACT Inhalation every 6 hrs 2 puffs as needed 6h Jan, 90 days Active RESULTS No Results PROCEDURES No Known procedures [...]
--- OUTSIDE RECORDS SUMMARY | 2017-08-29 10:20 | XMS REPORT ---
Author Author ALYSA LUIS Organization [facility] Address [address] [place] [address] Care Team Providers Care Vmware Consultant Name Role Phone LUIS WATT Unavailable PROBLEMS Type Condition ICD9-CM Code XWE28-CE Code Onset Dates Condition Status SNOMED Code Problem Other seasonal allergic rhinitis J30.2 Active 901076312 Problem Body mass index (BMI) of 40.0-44.9 in adult Z68.41 Active 293045514 Problem Morbid (severe) obesity due to excess calories E66.01 Active 89658551678503 Problem Sleep-disordered breathing G47.30 Active 279077102 Problem Encounter for therapeutic drug level monitoring Z51.81 Active 568261893 Problem Chronic GERD K21.9 Active 833962160 Problem Chronic obstructive pulmonary disease, unspecified COPD type J44.9 Active 99550342 Problem Restless leg syndrome G25.81 Active 68916462 Problem Heart disease I51.9 Active 13881365 Problem Unspecified disorder of the teeth and supporting structures 525.9 Active 123335443 Problem Chronic prescription opiate use Z79.891 Active 385484279 Problem Low back pain at multiple sites M54.5 Active 400648864 Problem Schizophrenic disorders, residual type, 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 Active 45872712 Problem Chronic constipation K59.09 Active 113154398 Problem 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 Active 40692639 Problem Other allergic rhinitis J30.89 Active 444228001 ALLERGIES No Information ENCOUNTERS Encounter Location Date Diagnosis [facility] [address] [facility] [id number], [place] [address] 14 Apr, 2017 [facility] [address] [facility] [id number], [place] [address] Apr, [address] [id number] [id number] Apr, [facility] [address] [id number][place] [id number] Apr, [facility] [address]00565100[place], [place] [address]- 6[address] Apr, [facility] [address]00565100[place], [place] [address]- 8493 Mar, [facility] [address] [place] [address]- 9147 Mar, [facility] [address] [place] [address]0901- 9459 Mar, [facility] [address] [place] [address] Mar, Encounter for therapeutic drug level monitoring Z51.81 [facility] [id number] [place] [address] 74771- 5810 Mar, [facility] [address]00565100[place], [place] [address]- 2768 Mar, [facility] [id number] [place] [address]605- 1111 Mar, Chronic prescription opiate use Z79.891 ; Low back pain at multiple sites M54.5 and BMI 40.0-44.9, adult Z68.41 [facility] [address]00565100[place], [place] [address]- 7600 Feb, [facility] [id number], [place] [address] Feb, [facility] [address] [id number][place] [address] 15 Feb, 2017 Sleep-disordered breathing G47.30 ; Other seasonal allergic rhinitis J30.2 ; Chronic prescription opiate use Z79.891 and BMI 40.0-44.9, adult Z68.41 [facility] [address] [id number], [place] [address]- 6023 Feb, [facility] [address] [facility] [id number], [place] [address]- 7717 Feb, [facility] [address] [id number], [place] [address]- 0588 Feb, [facility] [address] [id number], [place] [address]- 7211 Feb, [facility] [address] [id number], [place] [address]- 5865 Jan, Encounter for therapeutic drug level monitoring Z51.81 and BMI 45.0-49.9, adult Z68.42 [facility] [address] [id number], [place] [address]- 2624 Jan, [facility] [id number][place] [id number] Jan, [facility] [address] [id number], [place] [address]- 1189 Jan, [facility] [id number][place] [id number] Jan, [facility] [address] [id number] [id number] Jan, [facility] [address] [id number][place] [id number] Jan, [facility] [address] [facility] [id number], [place] [address]- 1057 Dec, [facility] [address] [id number][place] [id number] Dec, Low back pain at multiple sites [...] index (BMI) of 40.0-44.9 in adult Z68.41 [facility] [address]005[address] [address] Oct, Dental examination V72.2 [facility] [address]00565100[place], [place] [address]- 1745 14 Jun, 2014 [facility] [id number] [place] [address] 30185- 3472 Jun, [facility] [address]00565100[place], [place] [address]- 2501 July, [facility] [id number] [place] [address] 01325- 4496 July, [facility] [id number] [place] [address] 53790220- 6545 July, [facility] [address]00565100[place], [place] [address]- 0101 May, [facility] [address]00565100[place], [place] [address]- 3915 May, [facility] [address]00565100[place], [place] [address]- 5573 Mar, [facility] [address]00565100[place], [place] [address]- 6853 Mar, [facility] [address]00565100[place], [place] [address]- 7736 Mar, [facility] [address]00565100[place], [place] [address]- 0729 Mar, [facility] [address] [id number]- 6806 Mar, [facility] [address]00565[address] 3771 Feb, [facility] [address] [id number] [place] [address] 2546 Feb, [facility] [address] [id number] [place] [address]- 9106 Feb, [facility] [place] [facility] [address] [id number] [place] [address] 2546 Feb, [facility] [address] [id number] [place] [address]- 2616 Nov, [facility] [place] [facility] [address] [id number] [place] [address] 2546 Oct, [facility] [address] [id number] [place] [address]- 1106 Sep, [facility] [place] [facility] [address] [id number] [place] [address] 2546 Aug, [facility] [address] [id number] [place] [address]- 1471 July, [facility] [place] [facility] [address] [id number] [place] [address]- 4660 July, [facility] [place] [facility] [address] [id number] [place] [address]- 7888 May, [facility] [place] [facility] [address] [id number] [place] [address]- 1673 May, [facility] [place] [facility] [address] [id number] [place] [address]- 8488 Apr, [facility] [place] [facility] [address] [id number] [place] [address] 2541 Mar, [facility] [place] [facility] [address] [id number] [place] [address]- 1017 Feb, [facility] [place] [facility] [address] [id number] [place] [address]- 7306 Feb, [facility] [place] [facility] [address] [id number] [place] [address]- 6119 Jan, [facility] [address] [facility] [id number], [place] [address]- 9915 Jan, [facility] [address] [id number], [place] [address]- 3641 Jan, [facility] [address] [id number], [place] [address]- 5318 Dec, [facility] [address] [id number], [place] [address]- 3341 Feb, [facility] [address] [id number], [place] [address]- 6391 Jan, [facility] [address] [id number], [place] [address]- 6952 Jan, IMMUNIZATIONS No Known Immunizations SOCIAL HISTORY Never Assessed REASON FOR VISIT Refill request PLAN OF CARE VITAL SIGNS MEDICATIONS Medication Instructions Dosage Frequency Start Date End Date Duration Status Fluticasone Propionate 50 MCG/ACT Nasally Once a day 1 spray in each nostril 24h Active RESULTS No Results PROCEDURES No Known [...]
--- OUTSIDE RECORDS SUMMARY | 2017-08-29 10:21 | XMS REPORT ---
Author Author ALYSA LUIS Organization [facility] Address [address] [place] [address] Care Team Providers Care Supervisor Pipeline Name Role Phone LUIS WATT Unavailable PROBLEMS Type Condition ICD9-CM Code BTV93-VL Code Onset Dates Condition Status SNOMED Code Problem Other seasonal allergic rhinitis J30.2 Active 410808944 Problem Body mass index (BMI) of 40.0-44.9 in adult Z68.41 Active 698372086 Problem Morbid (severe) obesity due to excess calories E66.01 Active 98273651698472 Problem Sleep-disordered breathing G47.30 Active 719406273 Problem Encounter for therapeutic drug level monitoring Z51.81 Active 698996835 Problem Chronic GERD K21.9 Active 983280684 Problem Chronic obstructive pulmonary disease, unspecified COPD type J44.9 Active 37774471 Problem Restless leg syndrome G25.81 Active 31725249 Problem Heart disease I51.9 Active 72498444 Problem Unspecified disorder of the teeth and supporting structures 525.9 Active 575263872 Problem Chronic prescription opiate use Z79.891 Active 483306008 Problem Low back pain at multiple sites M54.5 Active 344684001 Problem Schizophrenic disorders, residual type, 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 Active 55766091 Problem Chronic constipation K59.09 Active 116637552 Problem 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 Active 68962982 Problem Other allergic rhinitis J30.89 Active 808383625 ALLERGIES No Information ENCOUNTERS Encounter Location Date Diagnosis [facility] [address] [facility] [id number] [address] 14 Apr, 2017 [facility] [address] [facility] [id number] [place] [address] Apr, [address] [id number] [place] [id number] Apr, [facility] [address] [id number] [place] [id number] Apr, [facility] [address]100[place] [address] Apr, [facility] [address] [address] Mar, [facility] [id number] [place] [address] 395[address] Mar, [facility] [id number] [place] [address] Mar, [facility] [address] [place] [address] Mar, Encounter for therapeutic drug level monitoring Z51.81 [facility] [id number] [place] [address] 8549 Mar, [facility] [address] [address] Mar, [facility] [id number] [place] [address] 0[address] Mar, Chronic prescription opiate use Z79.891 ; Low back pain at multiple sites M54.5 and BMI 40.0-44.9, adult Z68.41 [facility] [address] [address] Feb, [facility] [id number] [place] [address] Feb, [facility] [address] [id number] [place] [id number] 15 Feb, 2017 Sleep-disordered breathing G47.30 ; Other seasonal allergic rhinitis J30.2 ; Chronic prescription opiate use Z79.891 and BMI 40.0-44.9, adult Z68.41 [facility] [address] [id number] [address] Feb, [facility] [address] [facility] [id number] [place] [address] Feb, [facility] [address] [id number] [address] Feb, [facility] [address] [id number] [address] Feb, [facility] [address] [id number] [address] Jan, Encounter for therapeutic drug level monitoring Z51.81 and BMI 45.0-49.9, adult Z68.42 [facility] [address] [id number] [address] Jan, [facility] [address] [id number] [place] [id number] Jan, [facility] [address] [id number] [address] Jan, [facility] [address] [id number] [place] [id number] Jan, [facility] [address] [id number] [id number] Jan, [facility] [address] [id number] [place] [id number] Jan, [facility] [address] [facility] [id number] [place] [address] Dec, [facility] [address] [id number] [place] [id number] Dec, Low back pain at multiple sites [...] index (BMI) of 40.0-44.9 in adult Z68.41 [facility] [address]00565100[place] [id number] Oct, Dental examination V72.2 [facility] [address]65100[place] [address] 14 Jun, 2014 [facility] [id number] [place] [address]- 8[address] Jun, [facility] [address]100[place] [address] July, [facility] [id number] [place] [address]- 9870 July, [facility] [id number] [place] [id number]- 3614 July, [facility] [address]100[place] [address] May, [facility] [address]100[place] [address] May, [facility] [address]100[place] [address] 0[address] Mar, [facility] [address]100[place] [address] 4[address] Mar, [facility] [address]100[place] [address] 39[address] Mar, [facility] [address]65100[place] [address] 3[address] Mar, [facility] [address] [id number] [address] Mar, [facility] [address] [address] Feb, [facility] [address] [id number] [place] [address] 2546 Feb, [facility] [address] [id number] [place] [address] Feb, [facility] [place] [facility] [address] [id number] [place] [address] 2546 Feb, [facility] [address] [id number] [place] [address] 8[address] Nov, [facility] [place] [facility] [address] [id number] [place] [address] 2546 Oct, [facility] [address] [id number] [place] [address]- 9446 Sep, [facility] [place] [facility] [address] [id number] [place] [address] 2546 Aug, [facility] [address] [id number] [place] [address]- 9686 July, [facility] [place] [facility] [address] [id number] [place] [address]- 68[address] July, [facility] [place] [facility] [address] [id number] [place] [address]- 3410 May, [facility] [place] [facility] [address] [id number] [place] [address]- 6137 May, [facility] [place] [facility] [address] [id number] [place] [address]- 3373 Apr, [facility] [place] [facility] [address] [id number] [place] [address] 2547 Mar, [facility] [place] [facility] [address] [id number] [place] [address]- 7412 Feb, [facility] [place] [facility] [address] [id number] [place] [address]- 9196 Feb, [facility] [place] [facility] [address] [id number] [place] [address]- 0886 Jan, [facility] [address] [id number] [address]- [address] Jan, [facility] [address] [id number] [address]- 0774 Jan, [facility] [address] [id number] [address]- 4441 Dec, [facility] [address] [id number] [address]- 3418 Feb, [facility] [address] [id number] [address]- 9976 Jan, [facility] [address] [id number] [address]- 8689 Jan, IMMUNIZATIONS No Known Immunizations SOCIAL HISTORY Never Assessed REASON FOR VISIT PA for [employer] PLAN OF CARE VITAL SIGNS MEDICATIONS Unknown [...]
--- OUTSIDE RECORDS SUMMARY | 2017-08-29 10:21 | XMS REPORT ---
Author Author ANASTASIA ESTES Organization [facility] Address [address] [place] [address] Care Team Providers Care Bricklayer'S Assistant Name Role Phone ANASTASIA ESTES Unavailable PROBLEMS Type Condition ICD9-CM Code NVN36-VR Code Onset Dates Condition Status SNOMED Code Problem Other seasonal allergic rhinitis J30.2 Active 794983148 Problem Body mass index (BMI) of 40.0-44.9 in adult Z68.41 Active 730686110 Problem Morbid (severe) obesity due to excess calories E66.01 Active 44195254066820 Problem Sleep-disordered breathing G47.30 Active 452295818 Problem Encounter for therapeutic drug level monitoring Z51.81 Active 042842395 Problem Chronic GERD K21.9 Active 862923897 Problem Chronic obstructive pulmonary disease, unspecified COPD type J44.9 Active 24799474 Problem Restless leg syndrome G25.81 Active 98078773 Problem Heart disease I51.9 Active 80254117 Problem Unspecified disorder of the teeth and supporting structures 525.9 Active 048177650 Problem Chronic prescription opiate use Z79.891 Active 814206017 Problem Low back pain at multiple sites M54.5 Active 461204423 Problem Schizophrenic disorders, residual type, 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 Active 50675813 Problem Chronic constipation K59.09 Active 320608061 Problem 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 Active 48620517 Problem Other allergic rhinitis J30.89 Active 512943868 ALLERGIES No Information ENCOUNTERS Encounter Location Date Diagnosis [facility] [address] [facility] [id number] [address] Apr, [facility] [address] [facility] [id number] [place] [address] Apr, [address] [id number][place] [address] Apr, [facility] [address] [facility] [address] [id number][place] [address] Apr, [facility] [address]00565100[place] [address] Apr, [facility] [address]00565100[place] [address] 78[address] Mar, [facility] [id number] [place] [address]92- 2790 Mar, [facility] [id number] [place] [address]67- 2048 Mar, [facility] [address] [place] [address] Mar, Encounter for therapeutic drug level monitoring Z51.81 [facility] [address] [id number] [address]- 5583 Mar, [facility] [address]00565100[place] [address]- 7819 Mar, [facility] [address]00565100[place] [address]- 2730 Mar, Chronic prescription opiate use Z79.891 ; Low back pain at multiple sites M54.5 and BMI 40.0-44.9, adult Z68.41 [facility] [address]00565100[place] [address]- 8483 Feb, [facility] [id number] [place] [address] Feb, [facility] [address] [facility] [address] [id number][place] [address] Feb, Sleep-disordered breathing G47.30 ; Other seasonal allergic rhinitis J30.2 ; Chronic prescription opiate use Z79.891 and BMI 40.0-44.9, adult Z68.41 [facility] [address] [facility] [id number] [place] [address]- 3069 Feb, [facility] [address] [facility] [id number] [place] [address] Feb, [facility] [address] [facility] [id number] [place] [address]- 4638 Feb, [facility] [address] [facility] [id number] [place] [address] Feb, [facility] [address] [facility] [id number] [place] [address]- 0931 Jan, Encounter for therapeutic drug level monitoring Z51.81 and BMI 45.0-49.9, adult Z68.42 [facility] [address] [facility] [id number] [place] [address]- 8214 Jan, [facility] [id number][place] [address] Jan, [facility] [address] [facility] [id number] [place] [address]- 7613 Jan, [facility] [address] [id number][place] [id number] Jan, [facility] [address] [facility] [id number] [place] [address] Jan, [facility] [address] [id number][place] [address] Jan, [facility] [address] [facility] [id number] [place] [address]- 3245 Dec, [facility] [address] [id number], [place] [address] Dec, Low back pain at multiple sites [...] index (BMI) of 40.0-44.9 in adult Z68.41 [facility] [address] [id number] [place] [address] Oct, Dental examination V72.2 [facility] [address] [id number] [address]- [address] 14 Jun, 2014 [facility] [id number] [place] [address], [place] [address]- 4204 Jun, [facility] [address] [facility] [id number] [place] [address]- 4078 July, [facility] [id number] [place] [address], [place] [address]- 7496 July, [facility] [address] [id number] [address]6 July, [facility] [address] [id number] [address]- 6726 May, [facility] [address] [id number] [address]- 3892 May, [facility] [address]00565100[place] [address]- 1584 Mar, [facility] [address]00565100[place] [address]- 9643 Mar, [facility] [address]00565100[place] [address]- 3036 Mar, [facility] [address] [id number] [address]- 7620 Mar, [facility] [address]00565100[place] [address]- 7736 Mar, [facility] [address] [facility] [id number] [place] [address]- 7146 04 Feb, 2012 [facility] [address]00565100[place] [address]- 2673 Feb, [facility] [address] [id number] [place] [address]- 2546 Feb, [facility] [place] [facility] [address] [id number] [place] [address]- 2546 Feb, [facility] [place] [facility] [address] [id number] [place] [address]- 2546 Nov, [facility] [place] [facility] [address] [id number] [place] [address]- 2546 Oct, [facility] [place] [facility] [address] [id number] [place] [address]- 2546 Sep, [facility] [place] [facility] [address] [id number] [place] [address]- 2546 Aug, [facility] [place] [facility] [address] [id number] [place] [address]- 2546 July, [facility] [place] [facility] [address] [id number] [place] [address]- 2546 July, [facility] [place] [facility] [address] [id number] [place] [address]- 4983 May, [facility] [place] [facility] [address] [id number] [place] [address] 2546 May, [facility] [place] [facility] [address] [id number] [place] [address]- 2546 Apr, [facility] [place] [facility] [address] [id number] [place] [address]- 2546 Mar, [facility] [place] [facility] [address] [id number] [place] [address]- 2546 Feb, [facility] [place] [facility] [address] [facility] [id number] [place] [address]- 2546 Feb, [facility] [place] [facility] [address] [id number] [place] [address]- 2546 Jan, [facility] [place] [facility] [address] [facility] [id number] [address]- 8881 Jan, [facility] [address] [facility] [id number] [place] [address]- 0645 Jan, [facility] [address] [id number] [address]- 7658 Dec, [facility] [address] [facility] [id number] [place] [address]- 8550 Feb, [facility] [address] [facility] [id number] [address]- 3392 Jan, [facility] [address] [facility] [id number] [place] [address]- [address] Jan, IMMUNIZATIONS No Known Immunizations SOCIAL HISTORY Never Assessed REASON FOR VISIT benadryl rx PLAN OF CARE VITAL SIGNS MEDICATIONS Medication Instructions Dosage Frequency Start Date End Date Duration Status DiphenhydrAMINE HCl 50 mg Orally Once a day 1 capsule at bedtime as needed 24h Feb, 30 day(s) Active RESULTS No Results PROCEDURES No Known [...]
--- OUTSIDE RECORDS SUMMARY | 2017-08-29 10:21 | XMS REPORT ---
Author Author ALYSA LUIS Organization [facility] Address [address] [place] [address] Care Team Providers [employer] Debeader Name Role Phone LUIS WATT Unavailable PROBLEMS Type Condition ICD9-CM Code PCB96-TK Code Onset Dates Condition Status SNOMED Code Problem Other seasonal allergic rhinitis J30.2 Active 631160017 Problem Body mass index (BMI) of 40.0-44.9 in adult Z68.41 Active 574248344 Problem Morbid (severe) obesity due to excess calories E66.01 Active 90141787088054 Problem Sleep-disordered breathing G47.30 Active 637936006 Problem Encounter for therapeutic drug level monitoring Z51.81 Active 565002223 Problem Chronic GERD K21.9 Active 917999499 Problem Chronic obstructive pulmonary disease, unspecified COPD type J44.9 Active 30021844 Problem Restless leg syndrome G25.81 Active 24662504 Problem Heart disease I51.9 Active 96562647 Problem Unspecified disorder of the teeth and supporting structures 525.9 Active 941352725 Problem Chronic prescription opiate use Z79.891 Active 316507480 Problem Low back pain at multiple sites M54.5 Active 486124763 Problem Schizophrenic disorders, residual type, 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 Active 74908272 Problem Chronic constipation K59.09 Active 903482012 Problem 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 Active 39882436 Problem Other allergic rhinitis J30.89 Active 082706452 ALLERGIES No Information ENCOUNTERS Encounter Location Date Diagnosis [facility] [address] [facility] [id number] [address] 14 Apr, 2017 [facility] [address] [facility] [id number], [place] [address] Apr, [address] [id number][place] [id number] Apr, [facility] [address] [facility] [address] [id number][place] [id number] Apr, [facility] [address], [place] [address] Apr, [facility] [address]65[address], [place] [address] Mar, [facility] [id number] [place] [address] Mar, [facility] [id number] [place] [address] Mar, [facility] [address] [place] [address] Mar, Encounter for therapeutic drug level monitoring Z51.81 [facility] [id number] [place] [address] Mar, [facility] [address]65[address], [place] [address] Mar, [facility] [id number] [place] [address] Mar, Chronic prescription opiate use Z79.891 ; Low back pain at multiple sites M54.5 and BMI 40.0-44.9, adult Z68.41 [facility] [address], [place] [address] Feb, [facility] [id number] [id number] Feb, [facility] [address] [facility] [address] [id number][place] [id number] 15 Feb, 2017 Sleep-disordered breathing G47.30 ; Other seasonal allergic rhinitis J30.2 ; Chronic prescription opiate use Z79.891 and BMI 40.0-44.9, adult Z68.41 [facility] [id number], [place] [address] Feb, [facility] [address] [facility] [id number], [place] [address] Feb, [facility] [id number], [place] [address] Feb, [facility] [id number], [place] [address] Feb, [facility] [id number], [place] [address] Jan, Encounter for therapeutic drug level monitoring Z51.81 and BMI 45.0-49.9, adult Z68.42 [facility] [address] [id number], [place] [address] Jan, [facility] [address] [id number] [id number] Jan, [facility] [id number], [place] [address] Jan, [facility] [address] [id number][place] [id number] Jan, [facility] [address] [id number] [id number] Jan, [facility] [address] [id number][place] [id number] Jan, [facility] [address] [facility] [id number], [place] [address] Dec, [facility] [address] [id number][place] [id number] Dec, Low back pain at multiple sites [...] index (BMI) of 40.0-44.9 in adult Z68.41 [facility] [address] [id number] Oct, Dental examination V72.2 [facility] [address]65100[place], [place] [address] 14 Jun, 2014 [facility] [id number] [place] [address] Jun, [facility] [address]65[address], [place] [address] July, [facility] [id number] [place] [address] July, [facility] [id number] [place] [address] July, [facility] [address], [place] [address] May, [facility] [address], [place] [address] May, [facility] [address]65[address], [place] [address] Mar, [facility] [address]65[address], [place] [address] Mar, [facility] [address]65[address], [place] [address] Mar, [facility] [address]65100[place], [place] [address] Mar, [facility] [address] [id number] Mar, [facility] [address] [address] Feb, [facility] [address] [id number] [place] [address] Feb, [facility] [address] [id number] [place] [address] Feb, [facility] [place] [facility] [address] [id number] [place] [address] Feb, [facility] [address] [id number] [place] [address] Nov, [facility] [place] [facility] [address] [id number] [place] [address] Oct, [facility] [address] [id number] [place] [address] Sep, [facility] [place] [facility] [address] [id number] [place] [address] Aug, [facility] [address] [id number] [place] [address] July, [facility] [place] [facility] [address] [id number] [place] [address] July, [facility] [place] [facility] [address] [id number] [place] [address] May, [facility] [place] [facility] [address] [id number] [place] [address] May, [facility] [place] [facility] [address] [id number] [place] [address] Apr, [facility] [place] [facility] [address] [id number] [place] [address] Mar, [facility] [place] [facility] [address] [id number] [place] [address] Feb, [facility] [place] [facility] [address] [id number] [place] [address] Feb, [facility] [place] [facility] [address] [id number] [place] [address] Jan, [facility] [id number], [place] [address] Jan, [facility] [id number], [place] [address] Jan, [facility] [id number], [place] [address] Dec, [facility] [id number], [place] [address] Feb, [facility] [id number], [place] [address] Jan, [facility] [id number], [place] [address] Jan, IMMUNIZATIONS No Known Immunizations SOCIAL HISTORY Never Assessed REASON FOR VISIT Discuss medication changes PLAN OF CARE VITAL SIGNS MEDICATIONS Unknown [...]
--- OUTSIDE RECORDS SUMMARY | 2017-08-29 10:24 | XMS REPORT | Continuity of Care Document ---
Author Author [facility] Address Unknown Phone Unavailable Allergies Active Description Code Type Severity Reaction Onset Reported/Identified Relationship to Patient Clinical Status Yes Penicillins [id number] Drug Allergy Severe ANAPHYLAXIS 08/28/2010 Yes aspirin [id number] Drug Allergy Mild RASH 08/28/2010 Yes codeine [id number] Drug Allergy Mild N/V 08/28/2010 Yes aspirin [...] ANTIDEPRESSANTS Unknown MAKES SUICIDAL 12/01/2013 Yes iodine [id number] Drug Allergy Unknown RASH 12/01/2013 Yes morphine [id number] Drug Allergy Unknown "MAKES GO OUT" 12/01/2013 Yes acetaminophen [id number] Drug Allergy Unknown N/A 05/12/2016 Yes adhesive tape [id number] Drug Allergy Unknown N/A 05/12/2016 Yes ibuprofen [id number] Drug Allergy Unknown N/A 05/12/2016 Yes niacin [id number] Drug Allergy Unknown N/A 05/12/2016 Yes propoxyphene [id number] Drug Allergy Unknown N/A 05/12/2016 Yes gabapentin [id number] Drug Allergy Unknown N/A 08/17/2017 Yes pramipexole [id number] Drug Allergy Unknown HIVES 08/17/2017 Medications There is no data. Problems Date Dx Coded Attending Type Code Diagnosis Diagnosed By 12/06/2009 MILY MONROE APRN 295.70 P SCHIZO AFFECTIVE 12/06/2009 MILY MONROE APRN 301.83 PD BORDERLINE 12/06/2009 FER EPPERSON MILY DESMOND 309.81 POSTTRAUMATIC STRESS DISORDER 12/06/2009 MILY MONROE [...] pain 06/07/2012 525.9 tooth pain 09/14/2012 PIPER RICE MD Ot 719.45 JOINT PAIN-PELVIS 09/14/2012 PIPER RICE MD Ot 959.6 HIP THIGH INJURY NOS 09/14/2012 PIPER RICE MD Ot E000.8 OTHER EXTERNAL CAUSE STATUS 09/14/2012 PIPER RICE MD Ot E849.0 ACCIDENT IN HOME 09/14/2012 PIPER RICE MD Ot E885.9 FALL FROM SLIPPING, TRIPPING, OR STUMBLI 09/14/2012 PIPER RICE MD Ot V57.1 PHYSICAL THERAPY NEC 05/25/2013 [...] Ot E849.0 12/15/2014 Ot E888.9 12/15/2014 PIPER RICE MD Ot 719.46 12/15/2014 NINOSKA FULLER, PIPER Haroldo Ot 722.10 12/15/2014 TERRENCE HORN DO Ot V72.84 12/15/2014 NINOSKA FULLER, PIPER K Ot 724.02 12/15/2014 LYNN-JESSEE PA, BRANDI Zarco [...] 12/15/2014 Ot E849.0 12/15/2014 Ot E888.9 12/15/2014 NINOSKA FULLER, PIPER Haroldo Ot 719.46 12/15/2014 NINOSKA FULLER, PIPER Zarco Ot 722.10 12/15/2014 TERRENCE HORN DO Ot V72.84 12/15/2014 NINOSKA FULLER, PIPER Zarco Ot 724.02 12/15/2014 LYNN-JESSEE PA, BRANDI Zarco [...] JONATHAN FULLER, RIZWAN Mojica Ot 786.59 01/04/2015 JONATHAN FULLER, RIZWAN Mojica Ot V45.89 01/10/2015 RIZWAN CASTILLO MD Ot 401.9 01/10/2015 RIZWAN CASTILLO MD Ot 496 01/10/2015 RIZWAN CASTILLO MD Ot 786.59 01/10/2015 RIZWAN CASTILLO MD Ot V45.89 05/21/2015 Ot 786.05 05/21/2015 Ot V72.84 05/21/2015 Ot 719.45 05/21/2015 Ot 959.6 05/21/2015 Ot E000.8 05/21/2015 Ot E849.0 05/21/2015 Ot E888.9 05/21/2015 PIPER RICE MD Ot 719.46 05/21/2015 PIPER RICE MD Ot 722.10 05/21/2015 TERRENCE HORN DO Ot V72.84 05/21/2015 PIPER RICE MD Ot 724.02 05/21/2015 BRANDI RAMOS Ot 272.4 05/21/2015 BRANDI RAMOS Ot 397.0 05/21/2015 ENEDINA RAMOSTH K Ot 401.9 05/21/2015 BRANDI RAMOS K Ot 416.8 05/21/2015 BRANDI RAMOS K Ot 424.0 05/21/2015 BRANDI RAMOS K Ot 786.50 05/21/2015 RIZWAN CASTILLO MD Ot 401.9 05/21/2015 RIZWAN CASTILLO MD Ot 496 05/21/2015 RIZWAN CASTILLO MD Ot 786.59 05/21/2015 RIZWAN CASTILLO MD Ot V45.89 05/21/2015 LEANN ARMENTA MD Ot M47.816 SPONDYLOSIS W/O MYELOPATHY OR RADICULOPA 05/21/2015 LEANN ARMENTA MD Ot M53.3 SACROCOCCYGEAL DISORDERS, NOT ELSEWHERE 05/21/2015 LEANN ARMENTA MD Ot Z79.899 OTHER CARE HOME (CURRENT) DRUG THERAPY 06/25/2015 Ot 786.05 06/25/2015 Ot V72.84 06/25/2015 Ot 719.45 06/25/2015 Ot 959.6 06/25/2015 Ot E000.8 06/25/2015 Ot E849.0 06/25/2015 Ot E888.9 06/25/2015 PIPER RICE MD Ot 719.46 06/25/2015 PIPER RICE MD Ot 722.10 06/25/2015 KORYTERRENCE TORRES DO Ot V72.84 06/25/2015 PIPER RICE MD Ot 724.02 06/25/2015 ROMELIA PA, BRANDI Zarco Ot 272.4 06/25/2015 ROMELIA PA, BRANDI K Ot 397.0 06/25/2015 ROMELIA PA, BRANDI K Ot 401.9 06/25/2015 ROMELIA PA, BRANDI K Ot 416.8 06/25/2015 ROMELIA PA, BRANDI K Ot 424.0 06/25/2015 ROMELIA SALDANA, BRANDI Zarco Ot 786.50 06/25/2015 JONATHAN FULLER, RIZWAN Mojica Ot 401.9 06/25/2015 RIZWAN CASTILLO MD Ot 496 06/25/2015 RIZWAN CASTILLO MD Ot 786.59 06/25/2015 RIZWAN CASTILLO MD Ot V45.89 06/25/2015 LEANN ARMENTA MD Ot M47.816 SPONDYLOSIS W/O MYELOPATHY OR RADICULOPA 06/25/2015 LEANN ARMENTA MD Ot M53.3 SACROCOCCYGEAL DISORDERS, NOT ELSEWHERE 06/25/2015 LEANN ARMENTA MD Ot Z79.899 OTHER CARE HOME (CURRENT) DRUG THERAPY 07/03/2015 LEANN ARMENTA MD [...] 10/05/2015 Ot E888.9 FALL NOS 10/05/2015 PIPER RICE MD Ot 719.46 JOINT PAIN-L/LEG 10/05/2015 PIPER RICE MD Ot 722.10 LUMBAR DISC DISPLACEMENT 10/05/2015 TERRENCE HORN DO Ot V72.84 EXAM PRE-OPERATIVE NOS 10/05/2015 PIPER RICE MD Ot 724.02 SPINAL STENOSIS, LUMBAR REG, W/OUT NEURO 10/05/2015 BRANDI RAMOS Ot 272.4 HYPERLIPIDEMIA NEC/NOS 10/05/2015 BRANDI RAMOS Ot 397.0 TRICUSPID VALVE DISEASE 10/05/2015 BRANDI RAMOS Ot 401.9 HYPERTENSION NOS 10/05/2015 BRANDI RAMOS Ot 416.8 CHR PULMON HEART DIS NEC 10/05/2015 BRANDI RAMOS Ot 424.0 MITRAL VALVE DISORDER 10/05/2015 BRANDI RAMOS Ot 786.50 CHEST PAIN NOS 10/05/2015 RIZWAN CASTILLO MD Ot 401.9 HYPERTENSION NOS 10/05/2015 RIZWAN CASTILLO MD Ot 496 CHR AIRWAY OBSTRUCT NEC 10/05/2015 RIZWAN CASTILLO MD Ot 786.59 CHEST PAIN NEC 10/05/2015 RIZWAN CASTILLO MD Ot V45.89 POSTSURGICAL STATES NEC 10/05/2015 LEANN ARMENTA MD Ot M47.816 SPONDYLOSIS W/O MYELOPATHY OR RADICULOPA 10/05/2015 LEANN ARMENTA MD, Ot M53.3 SACROCOCCYGEAL DISORDERS, NOT ELSEWHERE 10/31/2015 LEANN ARMENTA MD, Ot M47.816 SPONDYLOSIS W/O MYELOPATHY OR RADICULOPA 10/31/2015 LEANN ARMENTA MD, Ot M53.3 SACROCOCCYGEAL DISORDERS, NOT ELSEWHERE 11/23/2015 LEANN ARMENTA MD, Ot M47.816 SPONDYLOSIS W/O MYELOPATHY OR RADICULOPA 11/23/2015 LEANN ARMENTA MD, Ot M53.3 SACROCOCCYGEAL DISORDERS, NOT ELSEWHERE 11/23/2015 LEANN ARMENTA MD Ot Z79.899 OTHER CLIENT SUPPORT MANAGER (CURRENT) DRUG THERAPY 01/03/2016 Ot 786.05 SHORTNESS OF BREATH 01/03/2016 Ot V72.84 EXAM PRE- OPERATIVE NOS 01/03/2016 Ot 719.45 JOINT PAIN- PELVIS 01/03/2016 Ot 959.6 HIP THIGH INJURY NOS 01/03/2016 Ot E000.8 OTHER EXTERNAL CAUSE STATUS 01/03/2016 Ot E849.0 ACCIDENT IN HOME 01/03/2016 Ot E888.9 FALL NOS 01/03/2016 PIPER RICE MD Ot 719.46 JOINT PAIN-L/LEG 01/03/2016 PIPER RICE MD Ot 722.10 LUMBAR DISC DISPLACEMENT 01/03/2016 KORY DO TERRENCE Ot V72.84 EXAM PRE-OPERATIVE NOS 01/03/2016 PIPER RICE MD Ot 724.02 SPINAL STENOSIS, LUMBAR REG, [...] CASTILLO MD Ot 401.9 HYPERTENSION NOS 01/03/2016 RIZWAN CASTILLO MD Ot 496 CHR AIRWAY OBSTRUCT NEC 01/03/2016 [...] 02/08/2016 Ot E888.9 FALL NOS 02/08/2016 PIPER RICE MD Ot 719.46 JOINT PAIN-L/LEG 02/08/2016 PIPER RICE MD Ot 722.10 LUMBAR DISC DISPLACEMENT 02/08/2016 TERRENCE HORN DO Ot V72.84 EXAM PRE-OPERATIVE NOS 02/08/2016 PIPER RICE MD Ot 724.02 SPINAL STENOSIS, LUMBAR REG, [...] 02/08/2016 Ot E888.9 FALL NOS 02/08/2016 PIPER RICE MD Ot 719.46 JOINT PAIN-L/LEG 02/08/2016 PIPER RICE MD Ot 722.10 LUMBAR DISC DISPLACEMENT 02/08/2016 TERRENCE HORN DO Ot V72.84 EXAM PRE-OPERATIVE NOS 02/08/2016 PIPER RICE MD Ot 724.02 SPINAL STENOSIS, LUMBAR REG, [...] M 05/12/2016 DARYN GAMEZ Ot Z79.899 OTHER CARE HOME (CURRENT) DRUG THERAPY 09/10/2016 Ot 786.05 SHORTNESS OF BREATH 09/10/2016 Ot V72.84 EXAM PRE- OPERATIVE NOS 09/10/2016 Ot 719.45 JOINT PAIN- PELVIS 09/10/2016 Ot 959.6 HIP THIGH INJURY NOS 09/10/2016 Ot E000.8 OTHER EXTERNAL CAUSE STATUS 09/10/2016 Ot E849.0 ACCIDENT IN HOME 09/10/2016 Ot E888.9 FALL NOS 09/10/2016 PIPER RICE MD Ot 719.46 JOINT PAIN-L/LEG 09/10/2016 PIPER RICE MD Ot 722.10 LUMBAR DISC DISPLACEMENT 09/10/2016 TERRENCE HORN DO Ot V72.84 EXAM PRE-OPERATIVE NOS 09/10/2016 PIPER RICE MD Ot 724.02 SPINAL STENOSIS, LUMBAR REG, [...] RIZWAN CASTILLO MD Ot R00.2 PALPITATIONS 09/10/2016 JONATHAN FULLER, RIZWAN Mojica Ot R53.83 OTHER FATIGUE 09/10/2016 LEANN ARMENTA MD Ot M25.551 PAIN IN RIGHT HIP 09/10/2016 LEANN ARMENTA MD Ot M48.06 SPINAL STENOSIS, LUMBAR REGION 09/10/2016 LEANN ARMENTA MD Ot M51.25 OTHER INTERVERTEBRAL DISC DISPLACEMENT, 09/10/2016 LEANN ARMENTA MD Ot M51.26 OTHER INTERVERTEBRAL DISC DISPLACEMENT, 09/17/2016 PIPER RICE MD Ot J44.9 CHRONIC OBSTRUCTIVE PULMONARY DISEASE, U 09/17/2016 PIPER RICE MD Ot J44.9 CHRONIC OBSTRUCTIVE PULMONARY DISEASE, U 09/17/2016 PIPER RICE MD Ot J44.9 CHRONIC OBSTRUCTIVE PULMONARY DISEASE, U 10/16/2016 PIPER RICE MD Ot R22.42 LOCALIZED SWELLING, MASS AND LUMP, LEFT 11/06/2016 PIPER RICE MD Ot R22.42 LOCALIZED SWELLING, MASS AND LUMP, LEFT 11/11/2016 PIPER RICE MD Ot R22.42 LOCALIZED SWELLING, MASS AND LUMP, LEFT 11/24/2016 PIPER RICE MD Ot J44.9 CHRONIC OBSTRUCTIVE PULMONARY DISEASE, U 12/04/2016 PIPER RICE MD Ot J44.9 CHRONIC OBSTRUCTIVE PULMONARY DISEASE, U 02/17/2017 LISSETT GOMES MD Ot D50.9 IRON DEFICIENCY ANEMIA, UNSPECIFIED 02/17/2017 LISSETT GOMES MD Ot Z88.0 ALLERGY STATUS TO PENICILLIN 02/17/2017 LISSETT GOMES MD Ot Z88.5 ALLERGY STATUS TO NARCOTIC AGENT STATUS 02/17/2017 LISSETT GOMES MD Ot Z88.6 ALLERGY STATUS [...] ANALGESIC AGENT STATUS 03/24/2017 LISSETT GOMES MD R Ot D50.9 IRON DEFICIENCY ANEMIA, UNSPECIFIED 03/24/2017 LISSETT GOMES MD R Ot Z88.0 ALLERGY STATUS TO PENICILLIN 03/24/2017 LISSETT GOMES MD R Ot Z88.5 ALLERGY STATUS TO NARCOTIC AGENT STATUS 03/24/2017 LISSETT GOMES MD R Ot Z88.6 ALLERGY STATUS TO ANALGESIC AGENT STATUS 03/27/2017 LISSETT GOMES MD R Ot D50.9 IRON DEFICIENCY ANEMIA, UNSPECIFIED 03/27/2017 LISSETT GOMES MD R Ot Z88.0 ALLERGY STATUS TO PENICILLIN 03/27/2017 LISSETT GOMES MD R Ot Z88.5 ALLERGY STATUS TO NARCOTIC AGENT STATUS 03/27/2017 LISSETT GOMES MD R Ot Z88.6 ALLERGY STATUS TO ANALGESIC AGENT STATUS 05/08/2017 Ot 719.45 JOINT PAIN- PELVIS 05/08/2017 Ot 959.6 HIP THIGH INJURY NOS 05/08/2017 Ot E000.8 OTHER EXTERNAL CAUSE STATUS 05/08/2017 Ot E849.0 ACCIDENT IN HOME 05/08/2017 Ot E888.9 FALL NOS 05/08/2017 PIPER RICE MD Ot 719.46 JOINT PAIN-L/LEG 05/08/2017 PIPER RICE MD Ot 722.10 LUMBAR DISC DISPLACEMENT 05/08/2017 TERRENCE HORN DO Ot V72.84 EXAM PRE-OPERATIVE NOS 05/08/2017 PIPER RICE MD Ot 724.02 SPINAL STENOSIS, LUMBAR REG, W/OUT NEURO 05/08/2017 BRANDI RAMOS Ot 272.4 HYPERLIPIDEMIA NEC/NOS 05/08/2017 BRANDI RAMOS Ot 397.0 TRICUSPID VALVE DISEASE 05/08/2017 BRANDI RAMOS Ot 401.9 HYPERTENSION NOS 05/08/2017 BRANDI RAMOS Ot 416.8 CHR PULMON HEART DIS NEC 05/08/2017 BRANDI RAMOS Ot 424.0 MITRAL VALVE DISORDER 05/08/2017 BRANDI RAMOS Ot 786.50 CHEST PAIN NOS 05/08/2017 RIZWAN CASTILLO MD Ot 401.9 HYPERTENSION NOS 05/08/2017 RIZWAN CASTILLO MD Ot 496 CHR AIRWAY OBSTRUCT NEC 05/08/2017 RIZWAN CASTILLO MD Ot 786.59 CHEST PAIN NEC 05/08/2017 RIZWAN CASTILLO MD Ot V45.89 POSTSURGICAL STATES NEC 05/08/2017 RIZWAN CASTILLO MD Ot E78.2 MIXED HYPERLIPIDEMIA 05/08/2017 RIZWAN CASTILLO MD Ot F32.9 MAJOR DEPRESSIVE DISORDER, SINGLE EPISOD 05/08/2017 RIZWAN CASTILLO MD Ot F41.9 ANXIETY DISORDER, UNSPECIFIED 05/08/2017 RIZWAN CASTILLO MD Ot I27.2 OTHER SECONDARY PULMONARY HYPERTENSION 05/08/2017 RIZWAN CASTILLO MD Ot J44.9 CHRONIC OBSTRUCTIVE PULMONARY DISEASE, U 05/08/2017 RIZWAN CASTILLO MD Ot R00.2 PALPITATIONS 05/08/2017 RIZWAN CASTILLO MD Ot R53.83 OTHER FATIGUE 05/08/2017 LEANN ARMENTA MD Ot M25.551 PAIN IN RIGHT HIP 05/08/2017 LEANN ARMENTA MD Ot M48.06 SPINAL STENOSIS, LUMBAR REGION 05/08/2017 LEANN ARMENTA MD Ot M51.25 OTHER INTERVERTEBRAL DISC DISPLACEMENT, 05/08/2017 LEANN ARMENTA MD Ot M51.26 OTHER INTERVERTEBRAL DISC DISPLACEMENT, 05/08/2017 PIPER RICE MD, Ot J44.9 CHRONIC OBSTRUCTIVE PULMONARY DISEASE, U 05/08/2017 PIPER RICE MD Ot R22.42 LOCALIZED SWELLING, MASS AND LUMP, LEFT 05/08/2017 LISSETT GOMES MD, Ot D50.9 IRON DEFICIENCY ANEMIA, UNSPECIFIED 05/08/2017 LISSETT GOMES MD, Ot Z88.0 ALLERGY STATUS TO PENICILLIN 05/08/2017 LISSETT GOMES MD Ot Z88.5 ALLERGY STATUS TO NARCOTIC AGENT STATUS 05/08/2017 LSISETT GOMES MD, Ot Z88.6 ALLERGY STATUS TO ANALGESIC AGENT STATUS 05/08/2017 PABLO MAYO MD Ot E86.0 DEHYDRATION 05/08/2017 PABLO MAYO MD, Ot F32.9 MAJOR DEPRESSIVE DISORDER, SINGLE EPISOD 05/08/2017 PABLO MAYO MD, Ot F41.9 ANXIETY DISORDER, UNSPECIFIED 05/08/2017 PABLO MAYO MD, Ot I10 ESSENTIAL (PRIMARY) HYPERTENSION 05/08/2017 PABLO MAYO MD, Ot J44.9 CHRONIC OBSTRUCTIVE PULMONARY DISEASE, U 05/08/2017 PABLO MAYO MD, Ot M47.9 SPONDYLOSIS, UNSPECIFIED 05/08/2017 PABLO MAYO MD, Ot N39.0 URINARY TRACT INFECTION, SITE NOT SPECIF 05/08/2017 PABLO MAYO MD Ot R11.2 NAUSEA WITH VOMITING, UNSPECIFIED 05/08/2017 PABLO MAYO MD, Ot Z87.19 PERSONAL HISTORY OF OTHER DISEASES OF TH 05/08/2017 PABLO MAYO MD, Ot Z88.0 ALLERGY STATUS TO PENICILLIN 05/08/2017 PABLO MAYO MD, Ot Z88.3 ALLERGY STATUS TO OTHER ANTI-INFECTIVE A 05/08/2017 PABLO MAYO MD, Ot Z88.5 ALLERGY STATUS TO NARCOTIC AGENT STATUS 05/08/2017 PABLO MAYO MD, Ot Z88.6 ALLERGY STATUS TO ANALGESIC AGENT STATUS 05/08/2017 PABLO MAYO MD, Ot Z88.8 ALLERGY STATUS TO OTH DRUG/MEDS/BIOL SUB 05/08/2017 PABLO MAYO MD, Ot Z90.710 ACQUIRED ABSENCE OF BOTH CERVIX AND UTER 05/08/2017 PABLO MAYO MD, Ot Z90.89 ACQUIRED ABSENCE OF OTHER ORGANS 05/08/[address] MD, PABLO D Ot Z91.048 OTHER NONMEDICINAL SUBSTANCE ALLERGY STA 05/08/2017 PABLO MAYO MD, Ot Z91.5 PERSONAL HISTORY OF SELF-HARM 05/11/2017 BENJAMÍN GRIFFITH MD Ot R19.8 OTH SYMPTOMS AND SIGNS INVOLVING THE DGS 05/13/2017 BENJAMÍN GRIFFITH MD Ot R19.8 OTH SYMPTOMS AND SIGNS INVOLVING THE DGS 05/14/2017 PABLO MAYO MD Ot E86.0 DEHYDRATION 05/14/2017 PABLO MAYO MD, Ot F32.9 MAJOR DEPRESSIVE DISORDER, SINGLE EPISOD 05/14/2017 PABLO MAYO MD, Ot F41.9 ANXIETY DISORDER, UNSPECIFIED 05/14/2017 PABLO MAYO MD, Ot I10 ESSENTIAL (PRIMARY) HYPERTENSION 05/14/2017 PABLO MAYO MD, Ot J44.9 CHRONIC OBSTRUCTIVE PULMONARY DISEASE, U 05/14/2017 PABLO MAYO MD, Ot M47.9 SPONDYLOSIS, UNSPECIFIED 05/14/2017 PABLO MAYO MD, Ot N39.0 URINARY TRACT INFECTION, SITE NOT SPECIF 05/14/2017 PABLO MAYO MD Ot R11.2 NAUSEA WITH VOMITING, UNSPECIFIED 05/14/2017 PABLO MAYO MD Ot Z87.19 PERSONAL HISTORY OF OTHER DISEASES OF TH 05/14/2017 PABLO MAYO MD Ot Z88.0 ALLERGY STATUS TO PENICILLIN 05/14/2017 PABLO MAYO MD, Ot Z88.3 ALLERGY STATUS TO OTHER ANTI-INFECTIVE A 05/14/2017 PABLO MAYO MD, Ot Z88.5 ALLERGY STATUS TO NARCOTIC AGENT STATUS 05/14/2017 PABLO MAYO MD, Ot Z88.6 ALLERGY STATUS TO ANALGESIC AGENT STATUS 05/14/2017 PABLO MAYO MD, Ot Z88.8 ALLERGY STATUS TO OTH DRUG/MEDS/BIOL SUB 05/14/2017 PABLO MAYO MD, Ot Z90.710 ACQUIRED ABSENCE OF BOTH CERVIX AND UTER 05/14/2017 PABLO MAYO MD Ot Z90.89 ACQUIRED ABSENCE OF OTHER ORGANS 05/14/2017 PABLO MAYO MD, Ot Z91.048 OTHER NONMEDICINAL SUBSTANCE ALLERGY STA 05/14/2017 GAEL FULLER PABLO Bernstein Ot Z91.5 PERSONAL HISTORY OF SELF-HARM 05/17/2017 ELISEO FULLER, LISSETT Carlos Ot D50.9 IRON DEFICIENCY ANEMIA, UNSPECIFIED 05/17/2017 EILSEO FULLER, LISSETT Carlos Ot Z88.0 ALLERGY STATUS TO PENICILLIN 05/17/2017 ELISEO FULLER, LISSETT Carlos Ot Z88.5 ALLERGY STATUS TO NARCOTIC AGENT STATUS 05/17/2017 LISSETT GOMES MD Ot Z88.6 ALLERGY STATUS TO ANALGESIC AGENT STATUS 05/18/2017 LISSETT GOMES MD Ot D50.9 IRON DEFICIENCY ANEMIA, UNSPECIFIED 05/18/2017 ELISEO FULLER, LISSETT Carlos Ot Z88.0 ALLERGY STATUS TO PENICILLIN 05/18/2017 LISSETT GOMES MD Ot Z88.5 ALLERGY STATUS TO NARCOTIC AGENT STATUS 05/18/2017 LISSETT GOMES MD Ot Z88.6 ALLERGY STATUS TO ANALGESIC AGENT STATUS 06/09/2017 NELLIE XIAO R INSTRUCTOR KNITTING Ot E04.2 NONTOXIC MULTINODULAR GOITER 06/30/2017 NELLIE, XIAO R INSTRUCTOR KNITTING Ot E04.2 NONTOXIC MULTINODULAR GOITER 07/06/2017 NELLIE, XIAO R INSTRUCTOR KNITTING Ot E04.2 NONTOXIC MULTINODULAR GOITER 07/08/2017 NELLIE XIAO R INSTRUCTOR KNITTING Ot E04.2 NONTOXIC MULTINODULAR GOITER 07/28/2017 HARVINDER, SACHIN L INSTRUCTOR KNITTING Ot E04.1 NONTOXIC SINGLE THYROID NODULE 07/28/2017 HARVINDER, SACHIN L INSTRUCTOR KNITTING Ot E04.1 NONTOXIC SINGLE THYROID NODULE 07/28/2017 HARVINDER, SACHIN L INSTRUCTOR KNITTING Ot E04.1 NONTOXIC SINGLE THYROID NODULE 07/28/2017 NELLIE XIAO R INSTRUCTOR KNITTING Ot E04.2 NONTOXIC MULTINODULAR GOITER 08/05/2017 NELLIE, XIAO R INSTRUCTOR KNITTING Ot E04.2 NONTOXIC MULTINODULAR GOITER 08/13/2017 HARVINDER, SACHIN L INSTRUCTOR KNITTING Ot E04.1 NONTOXIC SINGLE THYROID NODULE 08/17/2017 LISSETT GOMES MD Ot D50.9 IRON DEFICIENCY ANEMIA, UNSPECIFIED 08/17/2017 LISSETT GOMES MD Ot Z88.0 ALLERGY STATUS TO PENICILLIN 08/17/2017 LISSETT GOMES MD, Ot Z88.5 ALLERGY STATUS TO NARCOTIC AGENT STATUS 08/17/2017 LISSETT GOMES MD Ot Z88.6 ALLERGY STATUS TO ANALGESIC AGENT STATUS 08/18/2017 LORNA RODRIGUEZ MD, Ot Z01.818 ENCOUNTER FOR OTHER PREPROCEDURAL EXAMIN 08/18/2017 LORNA RODRIGUEZ MD, Ot Z01.818 ENCOUNTER FOR OTHER PREPROCEDURAL EXAMIN 08/19/2017 HARVINDERSACHIN APRN Ot E04.1 NONTOXIC SINGLE THYROID NODULE 08/22/2017 LORNA RODRIGUEZ MD Ot E04.2 NONTOXIC MULTINODULAR GOITER 08/22/2017 LORNA RODRIGUEZ MD, Ot E66.01 MORBID (SEVERE) OBESITY DUE TO EXCESS CA 08/22/2017 LORNA RODRIGUEZ MD, Ot E78.5 HYPERLIPIDEMIA, UNSPECIFIED 08/22/2017 LORNA RODRIGUEZ MD Ot F32.9 MAJOR DEPRESSIVE DISORDER, SINGLE EPISOD 08/22/2017 LORNA RODRIGUEZ MD Ot F41.9 ANXIETY DISORDER, UNSPECIFIED 08/22/2017 LORNA RODRIGUEZ MD Ot F43.10 POST-TRAUMATIC STRESS DISORDER, UNSPECIF 08/22/2017 LORNA RODRIGUEZ MD Ot I12.9 HYPERTENSIVE CHRONIC KIDNEY DISEASE W ST 08/22/2017 LORNA RODRIGUEZ MD, Ot I25.10 ATHSCL HEART DISEASE OF [place] CORONARY 08/22/2017 LORNA RODRIGUEZ MD, Ot J44.9 CHRONIC OBSTRUCTIVE PULMONARY DISEASE, U 08/22/2017 LORNA RODRIGUEZ MD, Ot J96.20 ACUTE AND CHR RESP FAILURE, UNSP W HYPOX 08/22/2017 LORNA RODRIGUEZ MD, Ot N18.3 CHRONIC KIDNEY DISEASE, STAGE 3 (MODERAT 08/22/2017 LORNA RODRIGUEZ MD Ot Z68.41 BODY MASS INDEX (BMI) 40.0-44.9, ADULT 08/23/2017 LORNA RODRIGUEZ MD Ot E04.2 NONTOXIC MULTINODULAR GOITER 08/23/2017 LORNA RODRIGUEZ MD Ot E66.01 MORBID (SEVERE) OBESITY DUE TO EXCESS CA 08/23/2017 LORNA RODRIGUEZ MD Ot E78.5 HYPERLIPIDEMIA, UNSPECIFIED 08/23/2017 LORNA RODRIGUEZ MD Ot F32.9 MAJOR DEPRESSIVE DISORDER, SINGLE EPISOD 08/23/2017 LORNA RODRIGUEZ MD Ot F41.9 ANXIETY DISORDER, UNSPECIFIED 08/23/2017 LORNA RODRIGUEZ MD Ot F43.10 POST-TRAUMATIC STRESS DISORDER, UNSPECIF 08/23/2017 LORNA RODRIGUEZ MD Ot I12.9 HYPERTENSIVE CHRONIC KIDNEY DISEASE W ST 08/23/2017 LORNA RODRIGUEZ MD Ot I25.10 ATHSCL HEART DISEASE OF [place] CORONARY 08/23/2017 LORNA RODRIGUEZ MD Ot J44.9 CHRONIC OBSTRUCTIVE PULMONARY DISEASE, U 08/23/2017 LORNA RODRIGUEZ MD Ot J96.20 ACUTE AND CHR RESP FAILURE, UNSP W HYPOX 08/23/2017 LORNA RODRIGUEZ MD, Ot N18.3 CHRONIC KIDNEY DISEASE, STAGE 3 (MODERAT 08/23/2017 LORNA RODRIGUEZ MD Ot Z68.41 BODY MASS INDEX (BMI) 40.0-44.9, ADULT 08/24/2017 LORNA RODRIGUEZ MD Ot E04.2 NONTOXIC MULTINODULAR GOITER 08/24/2017 LORNA RODRIGUEZ MD Ot E66.01 MORBID (SEVERE) OBESITY DUE TO EXCESS CA 08/24/2017 LORNA RODRIGUEZ MD Ot E78.5 HYPERLIPIDEMIA, UNSPECIFIED 08/24/2017 LORNA RODRIGUEZ MD Ot F32.9 MAJOR DEPRESSIVE DISORDER, SINGLE EPISOD 08/24/2017 LORNA RODRIGUEZ MD Ot F41.9 ANXIETY DISORDER, UNSPECIFIED 08/24/2017 LORNA RODRIGUEZ MD Ot F43.10 POST-TRAUMATIC STRESS DISORDER, UNSPECIF 08/24/2017 LORNA RODRIGUEZ MD Ot I12.9 HYPERTENSIVE CHRONIC KIDNEY DISEASE W ST 08/24/2017 LORNA RODRIGUEZ MD Ot I25.10 ATHSCL HEART DISEASE OF [place] CORONARY 08/24/2017 LORNA RODRIGUEZ MD Ot J44.9 CHRONIC OBSTRUCTIVE PULMONARY DISEASE, U 08/24/2017 LORNA RODRIGUEZ MD Ot J96.20 ACUTE AND CHR RESP FAILURE, UNSP W HYPOX 08/24/2017 LORNA RODRIGUEZ MD Ot N18.3 CHRONIC KIDNEY DISEASE, STAGE 3 (MODERAT 08/24/2017 LORNA RODRIGUEZ MD Ot Z68.41 BODY MASS INDEX (BMI) 40.0-44.9, ADULT 08/25/2017 LORNA RODRIGUEZ MD Ot E04.2 NONTOXIC MULTINODULAR GOITER 08/25/2017 LORNA RODRIGUEZ MD Ot E66.01 MORBID (SEVERE) OBESITY DUE TO EXCESS CA 08/25/2017 LORNA RODRIGUEZ MD, Ot E78.5 HYPERLIPIDEMIA, UNSPECIFIED 08/25/2017 LORNA RODRIGUEZ MD Ot F32.9 MAJOR DEPRESSIVE DISORDER, SINGLE EPISOD 08/25/2017 LORNA RODRIGUEZ MD Ot F41.9 ANXIETY DISORDER, UNSPECIFIED 08/25/2017 LORNA RODRIGUEZ MD Ot F43.10 POST-TRAUMATIC STRESS DISORDER, UNSPECIF 08/25/2017 LORNA RODRIGUEZ MD Ot I12.9 HYPERTENSIVE CHRONIC KIDNEY DISEASE W ST 08/25/2017 LORNA RODRIGUEZ MD Ot I25.10 ATHSCL HEART DISEASE OF [place] CORONARY 08/25/2017 LORNA RODRIGUEZ MD, Ot J44.9 CHRONIC OBSTRUCTIVE PULMONARY DISEASE, U 08/25/2017 LORNA RODRIGUEZ MD, Ot J96.20 ACUTE AND CHR RESP FAILURE, UNSP W HYPOX 08/25/2017 LORNA RODRIGUEZ MD, Ot N18.3 CHRONIC KIDNEY DISEASE, STAGE 3 (MODERAT 08/25/2017 LORNA RODRIGUEZ MD Ot Z68.41 BODY MASS INDEX (BMI) 40.0-44.9, ADULT 08/25/2017 LORNA RODRIGUEZ MD Ot E04.2 NONTOXIC MULTINODULAR GOITER 08/25/2017 LORNA RODRIGUEZ MD, Ot E66.01 MORBID (SEVERE) OBESITY DUE TO EXCESS CA 08/25/2017 LORNA RODRIGUEZ MD Ot E78.5 HYPERLIPIDEMIA, UNSPECIFIED 08/25/2017 LORNA RODRIGUEZ MD Ot F32.9 MAJOR DEPRESSIVE DISORDER, SINGLE EPISOD 08/25/2017 LORNA RODRIGUEZ MD Ot F41.9 ANXIETY DISORDER, UNSPECIFIED 08/25/2017 LORNA RODRIGUEZ MD Ot F43.10 POST-TRAUMATIC STRESS DISORDER, UNSPECIF 08/25/2017 LORNA RODRIGUEZ MD Ot I12.9 HYPERTENSIVE CHRONIC KIDNEY DISEASE W ST 08/25/2017 LORNA RODRIGUEZ MD Ot I25.10 ATHSCL HEART DISEASE OF [place] CORONARY 08/25/2017 LORNA RODRIGUEZ MD Ot J44.9 CHRONIC OBSTRUCTIVE PULMONARY DISEASE, U 08/25/2017 LORNA RODRIGUEZ MD Ot J96.20 ACUTE AND CHR RESP FAILURE, UNSP W HYPOX 08/25/2017 LORNA RODRIGUEZ MD Ot N18.3 CHRONIC KIDNEY DISEASE, STAGE 3 (MODERAT 08/25/2017 LORNA RODRIGUEZ MD Ot Z68.41 BODY MASS INDEX (BMI) 40.0-44.9, ADULT 08/25/2017 LORNA RODRIGUEZ MD Ot E04.2 NONTOXIC MULTINODULAR GOITER 08/25/2017 LORNA RODRIGUEZ MD Ot E66.01 MORBID (SEVERE) OBESITY DUE TO EXCESS CA 08/25/2017 LORNA RODRIGUEZ MD Ot E78.5 HYPERLIPIDEMIA, UNSPECIFIED 08/25/2017 LORNA RODRIGUEZ MD Ot F32.9 MAJOR DEPRESSIVE DISORDER, SINGLE EPISOD 08/25/2017 LORNA RODRIGUEZ MD Ot F41.9 ANXIETY DISORDER, UNSPECIFIED 08/25/2017 LORNA RODRIGUEZ MD Ot F43.10 POST-TRAUMATIC STRESS DISORDER, UNSPECIF 08/25/2017 LORNA RODRIGUEZ MD Ot I12.9 HYPERTENSIVE CHRONIC KIDNEY DISEASE W ST 08/25/2017 LORNA RODRIGUEZ MD Ot I25.10 ATHSCL HEART DISEASE OF [place] CORONARY 08/25/2017 LORNA RODRIGUEZ MD Ot J44.9 CHRONIC OBSTRUCTIVE PULMONARY DISEASE, U 08/25/2017 LORNA RODRIGUEZ MD Ot J96.20 ACUTE AND CHR RESP FAILURE, UNSP W HYPOX 08/25/2017 LORNA RODRIGUEZ MD Ot N18.3 CHRONIC KIDNEY DISEASE, STAGE 3 (MODERAT 08/25/2017 LORNA RODRIGUEZ MD Ot Z68.41 BODY MASS INDEX (BMI) 40.0-44.9, ADULT 08/26/2017 LORNA RODRIGUEZ MD Ot E04.2 NONTOXIC MULTINODULAR GOITER 08/26/2017 LORNA RODRIGUEZ MD Ot E66.01 MORBID (SEVERE) OBESITY DUE TO EXCESS CA 08/26/2017 LORNA RODRIGUEZ MD Ot E78.5 HYPERLIPIDEMIA, UNSPECIFIED 08/26/2017 LORNA RODRIGUEZ MD Ot F32.9 MAJOR DEPRESSIVE DISORDER, SINGLE EPISOD 08/26/2017 LORNA RODRIGUEZ MD Ot F41.9 ANXIETY DISORDER, UNSPECIFIED 08/26/2017 LORNA RODRIGUEZ MD Ot F43.10 POST-TRAUMATIC STRESS DISORDER, UNSPECIF 08/26/2017 LORNA RODRIGUEZ MD Ot I12.9 HYPERTENSIVE CHRONIC KIDNEY DISEASE W ST 08/26/2017 LORNA RODRIGUEZ MD Ot I25.10 ATHSCL HEART DISEASE OF [place] CORONARY 08/26/2017 LORNA RODRIGUEZ MD Ot J44.9 CHRONIC OBSTRUCTIVE PULMONARY DISEASE, U 08/26/2017 LORNA RODRIGUEZ MD Ot J96.20 ACUTE AND CHR RESP FAILURE, UNSP W HYPOX 08/26/2017 LORNA RODRIGUEZ MD Ot N18.3 CHRONIC KIDNEY DISEASE, STAGE 3 (MODERAT 08/26/2017 LORNA RODRIGUEZ MD Ot Z68.41 BODY MASS INDEX (BMI) 40.0-44.9, ADULT 08/26/2017 LORNA RODRIGUEZ MD Ot E04.2 NONTOXIC MULTINODULAR GOITER 08/26/2017 LORNA RODRIGUEZ MD Ot E66.01 MORBID (SEVERE) OBESITY DUE TO EXCESS CA 08/26/2017 LORNA RODRIGUEZ MD Ot E78.5 HYPERLIPIDEMIA, UNSPECIFIED 08/26/2017 LORNA RODRIGUEZ MD Ot F32.9 MAJOR DEPRESSIVE DISORDER, SINGLE EPISOD 08/26/2017 LORNA RODRIGUEZ MD Ot F41.9 ANXIETY DISORDER, UNSPECIFIED 08/26/2017 LORNA RODRIGUEZ MD Ot F43.10 POST-TRAUMATIC STRESS DISORDER, UNSPECIF 08/26/2017 LORNA RODRIGUEZ MD Ot I12.9 HYPERTENSIVE CHRONIC KIDNEY DISEASE W ST 08/26/2017 LORNA RODRIGUEZ MD Ot I25.10 ATHSCL HEART DISEASE OF [place] CORONARY 08/26/2017 LORNA RODRIGUEZ MD Ot J44.9 CHRONIC OBSTRUCTIVE PULMONARY DISEASE, U 08/26/2017 LORNA RODRIGUEZ MD Ot J96.20 ACUTE AND CHR RESP FAILURE, UNSP W HYPOX 08/26/2017 LORNA RODRIGUEZ MD Ot N18.3 CHRONIC KIDNEY DISEASE, STAGE 3 (MODERAT 08/26/2017 LORNA RODRIGUEZ MD Ot Z68.41 BODY MASS INDEX (BMI) 40.0-44.9, ADULT 08/26/2017 LORNA RODRIGUEZ MD Ot E04.2 NONTOXIC MULTINODULAR GOITER 08/26/2017 OLRNA RODRIGUEZ MD Ot E66.01 MORBID (SEVERE) OBESITY DUE TO EXCESS CA 08/26/2017 LORNA RODRIGUEZ MD Ot E78.5 HYPERLIPIDEMIA, UNSPECIFIED 08/26/2017 LORNA RODRIGUEZ MD Ot F32.9 MAJOR DEPRESSIVE DISORDER, SINGLE EPISOD 08/26/2017 LORNA RODRIGUEZ MD Ot F41.9 ANXIETY DISORDER, UNSPECIFIED 08/26/2017 LORNA RODRIGUEZ MD Ot F43.10 POST-TRAUMATIC STRESS DISORDER, UNSPECIF 08/26/2017 LORNA RODRIGUEZ MD Ot I12.9 HYPERTENSIVE CHRONIC KIDNEY DISEASE W ST 08/26/2017 LORNA RODRIGUEZ MD Ot I25.10 ATHSCL HEART DISEASE OF [place] CORONARY 08/26/2017 LORNA RODRIGUEZ MD Ot J44.9 CHRONIC OBSTRUCTIVE PULMONARY DISEASE, U 08/26/2017 LORNA RODRIGUEZ MD Ot J96.20 ACUTE AND CHR RESP FAILURE, UNSP W HYPOX 08/26/2017 LORNA RODRIGUEZ MD Ot N18.3 CHRONIC KIDNEY DISEASE, STAGE 3 (MODERAT 08/26/2017 LORNA RODRIGUEZ MD Ot Z68.41 BODY MASS INDEX (BMI) 40.0-44.9, ADULT 08/26/2017 LORNA RODRIGUEZ MD Ot E04.2 NONTOXIC MULTINODULAR GOITER 08/26/2017 LORNA RODRIGUEZ MD Ot E66.01 MORBID (SEVERE) OBESITY DUE TO EXCESS CA 08/26/2017 LORNA RODRIGUEZ MD Ot E78.5 HYPERLIPIDEMIA, UNSPECIFIED 08/26/2017 LORNA RODRIGUEZ MD Ot F32.9 MAJOR DEPRESSIVE DISORDER, SINGLE EPISOD 08/26/2017 LORNA RODRIGUEZ MD Ot F41.9 ANXIETY DISORDER, UNSPECIFIED 08/26/2017 LORNA RODRIGUEZ MD Ot F43.10 POST-TRAUMATIC STRESS DISORDER, UNSPECIF 08/26/2017 LORNA RODRIGUEZ MD Ot I12.9 HYPERTENSIVE CHRONIC KIDNEY DISEASE W ST 08/26/2017 LORNA RODRIGUEZ MD Ot I25.10 ATHSCL HEART DISEASE OF [place] CORONARY 08/26/2017 LORNA RODRIGUEZ MD Ot J44.9 CHRONIC OBSTRUCTIVE PULMONARY DISEASE, U 08/26/2017 LORNA RODRIGUEZ MD, Ot J96.20 ACUTE AND CHR RESP FAILURE, UNSP W HYPOX 08/26/2017 LORNA RODRIGUEZ MD, Ot N18.3 CHRONIC KIDNEY DISEASE, STAGE 3 (MODERAT 08/26/2017 LORNA RODRIGUEZ MD, Ot Z68.41 BODY MASS INDEX (BMI) 40.0-44.9, ADULT 08/27/2017 LORNA RODRIGUEZ MD, Ot E04.2 NONTOXIC MULTINODULAR GOITER 08/27/2017 LORNA RODRIGUEZ MD, Ot E66.01 MORBID (SEVERE) OBESITY DUE TO EXCESS CA 08/27/2017 LORNA RODRIGUEZ MD, Ot E78.5 HYPERLIPIDEMIA, UNSPECIFIED 08/27/2017 LORNA RODRIGUEZ MD, Ot F32.9 MAJOR DEPRESSIVE DISORDER, SINGLE EPISOD 08/27/2017 LORNA RODRIGUEZ MD, Ot F41.9 ANXIETY DISORDER, UNSPECIFIED 08/27/2017 LORNA RODRIGUEZ MD, Ot F43.10 POST-TRAUMATIC STRESS DISORDER, UNSPECIF 08/27/2017 LORNA RODRIGUEZ MD, Ot I12.9 HYPERTENSIVE CHRONIC KIDNEY DISEASE W ST 08/27/2017 LORNA RODRIGUEZ MD, Ot I25.10 ATHSCL HEART DISEASE OF [place] CORONARY 08/27/2017 LORNA RODRIGUEZ MD, Ot J44.9 CHRONIC OBSTRUCTIVE PULMONARY DISEASE, U 08/27/2017 LORNA RODRIGUEZ MD, Ot J96.20 ACUTE AND CHR RESP FAILURE, UNSP W HYPOX 08/27/2017 LORNA RODRIGUEZ MD, Ot N18.3 CHRONIC KIDNEY DISEASE, STAGE 3 (MODERAT 08/27/2017 LORNA RODRIGUEZ MD, Ot Z68.41 BODY MASS INDEX (BMI) 40.0-44.9, ADULT Procedures Code Description Performed By Performed On 45.16 08/28/2010 45.23 08/28/2010 Results Test Result Range Sed Rate - 02/20/16 16:10 Sed Rate 41 mm/hr 9-15 BNP - 04/30/16 19:22 BNP <10.00 pg/ml 0.00-100.00 Complete blood count (CBC) with automated white [...] POSITIVE NEGATIVE Urine propoxyphene detection NEGATIVE NEGATIVE BMP - 09/10/16 08:12 Anion Gap 14 6-14 BUN 17 mg/dL 5-25 Calcium 9.8 mg/dL 8.3-10.4 Chloride 103 mmol/L 95-114 CO2 30 mEq/L 22-33 Creat 1.14 mg/dL 0.50-1.50 eGFR 48 mL/min/1.73m2 >59 Glucose 111 mg/dL 70-110 Osmo 297 280-295 Potassium 4.3 mmol/L 3.5-5.3 Sodium 143 mmol/L 134-148 Complete blood count (CBC) with automated white [...] NRG Blood erythrocyte morphology finding identification NORMAL [facility] Comprehensive metabolic panel - 05/08/17 07:05 Serum [...] culture - 05/08/17 08:00 Bacterial urine culture [id number] NRG COLONY COUNT 10,000/ML - 100,000/ML NRG FTX;REPORTABLE SENSITIVITY NOT USUALLY PERFORMED FOR NRG URINE CULTURE RESULTS PLUS NRG FREE TEXT ENTRY 2 THIS ORGANISM. [facility] Bacterial susceptibility panel - 05/08/17 08:00 Gentamicin susceptibility test by minimum inhibitory concentration < = NRG Trimethoprim/sulfamethoxazole susceptibility test by minimum inhibitoryconcentration S NRG Ampicillin susceptibility test by minimum inhibitory concentration > = NRG Tobramycin susceptibility test by minimum inhibitory concentration < = NRG Cefazolin susceptibility test by minimum inhibitory concentration < = NRG Ceftriaxone susceptibility test by minimum inhibitory concentration <= NRG Ampicillin/sulbactam susceptibility test by minimum inhibitory concentration R NRG Piperacillin/tazobactam susceptibility test by minimum inhibitory concentration S NRG Ciprofloxacin susceptibility test by minimum inhibitory concentration <= NRG Meropenem susceptibility test by minimum inhibitory concentration < = NRG Nitrofurantoin susceptibility test by minimum inhibitory concentration <= NRG Aztreonam susceptibility test by minimum inhibitory concentration < = NRG Extended spectrum beta lactamase (ESBL) producing bacteria susceptibility test by minimum inhibitory concentration - [facility] Complete blood count (CBC) with automated white blood cell (WBC) differential - 08/20/17 10:35 Blood leukocytes automated count (number/volume) 9.7 10*3/uL 4.3-11.0 Blood erythrocytes automated count (number/volume) 4.40 10*6/uL 4.35-5.85 Venous blood hemoglobin measurement (mass/volume) 13.4 g/dL 11.5-16.0 Blood hematocrit (volume fraction) 40 % 35-52 Automated erythrocyte mean corpuscular volume 91 [foz_us] 80-99 Automated erythrocyte mean corpuscular hemoglobin (mass per erythrocyte) 31 pg 25-34 Automated erythrocyte mean corpuscular hemoglobin concentration measurement ( mass/volume) 34 g/dL 32-36 Automated erythrocyte distribution width ratio 15.2 % 10.0-14.5 Automated blood platelet count (count/volume) 322 10*3/uL 130-400 Automated blood platelet mean volume measurement 9.9 [foz_us] 7.4-10.4 Automated blood neutrophils/100 leukocytes 56 % 42-75 Automated blood lymphocytes/100 leukocytes 33 % 12-44 Blood monocytes/100 leukocytes 9 % 0-12 Automated blood eosinophils/100 leukocytes 2 % 0-10 Automated blood basophils/100 leukocytes 0 % 0-10 Blood neutrophils automated count (number/volume) 5.5 10*3 1.8-7.8 Blood lymphocytes automated count (number/volume) 3.2 10*3 1.0-4.0 Blood monocytes automated count (number/volume) 0.8 10*3 0.0-1.0 Automated eosinophil count 0.2 10*3/uL 0.0-0.3 Automated blood basophil count (count/volume) 0.0 10*3/uL 0.0-0.1 Whole blood basic metabolic panel - 08/20/17 10:35 Serum or plasma sodium measurement (moles/volume) 141 mmol/L 135-145 Serum or plasma potassium measurement (moles/volume) 4.3 mmol/L 3.6-5.0 Serum or plasma chloride measurement (moles/volume) 107 mmol/L 98-107 Carbon dioxide 23 mmol/L 21-32 Serum or plasma anion gap determination (moles/volume) 11 mmol/L 5-14 Serum or plasma urea nitrogen measurement (mass/volume) 15 mg/dL 7-18 Serum or plasma creatinine measurement (mass/volume) 1.02 mg/dL 0.60-1.30 Serum or plasma urea nitrogen/creatinine mass ratio 15 NRG Serum or plasma creatinine measurement with calculation of estimated glomerular filtration rate 55 NRG Serum or plasma glucose measurement (mass/volume) 97 mg/dL 70-105 Serum or plasma calcium measurement (mass/volume) 9.6 mg/dL 8.5-10.1 Methicillin resistant Staphylococcus aureus (MRSA) screening culture - 11:25 Methicillin resistant Staphylococcus aureus (MRSA) screening culture NEG NRG Arterial blood gas measurement - 08/20/17 16:58 Blood pCO2 41 mm[Hg] 35-45 Blood pO2 94 mm[Hg] 79-93 Arterial blood bicarbonate measurement (moles/volume) 22 mmol/L 23-27 Arterial blood base excess by calculation -2.6 mmol/L - 2.5-2.5 Arterial blood oxygen saturation measurement 98 % 94-100 * Inhaled oxygen flow rate 40% NRG Arterial blood pH measurement with patient temperature correction 7.35 7.37-7.43 Arterial blood carbon dioxide, total measurement (moles/volume) 23.6 mmol/L 21.0-31.0 Body site RT RAD NRG Assessment of wrist artery patency prior to arterial puncture YES- POS NRG Setting of ventilation mode NO NRG Measurement of body temperature 97.0 NRG Arterial blood gas measurement - 08/20/17 20:49 Blood pCO2 37 mm[Hg] 35-45 Blood pO2 80 mm[Hg] 79-93 Arterial blood bicarbonate measurement (moles/volume) 21 mmol/L 23-27 Arterial blood base excess by calculation -3.9 mmol/L - 2.5-2.5 Arterial blood oxygen saturation measurement 97 % 94-100 * Inhaled oxygen flow rate 50% NRG Arterial blood pH measurement with patient temperature correction 7.36 7.37-7.43 Arterial blood carbon dioxide, total measurement (moles/volume) 21.9 mmol/L 21.0-31.0 Body site RT RAD NRG Assessment of wrist artery patency prior to arterial puncture YES- POS NRG Setting of ventilation mode YES NRG Measurement of body temperature 97.1 NRG Complete blood count (CBC) with automated white blood cell (WBC) differential - 08/21/17 03:37 Blood leukocytes automated count (number/volume) 15.6 10*3/uL 4.3-11.0 Blood erythrocytes automated count (number/volume) 4.20 10*6/uL 4.35-5.85 Venous blood hemoglobin measurement (mass/volume) 12.7 g/dL 11.5-16.0 Blood hematocrit (volume fraction) 38 % 35-52 Automated erythrocyte mean corpuscular volume 91 [foz_us] 80-99 Automated erythrocyte mean corpuscular hemoglobin (mass per erythrocyte) 30 pg 25-34 Automated erythrocyte mean corpuscular hemoglobin concentration measurement ( mass/volume) 33 g/dL 32-36 Automated erythrocyte distribution width ratio 15.4 % 10.0-14.5 Automated blood platelet count (count/volume) 289 10*3/uL 130-400 Automated blood platelet mean volume measurement 10.1 [foz_us] 7.4-10.4 Automated blood neutrophils/100 leukocytes 87 % 42-75 Automated blood lymphocytes/100 leukocytes 9 % 12-44 Blood monocytes/100 leukocytes 4 % 0-12 Automated blood eosinophils/100 leukocytes 0 % 0-10 Automated blood basophils/100 leukocytes 0 % 0-10 Blood neutrophils automated count (number/volume) 13.6 10*3 1.8-7.8 Blood lymphocytes automated count (number/volume) 1.4 10*3 1.0-4.0 Blood monocytes automated count (number/volume) 0.7 10*3 0.0-1.0 Automated eosinophil count 0.0 10*3/uL 0.0-0.3 Automated blood basophil count (count/volume) 0.0 10*3/uL 0.0-0.1 Whole blood basic metabolic panel - 08/21/17 03:37 Serum or plasma sodium measurement (moles/volume) 142 mmol/L 135-145 Serum or plasma potassium measurement (moles/volume) 4.3 mmol/L 3.6-5.0 Serum or plasma chloride measurement (moles/volume) 109 mmol/L 98-107 Carbon dioxide 18 mmol/L 21-32 Serum or plasma anion gap determination (moles/volume) 15 mmol/L 5-14 Serum or plasma urea nitrogen measurement (mass/volume) 18 mg/dL 7-18 Serum or plasma creatinine measurement (mass/volume) 1.06 mg/dL 0.60-1.30 Serum or plasma urea nitrogen/creatinine mass ratio 17 NRG Serum or plasma creatinine measurement with calculation of estimated glomerular filtration rate 53 NRG Serum or plasma glucose measurement (mass/volume) 172 mg/dL 70-105 Serum or plasma calcium measurement (mass/volume) 9.5 mg/dL 8.5-10.1 Serum or plasma phosphate measurement (mass/volume) - 08/21/17 03:37 Serum or plasma phosphate measurement (mass/volume) 3.3 mg/dL 2.3-4.7 Magnesium - 08/21/17 03:37 Magnesium 2.0 mg/dL 1.8-2.4 Arterial blood gas measurement - 08/21/17 05:35 Blood pCO2 39 mm[Hg] 35-45 Blood pO2 71 mm[Hg] 79-93 Arterial blood bicarbonate measurement (moles/volume) 22 mmol/L 23-27 Arterial blood base excess by calculation -2.5 mmol/L - 2.5-2.5 Arterial blood oxygen saturation measurement 95 % 94-100 * Inhaled oxygen flow rate 30% NRG Arterial blood pH measurement with patient temperature correction 7.37 7.37-7.43 Arterial blood carbon dioxide, total measurement (moles/volume) 23.3 mmol/L 21.0-31.0 Body site R RAD NRG Assessment of wrist artery patency prior to arterial puncture YES- POS NRG Setting of ventilation mode YES NRG Measurement of body temperature 97.5 NRG Arterial blood gas measurement - 08/22/17 03:35 Blood pCO2 42 mm[Hg] 35-45 Blood pO2 63 mm[Hg] 79-93 Arterial blood bicarbonate measurement (moles/volume) 26 mmol/L 23-27 Arterial blood base excess by calculation 1.1 mmol/L -2.5 -2.5 Arterial blood oxygen saturation measurement 93 % 94-100 * Inhaled oxygen flow rate 30% NRG Arterial blood pH measurement with patient temperature correction 7.40 7.37-7.43 Arterial blood carbon dioxide, total measurement (moles/volume) 26.8 mmol/L 21.0-31.0 Body site R RAD NRG Assessment of wrist artery patency prior to arterial puncture YES- POS NRG Setting of ventilation mode YES NRG Measurement of body temperature 97.9 NRG Complete blood count (CBC) with automated white blood cell (WBC) differential - 08/22/17 03:39 Blood leukocytes automated count (number/volume) 18.0 10*3/uL 4.3-11.0 Blood erythrocytes automated count (number/volume) 3.98 10*6/uL 4.35-5.85 Venous blood hemoglobin measurement (mass/volume) 12.3 g/dL 11.5-16.0 Blood hematocrit (volume fraction) 38 % 35-52 Automated erythrocyte mean corpuscular volume 96 [foz_us] 80-99 Automated erythrocyte mean corpuscular hemoglobin (mass per erythrocyte) 31 pg 25-34 Automated erythrocyte mean corpuscular hemoglobin concentration measurement ( mass/volume) 32 g/dL 32-36 Automated erythrocyte distribution width ratio 16.6 % 10.0-14.5 Automated blood platelet count (count/volume) 221 10*3/uL 130-400 Automated blood platelet mean volume measurement 10.3 [foz_us] 7.4-10.4 Automated blood neutrophils/100 leukocytes 85 % 42-75 Automated blood lymphocytes/100 leukocytes 6 % 12-44 Blood monocytes/100 leukocytes 9 % 0-12 Automated blood eosinophils/100 leukocytes 0 % 0-10 Automated blood basophils/100 leukocytes 0 % 0-10 Blood neutrophils automated count (number/volume) 15.4 10*3 1.8-7.8 Blood lymphocytes automated count (number/volume) 1.1 10*3 1.0-4.0 Blood monocytes automated count (number/volume) 1.5 10*3 0.0-1.0 Automated eosinophil count 0.0 10*3/uL 0.0-0.3 Automated blood basophil count (count/volume) 0.0 10*3/uL 0.0-0.1 Blood manual differential performed detection - 08/22/17 03:39 Blood monocytes/100 leukocytes 3 % NRG Manual blood segmented neutrophils/100 leukocytes 90 % NRG Blood band neutrophils/100 leukocytes 0 % NRG Manual blood lymphocytes/100 leukocytes 7 % NRG Manual eosinophils/100 leukocytes in nose 0 % NRG Manual blood basophils/100 leukocytes 0 % NRG Blood smudge cells detection by light microscopy SLIGHT NRG Blood anisocytosis detection by light microscopy SLIGHT NRG Blood toxic granules detection by light microscopy 1+ NRG Blood target cells detection by light microscopy SLIGHT NRG Blood stomatocytes detection by light microscopy SLIGHT NRG Whole blood basic metabolic panel - 08/22/17 03:39 Serum or plasma sodium measurement (moles/volume) 145 mmol/L 135-145 Serum or plasma potassium measurement (moles/volume) 4.2 mmol/L 3.6-5.0 Serum or plasma chloride measurement (moles/volume) 111 mmol/L 98-107 Carbon dioxide 17 mmol/L 21-32 Serum or plasma anion gap determination (moles/volume) 17 mmol/L 5-14 Serum or plasma urea nitrogen measurement (mass/volume) 18 mg/dL 7-18 Serum or plasma creatinine measurement (mass/volume) 0.93 mg/dL 0.60-1.30 Serum or plasma urea nitrogen/creatinine mass ratio 19 NRG Serum or plasma creatinine measurement with calculation of estimated glomerular filtration rate > NRG Serum or plasma glucose measurement (mass/volume) 169 mg/dL 70-105 Serum or plasma calcium measurement (mass/volume) 9.5 mg/dL 8.5-10.1 Serum or plasma phosphate measurement (mass/volume) - 08/22/17 03:39 Serum or plasma phosphate measurement (mass/volume) 2.6 mg/dL 2.3-4.7 Magnesium - 08/22/17 03:39 Magnesium 2.2 mg/dL 1.8-2.4 Serum or plasma triglyceride measurement (mass/volume) - 08/22/17 08:52 Serum or plasma triglyceride measurement (mass/volume) 289 mg/dL <150 Capillary blood glucose measurement by glucometer (mass/volume) - 08/22/17 12: 01 Capillary blood glucose measurement by glucometer (mass/volume) 193 mg/dL 70-110 Capillary blood glucose measurement by glucometer (mass/volume) - 08/22/17 18: 02 Capillary blood glucose measurement by glucometer (mass/volume) 201 mg/dL 70-110 Capillary blood glucose measurement by glucometer (mass/volume) - 08/22/17 23: 45 Capillary blood glucose measurement by glucometer (mass/volume) 168 mg/dL 70-110 Arterial blood gas measurement - 08/23/17 03:10 Blood pCO2 41 mm[Hg] 35-45 Blood pO2 72 mm[Hg] 79-93 Arterial blood bicarbonate measurement (moles/volume) 28 mmol/L 23-27 Arterial blood base excess by calculation 3.8 mmol/L -2.5 -2.5 Arterial blood oxygen saturation measurement 95 % 94-100 * Inhaled oxygen flow rate 30% NRG Arterial blood pH measurement with patient temperature correction 7.44 7.37-7.43 Arterial blood carbon dioxide, total measurement (moles/volume) 29.1 mmol/L 21.0-31.0 Body site R RAD NRG Assessment of wrist artery patency prior to arterial puncture YES- POS NRG Setting of ventilation mode YES NRG Measurement of body temperature 97.9 NRG Complete blood count (CBC) with automated white blood cell (WBC) differential - 08/23/17 03:10 Blood leukocytes automated count (number/volume) 14.2 10*3/uL 4.3-11.0 Blood erythrocytes automated count (number/volume) 3.92 10*6/uL 4.35-5.85 Venous blood hemoglobin measurement (mass/volume) 11.9 g/dL 11.5-16.0 Blood hematocrit (volume fraction) 37 % 35-52 Automated erythrocyte mean corpuscular volume 93 [foz_us] 80-99 Automated erythrocyte mean corpuscular hemoglobin (mass per erythrocyte) 30 pg 25-34 Automated erythrocyte mean corpuscular hemoglobin concentration measurement ( mass/volume) 33 g/dL 32-36 Automated erythrocyte distribution width ratio 16.3 % 10.0-14.5 Automated blood platelet count (count/volume) 267 10*3/uL 130-400 Automated blood platelet mean volume measurement 10.8 [foz_us] 7.4-10.4 Automated blood neutrophils/100 leukocytes 89 % 42-75 Automated blood lymphocytes/100 leukocytes 5 % 12-44 Blood monocytes/100 leukocytes 5 % 0-12 Automated blood eosinophils/100 leukocytes 0 % 0-10 Automated blood basophils/100 leukocytes 0 % 0-10 Blood neutrophils automated count (number/volume) 12.7 10*3 1.8-7.8 Blood lymphocytes automated count (number/volume) 0.8 10*3 1.0-4.0 Blood monocytes automated count (number/volume) 0.7 10*3 0.0-1.0 Automated eosinophil count 0.0 10*3/uL 0.0-0.3 Automated blood basophil count (count/volume) 0.0 10*3/uL 0.0-0.1 Whole blood basic metabolic panel - 08/23/17 03:10 Serum or plasma sodium measurement (moles/volume) 145 mmol/L 135-145 Serum or plasma potassium measurement (moles/volume) 3.9 mmol/L 3.6-5.0 Serum or plasma chloride measurement (moles/volume) 109 mmol/L 98-107 Carbon dioxide 24 mmol/L 21-32 Serum or plasma anion gap determination (moles/volume) 12 mmol/L 5-14 Serum or plasma urea nitrogen measurement (mass/volume) 17 mg/dL 7-18 Serum or plasma creatinine measurement (mass/volume) 0.78 mg/dL 0.60-1.30 Serum or plasma urea nitrogen/creatinine mass ratio 22 NRG Serum or plasma creatinine measurement with calculation of estimated glomerular filtration rate > NRG Serum or plasma glucose measurement (mass/volume) 181 mg/dL 70-105 Serum or plasma calcium measurement (mass/volume) 9.0 mg/dL 8.5-10.1 Serum or plasma phosphate measurement (mass/volume) - 08/23/17 03:10 Serum or plasma phosphate measurement (mass/volume) 3.0 mg/dL 2.3-4.7 Magnesium - 08/23/17 03:10 Magnesium 2.3 mg/dL 1.8-2.4 Serum or plasma thyroxine (T4) free measurement (mass/volume) - 08/23/17 03:10 Serum or plasma thyroxine (T4) free measurement (mass/volume) 0.89 ng/dL 0.70-1.48 Capillary blood glucose measurement by glucometer (mass/volume) - 08/23/17 10: 56 Capillary blood glucose measurement by glucometer (mass/volume) 153 mg/dL 70-110 Capillary blood glucose measurement by glucometer (mass/volume) - 08/23/17 19: 12 Capillary blood glucose measurement by glucometer (mass/volume) 131 mg/dL 70-110 Capillary blood glucose measurement by glucometer (mass/volume) - 08/24/17 00: 04 Capillary blood glucose measurement by glucometer (mass/volume) 148 mg/dL 70-110 Capillary blood glucose measurement by glucometer (mass/volume) - 08/24/17 12: 25 Capillary blood glucose measurement by glucometer (mass/volume) 161 mg/dL 70-110 Serum or plasma troponin i.cardiac measurement (mass/volume) - 08/24/17 16:04 Serum or plasma troponin i.cardiac measurement (mass/volume) < ng/ mL <0.30 Capillary blood glucose measurement by glucometer (mass/volume) - 08/24/17 18: 15 Capillary blood glucose measurement by glucometer (mass/volume) 195 mg/dL 70-110 Capillary blood glucose measurement by glucometer (mass/volume) - 08/25/17 12: 45 Capillary blood glucose measurement by glucometer (mass/volume) 118 mg/dL 70-110 Capillary blood glucose measurement by glucometer (mass/volume) - 08/25/17 18: 03 Capillary blood glucose measurement by glucometer (mass/volume) 124 mg/dL 70-110 Encounters ACCT No. Visit Date/Time Discharge Status Pt. Type Provider Facility Loc./Unit Complaint [id number] 06/09/2012 14:45:00 06/09/2012 23:59:59 CLS Outpatient [id number] 06/07/2012 15:33:00 06/07/2012 23:59:59 CLS Outpatient [id number] 04/06/2012 11:27:00 04/06/2012 23:59:59 CLS Outpatient FER EPPERSON MILY DESMOND [id number] 12/18/2011 09:26:00 12/18/2011 23:59:59 CLS Outpatient MONROE INSTRUCTOR KNITTINGMILY [id number] 08/12/2012 10:46:00 Document Registration [id number] 08/05/2017 10:17:00 08/05/2017 23:59:00 DIS Outpatient XIAO BALLARD [id number] 10/22/2016 00:00:00 10/22/2016 23:59:00 DIS Outpatient Piper Rice [id number] 09/10/2016 08:07:00 09/10/2016 23:59:00 DIS Outpatient Piper Rice [id number] 07/24/2016 09:45:00 07/24/2016 23:59:00 DIS Outpatient Piper Rice [id number] 05/01/2016 07:35:00 05/01/2016 07:35:00 CAN Outpatient Piper Rice [id number] 04/30/2016 19:21:00 04/30/2016 23:59:00 DIS Outpatient Piper Rice [id number] 02/20/2016 18:55:00 02/20/2016 23:59:00 DIS Outpatient Piper Rice [id number] 08/25/2017 14:09:00 08/25/2017 23:59:59 CLS Preadmit MILES ANGELES DO [facility] RAD POST LAMINECTOMY CHRONIC PAIN [id number] 08/20/2017 09:57:00 08/20/2017 23:59:59 CLS Outpatient LORNA RODRIGUEZ MD [facility] 4TH RESPIRATORY DISTRESS [id number] 08/17/2017 05:38:00 08/17/2017 14:05:00 DIS Outpatient LRONA RODRIGUEZ MD [facility] PREOP BILATERAL THYROID MASS [id number] 07/22/2017 13:23:00 07/22/2017 23:59:59 CLS Outpatient SACHIN BLANTON APRN [facility] RAD LT THYROID MASS [id number] 07/08/2017 11:30:00 07/08/2017 23:59:59 CLS Preadmit XIAO BALLARD APRN [facility] CARD [id number] 07/07/2017 11:36:00 07/07/2017 23:59:59 CLS Outpatient XIAO BALLARD APRN [facility] CARD [id number] 06/08/2017 10:55:00 06/08/2017 23:59:59 CLS Outpatient XIAO BALLARD APRN [facility] RAD LEFT THYROID NODULE [id number] 05/18/2017 00:23:00 05/18/2017 23:59:59 CLS Preadmit LISSETT GOMES MD [facility] IRON DEFICIENCY [id number] 02/20/2017 12:47:00 05/17/2017 00:01:00 DIS Outpatient LISSETT GOMES MD [facility] IRON DEFICIENCY [id number] 05/11/2017 10:58:00 05/11/2017 12:22:00 DIS Emergency BENJAMÍN GRIFFITH MD [facility] ER CAN'T KEEP FOOD DOWN,DT FROM NARCOTIC WITHDRAWAL [id number] 05/08/2017 05:23:00 05/08/2017 09:26:00 DIS Emergency PABLO MAYO MD [facility] ER VOMITING,FEVER- LOW GRADE,DIARRHEA [id number] 10/22/2016 15:30:00 10/22/2016 23:59:59 CLS Preadmit PIPER RICE MD [facility] RT COPD [id number] 10/16/2016 14:55:00 10/16/2016 23:59:59 CLS Outpatient PIPER RICE MD [facility] RAD LT LEG SWELLING [id number] 09/12/2016 14:03:00 09/12/2016 23:59:59 CLS Outpatient PIPER RICE MD [facility] RT COPD J44.9 [id number] 05/12/2016 15:14:00 05/12/2016 20:46:00 DIS Emergency DARYN GAMEZ [facility] ER DIZZINESS [id number] 03/14/2016 13:22:00 03/14/2016 14:08:00 DIS Outpatient LEANN ARMENTA MD [facility] CARD DISC DISORDER [id number] 03/03/2016 10:18:00 03/03/2016 23:59:59 CLS Outpatient RIZWAN CASTILLO MD [facility] CARD ANXIETY,COPD,HEART PALPITATIONS [id number] 02/08/2016 10:12:00 02/08/2016 11:14:00 DIS Outpatient LEANN ARMENTA MD [facility] CARD DISC DISORDER [id number] 01/03/2016 12:25:00 01/03/2016 23:59:59 CLS Outpatient LEANN ARMENTA MD [facility] RAD LOW BACK PAIN [id number] 11/23/2015 10:42:00 11/23/2015 11:59:00 DIS Outpatient LEANN ARMENTA MD [facility] CARD SPONDYLOSIS [id number] 10/05/2015 09:27:00 10/05/2015 10:39:00 DIS Outpatient LEANN ARMENTA MD [facility] CARD SACROCOCCYGEAL DISORDERS [id number] 06/25/2015 10:36:00 06/25/2015 12:26:00 DIS Outpatient LEANN ARMENTA MD [facility] 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 [id number] 05/21/2015 13:28:00 05/21/2015 14:11:00 DIS Outpatient LEANN ARMENTA MD [facility] CARD SACROLIAC JOINT DISORDER [id number] 12/15/2014 07:20:00 12/15/2014 23:59:59 CLS Outpatient RIZWAN CASTILLO MD [facility] LAB CP,CHOLEYSTECTOMY,HTN, COPD [id number] 12/29/2013 08:27:00 12/29/2013 23:59:59 CLS Outpatient BRANDI RAMOS [facility] CARD CP,HLP [id number] 12/09/2013 07:51:00 12/09/2013 23:59:59 CLS Outpatient PIPER RICE MD [facility] RAD CHRONIC PAIN WITH RADICULOPATHY [id number] 12/01/2013 11:39:00 12/01/2013 15:00:00 DIS Outpatient TERRENCE HORN DO [facility] SDC GERD [id number] 11/30/2013 07:31:00 11/30/2013 23:59:59 CLS Outpatient TERRENCE HORN DO [facility] PREOP GERD [id number] 06/23/2013 09:47:00 06/23/2013 23:59:59 CLS Outpatient PIPER RICE MD [facility] RAD INCREASING LBP [id number] 05/25/2013 14:33:00 05/25/2013 20:47:00 DIS Emergency SHELBY SOSA DO [place] [facility] ER OVERDOSE [id number] 08/31/2012 07:57:00 09/14/2012 13:30:00 DIS Outpatient PIPER RICE MD [facility] REHAB R HIP PAIN [id number] 12/15/2014 07:22:00 Document Registration [id number] 12/15/2014 07:22:00 Document Registration [id number] 06/30/2012 10:03:00 Document Registration [id number] 11/17/2011 10:18:00 Document Registration [id number] 11/14/2011 08:21:00 Document Registration [id number] 07/07/2011 12:16:00 Document Registration [id number] 12/27/2010 12:24:00 Document Registration [id number] 03/26/2010 13:20:00 Document Registration [id number] 03/05/2010 08:53:00 Document Registration [id number] 08/10/2009 11:58:00 Document Registration [id number] 04/07/2017 13:00:00 04/07/2017 23:59:59 CLS Outpatient LUIS WATT CECY
--- NOTE | 2017-08-29 10:27 | ED General ---
General Stated Complaint: WEAK, SOB, Source of Information: Patient (VERY LIMITED DUE TO PT UNABLE TO SPEAK WITH TRACH IN PLACE--NODS HEAD YES/NO AND DOES WRITE SOME RESPONSES. ), Family, Old Records History of Present Illness Date Seen by Provider: Aug 29, 2017 Time Seen by Provider: 10:11 Initial Comments PT ARRIVES VIA POV FROM HOME PT WAS DISMISSED FROM THE HOSPITAL YESTERDAY PT HAD THYROIDECTOMY AND SUBSEQUENT TRACH PLACEMENT DUE TO VOCAL CORD DYSFUNCTION AND RESPIRATORY DISTRESS DESPITE EXTENSIVE TEACHING TO PATIENT, CAREGIVERS, AND HOME HEALTH, PT AND MALE S.O. AND OTHER CARETAKERS CANNOT CARE FOR HER AT HOME PT PULLED/COUGHED OUT HER TRACH LAST NIGHT, AND NEW ONE WAS PUT BACK IN AT 0100 STATES THEY WERE SENT TO ER BY DR. NESS SO SHE COULD BE ADMITTED TO HOSPITAL SO SHE CAN GO TO LONG TERM. PCP: JHOANA Allergies and Home Medications Allergies Coded Allergies: Penicillins (Unverified Allergy, Severe, ANAPHYLAXIS, 08/28/10) aspirin (Unverified Allergy, Mild, RASH, 08/28/10) gabapentin (Verified Allergy, Unknown, 08/17/17) iodine (Unverified Allergy, Unknown, RASH, 12/01/13) morphine (Unverified Allergy, Unknown, "MAKES GO OUT", 12/01/13) pramipexole (Verified Allergy, Unknown, HIVES, 08/17/17) codeine (Unverified Adverse Reaction, Mild, N/V, 08/28/10) acetaminophen (Unverified Adverse Reaction, Unknown, 05/12/16) adhesive tape (Unverified Adverse Reaction, Unknown, 05/12/16) ibuprofen (Unverified Adverse Reaction, Unknown, 05/12/16) niacin (Unverified Adverse Reaction, Unknown, 05/12/16) propoxyphene (Unverified Adverse Reaction, Unknown, 05/12/16) Uncoded Allergies: ANTIDEPRESSANTS (Allergy, Unknown, MAKES SUICIDAL, 12/01/13) Home Medications Acetaminophen 500 Mg Tablet, 1,000 MG PO Q6H PRN for PAIN-MILD, (Reported) TAKE 2 (500MG) TABS Albuterol Sulfate 1 Puff Puff, 2 PUFF IH Q6H PRN for SHORTNESS OF BREATH, ( Reported) 1 PUFF = 90 MCG Albuterol Sulfate 2.5 Mg/3 Ml Vial.neb, 2.5 MG NEB Q6H PRN for SHORTNESS OF BREATH, (Reported) Allopurinol 100 Mg Tablet, 100 MG PO DAILY, (Reported) Atenolol 50 Mg Tablet, 50 MG PO DAILY, (Reported) Budesonide/Formoterol Fumarate 10.2 Gm Hfa.aer.ad, 1 PUFF IH BID, (Reported) Cetirizine HCl 10 Mg Tablet, 10 MG PO HS, (Reported) Clonidine HCl 0.1 Mg Tablet, 0.1 MG PO HS, (Reported) Diphenhydramine HCl 50 Mg Capsule, 50 MG PO HS, (Reported) Ferrous Sulfate 325 Mg Tablet, 325 MG PO 1200, (Reported) Fluticasone Propionate 16 Gm [place].susp, 1 SPRAY NS TID, (Reported) Furosemide 40 Mg Tablet, 40 MG PO DAILY, (Reported) Guaifenesin/Dextromethorphan 237 Ml Liquid, 2 TBS PO HS, (Reported) Hydrocodone Bit/Acetaminophen 1 Ea Tablet, 1-2 EA PO Q4H PRN for PAIN-MILD TO MODERATE Prescribed by: SACHIN BLANTON on 08/28/17 0944 Levothyroxine Sodium 88 Mcg Tablet, 88 MCG PO DAILY Prescribed by: TJ GIRALDO on 08/28/17 0852 Lisinopril 10 Mg Tablet, 10 MG PO DAILY, (Reported) Loperamide HCl 2 Mg Tablet, 2 MG PO UD PRN for DIARRHEA, (Reported) Loratadine 10 Mg Tablet, 10 MG PO DAILY, (Reported) Methocarbamol 750 Mg Tablet, 750 MG PO BID, (Reported) Nifedipine 60 Mg Tablet.er, 60 MG PO DAILY, (Reported) Ondansetron HCl 4 Mg Tablet, 4 MG PO Q4H PRN for NAUSEA/VOMITING-1ST LINE, ( Reported) Oxymetazoline HCl 30 Ml [place], 1 SPRAY NS BID, (Reported) Simvastatin 20 Mg Tablet, 20 MG PO HS, (Reported) Patient Home Medication List Home Medication List Reviewed: Yes Review of Systems Constitutional: No fever Respiratory: see HPI, cough, short of breath Cardiovascular: No chest pain Psychiatric/Neurological: Anxiety Past Iuecssv-Gvtyrn-Vmwuag Hx Patient Social History Alcohol Use: Rarely Uses Recreational Drug Use: No Smoking Status: Never a Smoker Recent Foreign Travel: No Contact w/Someone Who Travel: No Recent Hopitalizations: No Immunizations Up To Date Date of Pneumonia Vaccine: Dec 28, 2013 Date of Influenza Vaccine: Jan 16, 2017 Seasonal Allergies Seasonal Allergies: Yes Past Medical History Surgeries: Yes (HIATAL HERNIA REPAIR/DERIK FUNDOPLICATION, LUMBAR SPINE SURGERY WITH HARDWARE PLACEMENT X2; CERVICAL SPINE SURGERY WITH HARDWARE X 1; CARDIAC CATH -NO INTERVENTION 06/2011) Adenoidectomy, Gallbladder, Hysterectomy, Oophorectomy, Orthopedic, Thyroidectomy, Tonsillectomy, Tracheostomy Respiratory: Yes Chronic Bronchitis, COPD Cardiac: Yes (ENLARGED HEART, tachycardia; EPISODE OF A FIB WITH RVR DURING HOSPITALIZATION 08/20/17; MILD BILATERAL CAROTID STENOSIS) Atrial Fibrillation, Coronary Artery Disease, High Cholesterol, Hypertension, Palpitations Neurological: Yes (FEBRILE SEIZURES) Reproductive Disorders: No 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 History: Hysterectomy, Menopausal Genitourinary: Yes (CHRONIC KIDNEY DZ--NO DIALYSIS) Renal Failure Gastrointestinal: Yes (PEPTIC ULCER,S/P CHOLECYSTECTOMY ) Gastroesophageal Reflux, Diverticulosis, Hiatal Hernia, Ulcer, Gall Bladder Disease Musculoskeletal: Yes (OSTEOARTHRITIS; RESTLESS LEG SYNDROME; SPINAL STENOSIS; CHRONIC NECK AND BACK PAIN--S/P SURGERY X 3 ) Degenerate Disk Disease, Arthritis, Chronic Back Pain Endocrine: Yes (BILAT THYROID MASSES--S/P THYROIDECTOMY ; MORBID OBESITY) Cancer: Yes Skin What Type of Treatment Did You: Surgical Intervention Psychosocial: Yes (SCHIZOAFFECTIVE DISORDER) Anxiety, PTSD, Suicide Attempts, Personality Disorder, Depression Integumentary: No Blood Disorders: Yes (anemia) Family Medical History No Pertinent Family Hx Physical Exam Vital Signs Vital Signs - First Documented 08/29/17 08/29/17 10:35 13:00 Temp 98.1 Pulse 50 Resp 24 B/P (MAP) 139/82 (101) Pulse Ox 98 O2 Delivery Trach Collar O2 Flow Rate 10.00 FiO2 35 Capillary Refill : General Appearance: Anxious, Obese Neck: Other (TRACH SITE WITHIN NORMAL LIMITS. NO SIGNS OF INFECTION. MODERTE AMOUNT OF MUCOUS IN TUBE) Respiratory: Normal Breath Sounds, No Accessory Muscle Use, No Respiratory Distress Cardiovascular: Regular Rate, Rhythm, No Murmur Neurologic/Psychiatric: Alert, Oriented x3, No Motor/Sensory Deficits, Normal Mood/Affect, union carpenter II-XII Norm as Tested, Other (PT COMMUNICATES THROUGH WRITING) Skin: Normal Color, Warm/Dry Progress/Results/Core Measures Suspected Sepsis SIRS Temperature: Pulse: Respiratory Rate: Laboratory Tests 08/29/17 11:06: White Blood Count 16.3H Blood Pressure / Mean: Laboratory Tests 08/29/17 11:06: Creatinine 0.85, Platelet Count 282 Results/Orders Lab Results Laboratory Tests Test 08/29/17 11:06 Range/Units White Blood Count 16.3 H 4.3-11.0 10^3/uL Red Blood Count 4.24 L 4.35-5.85 10^6/uL Hemoglobin 13.2 11.5-16.0 G/DL Hematocrit 38 35-52 % Mean Corpuscular Volume 91 80-99 FL Mean Corpuscular Hemoglobin 31 25-34 PG Mean Corpuscular Hemoglobin Concent 34 32-36 G/DL Red Cell Distribution Width 14.9 H 10.0-14.5 % Platelet Count 282 130-400 10^3/uL Mean Platelet Volume 11.2 H 7.4-10.4 FL Neutrophils (%) (Auto) 73 42-75 % Lymphocytes (%) (Auto) 17 12-44 % Monocytes (%) (Auto) 9 0-12 % Eosinophils (%) (Auto) 1 0-10 % Basophils (%) (Auto) 0 0-10 % Neutrophils # (Auto) 11.9 H 1.8-7.8 X 10^3 Lymphocytes # (Auto) 2.8 1.0-4.0 X 10^3 Monocytes # (Auto) 1.5 H 0.0-1.0 X 10^3 Eosinophils # (Auto) 0.1 0.0-0.3 10^3/uL Basophils # (Auto) 0.0 0.0-0.1 10^3/uL Neutrophils % (Manual) 65 % Lymphocytes % (Manual) 23 % Monocytes % (Manual) 10 % Band Neutrophils 2 % Blood Morphology Comment NORMAL Sodium Level 141 135-145 MMOL/L Potassium Level 3.7 3.6-5.0 MMOL/L Chloride Level 106 98-107 MMOL/L Carbon Dioxide Level 25 21-32 MMOL/L Anion Gap 10 5-14 MMOL/L Blood Urea Nitrogen 20 H 7-18 MG/DL Creatinine 0.85 0.60-1.30 MG/DL Estimat Glomerular Filtration Rate > 60 BUN/Creatinine Ratio 24 Glucose Level 103 70-105 MG/DL Calcium Level 8.1 L 8.5-10.1 MG/DL My Orders Orders - SHELBY SOSA DO Rt Request For Service (08/29/17 10:16) Saline Lock/Iv-Start (08/29/17 10:16) Chest Pa/Lat (2 View) (08/29/17 10:16) Basic Metabolic Panel (08/29/17 10:16) Cbc With Automated Diff (08/29/17 10:16) Manual Differential (08/29/17 11:06) Ceftriaxone Injection (Rocephin Injectio (08/29/17 12:00) Medications Given in ED Current Medications Medications Dose Ordered Sig/Dariel Route Start Time Stop Time Status Last Admin Dose Admin Ceftriaxone Sodium 1000 mg/ Sodium Chloride 50 ml @ 100 mls/hr ONCE ONCE IV 08/29/17 12:00 08/29/17 12:29 DC 08/29/17 12:16 100 MLS/HR Vital Signs/I&O 08/29/17 08/29/17 08/29/17 08/29/17 10:35 13:00 13:00 13:53 Temp 98.1 Pulse 50 Resp 24 B/P (MAP) 139/82 (101) Pulse Ox 98 97 98 O2 Delivery Trach Collar Trach Collar Trach Collar O2 Flow Rate 10.00 35.00 10.00 FiO2 35 35 50 08/29/17 08/29/17 13:54 16:13 Temp 97.6 Pulse 51 72 Resp 22 B/P (MAP) 128/66 (86) Pulse Ox 98 94 O2 Delivery Trach Collar O2 Flow Rate 35.00 FiO2 50 Capillary Refill : Progress Note : Progress Note UNEVENTFUL ER STAY Diagnostic Imaging Comments CXR--MILD PULMONARY VASCULAR CONGESTION, BIBASILAR ATELECTASIS/PNEUMONITIS--PER RADIOLOGIST REPORT @ 1054 Reviewed: Reviewed by Sd Departure Communication (Admissions) 1136--ATTEMPTING TO CONTACT DR. NESS, MESSAGE LEFT ON CELL 1142--MESSAGE LEFT ON DR. NESS'S CELL 1159--DR. NESS NOT AT [facility] 1157--DR. NESS CALLED BACK ( SHE HAD BEEN IN A DELIVERY) SHE ACCEPTS PT FOR ADMIT Impression Primary Impression: RECENT TRACHEOSTOMY Additional Impressions: RECENT THYROIDECTOMY INABILITY TO CARE FOR SELF Disposition: ADMITTED INPATIENT Condition: Stable Admissions Decision to Admit Reason: Admit from ER (General) Decision to Admit/Date: Aug 29, 2017 Time/Decision to Admit Time: 12:00 Departure-Patient Inst. Referrals: [facility] (PCP/Family) Primary Care Physician SHELBY SOSA DO Aug 29, 2017 10:27
--- NOTE | 2017-08-29 10:51 | Diagnostic Imaging Report ---
INDICATION: Weakness and shortness of breath. Comparison made with prior examination from 08/26/2017. FINDINGS: Heart size is normal. There is moderate central pulmonary venous congestion. There is no pleural effusion or pneumothorax. There is unchanged calcified granuloma in the left upper lobe. There is some minimal bibasilar atelectasis and/or pneumonitis. IMPRESSION: Mild central pulmonary venous congestion with some bibasal atelectasis and/or pneumonitis. Dictated by: Dictated on workstation # [id number]
[2017-08-29 11:30] LABS: BASOPHILS % (AUTO) 0 % (0-10); EOSINOPHILS # (AUTO) 0.1 10^3/uL (0.0-0.3); EOSINOPHILS % (AUTO) 1 % (0-10); HEMATOCRIT 38 % (35-52); HEMOGLOBIN 13.2 G/DL (11.5-16.0); LYMPHOCYTES # (AUTO) 2.8 X 10^3 (1.0-4.0); LYMPHOCYTES % (AUTO) 17 % (12-44); MEAN CORPUSCULAR HEMOGLOBIN 31 PG (25-34); MEAN CORPUSCULAR HGB CONC 34 G/DL (32-36); MEAN CORPUSCULAR VOLUME 91 FL (80-99); MEAN PLATELET VOLUME 11.2 FL (7.4-10.4); MONOCYTES # (AUTO) 1.5 X 10^3 (0.0-1.0); MONOCYTES % (AUTO) 9 % (0-12); NEUTROPHILS # (AUTO) 11.9 X 10^3 (1.8-7.8); NEUTROPHILS % (AUTO) 73 % (42-75); PLATELET COUNT 282 10^3/uL (130-400); RED BLOOD COUNT 4.24 10^6/uL (4.35-5.85); RED CELL DISTRIBUTION WIDTH 14.9 % (10.0-14.5); WHITE BLOOD COUNT 16.3 10^3/uL (4.3-11.0)
[2017-08-29 11:47] LABS: BUN/CREATININE RATIO 24; CALCIUM 8.1 MG/DL (8.5-10.1); CARBON DIOXIDE 25 MMOL/L (21-32); CHLORIDE 106 MMOL/L (98-107); CREATININE SERUM 0.85 MG/DL (0.60-1.30); GFR ESTIMATED > 60; GLUCOSE 103 MG/DL (70-105); POTASSIUM 3.7 MMOL/L (3.6-5.0); SODIUM 141 MMOL/L (135-145)
[2017-08-29] MEDS ORDERED: cefTRIAXone INJECTION 1,000 MG in NS (IVPB) 50 ML IV ONE (12:00)
[2017-08-29 12:13] LABS: BAND NEUTROPHILS 2 %; LYMPHOCYTES % (MANUAL) 23 %; MONOCYTES % (MANUAL) 10 %; NEUTROPHILS % (MANUAL) 65 %; RBC MORPH NORMAL
[2017-08-29 13:00] VITALS: BP 139/82
[2017-08-29] MEDS ORDERED: CATHETER FLUSH 10 ML SYR IV PRN (13:30)
[2017-08-29] MEDS: HYDROcodone/APAP 7.5 MG/325 MG (LORTAB, LORCET PLUS) TABLET PO PRN ×2 (14:35→21:36)
[2017-08-29] MEDS: CATHETER FLUSH 10 ML SYR IV SCH ×2 (14:35→21:36)
[2017-08-29] MEDS ORDERED: LOPERAMIDE HCL 2 MG PO PRN (15:45)
[2017-08-29] MEDS ORDERED: NON-FORMULARY MEDICATION 1 EA EA (Acetaminophen 1,000 MG) PO PRN (15:45)
[2017-08-29] MEDS ORDERED: NON-FORMULARY MEDICATION 1 EA EA (Ondansetron HCl 4 MG) PO PRN (15:45)
[2017-08-29] MEDS ORDERED: ONDANSETRON 4 MG (ZOFRAN) ORAL DISSOLVE TAB PO PRN (16:00)
[2017-08-29] MEDS ORDERED: LOPERAMIDE 2 MG (IMODIUM) CAP PO PRN (16:00)
[2017-08-29] MEDS ORDERED: OXYMETAZOLINE (AFRIN) 0.05% NA 15 ML BTL PRN (16:00)
[2017-08-29 16:13] VITALS: BP 128/66
[2017-08-29] MEDS ORDERED: guaiFENesin/DM (ROBITUSSIN DM) 10 ML UDC PO PRN (16:15)
[2017-08-29] MEDS: RT-ALBUTEROL/IPRATROPIUM 3 ML (DUONEB) VIAL INH SCH (19:19)
[2017-08-29] MEDS: RT-ADVAIR HFA 115/21 MCG PER PUFF IH SCH (19:19)
[2017-08-29 19:50] VITALS: BP 130/74
[2017-08-29] MEDS ORDERED: NON-FORMULARY MEDICATION 1 EA EA (Budesonide/Formoterol Fumarate (Symbicort 160-4.5 Mcg In IH SCH (21:00)
[2017-08-29] MEDS ORDERED: NON-FORMULARY MEDICATION 1 EA EA (Cetirizine HCl 10 MG) PO SCH (21:00)
[2017-08-29] MEDS ORDERED: LORATADINE (CLARITIN) 10 MG TAB PO SCH (21:00)
[2017-08-29] MEDS ORDERED: OXYMETAZOLINE HCL NS SCH (21:00)
[2017-08-29] MEDS ORDERED: NON-FORMULARY MEDICATION 1 EA EA (Methocarbamol 750 MG) PO SCH (21:00)
[2017-08-29] MEDS ORDERED: DIPHENHYDRAMINE HCL 50 MG PO SCH (21:00)
[2017-08-29] MEDS: FLUTICASONE NASAL SPRAY (FLONASE) 16 GM BTL NS SCH (21:35)
[2017-08-29] MEDS: diphenhydrAMINE 25 MG TAB (BENADRYL) PO SCH (21:35)
[2017-08-29] MEDS: METHOCARBAMOL 750 MG (ROBAXIN) TAB PO SCH (21:35)
[2017-08-29] MEDS: cloNIDine 0.1 MG (CATAPRES) TAB PO SCH (21:36)
[2017-08-29] MEDS: SIMvastatin 20 MG (ZOCOR) TAB PO SCH (21:36)
[2017-08-30] VITALS (7 sets, daily range): BP systolic 111–184; BP diastolic 57–88
[2017-08-30] MEDS: RT-ALBUTEROL/IPRATROPIUM 3 ML (DUONEB) VIAL INH SCH ×4 (01:28→19:34)
[2017-08-30] MEDS ORDERED: LEVOTHYROXINE 88 MCG (LEVOTHORID) TAB ONE (03:24)
[2017-08-30] MEDS: LEVOTHYROXINE 88 MCG (LEVOTHORID) TAB PO SCH (03:27)
[2017-08-30] MEDS: HYDROcodone/APAP 7.5 MG/325 MG (LORTAB, LORCET PLUS) TABLET PO PRN ×3 (03:27→21:52)
[2017-08-30] MEDS: CATHETER FLUSH 10 ML SYR IV SCH ×3 (03:27→21:52)
[2017-08-30 03:41] LABS: BASOPHILS % (AUTO) 0 % (0-10); EOSINOPHILS # (AUTO) 0.1 10^3/uL (0.0-0.3); EOSINOPHILS % (AUTO) 1 % (0-10); HEMATOCRIT 38 % (35-52); HEMOGLOBIN 12.7 G/DL (11.5-16.0); LYMPHOCYTES # (AUTO) 3.2 X 10^3 (1.0-4.0); LYMPHOCYTES % (AUTO) 23 % (12-44); MEAN CORPUSCULAR HEMOGLOBIN 30 PG (25-34); MEAN CORPUSCULAR HGB CONC 33 G/DL (32-36); MEAN CORPUSCULAR VOLUME 91 FL (80-99); MEAN PLATELET VOLUME 11.1 FL (7.4-10.4); MONOCYTES # (AUTO) 1.2 X 10^3 (0.0-1.0); MONOCYTES % (AUTO) 8 % (0-12); NEUTROPHILS # (AUTO) 9.5 X 10^3 (1.8-7.8); NEUTROPHILS % (AUTO) 68 % (42-75); PLATELET COUNT 252 10^3/uL (130-400); RED BLOOD COUNT 4.24 10^6/uL (4.35-5.85); RED CELL DISTRIBUTION WIDTH 14.9 % (10.0-14.5)
[2017-08-30 03:59] LABS: ALANINE AMINOTRANSFERASE 40 U/L (0-55); ALKALINE PHOSPHATASE 63 U/L (40-136); BILIRUBIN,TOTAL 0.5 MG/DL (0.1-1.0); BUN/CREATININE RATIO 27; CALCIUM 7.9 MG/DL (8.5-10.1); CARBON DIOXIDE 24 MMOL/L (21-32); CHLORIDE 106 MMOL/L (98-107); CREATININE SERUM 0.77 MG/DL (0.60-1.30); GFR ESTIMATED > 60; GLUCOSE 102 MG/DL (70-105); POTASSIUM 3.3 MMOL/L (3.6-5.0); SODIUM 143 MMOL/L (135-145); TOTAL PROTEIN 5.4 GM/DL (6.4-8.2)
[2017-08-30] MEDS: lisINopril 10 MG (PRINIVIL) TABLET PO SCH (08:23)
[2017-08-30] MEDS: LORATADINE (CLARITIN) 10 MG TAB PO SCH (08:23)
[2017-08-30] MEDS: NIFEdipine ER 60 MG (PROCARDIA XL) TAB PO SCH (08:23)
[2017-08-30] MEDS: FLUTICASONE NASAL SPRAY (FLONASE) 16 GM BTL NS SCH ×3 (08:23→21:51)
[2017-08-30] MEDS: METHOCARBAMOL 750 MG (ROBAXIN) TAB PO SCH ×2 (08:23→21:52)
[2017-08-30] MEDS: FUROSEMIDE 40 MG (LASIX) TAB PO SCH (08:23)
[2017-08-30] MEDS: ATENOLOL 50 MG (TENORMIN) TAB PO SCH (08:23)
[2017-08-30] MEDS: cefTRIAXone 1 GM/NS 50 ML IVPB IV SCH ×2 (08:24)
[2017-08-30] MEDS ORDERED: NON-FORMULARY MEDICATION 1 EA EA (Nifedipine (Nifedipine ER) 60 MG) PO SCH (09:00)
[2017-08-30] MEDS: FERROUS SULF 325 MG (IRON) TAB PO SCH (11:10)
--- NOTE | 2017-08-30 12:12 | Diagnostic Imaging Report ---
EXAMINATION: PA and lateral chest at 1201 PM INDICATION: Pneumonia There is a better inspiratory effort on this study than on the prior exam of 08/29/17. The heart size remains within normal limits but the central pulmonary vascularity is not quite as striking as on the prior exam. There is still a band of atelectasis/infiltrate in the right perihilar region but the left lung base may be slightly better aerated. There does appear to be a small amount of residual atelectasis/infiltrate and fluid still present in the left lung base. The nodular density in the left midlung is essentially no different. The upper lungs are clear. The mediastinum is not widened. The osseous structures are intact. Tracheostomy tube and the orthopedic hardware overlying the lower cervical spine seen previously is again evident and no different. IMPRESSION: The appearance of the chest has improved since the prior exam as the pulmonary congestion noted previously has resolved. However, there is still some residual atelectasis/infiltrate involving both lung bases, particularly left lower lobe. A followup study would be recommended for continued evaluation. Dictated by: Dictated on workstation # [id number]
[2017-08-30] MEDS ORDERED: FLEET ENEMA ADULT 1 EA BTL PR NR (14:00)
--- NOTE | 2017-08-30 14:04 | History & Physicial (CHS) ---
HPI History of Present Illness: 61 yo F that was sent home Thursday s/p thyroidectomy with trach placement that failed at home. Patient had trach come out on Thursday morning and was able to get it placed back in. Home health nurse called myself and stated that she was in severe respiratory distress and was home alone. Patient states this AM that she thought she was going to . She was very scared and does not think that she is ready to go home. She is still having shortness of breath at rest. States that she did not miss any medications. States this AM that she feels like her legs are more swollen then normal. She is tolerating PO diet. States this AM that she is constipated and would like something to help her have a stool. Denies any chest or abdominal pain. Source: patient, RN/MD, old records Exam Limitations: no limitations Date seen by provider: Aug 30, 2017 Time Seen by Provider: 11:45 Attending Physician Chelsea Flower MD PCP [facility] [place], [place] Consult Date of Admission Aug 29, 2017 at 12:11 Home Medications Home Medications Reviewed patient Home Medication Reconciliation performed by pharmacy medication reconciliations fire alarm technician and/or nursing. Patients Allergies have been reviewed. Allergies Coded Allergies: Penicillins (Unverified Allergy, Severe, ANAPHYLAXIS, 08/28/10) aspirin (Unverified Allergy, Mild, RASH, 08/28/10) gabapentin (Verified Allergy, Unknown, 08/17/17) iodine (Unverified Allergy, Unknown, RASH, 12/01/13) morphine (Unverified Allergy, Unknown, "MAKES GO OUT", 12/01/13) pramipexole (Verified Allergy, Unknown, HIVES, 08/17/17) codeine (Unverified Adverse Reaction, Mild, N/V, 08/28/10) acetaminophen (Unverified Adverse Reaction, Unknown, 05/12/16) adhesive tape (Unverified Adverse Reaction, Unknown, 05/12/16) ibuprofen (Unverified Adverse Reaction, Unknown, 05/12/16) niacin (Unverified Adverse Reaction, Unknown, 05/12/16) propoxyphene (Unverified Adverse Reaction, Unknown, 05/12/16) Uncoded Allergies: ANTIDEPRESSANTS (Allergy, Unknown, MAKES SUICIDAL, 12/01/13) FIM-Rphmog-Epnddh Hx Patient Social History Living Status: Lives home with Alcohol Use: Rarely Uses Recreational Drug Use: No Smoking Status: Never a Smoker Recent Foreign Travel: No Contact w/other who traveled: No Recent Hopitalizations: No Recent Infectious Disease Expo: No Physical Abuse Screen: No Sexual Abuse: No Immunizations Up To Date Date of Pneumonia Vaccine: Dec 28, 2013 Date of Influenza Vaccine: Jan 16, 2017 Past Medical History Paroxysmal Atrial fibrillation HTN Trach placement s/p thyroidectomy for multiple thyroid nodules Vocal cord dysfunction HLD Iron Def Anemia Obesity Family Medical History Significant Family History: No Pertinent Family Hx Review of Systems (CHC) Constitutional: No chills, No fever; weakness EENTM: hoarseness, throat pain; No nose congestion Respiratory: cough, dyspnea on exertion, short of breath Cardiovascular: no symptoms reported; No chest pain, No edema, No palpitations Gastrointestinal: No abdominal pain; constipation; No diarrhea, No loss of appetite, No nausea, No vomiting Genitourinary: no symptoms reported; No dysuria, No frequency, No hematuria : No Musculoskeletal: other (bilateral LE swelling) Skin: no symptoms reported, lesions; No rash Psychiatric/Neurological: Anxiety; Denies Depressed; Weakness Reviewed Test Results Reviewed Test Results Lab Laboratory Tests Test 08/30/17 03:08 Range/Units White Blood Count 14.0 H 4.3-11.0 10^3/uL Red Blood Count 4.24 L 4.35-5.85 10^6/uL Hemoglobin 12.7 11.5-16.0 G/DL Hematocrit 38 35-52 % Mean Corpuscular Volume 91 80-99 FL Mean Corpuscular Hemoglobin 30 25-34 PG Mean Corpuscular Hemoglobin Concent 33 32-36 G/DL Red Cell Distribution Width 14.9 H 10.0-14.5 % Platelet Count 252 130-400 10^3/uL Mean Platelet Volume 11.1 H 7.4-10.4 FL Neutrophils (%) (Auto) 68 42-75 % Lymphocytes (%) (Auto) 23 12-44 % Monocytes (%) (Auto) 8 0-12 % Eosinophils (%) (Auto) 1 0-10 % Basophils (%) (Auto) 0 0-10 % Neutrophils # (Auto) 9.5 H 1.8-7.8 X 10^3 Lymphocytes # (Auto) 3.2 1.0-4.0 X 10^3 Monocytes # (Auto) 1.2 H 0.0-1.0 X 10^3 Eosinophils # (Auto) 0.1 0.0-0.3 10^3/uL Basophils # (Auto) 0.0 0.0-0.1 10^3/uL Sodium Level 143 135-145 MMOL/L Potassium Level 3.3 L 3.6-5.0 MMOL/L Chloride Level 106 98-107 MMOL/L Carbon Dioxide Level 24 21-32 MMOL/L Anion Gap 13 5-14 MMOL/L Blood Urea Nitrogen 21 H 7-18 MG/DL Creatinine 0.77 0.60-1.30 MG/DL Estimat Glomerular Filtration Rate > 60 BUN/Creatinine Ratio 27 Glucose Level 102 70-105 MG/DL Calcium Level 7.9 L 8.5-10.1 MG/DL Total Bilirubin 0.5 0.1-1.0 MG/DL Aspartate Amino Transf (AST/SGOT) 18 5-34 U/L Alanine Aminotransferase (ALT/SGPT) 40 0-55 U/L Alkaline Phosphatase 63 40-136 U/L Total Protein 5.4 L 6.4-8.2 GM/DL Albumin 3.0 L 3.2-4.5 GM/DL Radiology Date of Exam: 08/29/17 CHEST PA/LAT (2 VIEW) INDICATION: Weakness and shortness of breath. Comparison made with prior examination from 08/26/2017. FINDINGS: Heart size is normal. There is moderate central pulmonary venous congestion. There is no pleural effusion or pneumothorax. There is unchanged calcified granuloma in the left upper lobe. There is some minimal bibasilar atelectasis and/or pneumonitis. IMPRESSION: Mild central pulmonary venous congestion with some bibasal atelectasis and/or pneumonitis. Physical Exam-(CHC) Physical Exam Vital Signs VS - Last 72 Hours, by Label 08/29/17 08/29/17 08/29/17 08/29/17 10:05 10:35 12:53 13:00 Temp 98.3 98.3 98.1 Pulse 52 52 50 Resp 18 18 24 B/P (MAP) 164/100 (121) 164/100 (121) 139/82 (101) Pulse Ox 98 98 98 97 O2 Delivery Trach Collar Trach Collar O2 Flow Rate 5.00 10.00 10.00 35.00 FiO2 35 08/29/172/18 08/29/18 08/29/17 13:00 13:53 13:54 16:13 Temp 97.6 Pulse 51 72 Resp 22 B/P (MAP) 128/66 (86) Pulse Ox 98 98 94 O2 Delivery Trach Collar Trach Collar Trach Collar O2 Flow Rate 10.00 35.00 FiO2 35 50 50 08/29/18 08/29/18 08/29/18 18 19:19 19:50 20:00 21:00 Temp 97.5 Pulse 52 Resp 22 B/P (MAP) 130/74 (92) Pulse Ox 97 97 96 O2 Delivery Trach Collar Trach Collar Trach Collar Trach Collar O2 Flow Rate 10.00 35.00 10.00 35.00 FiO2 35 35 08/30/18 08/30/1708/30/08/30/17 00:14 01:28 01:45 03:15 Temp 97.2 96.8 Pulse 50 55 Resp 22 20 B/P (MAP) 113/64 (80) 184/88 (120) Pulse Ox 96 97 97 O2 Delivery Trach Collar Trach Collar Trach Collar Trach Collar O2 Flow Rate 35.00 10.00 30.00 30.00 FiO2 35 08/30/18 08/30/18 08/30/18 08/30/17 08:14 08:30 10:25 10:30 Temp 97.3 Pulse 54 Resp 20 B/P (MAP) 120/82 (95) Pulse Ox 95 95 95 96 O2 Delivery Trach Collar Trach Collar Trach Collar Trach Collar O2 Flow Rate 30.00 30.00 30.00 10.00 FiO2 30 08/30/08/30/08/30/08/30/17 12:00 15:19 15:23 16:00 Temp 98.0 98.0 97.9 Pulse 56 64 Resp 22 20 B/P (MAP) 125/78 (94) 131/61 (84) Pulse Ox 96 97 92 O2 Delivery Trach Collar Trach Collar Trach Collar O2 Flow Rate 30.00 10.00 30.00 FiO2 30 08/30/18 08/30/18 08/30/17 19:34 19:40 20:00 Temp 96.5 Pulse 61 Resp 20 B/P (MAP) 131/69 (89) Pulse Ox 92 94 92 O2 Delivery Trach Collar Vapotherm Trach Collar O2 Flow Rate 10.00 25.00 40.00 25.00 FiO2 30 40 Capillary Refill : Less Than 3 Seconds General Appearance: mild distress (Conversational dyspnea) HEENT: PERRL/EOMI, other (Trach in place, no signs of infection) Neck: full range of motion, supple Respiratory: no accessory muscle use, decreased breath sounds, crackles; No wheezing Cardiovascular: normal peripheral pulses, regular rate, rhythm, no murmur Gastrointestinal: normal bowel sounds, non tender, soft, no organomegaly Back: no CVA tenderness, no vertebral tenderness Extremities: normal range of motion, non-tender, no calf tenderness, normal capillary refill, pedal edema (1+ equal bilaterally) Neurologic/Psychiatric: 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 model 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 nml as tested, no motor/sensory deficits, alert, normal mood/affect, oriented x 3 Skin: normal color, warm/dry Lymphatic: no adenopathy Assessment/Plan Assessment/Plan Admission Status: Inpatient Order (span 2 midnights) Reason for Inpatient Admission: decompensation after trach placement (1) Acute and chronic respiratory failure with hypoxia Status: Acute Assessment & Plan: - requiring increased oxygen supplementation on Trach shield - MAT protocol - Continue antibiotics at this time for leukocytosis (2) HTN (hypertension) Status: Chronic Assessment & Plan: - Controlled, continue home meds Qualifiers: Qualified Codes: I10 - Essential (primary) hypertension (3) Vocal cord dysfunction Status: Chronic Assessment & Plan: - S/p Trach placement on 08/20/17 after thyroidectomy (4) Constipation Status: Acute Assessment & Plan: - Enema ordered today Qualifiers: Qualified Codes: K59.03 - Drug induced constipation (5) Tracheostomy care Status: Chronic (6) Iron deficiency anemia Status: Chronic Assessment & Plan: - Continue iron supplementation, Hgb stable Qualifiers: Qualified Codes: D50.9 - Iron deficiency anemia, unspecified (7) Atrial fibrillation with RVR Status: Resolved (8) Physical deconditioning Status: Acute Assessment & Plan: - PT, patient will required SNF placement (9) DVT prophylaxis Status: Acute Assessment & Plan: - Lovenox Clinical Quality Measures DVT/VTE Risk/Contraindication: Risk Factor Score Per Nursin RFS Level Per Nursing on Admit: 4+=Very High CHELSEA FLOWER MD Aug 30, 2017 14:04
[2017-08-30] MEDS: RT-ADVAIR HFA 115/21 MCG PER PUFF IH SCH ×2 (15:22→19:34)
[2017-08-30] MEDS ORDERED: ENOXAPARIN 40 MG/0.4 ML (LOVENOX) SYR SQ SCH ×2 (21:45→22:15)
[2017-08-30] MEDS: cloNIDine 0.1 MG (CATAPRES) TAB PO SCH (21:51)
[2017-08-30] MEDS: SIMvastatin 20 MG (ZOCOR) TAB PO SCH (21:52)
[2017-08-30] MEDS: diphenhydrAMINE 25 MG TAB (BENADRYL) PO SCH (21:52)
[2017-08-31] MEDS: RT-ALBUTEROL/IPRATROPIUM 3 ML (DUONEB) VIAL INH SCH ×4 (01:44→21:28)
[2017-08-31] MEDS: CATHETER FLUSH 10 ML SYR IV SCH ×3 (05:51→20:27)
[2017-08-31] MEDS: HYDROcodone/APAP 7.5 MG/325 MG (LORTAB, LORCET PLUS) TABLET PO PRN ×2 (05:51→17:02)
[2017-08-31] MEDS: LEVOTHYROXINE 88 MCG (LEVOTHORID) TAB PO SCH (05:51)
[2017-08-31 06:01] LABS: BASOPHILS % (AUTO) 0 % (0-10); EOSINOPHILS # (AUTO) 0.2 10^3/uL (0.0-0.3); EOSINOPHILS % (AUTO) 2 % (0-10); HEMATOCRIT 37 % (35-52); HEMOGLOBIN 12.4 G/DL (11.5-16.0); LYMPHOCYTES # (AUTO) 3.1 X 10^3 (1.0-4.0); LYMPHOCYTES % (AUTO) 26 % (12-44); MEAN CORPUSCULAR HEMOGLOBIN 31 PG (25-34); MEAN CORPUSCULAR HGB CONC 34 G/DL (32-36); MEAN CORPUSCULAR VOLUME 91 FL (80-99); MEAN PLATELET VOLUME 11.2 FL (7.4-10.4); MONOCYTES # (AUTO) 0.8 X 10^3 (0.0-1.0); MONOCYTES % (AUTO) 7 % (0-12); NEUTROPHILS # (AUTO) 7.7 X 10^3 (1.8-7.8); NEUTROPHILS % (AUTO) 64 % (42-75); PLATELET COUNT 227 10^3/uL (130-400); RED BLOOD COUNT 4.04 10^6/uL (4.35-5.85); RED CELL DISTRIBUTION WIDTH 14.9 % (10.0-14.5); WHITE BLOOD COUNT 11.9 10^3/uL (4.3-11.0)
[2017-08-31 06:23] LABS: ALANINE AMINOTRANSFERASE 35 U/L (0-55); ALBUMIN 2.8 GM/DL (3.2-4.5); ALKALINE PHOSPHATASE 58 U/L (40-136); BILIRUBIN,TOTAL 0.5 MG/DL (0.1-1.0); BUN/CREATININE RATIO 21; CALCIUM 7.9 MG/DL (8.5-10.1); CARBON DIOXIDE 26 MMOL/L (21-32); CHLORIDE 106 MMOL/L (98-107); CREATININE SERUM 0.75 MG/DL (0.60-1.30); GFR ESTIMATED > 60; GLUCOSE 106 MG/DL (70-105); POTASSIUM 3.4 MMOL/L (3.6-5.0); SODIUM 142 MMOL/L (135-145); TOTAL PROTEIN 5.2 GM/DL (6.4-8.2)
[2017-08-31 08:00] VITALS: BP 144/79
[2017-08-31] MEDS: lisINopril 10 MG (PRINIVIL) TABLET PO SCH (08:41)
[2017-08-31] MEDS: NIFEdipine ER 60 MG (PROCARDIA XL) TAB PO SCH (08:41)
[2017-08-31] MEDS: FUROSEMIDE 40 MG (LASIX) TAB PO SCH (08:41)
[2017-08-31] MEDS: METHOCARBAMOL 750 MG (ROBAXIN) TAB PO SCH ×2 (08:41→20:25)
[2017-08-31] MEDS: LORATADINE (CLARITIN) 10 MG TAB PO SCH (08:41)
[2017-08-31] MEDS: cefTRIAXone 1 GM/NS 50 ML IVPB IV SCH ×2 (08:42)
[2017-08-31] MEDS: ATENOLOL 50 MG (TENORMIN) TAB PO SCH (08:42)
[2017-08-31] MEDS: FLUTICASONE NASAL SPRAY (FLONASE) 16 GM BTL NS SCH ×3 (08:42→20:26)
[2017-08-31] MEDS ORDERED: KCL 20 MEQ TAB (K-DUR) PO NR (09:30)
[2017-08-31] MEDS: ENOXAPARIN 40 MG/0.4 ML (LOVENOX) SYR SQ SCH ×2 (09:59→20:26)
[2017-08-31] MEDS: FERROUS SULF 325 MG (IRON) TAB PO SCH (11:13)
--- NOTE | 2017-08-31 11:54 | Physical Therapy Evaluation ---
PT Evaluation-General Medical Diagnosis Admission Date Aug 30, 2017 at 14:00 Medical Diagnosis: recent trach placement Onset Date: Aug 30, 2017 Therapy Diagnosis Therapy Diagnosis: debility Height/Weight Height (Feet): 5 Height (Inches): 6.00 Weight (Pounds): 288 Weight (Ounces): 6.0 Precautions Precautions/Isolations: Fall Prevention, Standard Precautions Weight Bear Status Right Lower Extremity: Right Weight Bearing/Tolerated Left Lower Extremity: Left Weight Bearing/Tolerated Referral Physician: Ching Reason for Referral: Evaluation/Treatment Medical History Pertinent Medical History: Atrial Fib, CAD, COPD, HTN, Renal Insufficiency Additional Medical History PTSD/schizoaffective disorder Current History Patient had a thyroidectomy resulting in need for trach. Patient dismissed to home and "coughed" trach out requiring readmit to hospital Reviewed History: Yes Social History Home: Apartment Current Living Status: Alone inability to care for self Prior/Core FIM Prior Level of Function Functional [place] Measure 0=Not Assessed/NA 4=Minimal Assistance 1=Total Assistance 5=Supervision or Setup 2=Maximal Assistance 6=Modified [place] 3=Moderate Assistance 7=Complete [place] Bed Mobility: 7 Transfers (B,C,W/C) (FIM): 7 Gait: 7 PT Evaluation-Current Subjective Patient is on vapotherm and agrees to PT. Pain Numeric Pain Scale: 0-No Pain Location: No Pain Reported Objective Patient Orientation: Normal For Age Problem Solving: Fair Attachments: Oxygen (vapotherm) ROM/Strength ROM Lower Extremities bilateral LE WNL Strength Lower Extremities 4+/5 grossly bilaterally Integumentary/Posture Integumentary refer to nursing notes Bowel Incontinence: No Bladder Incontinence: No Posture WFL Neuromuscular (Tone, Coordination, Reflexes) grossly intact Sensory Vision: Wears Glasses Hearing: Functional Sensation Right Lower Extremit: Intact Sensation Left Lower Extremity: Intact Transfers Functional [place] Measure 0=Not Assessed/NA 4=Minimal Assistance 1=Total Assistance 5=Supervision or Setup 2=Maximal Assistance 6=Modified [place] 3=Moderate Assistance 7=Complete [place] Transfers (B, C, W/C) (FIM): 7 Scootin Supine to/from Sit: 7 Sit to/from Stand: 7 Gait Mode of Locomotion: Walk Anticipated Mode of Locomotion: Walk Balance Sitting Static: Normal Sitting Dynamic: Normal Standing Static: Normal Standing Dynamic: Normal Treatment Patient performed standing exercises 20 reps x 2 of marching, mini squats, toe raises and seated LAQ, AP, marching Assessment/Needs 61 y.o. female, will benefit from short term skilled PT to address functional mobility to improve current LOF. Patient, per her report, may dismiss to LTAC for continued care. 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 Goals Correction Goals PT Liberal Arts Teacher Goals Time Frame: Sep 11, 2017 Transfers (B,C,W/C) (FIM): 7 Gait (FIM): 1 Gait distance (FIM): 1=up to 49 ft Distance: 45' Gait Level of Assist: 6 Gait Assistive Device: FWW PT Plan Treatment/Plan Treatment Plan: Continue Plan of Care Treatment Plan: Bed Mobility, Education, Functional Activity Luci, Functional Strength, Gait, Safety, Therapeutic Exercise, Transfers Treatment Duration: Sep 11, 2017 Frequency: 6 times per week Estimated Hrs Per Day: .5 hour per day Patient and/or Family Agrees t: Yes Time/GCodes Time In: 1122 Time Out: 1143 Total Billed Treatment Time: 21 Total Billed Treatment 1 visit [facility] 21 min YE STINSON PT Aug 31, 2017 11:54
[2017-08-31 16:25] VITALS: BP 125/60
[2017-08-31] MEDS: SIMvastatin 20 MG (ZOCOR) TAB PO SCH (20:25)
[2017-08-31] MEDS: cloNIDine 0.1 MG (CATAPRES) TAB PO SCH (20:25)
[2017-08-31] MEDS: diphenhydrAMINE 25 MG TAB (BENADRYL) PO SCH (20:25)
[2017-08-31] MEDS: RT-ADVAIR HFA 115/21 MCG PER PUFF IH SCH ×2 (21:28→21:58)
--- NOTE | 2017-08-31 21:55 | Progress Note (SOAP) ---
Subjective Subjective/Events-last exam Patient seen today with bf, home health aide and home social services technician. Patient states that she is feeling better this AM after they got her trach in place. Denies any shortness of breath now. Tolerating PO diet and ambulation with walker and PT. Discussed with patient the need for [facility] at [facility] for Tr[facility] care since patient does not have 24 hr support Review of Systems Date Seen by Provider: Aug 31, 2017 Time Seen by Provider: 11:00 Pulmonary: Cough Cardiovascular: Edema; No: Chest Pain, Palpitations, Orthopnea Gastrointestinal: Constipation; No: Abdominal Pain Genitourinary: No Dysuria, No Frequency Neurological: Weakness Objective Exam Last Set of Vital Signs Vital Signs Date Time Temp Pulse Resp B/P (MAP) Pulse Ox O2 Delivery O2 Flow Rate FiO2 08/31/17 21:00 98 Trach Collar 25.00 08/31/17 16:25 98.7 77 18 125/60 (81) 08/31/17 14:40 45 Capillary Refill : Less Than 3 Seconds I&O Intake and Output 08/31/17 00:00 Intake Total 1272 ml Output Total 3525 ml Balance -2253 ml Intake Oral 1272 ml Output Urine Total 3525 ml # Voids 1 # Bowel Movements 2 General: Alert, Oriented X3, Cooperative, No Acute Distress HEENT: Mucous Memb Moist/[place] Neck: Other (Trach in place) Lungs: Clear to Auscultation, Normal Air Movement Heart: Regular Rate, No Murmurs Abdomen: Normal Bowel Sounds, Soft, No Tenderness, No Masses Extremities: Other (mild swelling, non tender) Skin: No Rashes, No Breakdown Results/Procedures Lab Laboratory Tests 08/31/17 05:47: White Blood Count 11.9H, Red Blood Count 4.04L, Hemoglobin 12.4, Hematocrit 37, Mean Corpuscular Volume 91, Mean Corpuscular Hemoglobin 31, Mean Corpuscular Hemoglobin Concent 34, Red Cell Distribution Width 14.9H, Platelet Count 227, Mean Platelet Volume 11.2H, Neutrophils (%) (Auto) 64, Lymphocytes (%) (Auto) 26 , Monocytes (%) (Auto) 7, Eosinophils (%) (Auto) 2, Basophils (%) (Auto) 0, Neutrophils # (Auto) 7.7, Lymphocytes # (Auto) 3.1, Monocytes # (Auto) 0.8, Eosinophils # (Auto) 0.2, Basophils # (Auto) 0.0, Sodium Level 142, Potassium Level 3.4L, Chloride Level 106, Carbon Dioxide Level 26, Anion Gap 10, Blood Urea Nitrogen 16, Creatinine 0.75, Estimat Glomerular Filtration Rate > 60, BUN/ Creatinine Ratio 21, Glucose Level 106H, Calcium Level 7.9L, Total Bilirubin 0.5 , Aspartate Amino Transf (AST/SGOT) 15, Alanine Aminotransferase (ALT/SGPT) 35, Alkaline Phosphatase 58, Total Protein 5.2L, Albumin 2.8L Radiology Date of Exam: 08/29/17 CHEST PA/LAT (2 VIEW) INDICATION: Weakness and shortness of breath. Comparison made with prior examination from 08/26/2017. FINDINGS: Heart size is normal. There is moderate central pulmonary venous congestion. There is no pleural effusion or pneumothorax. There is unchanged calcified granuloma in the left upper lobe. There is some minimal bibasilar atelectasis and/or pneumonitis. IMPRESSION: Mild central pulmonary venous congestion with some bibasal atelectasis and/or pneumonitis. Assessment/Plan Assessment/Plan (1) Acute and chronic respiratory failure with hypoxia Status: Acute Assessment & Plan: - requiring increased oxygen supplementation on Trach shield - MAT protocol - Continue antibiotics at this time for leukocytosis 08/31: Dr Navarro consulted as patient's trach was not functioning properly and malpositioned, now RT able to suction properly, Continue MAT protocol, [facility] to [facility] (2) HTN (hypertension) Status: Chronic Assessment & Plan: - Controlled, continue home meds Qualifiers: Qualified Codes: I10 - Essential (primary) hypertension (3) Vocal cord dysfunction Status: Chronic Assessment & Plan: - S/p Trach placement on 08/20/17 after thyroidectomy (4) Constipation Status: Acute Assessment & Plan: - Enema ordered today 08/31: BM yesterday, will continue to monitor Qualifiers: Qualified Codes: K59.03 - Drug induced constipation (5) Tracheostomy care Status: Chronic (6) Iron deficiency anemia Status: Chronic Assessment & Plan: - Continue iron supplementation, Hgb stable Qualifiers: Qualified Codes: D50.9 - Iron deficiency anemia, unspecified (7) Atrial fibrillation with RVR Status: Resolved Assessment & Plan: 08/31: NSR (8) Physical deconditioning Status: Acute Assessment & Plan: - PT, patient will required SNF placemen 08/31: patient will need placement, [facility] (9) DVT prophylaxis Status: Acute Assessment & Plan: - Lovenox Clinical Quality Measures DVT/VTE Risk/Contraindication: Risk Factor Score Per Nursin RFS Level Per Nursing on Admit: 4+=Very High CHELSEA NESS MD Aug 31, 2017 9:55 pm
[2017-09-01] VITALS: BP 100/52
[2017-09-01] MEDS: HYDROcodone/APAP 7.5 MG/325 MG (LORTAB, LORCET PLUS) TABLET PO PRN ×5 (02:01→21:41)
[2017-09-01] MEDS: RT-ALBUTEROL/IPRATROPIUM 3 ML (DUONEB) VIAL INH SCH ×4 (02:47→20:11)
[2017-09-01] MEDS: CATHETER FLUSH 10 ML SYR IV SCH ×4 (04:41→22:30)
[2017-09-01] MEDS: LEVOTHYROXINE 88 MCG (LEVOTHORID) TAB PO SCH (06:49)
[2017-09-01 08:38] LABS: BASOPHILS % (AUTO) 0 % (0-10); EOSINOPHILS # (AUTO) 0.2 10^3/uL (0.0-0.3); EOSINOPHILS % (AUTO) 2 % (0-10); HEMATOCRIT 37 % (35-52); HEMOGLOBIN 12.2 G/DL (11.5-16.0); LYMPHOCYTES # (AUTO) 2.2 X 10^3 (1.0-4.0); LYMPHOCYTES % (AUTO) 22 % (12-44); MEAN CORPUSCULAR HEMOGLOBIN 30 PG (25-34); MEAN CORPUSCULAR HGB CONC 33 G/DL (32-36); MEAN CORPUSCULAR VOLUME 92 FL (80-99); MEAN PLATELET VOLUME 11.1 FL (7.4-10.4); MONOCYTES # (AUTO) 0.7 X 10^3 (0.0-1.0); MONOCYTES % (AUTO) 6 % (0-12); NEUTROPHILS # (AUTO) 7.2 X 10^3 (1.8-7.8); NEUTROPHILS % (AUTO) 70 % (42-75); PLATELET COUNT 248 10^3/uL (130-400); RED BLOOD COUNT 4.07 10^6/uL (4.35-5.85); RED CELL DISTRIBUTION WIDTH 15.4 % (10.0-14.5); WHITE BLOOD COUNT 10.3 10^3/uL (4.3-11.0)
[2017-09-01 08:52] VITALS: BP 125/57
[2017-09-01] MEDS: LORATADINE (CLARITIN) 10 MG TAB PO SCH (08:53)
[2017-09-01] MEDS: ATENOLOL 50 MG (TENORMIN) TAB PO SCH (08:53)
[2017-09-01] MEDS: NIFEdipine ER 60 MG (PROCARDIA XL) TAB PO SCH (08:53)
[2017-09-01] MEDS: ENOXAPARIN 40 MG/0.4 ML (LOVENOX) SYR SQ SCH ×2 (08:53→21:43)
[2017-09-01] MEDS: METHOCARBAMOL 750 MG (ROBAXIN) TAB PO SCH ×2 (08:54→21:41)
[2017-09-01] MEDS: FLUTICASONE NASAL SPRAY (FLONASE) 16 GM BTL NS SCH ×3 (08:54→21:41)
[2017-09-01] MEDS: lisINopril 10 MG (PRINIVIL) TABLET PO SCH (08:54)
[2017-09-01] MEDS: FUROSEMIDE 40 MG (LASIX) TAB PO SCH (08:54)
[2017-09-01 08:57] LABS: ALANINE AMINOTRANSFERASE 43 U/L (0-55); ALBUMIN 3.1 GM/DL (3.2-4.5); ALKALINE PHOSPHATASE 65 U/L (40-136); BILIRUBIN,TOTAL 0.4 MG/DL (0.1-1.0); BUN/CREATININE RATIO 19; CALCIUM 8.2 MG/DL (8.5-10.1); CARBON DIOXIDE 24 MMOL/L (21-32); CHLORIDE 106 MMOL/L (98-107); CREATININE SERUM 0.84 MG/DL (0.60-1.30); GFR ESTIMATED > 60; GLUCOSE 151 MG/DL (70-105); POTASSIUM 3.6 MMOL/L (3.6-5.0); SODIUM 141 MMOL/L (135-145); TOTAL PROTEIN 5.6 GM/DL (6.4-8.2)
[2017-09-01] MEDS: RT-ADVAIR HFA 115/21 MCG PER PUFF IH SCH ×2 (10:57→20:11)
--- NOTE | 2017-09-01 11:01 | Physical Therapy Daily Note ---
PT Daily Note-Current Subjective Patient agrees to PT. Pain Numeric Pain Scale: 0-No Pain Mental Status Patient Orientation: Normal For Age Attachments: Oxygen (vapotherm) Transfers Functional [place] Measure 0=Not Assessed/NA 4=Minimal Assistance 1=Total Assistance 5=Supervision or Setup 2=Maximal Assistance 6=Modified [place] 3=Moderate Assistance 7=Complete IndependenceIRFPAI Quality Coding Scale 6 Independent with activity with or without an assistive device 5 Patient requires set up or clean up by helper. Patient completes activity by themselves 4 Supervision or touching assist (CGA). [place] provide cues , steadying assist 3 The helper provides less than half the effort to complete the activity 2 The helper provides more than half the effort to complete the activity 1 Dependent. The helper does all the effort to complete an activity 7 Patient refused to complete or attempt activity 9 The patient did not perform the activity before the current illness or injury 88 Not attempted due to Medical conditions or safety concerns Transfers (B, C, W/C) (FIM): 7 Scootin Sit to/from Stand: 7 Weight Bearing Right Lower Extremity: Right Weight Bearing/Tolerated Left Lower Extremity: Left Weight Bearing/Tolerated Exercises Seated Therapy Exercises: Ankle pumps, Long arc quads, Hip flexion Seated Reps: 25 (2 sets) Standing: Marching, Maze Standing Reps: 25 (2 sets) Assessment Patient progressing with gross motor skills and reports she performs exercises independently. PT to increase activity as patient improves with pulmonary function. PT Mcfp Goals Shipyard Laborer Goals PT Shipyard Laborer Goals Time Frame: Sep 11, 2017 Transfers (B,C,W/C) (FIM): 7 Gait (FIM): 1 Gait distance (FIM): 1=up to 49 ft Distance: 45' Gait Level of Assist: 6 Gait Assistive Device: FWW PT Plan Treatment/Plan Treatment Plan: Continue Plan of Care Treatment Plan: Bed Mobility, Education, Functional Activity Luci, Functional Strength, Gait, Safety, Therapeutic Exercise, Transfers Treatment Duration: Sep 11, 2017 Frequency: 6 times per week Estimated Hrs Per Day: .5 hour per day Patient and/or Family Agrees t: Yes Time/GCodes Time In: 1024 Time Out: 1034 Total Billed Treatment Time: 10 Total Billed Treatment 1 visit EX 10 min YE STINSON PT Sep 01, 2017 11:01
[2017-09-01] MEDS: ACETAMINOPHEN 500 MG TAB (TYLENOL) PO PRN (11:19)
[2017-09-01] MEDS: FERROUS SULF 325 MG (IRON) TAB PO SCH (12:12)
[2017-09-01 16:05] VITALS: BP 125/57
--- NOTE | 2017-09-01 16:19 | HISTORY AND PHYSICAL ---
DATE OF SERVICE: ROOM NUMBER: [id number]. CHIEF COMPLAINT: Displaced trach tube. HISTORY OF PRESENT ILLNESS: I was called to see the patient emergently because of a displaced trach tube. She had a trach placed approximately 8 days ago. She was discharged from the hospital on Thursday, but was subsequently readmitted later Thursday. At some point last evening, the trach tube got dislodged. They tried to replace it, but were unable to suction this morning. She complains of difficulty breathing; however, she was maintaining her oxygen saturations. PHYSICAL EXAMINATION: GENERAL: She was having mildly labored breathing. No stridor was noted. The trach tube was unable to be suctioned, it subsequently was removed. It had been placed anterior to the trachea. The obturator was placed in the trach tube and it was placed back into the trachea. At that point, she was easily suctioned. She could breathe much easier. Trach strap was reapplied. The trach site itself looks good, although now she has an anterior channel to the trachea. IMPRESSION: Displaced trach tube. RECOMMENDATIONS: Trach tube was replaced as above. No further treatment is needed at this time. She does have a return appointment with us in approximately 7 to 10 days. At that point, we will do a fiberoptic laryngoscopy to again look at the cords. Symptomatically from her symptoms with the trach tube is placed, I suspect the cords are still not moving yet. She has further problems while hospitalized. Please call. Job ID: [id number] DocumentID: [id number] Dictated Date: 09/01/2017 16:04:05 Raw Silk Grader Date: 09/01/2017 16:18:49 Dictated By: MILES CHRISTIANSEN MD
[2017-09-01 16:51] VITALS: BP 133/75
[2017-09-01] MEDS: SIMvastatin 20 MG (ZOCOR) TAB PO SCH (21:41)
[2017-09-01] MEDS: diphenhydrAMINE 25 MG TAB (BENADRYL) PO SCH (21:42)
[2017-09-01] MEDS: cloNIDine 0.1 MG (CATAPRES) TAB PO SCH (21:42)
--- NOTE | 2017-09-01 22:06 | Progress Note (SOAP) ---
Subjective Subjective/Events-last exam Patient states that she feels the best she has since she got here. Up walking with PT this AM with walker. Tolerating PO diet. Review of Systems Date Seen by Provider: Sep 01, 2017 Time Seen by Provider: 10:30 Pulmonary: Dyspnea (with exertion) Cardiovascular: Edema; No: Chest Pain, Palpitations Gastrointestinal: Constipation; No: Nausea, Vomiting, Abdominal Pain, Diarrhea Genitourinary: No Dysuria, No Frequency, No Incontinence Neurological: Weakness Objective Exam Last Set of Vital Signs Vital Signs Date Time Temp Pulse Resp B/P (MAP) Pulse Ox O2 Delivery O2 Flow Rate FiO2 09/01/17 20:17 Vapotherm 15.00 94 09/01/17 20:11 93 09/01/17 16:51 97.5 63 18 133/75 (94) Capillary Refill : Less Than 3 Seconds I&O Intake and Output 09/01/17 00:00 Intake Total 1790 ml Output Total 900 ml Balance 890 ml Intake Oral 100 ml IV Total 50 ml Tube Feeding 1640 ml Output Urine Total 900 ml # Voids 4 # Bowel Movements 1 General: Alert, Oriented X3, Cooperative, No Acute Distress, Other (Obese adult female) Lungs: Clear to Auscultation, Normal Air Movement Heart: Regular Rate, No Murmurs Extremities: No Tenderness/Swelling, Other (trace edema bilaterally) Neuro: Normal Speech, Cranial Nerves 3-12 NL Psych/Mental Status: Mental Status NL, Mood NL Results/Procedures Lab Laboratory Tests 09/01/17 08:28: White Blood Count 10.3, Red Blood Count 4.07L, Hemoglobin 12.2, Hematocrit 37, Mean Corpuscular Volume 92, Mean Corpuscular Hemoglobin 30, Mean Corpuscular Hemoglobin Concent 33, Red Cell Distribution Width 15.4H, Platelet Count 248, Mean Platelet Volume 11.1H, Neutrophils (%) (Auto) 70, Lymphocytes (%) (Auto) 22 , Monocytes (%) (Auto) 6, Eosinophils (%) (Auto) 2, Basophils (%) (Auto) 0, Neutrophils # (Auto) 7.2, Lymphocytes # (Auto) 2.2, Monocytes # (Auto) 0.7, Eosinophils # (Auto) 0.2, Basophils # (Auto) 0.0, Sodium Level 141, Potassium Level 3.6, Chloride Level 106, Carbon Dioxide Level 24, Anion Gap 11, Blood Urea Nitrogen 16, Creatinine 0.84, Estimat Glomerular Filtration Rate > 60, BUN/ Creatinine Ratio 19, Glucose Level 151H, Calcium Level 8.2L, Total Bilirubin 0.4 , Aspartate Amino Transf (AST/SGOT) 21, Alanine Aminotransferase (ALT/SGPT) 43, Alkaline Phosphatase 65, Total Protein 5.6L, Albumin 3.1L Radiology Date of Exam: 08/29/17 CHEST PA/LAT (2 VIEW) INDICATION: Weakness and shortness of breath. Comparison made with prior examination from 08/26/2017. FINDINGS: Heart size is normal. There is moderate central pulmonary venous congestion. There is no pleural effusion or pneumothorax. There is unchanged calcified granuloma in the left upper lobe. There is some minimal bibasilar atelectasis and/or pneumonitis. IMPRESSION: Mild central pulmonary venous congestion with some bibasal atelectasis and/or pneumonitis. Assessment/Plan Assessment/Plan (1) Acute and chronic respiratory failure with hypoxia Status: Acute Assessment & Plan: - requiring increased oxygen supplementation on Trach shield - MAT protocol - Continue antibiotics at this time for leukocytosis 08/31: Dr Navarro consulted as patient's trach was not functioning properly and malpositioned, now RT able to suction properly, Continue MAT protocol, [facility] to [facility] 09/01: Patient at baseline, using vapotherm for humidified air only, no pressure support (2) HTN (hypertension) Status: Chronic Assessment & Plan: - Controlled, continue home meds Qualifiers: Qualified Codes: I10 - Essential (primary) hypertension (3) Vocal cord dysfunction Status: Chronic Assessment & Plan: - S/p Trach placement on 08/20/17 after thyroidectomy (4) Constipation Status: Acute Assessment & Plan: - Enema ordered today 08/31: BM yesterday, will continue to monitor Qualifiers: Qualified Codes: K59.03 - Drug induced constipation (5) Tracheostomy care Status: Chronic (6) Iron deficiency anemia Status: Chronic Assessment & Plan: - Continue iron supplementation, Hgb stable Qualifiers: Qualified Codes: D50.9 - Iron deficiency anemia, unspecified (7) Atrial fibrillation with RVR Status: Resolved Assessment & Plan: 08/31: NSR (8) Physical deconditioning Status: Acute Assessment & Plan: - PT, patient will required SNF placemen 08/31: patient will need placement, [facility] 09/01: d/c plan to SNF (9) DVT prophylaxis Status: Acute Assessment & Plan: - Lovenox Clinical Quality Measures DVT/VTE Risk/Contraindication: Risk Factor Score Per Nursin RFS Level Per Nursing on Admit: 4+=Very High CHELSEA NESS MD Sep 01, 2017 22:06
[2017-09-02] VITALS: BP 117/56
[2017-09-02] MEDS: LEVOTHYROXINE 88 MCG (LEVOTHORID) TAB PO SCH (06:34)
[2017-09-02] MEDS: RT-ALBUTEROL/IPRATROPIUM 3 ML (DUONEB) VIAL INH SCH (07:09)
[2017-09-02] MEDS: RT-ADVAIR HFA 115/21 MCG PER PUFF IH SCH (07:09)
[2017-09-02 08:00] VITALS: BP 127/64
[2017-09-02] MEDS: FLUTICASONE NASAL SPRAY (FLONASE) 16 GM BTL NS SCH ×2 (08:33→12:28)
[2017-09-02] MEDS: METHOCARBAMOL 750 MG (ROBAXIN) TAB PO SCH (08:33)
[2017-09-02] MEDS: NIFEdipine ER 60 MG (PROCARDIA XL) TAB PO SCH (08:34)
[2017-09-02] MEDS: ACETAMINOPHEN 500 MG TAB (TYLENOL) PO PRN (08:34)
[2017-09-02] MEDS: FUROSEMIDE 40 MG (LASIX) TAB PO SCH (08:34)
[2017-09-02] MEDS: LORATADINE (CLARITIN) 10 MG TAB PO SCH (08:35)
[2017-09-02] MEDS: ATENOLOL 50 MG (TENORMIN) TAB PO SCH (08:35)
[2017-09-02] MEDS: lisINopril 10 MG (PRINIVIL) TABLET PO SCH (08:35)
[2017-09-02] MEDS: ENOXAPARIN 40 MG/0.4 ML (LOVENOX) SYR SQ SCH (08:36)
[2017-09-02] MEDS: HYDROcodone/APAP 7.5 MG/325 MG (LORTAB, LORCET PLUS) TABLET PO PRN (09:38)
--- NOTE | 2017-09-02 10:26 | Physical Therapy Daily Note ---
PT Daily Note-Current Subjective Agrees to PT. ;Notes she has LE edema this morning and has them elevated. Reports she will go to the assisted today or tomorrow for a short stay. Mental Status Patient Orientation: Person, Place, Time, Situation Transfers Functional [place] Measure 0=Not Assessed/NA 4=Minimal Assistance 1=Total Assistance 5=Supervision or Setup 2=Maximal Assistance 6=Modified [place] 3=Moderate Assistance 7=Complete IndependenceIRFPAI Quality Coding Scale 6 Independent with activity with or without an assistive device 5 Patient requires set up or clean up by helper. Patient completes activity by themselves 4 Supervision or touching assist (CGA). [place] provide cues , steadying assist 3 The helper provides less than half the effort to complete the activity 2 The helper provides more than half the effort to complete the activity 1 Dependent. The helper does all the effort to complete an activity 7 Patient refused to complete or attempt activity 9 The patient did not perform the activity before the current illness or injury 88 Not attempted due to Medical conditions or safety concerns Weight Bearing Right Lower Extremity: Right Weight Bearing/Tolerated Left Lower Extremity: Left Weight Bearing/Tolerated Treatments Pt already up in chair. Sit to stand x 5 reps. Standing ther ex for marching, calf raises and mini squats x 10 each; seated LAQ, hip flex and AP x 15 each. Spent time educating on the progression of PT and discussed adaptive equipment needs at home. Pt in chair with needs met post treatment. Assessment Current Status: Good Progress LImited in mobility due to oxygen tubing. Pt is progressing but has limited functional activity tolerance and strenth. She will benefit from continued skilled PT intervention to allow her to return to her PLOF and indep at home. PT Longterm Goals Motel Keeper Goals PT Longterm Goals Time Frame: Sep 11, 2017 Transfers (B,C,W/C) (FIM): 7 Gait (FIM): 1 Gait distance (FIM): 1=up to 49 ft Distance: 45' Gait Level of Assist: 6 Gait Assistive Device: FWW PT Plan Problem List Problem List: Activity Tolerance, Functional Strength, Safety Treatment/Plan Treatment Plan: Continue Plan of Care Treatment Plan: Bed Mobility, Education, Functional Activity Luci, Functional Strength, Gait, Safety, Therapeutic Exercise, Transfers Treatment Duration: Sep 11, 2017 Frequency: 6 times per week Estimated Hrs Per Day: .5 hour per day Patient and/or Family Agrees t: Yes Safety Risks/Education Patient Education: Safety Issues Teaching Recipient: Patient Teaching Methods: Discussion Response to Teaching: Reinforcement Needed Discharge Recommendations Therapy D/C Recommendations: Residential (TCU/NH) (recommend PT) Time/GCodes Time In: 927 Time Out: 953 Total Billed Treatment Time: 26 Total Billed Treatment visit EX 26 AARON ESCAMILLA PT Sep 02, 2017 10:25
[2017-09-02] MEDS: FERROUS SULF 325 MG (IRON) TAB PO SCH (12:27)
--- NOTE | 2017-09-02 14:56 | Discharge Summary ---
Diagnosis/Chief Complaint Date of Admission Aug 30, 2017 at 14:00 Date of Discharge 09/02/2017 Admission Diagnosis Admission Diagnosis Acute on Chronic Respiratory failure with hypoxia HTN Vocal Cord dysfunction Tracheostomy Constipation Iron Deficiency Anemia Paroxysmal atrial fibrillation physical deconditioning Discharge Diagnosis See Above Chief Complaint/HPI Chief Complaint/HPI 61 yo F that was sent home Thursday s/p thyroidectomy with trach placement that failed at home. Patient had trach come out on Thursday morning and was able to get it placed back in. Home health nurse called myself and stated that she was in severe respiratory distress and was home alone. Patient states this AM that she thought she was going to . She was very scared and does not think that she is ready to go home. She is still having shortness of breath at rest. States that she did not miss any medications. States this AM that she feels like her legs are more swollen then normal. She is tolerating PO diet. States this AM that she is constipated and would like something to help her have a stool. Denies any chest or abdominal pain. Discharge Summary-Simple/Stand Consultations Dr Navarro, ENT, Trach malposition Discharge Physical Examination Allergies: Coded Allergies: Penicillins (Unverified Allergy, Severe, ANAPHYLAXIS, 08/28/10) aspirin (Unverified Allergy, Mild, RASH, 08/28/10) gabapentin (Verified Allergy, Unknown, 08/17/17) iodine (Unverified Allergy, Unknown, RASH, 12/01/13) morphine (Unverified Allergy, Unknown, "MAKES GO OUT", 12/01/13) pramipexole (Verified Allergy, Unknown, HIVES, 08/17/17) codeine (Unverified Adverse Reaction, Mild, N/V, 08/28/10) acetaminophen (Unverified Adverse Reaction, Unknown, 05/12/16) adhesive tape (Unverified Adverse Reaction, Unknown, 05/12/16) ibuprofen (Unverified Adverse Reaction, Unknown, 05/12/16) niacin (Unverified Adverse Reaction, Unknown, 05/12/16) propoxyphene (Unverified Adverse Reaction, Unknown, 05/12/16) Uncoded Allergies: ANTIDEPRESSANTS (Allergy, Unknown, MAKES SUICIDAL, 12/01/13) Vitals & I&Os Vital Sign - Last 12Hours Date Time Temp Pulse Resp B/P (MAP) Pulse Ox O2 Delivery O2 Flow Rate FiO2 09/02/17 09:10 Trach Collar 09/02/17 08:00 97.5 68 20 127/64 (85) 96 30.00 15.00 09/02/17 07:17 30 Intake and Output 09/02/17 00:00 Intake Total 1002 ml Output Total 2300 ml Balance -1298 ml General Appearance: Alert, Oriented X3, Cooperative, No Acute Distress HEENT: Mucous Memb Moist/[place], Other (Trach in place, no signs of secondary infection) Respiratory: Clear to Auscultation, Normal Air Movement Cardiovascular: Regular Rate, No Murmurs Abdominal: Normal Bowel Sounds, Soft, No Tenderness, No Masses Extremities: Other (1+ pitting edema bilaterally) Neuro: Strength at 5/5 X4 Ext, Sensation Intact, Cranial Nerves 3-12 NL Psych/Mental Status: Mental Status NL, Mood NL Hospital Course See final discharge diagnosis. Pending Labs Pathology Report from thyroidectomy pending Radiology Reviewed Date of Exam: 08/29/17 CHEST PA/LAT (2 VIEW) INDICATION: Weakness and shortness of breath. Comparison made with prior examination from 08/26/2017. FINDINGS: Heart size is normal. There is moderate central pulmonary venous congestion. There is no pleural effusion or pneumothorax. There is unchanged calcified granuloma in the left upper lobe. There is some minimal bibasilar atelectasis and/or pneumonitis. IMPRESSION: Mild central pulmonary venous congestion with some bibasal atelectasis and/or pneumonitis. Discussion & Recommendations 61 yo F who recently underwent thyroidectomy with complication of vocal cord dysfunction and subsequent trach placement who was readmitted due to failure at home and now has acute respiratory failure upon arriving at ED. Acute on Chronic Respiratory failure with hypoxia: At patient's new baseline. During this admission trach became malpositioned and required Dr Navarro to replace tube. After replacement it has been functioning properly. She has been able to titrate down to BID breathing treatments and suctioning BID. She is comfortable at rest and has been able to participate in PT. HTN: No changes made during admission. Vocal Cord dysfunction: Pathology pending from thyroidectomy. Tracheostomy: Patient to [facility] for teaching and further titration of oxygen. Constipation: Resolved Iron Deficiency Anemia: At baseline. Paroxysmal atrial fibrillation: SR throughout this admission. physical deconditioning: Continue PT Discharge Condition at discharge stable Instructions to patient/family Please see electronic discharge instructions given to patient. Discharge Medications Reviewed and agree with Discharge Medication list on patient's Discharge Instruction sheet Clinical Quality Measures DVT/VTE Risk/Contraindication: Risk Factor Score Per Nursin RFS Level Per Nursing on Admit: 4+=Very High CHELSEA NESS MD Sep 02, 2017 2:56 pm
[2017-09-02] MEDS ORDERED: IPRA3AMP INH (15:01)
--- NOTE | 2017-09-02 15:03 | Discharge Instructions ---
Discharge [facility] Discharge Medications New, Converted or Re-Newed RX: Other New Medications: Ipratropium/Albuterol Sulfate (Iprat-Albut 0.5-3(2.5) mg/3 ml) 3 Ml Ampul.neb 3 ML INH RTBID, #1 INHALER Continued Medications: Acetaminophen (Acetaminophen) 500 Mg Tablet 1000 MG PO Q6H PRN for PAIN-MILD, TAB TAKE 2 (500MG) TABS Albuterol Sulfate (Proair Hfa) 1 Puff Puff 2 PUFF IH Q6H PRN for SHORTNESS OF BREATH, INHALER 1 PUFF = 90 MCG Albuterol Sulfate (Albuterol Sulfate) 2.5 Mg/3 Ml Vial.neb 2.5 MG NEB Q6H PRN for SHORTNESS OF BREATH, EA Allopurinol (Allopurinol) 100 Mg Tablet 100 MG PO DAILY, TAB Atenolol (Atenolol) 50 Mg Tablet 50 MG PO DAILY, TAB Budesonide/Formoterol Fumarate (Symbicort 160-4.5 Mcg Inhaler) 10.2 Gm Hfa.aer.ad 1 PUFF IH BID, INHALER Clonidine HCl (Clonidine HCl) 0.1 Mg Tablet 0.1 MG PO HS, TAB Diphenhydramine HCl (Banophen) 50 Mg Capsule 50 MG PO HS, CAP Ferrous Sulfate (Ferrous Sulfate) 325 Mg Tablet 325 MG PO 1200, TAB Fluticasone Propionate (Fluticasone Propionate) 16 Gm [place].susp 1 SPRAY NS TID, SPRAY Furosemide (Furosemide) 40 Mg Tablet 40 MG PO DAILY, TAB Guaifenesin/Dextromethorphan (Robitussin Cough-Chest Dm Liq) 237 Ml Liquid 2 TBS PO HS, EA Hydrocodone Bit/Acetaminophen (Lortab 7.5 Mg Tablet) 1 Ea Tablet 1-2 EA PO Q4H PRN for PAIN-MILD TO MODERATE, #35 TAB Levothyroxine Sodium (Synthroid) 88 Mcg Tablet 88 MCG PO DAILY, #30 TAB Lisinopril (Lisinopril) 10 Mg Tablet 10 MG PO DAILY, TAB Loratadine (Loratadine) 10 Mg Tablet 10 MG PO DAILY, TAB Methocarbamol (Methocarbamol) 750 Mg Tablet 750 MG PO BID, TAB Nifedipine (Nifedipine ER) 60 Mg Tablet.er 60 MG PO DAILY, TAB Ondansetron HCl (Ondansetron HCl) 4 Mg Tablet 4 MG PO Q4H PRN for NAUSEA/VOMITING-1ST LINE, TAB Simvastatin (Simvastatin) 20 Mg Tablet 20 MG PO HS, TAB Discontinued Medications: Cetirizine HCl (Cetirizine HCl) 10 Mg Tablet 10 MG PO HS, TAB Loperamide HCl (Anti-Diarrhea) 2 Mg Tablet 2 MG PO UD PRN for DIARRHEA, TAB Oxymetazoline HCl (Afrin) 30 Ml [place] 1 SPRAY NS BID, SPRAY Patient Instructions Goal/Follow Up Appt: Patient wishes to see Dr Alfaro in followup from LT[facility] Patient Instructions: - [place] for oxygen titration and trach care with patient teaching Activity & Diet Discharge Diet: ADA Diet Activity as Tolerated: Yes CHELSEA NESS MD Sep 02, 2017 15:03
[2017-09-02] MEDS: CATHETER FLUSH 10 ML SYR IV SCH (15:51)
[2017-09-02 16:30] VITALS: BP 118/60
[2017-09-02 16:56] VITALS: BP 118/60
--- OUTSIDE RECORDS SUMMARY | 2017-09-04 15:42 | XMS REPORT | Clinical Summary ---
Author Author [facility] Organization [facility] Address Unknown Phone Unavailable Care Team Providers Care Tennis Professional Name Role Phone Kwasi Rice MD PCP Josie White RN Unavailable Unavailable Mulu Cooper RN Unavailable Unavailable Kalie Ding MD Unavailable Source Comments Some departments are not documenting in the electronic medical record. If you do not see the information that you expected, contact Release of Information in the Health Information Management department at [phone] for further assistance in locating additional records.[facility] Allergies Active Allergy Reactions Severity Noted [...] Taken Blood Pressure 119/79 04/17/2017 9:03 AM INSPECTOR FABRIC Pulse 76 04/17/2017 9:03 AM INSPECTOR FABRIC Temperature 37.1 C (98.8 F) 12/04/2016 10:12 AM CDT Respiratory Rate 20 10/13/2016 1:02 PM CDT Oxygen Saturation 98% 04/17/2017 9:03 AM INSPECTOR FABRIC Inhaled Oxygen - - Concentration Weight 116.1 kg (256 lb) 04/17/2017 9:03 AM INSPECTOR FABRIC Height 168.6 cm (5' 6.38") 04/17/2017 9:03 AM INSPECTOR FABRIC Body Mass Index 40.85 04/17/2017 9:03 AM INSPECTOR FABRIC Plan of Treatment Health Maintenance Due Date Last Done Comments HEPATITIS C SCREENING 1955 PHYSICAL (COMPREHENSIVE) 10/22/1962 EXAM PERTUSSIS VACCINE 10/22/1966 HIV SCREENING 10/22/1970 TETANUS VACCINE 10/22/1972 CERVICAL CANCER SCREENING 10/22/1985 BREAST CANCER SCREENING 1995 COLORECTAL CANCER 10/22/2005 SCREENING SHINGLES VACCINE 2015 INFLUENZA VACCINE 12/28/2017 Implants Implanted Type Area Astrophysics Teacher Device Expiration Model / Identifier Date Serial / Lot Titanium Screw Bilateral: Neck Results Not on filefrom Last 3 Months
--- OUTSIDE RECORDS SUMMARY | 2017-09-04 15:42 | XMS REPORT ---
Author Author ANASTASIA ESTES Organization [facility] Address [address] [place] [address] Care Team Providers Care Scraper Meat Name Role Phone ANASTASIA ESTES Unavailable PROBLEMS Type Condition ICD9-CM Code NXD24-GF Code Onset Dates Condition Status SNOMED Code Problem Other seasonal allergic rhinitis J30.2 Active 043158027 Problem Body mass index (BMI) of 40.0-44.9 in adult Z68.41 Active 504056512 Problem Morbid (severe) obesity due to excess calories E66.01 Active 06756735890005 Problem Sleep-disordered breathing G47.30 Active 430980082 Problem Encounter for therapeutic drug level monitoring Z51.81 Active 591694442 Problem Chronic GERD K21.9 Active 408928163 Problem Chronic obstructive pulmonary disease, unspecified COPD type J44.9 Active 62016900 Problem Restless leg syndrome G25.81 Active 54009826 Problem Heart disease I51.9 Active 97649001 Problem Unspecified disorder of the teeth and supporting structures 525.9 Active 243001581 Problem Chronic prescription opiate use Z79.891 Active 021689774 Problem Low back pain at multiple sites M54.5 Active 676859827 Problem Schizophrenic disorders, residual type, 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 Active 28661042 Problem Chronic constipation K59.09 Active 619143755 Problem 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 Active 74937755 Problem Other allergic rhinitis J30.89 Active 994521535 ALLERGIES No Information ENCOUNTERS Encounter Location Date Diagnosis [facility] [address] [facility] [id number] [address] 04 Aug, 2017 [facility] [address] [id number] [address] 14 Apr, 2017 [facility] [address] [facility] [id number][place] [address] Apr, [facility] [address] [id number] [id number] Apr, [facility] [address] [facility] [address] [id number] [id number] Apr, [facility] [address] [id number] [address] Apr, [facility] [id number], [place] [address] Mar, [facility] [address] [facility] [id number][place] [address] Mar, [facility] [id number] [place] [address] Mar, [facility] [address] [place] [address] Mar, Encounter for therapeutic drug level monitoring Z51.81 [facility] [address]65[address] [address] Mar, [facility] [address] [id number], [place] [address] Mar, [facility] [address]65[address] [address] Mar, Chronic prescription opiate use Z79.891 ; Low back pain at multiple sites M54.5 and BMI 40.0-44.9, adult Z68.41 [facility] [address] [facility] [id number], [place] [address] Feb, [facility] [address] [id number][place] [id number] Feb, [facility] [address] [facility] [facility] [address] [id number][place] [id number] Feb, Sleep-disordered breathing G47.30 ; Other seasonal allergic rhinitis J30.2 ; Chronic prescription opiate use Z79.891 and BMI 40.0-44.9, adult Z68.41 [facility] [address] [facility] [id number], [place] [address] Feb, [facility] [address] [facility] [id number], [place] [address] Feb, [facility] [address] [facility] [id number][place] [address] Feb, [facility] [address] [facility] [id number][place] [address] Feb, [facility] [address] [facility] [id number], [place] [address] Jan, Encounter for therapeutic drug level monitoring Z51.81 and BMI 45.0-49.9, adult Z68.42 [facility] [address] [facility] [id number], [place] [address] Jan, [facility] [address] [id number][place] [id number] Jan, [facility] [address] [facility] [id number], [place] [address] Jan, [facility] [id number][place] [id number] Jan, [facility] [address] [facility] [id number][place] [id number] Jan, [facility] [id number][place] [id number] Jan, [facility] [address] [facility] [id number][place] [address] Dec, [facility] [id number][place] [id number] Dec, Low back pain at multiple sites [...] index (BMI) of 40.0-44.9 in adult Z68.41 [facility] [address] [id number] [id number] 17 Oct, 2014 Dental examination V72.2 [facility] [address] [place] [address] 14 Jun, 2014 [facility] [address]00565100[place], [place] [address] Jun, [facility] [id number] [place] [id number] July, [facility] [address] [id number] July, [facility] [id number] [place] [id number] July, [facility] [address]65100[place], [place] [address] May, [facility] [address] [address] May, [facility] [address]65[address] [address] Mar, [facility] [address]65[address] [address] Mar, [facility] [address]65100[place], [place] [address] Mar, [facility] [address] [id number] [address] Mar, [facility] [address]00565100[place], [place] [address] Mar, [facility] [id number] [place] [id number] Feb, [facility] [address] [id number] [place] [address] Feb, [facility] [place] [facility] [address] [id number] [place] [address] Feb, [facility] [place] [facility] [address] [facility] [id number] [place] [address] Feb, [facility] [place] [facility] [address] [id number] [place] [address] Nov, [facility] [place] [facility] [address] [id number] [place] [address] Oct, [facility] [place] [facility] [address] [id number] [place] [address] Sep, [facility] [place] [facility] [address] [id number] [place] [address] Aug, [facility] [place] [facility] [address] [id number] [place] [address] July, [facility] [place] [facility] [address] [id number] [place] [address] July, [facility] [place] [facility] [address] [id number] [place] [address] May, [facility] [place] [facility] [address] [id number], [place] [address] May, [facility] [place] [facility] [address] [id number], [place] [address] Apr, [facility] [place] [facility] [address] [id number] [place] [address] Mar, [facility] [place] [facility] [address] [facility] [id number] [place] [address] Feb, [facility] [place] [facility] [address] [id number] [place] [address] Feb, [facility] [place] [facility] [address] [id number], [place] [address] 30 Jan, 2011 [facility] [address] [id number], [place] [address] Jan, [facility] [address] [id number], [place] [address] Jan, [facility] [address] [id number], [place] [address] Dec, [facility] [address] [id number], [place] [address] Feb, [facility] [address], [place] [address] Jan, [facility] [address] [id number], [place] [address] Jan, IMMUNIZATIONS No Known Immunizations SOCIAL HISTORY Never Assessed REASON FOR VISIT Controlled Med Refill PLAN OF CARE VITAL SIGNS MEDICATIONS Medication Instructions Dosage Frequency Start Date End Date Duration Status Oxycodone-Acetaminophen 10-325 MG Orally 6 times a day 1/2 tablet as needed 4h Feb, 14 days Active OxyContin 20 mg Orally every 12 hrs 1 tablet 12h Feb, Feb, 14 days Active RESULTS No [...]
== END 2017-09-02 16:47 | DRG 189 ==
LOC: EDUNIT# 10:11 → ER 10:15 → ICU 12:11 → UNDOADMOB 12:11 → ICU 12:11 → 4TH 08-30 10:58 → ICU 08-30 10:58 → INTOOBSV 08-30 14:00 → OBSVTOIN 08-30 14:00 → UNDODISIN 09-02 16:47
PROVIDERS: ADMIT Family Medicine; ATTEND Family Medicine
DX: J96.21 Acute and chronic respiratory failure with hypoxia (principal); Z68.42 Body mass index [BMI] 45.0-49.9, adult; R56.00 Simple febrile convulsions; J95.03 Malfunction of tracheostomy stoma; J38.3 Other diseases of vocal cords; I12.9 Hypertensive chronic kidney disease with stage 1 through stage 4 chronic kidney disease, or unspecified chronic kidney disease; N18.9 Chronic kidney disease, unspecified; I48.0 Paroxysmal atrial fibrillation; K59.03 Drug induced constipation; D72.829 Elevated white blood cell count, unspecified; D50.9 Iron deficiency anemia, unspecified; E66.01 Morbid (severe) obesity due to excess calories; E89.0 Postprocedural hypothyroidism; J44.9 Chronic obstructive pulmonary disease, unspecified; I25.10 Atherosclerotic heart disease of native coronary artery without angina pectoris; J30.2 Other seasonal allergic rhinitis; E78.00 Pure hypercholesterolemia, unspecified; F25.9 Schizoaffective disorder, unspecified; F32.9 Major depressive disorder, single episode, unspecified; F60.9 Personality disorder, unspecified; F43.10 Post-traumatic stress disorder, unspecified; K21.9 Gastro-esophageal reflux disease without esophagitis; G25.81 Restless legs syndrome; M48.00 Spinal stenosis, site unspecified; M19.91 Primary osteoarthritis, unspecified site; M54.9 Dorsalgia, unspecified; Z74.2 Need for assistance at home and no other household member able to render care; Z87.11 Personal history of peptic ulcer disease; Z91.5 Personal history of self-harm
CPT/HCPCS: 36415; 71046; 80048; 80053; 85007; 85025; 85027; 94640; 94760; 94799; 96365

== ENCOUNTER → 2017-10-01 | Outpatient (CLI) | payer MEDICARE, MEDICAID ==
[~2017-10-01] MED LIST changes: +IPRA3AMP31 INH
[2017-10-01 16:12] LABS: BILIRUBIN,URINE NEGATIVE (NEGATIVE); CLARITY,URINE CLEAR; COLOR,URINE YELLOW; GLUCOSE, URINE (UA) NEGATIVE (NEGATIVE); KETONES,URINE NEGATIVE (NEGATIVE); LEUKOCYTE ESTERASE ,URINE 1+ (NEGATIVE); NITRITE,URINE NEGATIVE (NEGATIVE); PH,URINE 5 (5-9); PROTEIN,URINE NEGATIVE (NEGATIVE); UROBILINOGEN,URINE NORMAL (NORMAL)
[2017-10-01 16:22] LABS: BACTERIA,URINE FEW /HPF
== END ==
LOC: HH 08:00
PROVIDERS: ATTEND Family Medicine
DX: N39.0 Urinary tract infection, site not specified (principal)
CPT/HCPCS: 81000; 87077; 87088; 87186

== ENCOUNTER 2017-12-01 11:23 | Outpatient (RCR) | payer MEDICARE, MEDICAID ==
[2017-10-19 14:53] LABS: BASOPHILS % (AUTO) 0 % (0-10); EOSINOPHILS # (AUTO) 0.2 10^3/uL (0.0-0.3); EOSINOPHILS % (AUTO) 1 % (0-10); HEMATOCRIT 41 % (35-52); HEMOGLOBIN 13.3 G/DL (11.5-16.0); LYMPHOCYTES # (AUTO) 2.7 X 10^3 (1.0-4.0); LYMPHOCYTES % (AUTO) 23 % (12-44); MEAN CORPUSCULAR HEMOGLOBIN 30 PG (25-34); MEAN CORPUSCULAR HGB CONC 33 G/DL (32-36); MEAN CORPUSCULAR VOLUME 90 FL (80-99); MEAN PLATELET VOLUME 10.2 FL (7.4-10.4); MONOCYTES # (AUTO) 0.9 X 10^3 (0.0-1.0); MONOCYTES % (AUTO) 7 % (0-12); NEUTROPHILS # (AUTO) 8.1 X 10^3 (1.8-7.8); NEUTROPHILS % (AUTO) 69 % (42-75); PLATELET COUNT 416 10^3/uL (130-400); RED BLOOD COUNT 4.48 10^6/uL (4.35-5.85); RED CELL DISTRIBUTION WIDTH 14.5 % (10.0-14.5); WHITE BLOOD COUNT 11.8 10^3/uL (4.3-11.0)
[2017-10-19 15:07] LABS: ALBUMIN 4.3 GM/DL (3.2-4.5); BILIRUBIN,TOTAL 0.4 MG/DL (0.1-1.0); CALCIUM 9.7 MG/DL (8.5-10.1); CREATININE SERUM 0.99 MG/DL (0.60-1.30); POTASSIUM 3.8 MMOL/L (3.6-5.0); TOTAL PROTEIN 7.8 GM/DL (6.4-8.2)
== END 2018-01-11 10:09 | disposition home or self-care (01) ==
LOC: ONC 11:23
PROVIDERS: ATTEND Internal Medicine Hematology & Oncology
DX: C73 Malignant neoplasm of thyroid gland (principal); I25.10 Atherosclerotic heart disease of native coronary artery without angina pectoris; I12.9 Hypertensive chronic kidney disease with stage 1 through stage 4 chronic kidney disease, or unspecified chronic kidney disease; N18.9 Chronic kidney disease, unspecified; Z85.820 Personal history of malignant melanoma of skin; E78.00 Pure hypercholesterolemia, unspecified; J44.9 Chronic obstructive pulmonary disease, unspecified; Z93.0 Tracheostomy status; Z77.22 Contact with and (suspected) exposure to environmental tobacco smoke (acute) (chronic); Z80.8 Family history of malignant neoplasm of other organs or systems
CPT/HCPCS: 36415; 80053; 84432; 84443; 85025; 86800; 99214

== ENCOUNTER 2018-01-19 10:00 | Outpatient (RCR) | payer MEDICARE, MEDICAID ==
[2017-12-01 10:05] VITALS: BP 102/64
[2017-12-01 11:00] VITALS: BP 110/75
[2017-12-03 10:00] VITALS: BP 130/60
[2017-12-03 11:00] VITALS: BP 115/50
[2017-12-08 10:00] VITALS: BP 140/80
[2017-12-08 11:00] VITALS: BP 120/80
[2017-12-10 10:00] VITALS: BP 121/70
[2017-12-10 10:58] VITALS: BP 120/80
[2017-12-15 10:05] VITALS: BP 100/62
[2017-12-15 10:45] VITALS: BP 155/53
[2017-12-17 10:08] VITALS: BP 120/76
[2017-12-17 10:50] VITALS: BP 148/51
[2017-12-24 10:00] VITALS: BP 135/90
[2017-12-24 11:00] VITALS: BP 120/70
[2017-12-29 10:10] VITALS: BP 132/60
[2017-12-29 11:00] VITALS: BP 130/72
[2017-12-31 09:53] VITALS: BP 114/80
[2017-12-31 10:43] VITALS: BP 124/62
[2018-01-05 10:05] VITALS: BP 130/88
[2018-01-07 10:00] VITALS: BP 130/70
[2018-01-07 10:58] VITALS: BP 128/70
[2018-01-12 10:00] VITALS: BP_SYST 114; BP_SYST 118; BP_DIAS 80
[2018-01-12 11:00] VITALS: BP_SYST 124; BP_SYST 130; BP_DIAS 62; BP_DIAS 80
[2018-01-14 08:50] VITALS: BP 130/60
[2018-01-14 10:50] VITALS: BP 130/60
[2018-01-19 10:00] VITALS: BP 120/60
[2018-01-19 11:00] VITALS: BP 120/76
== END 2018-01-31 | disposition home or self-care (01) ==
LOC: PULM 10:00
PROVIDERS: ATTEND Nurse Practitioner Family
DX: J44.9 Chronic obstructive pulmonary disease, unspecified (principal)
CPT/HCPCS: 99211

== ENCOUNTER 2018-03-01 09:37 | Outpatient (RCR) | payer MEDICARE, MEDICAID ==
[2018-01-11 10:24] LABS: BASOPHILS % (AUTO) 0 % (0-10); EOSINOPHILS # (AUTO) 0.1 10^3/uL (0.0-0.3); EOSINOPHILS % (AUTO) 1 % (0-10); HEMATOCRIT 39 % (35-52); HEMOGLOBIN 13.1 G/DL (11.5-16.0); LYMPHOCYTES # (AUTO) 3.8 X 10^3 (1.0-4.0); LYMPHOCYTES % (AUTO) 37 % (12-44); MEAN CORPUSCULAR HEMOGLOBIN 30 PG (25-34); MEAN CORPUSCULAR HGB CONC 34 G/DL (32-36); MEAN CORPUSCULAR VOLUME 89 FL (80-99); MONOCYTES # (AUTO) 0.8 X 10^3 (0.0-1.0); MONOCYTES % (AUTO) 7 % (0-12); NEUTROPHILS # (AUTO) 5.7 X 10^3 (1.8-7.8); NEUTROPHILS % (AUTO) 55 % (42-75); PLATELET COUNT 347 10^3/uL (130-400); RED BLOOD COUNT 4.36 10^6/uL (4.35-5.85); RED CELL DISTRIBUTION WIDTH 14.9 % (10.0-14.5); WHITE BLOOD COUNT 10.5 10^3/uL (4.3-11.0)
[2018-01-11 10:50] LABS: ALBUMIN 4.1 GM/DL (3.2-4.5); BILIRUBIN,TOTAL 0.3 MG/DL (0.1-1.0); CALCIUM 9.6 MG/DL (8.5-10.1); CREATININE SERUM 1.13 MG/DL (0.60-1.30); POTASSIUM 4.1 MMOL/L (3.6-5.0); TOTAL PROTEIN 7.4 GM/DL (6.4-8.2)
[2018-04-05 11:33] LABS: BASOPHILS % (AUTO) 0 % (0-10); EOSINOPHILS # (AUTO) 0.1 10^3/uL (0.0-0.3); EOSINOPHILS % (AUTO) 1 % (0-10); HEMATOCRIT 39 % (35-52); HEMOGLOBIN 12.5 G/DL (11.5-16.0); LYMPHOCYTES # (AUTO) 2.9 X 10^3 (1.0-4.0); LYMPHOCYTES % (AUTO) 32 % (12-44); MEAN CORPUSCULAR HEMOGLOBIN 30 PG (25-34); MEAN CORPUSCULAR HGB CONC 32 G/DL (32-36); MEAN CORPUSCULAR VOLUME 92 FL (80-99); MEAN PLATELET VOLUME 10.2 FL (7.4-10.4); MONOCYTES # (AUTO) 0.7 X 10^3 (0.0-1.0); MONOCYTES % (AUTO) 8 % (0-12); NEUTROPHILS # (AUTO) 5.3 X 10^3 (1.8-7.8); NEUTROPHILS % (AUTO) 59 % (42-75); PLATELET COUNT 333 10^3/uL (130-400); RED BLOOD COUNT 4.21 10^6/uL (4.35-5.85); RED CELL DISTRIBUTION WIDTH 14.6 % (10.0-14.5); WHITE BLOOD COUNT 9.1 10^3/uL (4.3-11.0)
[2018-04-05 11:56] LABS: BILIRUBIN,TOTAL 0.3 MG/DL (0.1-1.0); CALCIUM 9.3 MG/DL (8.5-10.1); CREATININE SERUM 1.04 MG/DL (0.60-1.30); POTASSIUM 3.9 MMOL/L (3.6-5.0); TOTAL PROTEIN 7.5 GM/DL (6.4-8.2)
== END 2018-04-05 11:17 | disposition home or self-care (01) ==
LOC: ONC 09:37
PROVIDERS: ATTEND Internal Medicine Hematology & Oncology
DX: C73 Malignant neoplasm of thyroid gland (principal); Z85.820 Personal history of malignant melanoma of skin; I25.10 Atherosclerotic heart disease of native coronary artery without angina pectoris; I12.9 Hypertensive chronic kidney disease with stage 1 through stage 4 chronic kidney disease, or unspecified chronic kidney disease; N18.9 Chronic kidney disease, unspecified; E78.00 Pure hypercholesterolemia, unspecified; J44.9 Chronic obstructive pulmonary disease, unspecified; Z93.0 Tracheostomy status; Z77.22 Contact with and (suspected) exposure to environmental tobacco smoke (acute) (chronic); Z80.8 Family history of malignant neoplasm of other organs or systems
CPT/HCPCS: 36415; 80053; 84432; 84443; 85025; 86800; 99213

== ENCOUNTER 2018-04-12 09:54 | Outpatient (RCR) | payer MEDICARE, MEDICAID ==
[~2018-04-12 09:54] MED LIST changes: -GABA600T2 PO; +GBPN600T PO
== END 2018-07-04 | disposition home or self-care (01) ==
LOC: ONC 09:54
PROVIDERS: ATTEND Internal Medicine Hematology & Oncology
DX: C73 Malignant neoplasm of thyroid gland (principal); Z85.820 Personal history of malignant melanoma of skin; I25.10 Atherosclerotic heart disease of native coronary artery without angina pectoris; I12.9 Hypertensive chronic kidney disease with stage 1 through stage 4 chronic kidney disease, or unspecified chronic kidney disease; N18.9 Chronic kidney disease, unspecified; E78.00 Pure hypercholesterolemia, unspecified; J44.9 Chronic obstructive pulmonary disease, unspecified; Z93.0 Tracheostomy status; Z77.22 Contact with and (suspected) exposure to environmental tobacco smoke (acute) (chronic); Z80.8 Family history of malignant neoplasm of other organs or systems
CPT/HCPCS: 36415; 80053; 84432; 84443; 85025; 86800; 99213

== ENCOUNTER → 2018-04-28 | Outpatient (CLI) | payer MEDICARE, MEDICAID ==
--- NOTE | 2018-04-28 15:19 | Diagnostic Imaging Report ---
PROCEDURE: CT chest without contrast. TECHNIQUE: Multiple contiguous axial images were obtained through the chest without the use of intravenous contrast. INDICATION: Followup lung nodule. FINDINGS: The prior CT chest exam of 08/21/2017 noted a calcified nodule in the left midlung periphery. That finding is again evident and no different. I do suspect that this is a benign process such as a granuloma. There is no other parenchymal lung mass identified. The lungs are generally clear and well aerated. There is no sign of failure, pneumonia, or pleural effusion. The heart is stable in size. There are no coronary artery calcifications evident. The aorta is not abnormally dilated. There is no obvious mediastinal or hilar adenopathy. There is a tracheostomy tube in place and the tip of the tube appears to be in good position. There is no obvious breast mass. According to our records, the patient has not had a mammogram. If the patient has had a recent (within the last year) mammogram elsewhere, then no further imaging will be necessary. Otherwise, mammography would be recommended for further study. The sections through the upper abdomen again show that the gallbladder is surgically absent. The 2.5 cm low-density nodule associated with the right adrenal gland evident on the prior study is again visualized and no different. IMPRESSION: 1. There is no evidence for an acute cardiopulmonary abnormality. 2. The calcified nodule in the left midlung seen previously is again evident and unchanged. This is most likely a benign process such as a granuloma. There is no other lung mass noted. 3. The low-density nodule associated with the right adrenal gland also appears stable and is most likely benign. 4. There is now a tracheostomy tube in place. 5. There is no obvious breast mass. Recommendations, as above. Dictated by: Dictated on workstation # [id number]
== END ==
LOC: RAD 11:22
PROVIDERS: ATTEND Nurse Practitioner Family
DX: J44.9 Chronic obstructive pulmonary disease, unspecified (principal); R91.1 Solitary pulmonary nodule; E27.8 Other specified disorders of adrenal gland; Z93.0 Tracheostomy status; Z90.49 Acquired absence of other specified parts of digestive tract
CPT/HCPCS: 71250

== ENCOUNTER 2018-05-25 20:49 | Outpatient (CLI) | payer MEDICARE, MEDICAID | END 2018-05-26 06:55 | disposition home or self-care (01) | LOC: SLEEP 20:49 | PROVIDERS: ATTEND Nurse Practitioner Family | DX: G47.10 Hypersomnia, unspecified (principal); Z88.0 Allergy status to penicillin; Z88.5 Allergy status to narcotic agent | CPT/HCPCS: 95810 ==

== ENCOUNTER 2018-07-01 20:49 | Outpatient (CLI) | payer MEDICARE, MEDICAID | END 2018-07-02 06:57 | disposition home or self-care (01) | LOC: SLEEP 20:49 | PROVIDERS: ATTEND Nurse Practitioner Family | DX: G47.33 Obstructive sleep apnea (adult) (pediatric) (principal); E66.01 Morbid (severe) obesity due to excess calories; J30.2 Other seasonal allergic rhinitis; G47.10 Hypersomnia, unspecified; R06.00 Dyspnea, unspecified; Z93.0 Tracheostomy status | CPT/HCPCS: 95811 ==

== ENCOUNTER 2018-08-24 09:37 | Outpatient (RCR) | payer MEDICARE, MEDICAID ==
[2018-07-05 10:16] LABS: BASOPHILS % (AUTO) 0 % (0-10); EOSINOPHILS # (AUTO) 0.2 10^3/uL (0.0-0.3); EOSINOPHILS % (AUTO) 2 % (0-10); HEMATOCRIT 39 % (35-52); HEMOGLOBIN 12.5 G/DL (11.5-16.0); LYMPHOCYTES # (AUTO) 3.7 X 10^3 (1.0-4.0); LYMPHOCYTES % (AUTO) 32 % (12-44); MEAN CORPUSCULAR HEMOGLOBIN 30 PG (25-34); MEAN CORPUSCULAR HGB CONC 32 G/DL (32-36); MEAN CORPUSCULAR VOLUME 95 FL (80-99); MEAN PLATELET VOLUME 9.8 FL (7.4-10.4); MONOCYTES # (AUTO) 0.9 X 10^3 (0.0-1.0); MONOCYTES % (AUTO) 8 % (0-12); NEUTROPHILS # (AUTO) 6.6 X 10^3 (1.8-7.8); NEUTROPHILS % (AUTO) 58 % (42-75); PLATELET COUNT 347 10^3/uL (130-400); RED CELL DISTRIBUTION WIDTH 16.2 % (10.0-14.5); WHITE BLOOD COUNT 11.3 10^3/uL (4.3-11.0)
[2018-07-05 10:35] LABS: ALBUMIN 3.8 GM/DL (3.2-4.5); BILIRUBIN,TOTAL 0.4 MG/DL (0.1-1.0); CALCIUM 9.3 MG/DL (8.5-10.1); CREATININE SERUM 1.01 MG/DL (0.60-1.30); POTASSIUM 3.9 MMOL/L (3.6-5.0); TOTAL PROTEIN 6.5 GM/DL (6.4-8.2)
[2018-08-24 10:04] LABS: BASOPHILS % (AUTO) 0 % (0-10); EOSINOPHILS # (AUTO) 0.2 10^3/uL (0.0-0.3); EOSINOPHILS % (AUTO) 2 % (0-10); HEMATOCRIT 38 % (35-52); HEMOGLOBIN 12.2 G/DL (11.5-16.0); LYMPHOCYTES # (AUTO) 2.8 X 10^3 (1.0-4.0); LYMPHOCYTES % (AUTO) 28 % (12-44); MEAN CORPUSCULAR HEMOGLOBIN 30 PG (25-34); MEAN CORPUSCULAR HGB CONC 32 G/DL (32-36); MEAN CORPUSCULAR VOLUME 93 FL (80-99); MEAN PLATELET VOLUME 9.9 FL (7.4-10.4); MONOCYTES # (AUTO) 0.9 X 10^3 (0.0-1.0); MONOCYTES % (AUTO) 9 % (0-12); NEUTROPHILS # (AUTO) 6.1 X 10^3 (1.8-7.8); NEUTROPHILS % (AUTO) 62 % (42-75); PLATELET COUNT 349 10^3/uL (130-400); RED CELL DISTRIBUTION WIDTH 14.8 % (10.0-14.5); WHITE BLOOD COUNT 9.9 10^3/uL (4.3-11.0)
== END 2018-10-03 | disposition home or self-care (01) ==
LOC: ONC 09:37
PROVIDERS: ATTEND Internal Medicine Hematology & Oncology
DX: C73 Malignant neoplasm of thyroid gland (principal); Z85.820 Personal history of malignant melanoma of skin; I25.10 Atherosclerotic heart disease of native coronary artery without angina pectoris; I12.9 Hypertensive chronic kidney disease with stage 1 through stage 4 chronic kidney disease, or unspecified chronic kidney disease; N18.9 Chronic kidney disease, unspecified; E78.00 Pure hypercholesterolemia, unspecified; J44.9 Chronic obstructive pulmonary disease, unspecified; Z93.0 Tracheostomy status; Z77.22 Contact with and (suspected) exposure to environmental tobacco smoke (acute) (chronic); Z80.8 Family history of malignant neoplasm of other organs or systems
CPT/HCPCS: 36415; 80053; 84432; 84443; 85025; 86800; 99213

== ENCOUNTER → 2018-10-01 | Outpatient (CLI) | payer MEDICARE, MEDICAID ==
[~2018-10-01] MED LIST changes: +RT-ALBUTEROL SULF 2.5 MG/3 ML PRE-MIX VIAL INH ONE
[2018-10-01 12:11] LABS: ABG BASE EXCESS -1.1 MMOL/L (-2.5-2.5); ABG OXYGEN SATURATION 98 % (94-100); ABG PCO2 37 MMHG (35-45); ABG PH 7.41 (7.37-7.43); ABG PO2 81 MMHG (79-93); ABG TCO2 24.1 MMOL/L (21.0-31.0)
[2018-10-01 12:12] LABS: ALLENS TEST YES-POS; INSPIRED O2 ROOM AIR; PATIENT TEMP 97.7; VENTILATOR NO
== END ==
LOC: RT 11:15
PROVIDERS: ATTEND Nurse Practitioner Family
DX: G47.33 Obstructive sleep apnea (adult) (pediatric) (principal); I27.20 Pulmonary hypertension, unspecified; E66.01 Morbid (severe) obesity due to excess calories; R06.00 Dyspnea, unspecified
CPT/HCPCS: 36600; 82805; 94060; 94726; 94729

== ENCOUNTER → 2018-10-06 | Outpatient (CLI) | payer MEDICARE, MEDICAID ==
[~2018-10-06] MED LIST changes: -RT-ALBUTEROL SULF 2.5 MG/3 ML PRE-MIX VIAL INH ONE
--- NOTE | 2018-10-06 12:38 | Diagnostic Imaging Report ---
PROCEDURE: CT chest without contrast. TECHNIQUE: Multiple contiguous axial images were obtained through the chest without the use of intravenous contrast. Auto Exposure Controls were utilized during the CT exam to meet ALARA standards for radiation dose reduction. INDICATION: COPD, followup lung nodule. COMPARISON: CT chest of 04/28/2018 FINDINGS: Lungs and airway: No endoluminal nodule within the trachea. No pulmonary mass or consolidation. Stable left upper lobe 14 mm nodule with central benign calcification indicative of old granulomatous infection. No new pulmonary nodule. Pleura: No pleural effusion or pneumothorax. Heart and mediastinum: No supraclavicular or axillary lymphadenopathy. No mediastinal, discrete hilar or juxtaphrenic lymphadenopathy. Calcified left hilar lymph nodes would further support the left pulmonary nodule being old granulomatous infection. Heart is normal in size. No pericardial effusion. Normal caliber thoracic aorta. Upper abdomen: Stable benign adenoma within the right adrenal gland. No acute or concerning abnormality in the upper abdomen. Musculoskeletal: No concerning focal osseous lesions. IMPRESSION: 1. Left upper lobe pulmonary nodule is a benign granuloma and requires no dedicated followup imaging. 2. There are no pulmonary nodules that would indicate clinically active lung cancer. Dictated by: Dictated on workstation # [id number]
== END ==
LOC: RAD 10:51
PROVIDERS: ATTEND Nurse Practitioner Family
DX: J84.10 Pulmonary fibrosis, unspecified (principal); J44.9 Chronic obstructive pulmonary disease, unspecified
CPT/HCPCS: 71250

== ENCOUNTER 2018-12-27 09:09 | Outpatient (RCR) | payer MEDICARE, OTHER ==
[2018-10-04 09:38] LABS: BASOPHILS % (AUTO) 0 % (0-10); EOSINOPHILS # (AUTO) 0.2 10^3/uL (0.0-0.3); EOSINOPHILS % (AUTO) 1 % (0-10); HEMATOCRIT 40 % (35-52); HEMOGLOBIN 12.6 G/DL (11.5-16.0); LYMPHOCYTES # (AUTO) 3.3 X 10^3 (1.0-4.0); LYMPHOCYTES % (AUTO) 30 % (12-44); MEAN CORPUSCULAR HEMOGLOBIN 30 PG (25-34); MEAN CORPUSCULAR HGB CONC 32 G/DL (32-36); MEAN CORPUSCULAR VOLUME 95 FL (80-99); MEAN PLATELET VOLUME 10.1 FL (7.4-10.4); MONOCYTES # (AUTO) 1.1 X 10^3 (0.0-1.0); MONOCYTES % (AUTO) 10 % (0-12); NEUTROPHILS # (AUTO) 6.5 X 10^3 (1.8-7.8); NEUTROPHILS % (AUTO) 59 % (42-75); PLATELET COUNT 350 10^3/uL (130-400); RED CELL DISTRIBUTION WIDTH 14.8 % (10.0-14.5); WHITE BLOOD COUNT 11.1 10^3/uL (4.3-11.0)
[2018-10-04 09:58] LABS: ALBUMIN 4.2 GM/DL (3.2-4.5); BILIRUBIN,TOTAL 0.3 MG/DL (0.1-1.0); CALCIUM 9.3 MG/DL (8.5-10.1); CREATININE SERUM 0.98 MG/DL (0.60-1.30); POTASSIUM 3.8 MMOL/L (3.6-5.0); TOTAL PROTEIN 7.1 GM/DL (6.4-8.2)
[2018-12-27 09:31] LABS: BASOPHILS % (AUTO) 0 % (0-10); EOSINOPHILS # (AUTO) 0.2 10^3/uL (0.0-0.3); EOSINOPHILS % (AUTO) 2 % (0-10); HEMATOCRIT 40 % (35-52); HEMOGLOBIN 12.9 G/DL (11.5-16.0); LYMPHOCYTES # (AUTO) 3.1 X 10^3 (1.0-4.0); LYMPHOCYTES % (AUTO) 35 % (12-44); MEAN CORPUSCULAR HEMOGLOBIN 30 PG (25-34); MEAN CORPUSCULAR HGB CONC 32 G/DL (32-36); MEAN CORPUSCULAR VOLUME 95 FL (80-99); MEAN PLATELET VOLUME 10.4 FL (7.4-10.4); MONOCYTES # (AUTO) 0.7 X 10^3 (0.0-1.0); MONOCYTES % (AUTO) 8 % (0-12); NEUTROPHILS # (AUTO) 4.9 X 10^3 (1.8-7.8); NEUTROPHILS % (AUTO) 55 % (42-75); PLATELET COUNT 317 10^3/uL (130-400); RED CELL DISTRIBUTION WIDTH 14.9 % (10.0-14.5); WHITE BLOOD COUNT 8.9 10^3/uL (4.3-11.0)
[2018-12-27 09:51] LABS: BILIRUBIN,TOTAL 0.3 MG/DL (0.1-1.0); CALCIUM 9.2 MG/DL (8.5-10.1); CREATININE SERUM 1.24 MG/DL (0.60-1.30); POTASSIUM 4.5 MMOL/L (3.6-5.0); TOTAL PROTEIN 7.7 GM/DL (6.4-8.2)
== END 2019-01-02 | disposition home or self-care (01) ==
LOC: ONC 09:09
PROVIDERS: ATTEND Internal Medicine Hematology & Oncology
DX: C73 Malignant neoplasm of thyroid gland (principal); Z85.820 Personal history of malignant melanoma of skin; I25.10 Atherosclerotic heart disease of native coronary artery without angina pectoris; I12.9 Hypertensive chronic kidney disease with stage 1 through stage 4 chronic kidney disease, or unspecified chronic kidney disease; N18.9 Chronic kidney disease, unspecified; E78.00 Pure hypercholesterolemia, unspecified; J44.9 Chronic obstructive pulmonary disease, unspecified; Z93.0 Tracheostomy status; Z77.22 Contact with and (suspected) exposure to environmental tobacco smoke (acute) (chronic); Z80.8 Family history of malignant neoplasm of other organs or systems
CPT/HCPCS: 36415; 80053; 84432; 84443; 85025; 86376; 86800; 99213

== ENCOUNTER 2018-12-29 08:05 | Outpatient (RCR) | payer MEDICARE, OTHER ==
[~2018-12-29] VITALS: Ht 157 cm; Wt 131.0 kg
[2018-12-29] MEDS ORDERED: CATHETER FLUSH 10 ML SYR IV PRN (08:15)
[2018-12-29] MEDS ORDERED: REGADENOSON 0.4 MG/5 ML SYR (LEXISCAN) IV ONE ×2 (09:05→10:15)
[2018-12-29 10:06] VITALS: BP 149/99
[2018-12-29 10:09] VITALS: BP 152/93
--- NOTE | 2018-12-29 12:39 | STRESS TEST ---
DATE OF SERVICE: 12/29/2018 LEXISCAN MYOVIEW STRESS TEST REPORT REFERRING PHYSICIAN: Dr. Barillas. Baseline heart rate is 69, baseline blood pressure 149/96. Baseline EKG is sinus rhythm with no ischemic changes. In summary, the patient was injected with 10.85 mCi of technetium-99 Myoview and the resting images were obtained. Then, the patient received 0.4 mg of Lexiscan followed by 29.9 mCi of technetium-99 Myoview. Throughout the test, there were no EKG changes. The resting and stress images were reviewed and compared in the short axis, horizontal long axis, and vertical long axis views. Review of the images showed breast attenuation with typical female pattern. In addition, there is reversible ischemia involving the mid to apical inferior wall and inferoseptum. SSS is 7, SDS 6, TID value 0.88. On the gated images, the left ventricle appeared to be normal in size with normal contractility. Calculated ejection fraction 64%. CONCLUSION: 1. The patient tolerated Lexiscan well. 2. Breast attenuation affecting the images of the anterior wall, in addition, there is reversible ischemia involving the mid to apical inferior wall and inferoseptum. 3. Normal left ventricular size with normal contractility. Calculated ejection fraction 64%. Job ID: [id number] DocumentID: [id number] Dictated Date: 12/29/2018 11:52:30 Credit Collection Associate Date: 12/29/2018 12:38:35 Dictated By: RIZWAN CASTILLO MD
== END 2019-03-29 | disposition home or self-care (01) ==
LOC: CARD 08:05
PROVIDERS: ATTEND Physician Assistant
DX: I25.89 Other forms of chronic ischemic heart disease (principal); N64.89 Other specified disorders of breast; I10 Essential (primary) hypertension; R00.2 Palpitations
CPT/HCPCS: 78452; 93017; 93225; 93226

== ENCOUNTER 2019-01-12 10:36 | Day surgery (SDC) | payer MEDICARE, OTHER ==
[2019-01-12] VITALS (10 sets, daily range): BP systolic 107–147; BP diastolic 59–87
[~2019-01-12] VITALS: Ht 167.7 cm; Wt 130.0 kg
[2019-01-12] MEDS ORDERED: NS IV 1000 ML 1,000 ML ONE (10:55)
[2019-01-12] MEDS ORDERED: LIDOCAINE 1% INJ 20 ML 20 ML VIAL ONE (10:55)
[2019-01-12] MEDS ORDERED: HEParin (CATH LAB) 2,000 ML IV ONE (10:55)
[2019-01-12] MEDS ORDERED: NS IV 1000 ML 1,000 ML IV SCH ×2 (10:57→13:59)
--- NOTE | 2019-01-12 11:26 | Diagnostic Imaging Report ---
INDICATION: Preoperative evaluation in patient with abnormal cardiac stress test. Portable upright AP view of the chest is obtained with comparison made to study of 08/30/2017. FINDINGS: Heart size and pulmonary vascularity are within normal limits. There is no pneumothorax or consolidation. Calcified granuloma is again seen in the lateral left lung. IMPRESSION: No acute abnormality or adverse change. Dictated by: Dictated on workstation # [id number]
[2019-01-12 11:52] LABS: MEAN PLATELET VOLUME 10.1 FL (7.4-10.4); RED CELL DISTRIBUTION WIDTH 14.4 % (10.0-14.5); WHITE BLOOD COUNT 11.6 10^3/uL (4.3-11.0)
[2019-01-12 11:57] LABS: PROTHROMBIN TIME PATIENT 13.8 SEC (12.2-14.7)
[2019-01-12] MEDS ORDERED: methylPREDNISolone 125 MG (Solu-MEDROL) VIAL ONE (11:57)
[2019-01-12] MEDS ORDERED: methylPREDNISolone 125 MG (Solu-MEDROL) VIAL IV ONE (12:00)
[2019-01-12 12:08] LABS: ALBUMIN 4.1 GM/DL (3.2-4.5); BILIRUBIN,TOTAL 0.3 MG/DL (0.1-1.0); CALCIUM 9.8 MG/DL (8.5-10.1); CREATININE SERUM 1.06 MG/DL (0.60-1.30); POTASSIUM 4.2 MMOL/L (3.6-5.0); TOTAL PROTEIN 7.5 GM/DL (6.4-8.2)
[2019-01-12] MEDS ORDERED: MIDAZOLAM 5 MG/5 ML (VERSED) VIAL ONE (13:02)
[2019-01-12] MEDS ORDERED: VERAPAMIL 5 MG/2 ML (CALAN) VIAL IV ONE (13:02)
[2019-01-12] MEDS ORDERED: HEParin 1000 UNIT/ML (10ML VIAL) FOR BOLUS ONE (13:02)
[2019-01-12] MEDS ORDERED: NITRO DRIP 25000 MCG/D5W 250 ML IV ONE (13:02)
[2019-01-12] MEDS ORDERED: fentaNYL INJECTION 100 MCG/2 ML AMP ONE (13:02)
[2019-01-12] MEDS ORDERED: diphenhydrAMINE 50 MG/ML INJ (BENADRYL) ONE (13:15)
--- NOTE | 2019-01-12 13:15 | Cardiac Procedure Note-CS/ASA ---
Pre-Procedure Note Pre-Op Procedure Note H&P Reviewed The H&P was reviewed, patient examined and no changes noted. Date H&P Reviewed: Jan 12, 2019 Time H&P Reviewed: 13:15 Conscious Sedation Pre-Proced Time 13:15 ASA Score 3 For ASA 3 and 4: Consider anesthesia and medical clearance. Also, for patients with a history of failed moderate sedation consider anesthesia. Airway Lungs Heart ASA score ASA 1: a normal healthy patient ASA 2: a patient with a mild systemic disease (mid diabetes, controlled hypertension, obesity x ASA 3: a patient with a severe systemic disease that limits activity (angina, COPD, prior Myocardial infarction) ASA 4: a patient with an incapacitating disease that is a constant threat to life (CHF, renal failure) ASA 5: a moribund patient not expected to survive 24 hrs. (ruptured aneurysm) ASA 6: a declared brain- patient whose organs are being harvested. For emergent operations, add the letter E after the classification Mallampati Classification Grade 3 Sedation Plan Analgesia, Amnesia, Plan communicated to team members, Discussed options with patient/fam, Discussed risks with patient/fam The patient is an appropriate candidate to undergo the planned procedure, sedation, and anesthesia. The patient immediately re-assessed prior to indication. RIZWAN CASTILLO MD Jan 12, 2019 13:15
[2019-01-12] MEDS ORDERED: PATIENT MAY USE OWN MEDS, ALL PO SCH (14:00)
--- NOTE | 2019-01-12 14:02 | Discharge Inst-Post CATH ---
Discharge Inst-CATH/EP Problems Reviewed?: Yes Post Cardiac Cath/EP D/C Inst Follow Up/Plan Appointment with Dr. Castro's office in 4 weeks <b>CARDIAC CATH/EP PROCEDURE DISCHARGE INSTRUCTIONS</b> ACTIVITY * Go Home directly and rest. * Limit activity of the leg (or wrist if it was used) for 7 days including aerobics, swimming, jogging, bicycling, etc. * Restrict stair-climbing for 7 days if possible, if not, climb up with your non-cath leg, then bring together on the same step. * Avoid lifting, pushing, pulling or excessive movement of the affected extremity for 7 days. * Customary sexual activity may be resumed after 2 days-use caution not to use a position that strains or causes pain to the affected extremity. * No driving for 24 hours. * NO SMOKING. * Avoid straining for bowel movements for 7 days. * Gentle walking on level ground is allowed. * Returning to work will depend on the type of procedure and the results. Your doctor will discuss this with you. CALL YOUR DOCTOR FOR ANY OF THE FOLLOWING: *If bleeding from the puncture site occurs- Apply gentle pressure to site with clean cloth and call your doctor or EMS. * If a knot or lump forms under the skin, increases in size, or causes pain. * If bruising appears to be worsening or moving further down your leg instead of disappearing. * Temperature above 101 F. CARE OF YOUR GROIN INCISION; * Bruising or purple discoloration of the skin near the puncture site is common. * You may shower only, no bathtub bathing for 5 days. Be careful to avoid slipping as your leg may feel stiff. * If a closure device was used on your femoral artery, please see the attached guide regarding care of the device and your leg. * Leave dressing on FOR 24 hours. CARE OF YOUR WRIST INCISION; * Bruising or purple discoloration of the skin near the puncture site is common. * You may shower. * DO NOT submerge wrist. * Leave dressing on FOR 24 hours. RIZWAN CASTRO MD Jan 12, 2019 14:02
--- NOTE | 2019-01-12 14:06 | Cardiac Cath Report ---
Cardiac Cath Report Physician (s)/Dialysis Technician (s) Physician RIZWAN CASTILLO MD Pre-Procedure Diagnosis Pre-Procedure Diagnosis: Chest pain, dyspnea Post-Procedure Note Procedure Start Date: Jan 12, 2019 Name of Procedure: Left heart catheterization Aortic arch angiogram Findings/Procedure Note PROCEDURE NOTE: After explaining the procedure to the patient, all pros and cons were explained, all questions were answered. The patient signed the consent and then she was placed on the cardiac catheterization laboratory. Groin was prepped SL fashion local anesthesia was used. attempt to access the right radial artery has failed, I was able to access the right femoral artery, Sheath placed in the right femora l artery. Caitlyn right and left catheter were used to access the coronary system. Pigtail was used to access the left ventricular cavity. Left ventriculogram was done Aortic arch angiogram was done At the end of the procedure the sheath was removed. Closure device FINDINGS: Hemodynamics LV 140/19, end-diastolic pressure of 19 Aorta 139/82 mean 107 ANATOMY: Left Main has no obstructive disease Left Anterior Descending is small, slightly tortuous with mild disease Left Circumflex is small, slightly tortuous with mild disease Right Coronory Artery is dominant artery with mild disease no obstructive disease LV Gram was not done, pressure was measured Aorta evaluation done with aortic arch angiogram showed normal aortic arch, no dissection or aneurysm, normal origin of the right innominate artery left carotid and left subclavian artery CONCLUSION: 1. Mild coronary artery disease with small left coronary system, no significant obstructive disease 2. Normal left ventricular end-diastolic pressure 3. Normal aortic arch and great vessels of the neck DISCUSSION AND RECOMMENDATION: medical therapy is recommended, shortness of breath is probably due to underlying lung disease Anesthesia Type: Conscious Sedation Estimated blood loss (mL): 25 ml Contrast Amount: 55 ml Total Radiation Dose: 394 mGy Post-Procedure Diagnosis Post-operative diagnosis: Dyspnea on exertion Coronary artery disease Hypertension Hyperlipidemia RIZWAN CASTILLO MD Jan 12, 2019 14:05
== END 2019-01-12 18:35 | disposition home or self-care (01) ==
LOC: CATH 10:36
PROVIDERS: ATTEND Internal Medicine Cardiovascular Disease
DX: I25.10 Atherosclerotic heart disease of native coronary artery without angina pectoris (principal); I10 Essential (primary) hypertension; I27.20 Pulmonary hypertension, unspecified; I77.9 Disorder of arteries and arterioles, unspecified; J44.9 Chronic obstructive pulmonary disease, unspecified; E78.2 Mixed hyperlipidemia; E66.01 Morbid (severe) obesity due to excess calories; F90.9 Attention-deficit hyperactivity disorder, unspecified type; M19.90 Unspecified osteoarthritis, unspecified site; G47.10 Hypersomnia, unspecified; E03.9 Hypothyroidism, unspecified; F31.9 Bipolar disorder, unspecified; M51.16 Intervertebral disc disorders with radiculopathy, lumbar region; Z68.42 Body mass index [BMI] 45.0-49.9, adult; Z88.6 Allergy status to analgesic agent; Z88.5 Allergy status to narcotic agent; Z88.0 Allergy status to penicillin; Z88.8 Allergy status to other drugs, medicaments and biological substances; Z91.048 Other nonmedicinal substance allergy status; Z79.899 Other long term (current) drug therapy; Z90.89 Acquired absence of other organs; Z82.49 Family history of ischemic heart disease and other diseases of the circulatory system; Z82.3 Family history of stroke; Z80.9 Family history of malignant neoplasm, unspecified
CPT/HCPCS: 36140; 36221; 36415; 36430; 71045; 80053; 80061; 85027; 85610; 85730; 87081; 93458

== ENCOUNTER → 2019-04-04 | Outpatient (RCR) | payer MEDICARE, OTHER ==
[2019-04-04 09:18] LABS: BASOPHILS % (AUTO) 0 % (0-10); EOSINOPHILS # (AUTO) 0.2 10^3/uL (0.0-0.3); EOSINOPHILS % (AUTO) 2 % (0-10); HEMATOCRIT 40 % (35-52); HEMOGLOBIN 12.8 G/DL (11.5-16.0); LYMPHOCYTES % (AUTO) 31 % (12-44); MEAN CORPUSCULAR HEMOGLOBIN 30 PG (25-34); MEAN CORPUSCULAR HGB CONC 32 G/DL (32-36); MEAN CORPUSCULAR VOLUME 94 FL (80-99); MEAN PLATELET VOLUME 10.1 FL (7.4-10.4); MONOCYTES # (AUTO) 0.9 X 10^3 (0.0-1.0); MONOCYTES % (AUTO) 10 % (0-12); NEUTROPHILS # (AUTO) 5.4 X 10^3 (1.8-7.8); NEUTROPHILS % (AUTO) 57 % (42-75); PLATELET COUNT 316 10^3/uL (130-400); RED CELL DISTRIBUTION WIDTH 14.6 % (10.0-14.5); WHITE BLOOD COUNT 9.5 10^3/uL (4.3-11.0)
[2019-04-04 09:50] LABS: BILIRUBIN,TOTAL 0.4 MG/DL (0.1-1.0); CALCIUM 9.1 MG/DL (8.5-10.1); CREATININE SERUM 0.99 MG/DL (0.60-1.30); POTASSIUM 4.3 MMOL/L (3.6-5.0); TOTAL PROTEIN 6.8 GM/DL (6.4-8.2)
== END | disposition home or self-care (01) ==
LOC: ONC 01-04 15:38
PROVIDERS: ATTEND Internal Medicine Hematology & Oncology
DX: C73 Malignant neoplasm of thyroid gland (principal); N18.3 Chronic kidney disease, stage 3 (moderate); Z79.899 Other long term (current) drug therapy; Z90.89 Acquired absence of other organs
CPT/HCPCS: 36415; 80053; 84432; 84443; 85025; 86800

== ENCOUNTER 2019-05-23 09:13 | Outpatient (RCR) | payer MEDICARE, OTHER ==
[~2019-05-23 09:13] MED LIST changes: +LISI1TAB25 PO; -LISI1TAB8 PO; +NFD60TCR PO; -NIFE60TA74 PO; +ONDA-105 PO; -ONDA4TAB10 PO; -OXYM30SP NS; +OXYM30SP25 NS; +SIMV20TA26 PO
== END 2019-07-11 | disposition home or self-care (01) ==
LOC: ONC 09:13
PROVIDERS: ATTEND Internal Medicine Hematology & Oncology
DX: C73 Malignant neoplasm of thyroid gland (principal); N18.3 Chronic kidney disease, stage 3 (moderate); E89.0 Postprocedural hypothyroidism; Z90.89 Acquired absence of other organs; Z79.899 Other long term (current) drug therapy; Z98.890 Other specified postprocedural states
CPT/HCPCS: 84443; 99213

== ENCOUNTER 2019-11-10 13:25 | Emergency (ER) | payer MEDICARE, OTHER ==
[~2019-11-10] VITALS: Ht 167 cm; Wt 131.8 kg
--- NOTE | 2019-11-10 13:45 | ED Upper Extremity ---
General Chief Complaint: Upper Extremity Stated Complaint: R ARM PAIN AFTER FALL Nursing Triage Note: pt reports leaving PT appt when her foot got cut on the rug and she tripped and fell. pt reports pain in right arm just below the elbow and right knee. pt hit the right side of head but denies ROMERO. denies LOC. not on thinners. Nursing Sepsis Screen: No Definite Risk Source: patient Exam Limitations: no limitations (VIRIDIANA DOMINGUEZ STUDENT) History of Present Illness Date Seen by Provider: Nov 10, 2019 Time Seen by Provider: 13:30 Initial Comments Mulu Roca is a 64 year old female seen today due R elbow pain after a fall. She was leaving her PT appointment when she slipped on a rug. She landed on her R elbow, and now reports 20/10 pain on the proximal posterior aspect of her R fo rearm, just beneath the elbow. She also reports R knee pain. She hit the right side of her head, denies any headache, she denies taking bloodthinners. Onset: just prior to arrival Pain/Injury Location: right elbow Method of Injury: fell (VIRIDIANA DOMINGUEZ STUDENT) Initial Comments Patient was in rehabilitation for her knees. She is left-handed. No loss of consciousness or blood thinners. (BENJAMÍN GRIFFITH) Allergies and Home Medications Allergies Coded Allergies: Penicillins (Unverified Allergy, Severe, ANAPHYLAXIS, 08/28/10) aspirin (Unverified Allergy, Mild, RASH, 08/28/10) gabapentin (Verified Allergy, Unknown, 08/17/17) iodine (Unverified Allergy, Unknown, RASH, 12/01/13) morphine (Unverified Allergy, Unknown, "MAKES GO OUT", 12/01/13) pramipexole (Verified Allergy, Unknown, HIVES, 08/17/17) codeine (Unverified Adverse Reaction, Mild, N/V, 08/28/10) acetaminophen (Unverified Adverse Reaction, Unknown, 05/12/16) adhesive tape (Unverified Adverse Reaction, Unknown, 05/12/16) ibuprofen (Unverified Adverse Reaction, Unknown, 05/12/16) niacin (Unverified Adverse Reaction, Unknown, 05/12/16) propoxyphene (Unverified Adverse Reaction, Unknown, 05/12/16) Uncoded Allergies: ANTIDEPRESSANTS (Allergy, Unknown, MAKES SUICIDAL, 12/01/13) Home Medications Acetaminophen 500 Mg Tablet, 1,000 MG PO Q6H PRN for PAIN-MILD, (Reported) TAKE 2 (500MG) TABS Albuterol Sulfate 1 Puff Puff, 2 PUFF IH Q6H PRN for SHORTNESS OF BREATH, (Reported) 1 PUFF = 90 MCG Albuterol Sulfate 2.5 Mg/3 Ml Vial.neb, 2.5 MG NEB Q6H PRN for SHORTNESS OF BREATH, (Reported) Allopurinol 100 Mg Tablet, 100 MG PO DAILY, (Reported) Atenolol 50 Mg Tablet, 50 MG PO DAILY, (Reported) Budesonide/Formoterol Fumarate 10.2 Gm Hfa.aer.ad, 1 PUFF IH BID, (Reported) Diphenhydramine HCl 50 Mg Capsule, 50 MG PO HS, (Reported) Ferrous Sulfate 325 Mg Tablet, 325 MG PO 1200, (Reported) Fluticasone Propionate 16 Gm [place].susp, 1 SPRAY NS TID, (Reported) Furosemide 40 Mg Tablet, 40 MG PO DAILY, (Reported) Guaifenesin/Dextromethorphan 237 Ml Liquid, 2 TBS PO HS, (Reported) Hydrocodone/Acetaminophen 1 Each Tablet, 1 EACH PO Q6H PRN for PAIN-BREAKTHROUGH Prescribed by: BENJAMÍN GRIFFITH on 11/10/19 1622 Ipratropium/Albuterol Sulfate 3 Ml Ampul.neb, 3 ML INH RTBID Prescribed by: CHELSEA NESS on 09/02/17 1501 Levothyroxine Sodium 88 Mcg Tablet, 88 MCG PO DAILY Prescribed by: TJ GIRALDO on 08/28/17 0852 Lisinopril 10 Mg Tablet, 10 MG PO DAILY, (Reported) Loratadine 10 Mg Tablet, 10 MG PO DAILY, (Reported) Methocarbamol 750 Mg Tablet, 750 MG PO BID, (Reported) Ondansetron HCl 4 Mg Tablet, 4 MG PO Q4H PRN for NAUSEA/VOMITING-1ST LINE, (Reported) Simvastatin 20 Mg Tablet, 20 MG PO HS, (Reported) Patient Home Medication List Home Medication List Reviewed: Yes (BENJAMÍN GRIFFITH) Review of Systems Constitutional: No chills, No fever EENTM: nose congestion (chronic); No throat pain Respiratory: No cough; short of breath (chronic) Cardiovascular: No chest pain, No palpitations, No syncope Musculoskeletal: joint pain (VIRIDIANA DOMINGUEZ) Control/STD Prophylaxis: None Musculoskeletal: back pain (chronic) (BENJAMÍN GRIFFITH) All Other Systems Reviewed Negative Unless Noted: Yes (BENJAMÍN GRIFFITH) Past Nnouuwt-Mpjgql-Tzgujv Hx Patient Social History Alcohol Beverage of Choice: Wine Recreational Drug Use: No Recent Foreign Travel: No Contact w/Someone Who Travel: No Recent Infectious Disease Expo: No Recent Hopitalizations: No (VIRIDIANA DOMINGUEZ) Alcohol Use: Denies Use Recreational Drug Use: No Smoking Status: Never a Smoker (BENJAMÍN GRIFFITH) Immunizations Up To Date Date of Pneumonia Vaccine: Nov 28, 2018 Date of Influenza Vaccine: Jan 12, 2018 (VIRIDIANA DOMINGUEZ) Seasonal Allergies Seasonal Allergies: Yes (VIRIDIANA DOMINGUEZ) Past Medical History Surgeries: Yes Adenoidectomy, Gallbladder, Hysterectomy, Oophorectomy, Orthopedic, Thyr oidectomy, Tonsillectomy, Tracheostomy Respiratory: Yes (Recent placement trach July 2017) Chronic Bronchitis, COPD Currently Using CPAP: No Currently Using BIPAP: No Cardiac: Yes Atrial Fibrillation, Coronary Artery Disease, High Cholesterol, Hypertension, Palpitations Neurological: Yes (FEBRILE SEIZURES) 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, Menopausal Genitourinary: Yes (CHRONIC KIDNEY DZ--NO DIALYSIS) Renal Failure Gastrointestinal: Yes (PEPTIC ULCER,S/P CHOLECYSTECTOMY ) Gastroesophageal Reflux, Diverticulosis, Hiatal Hernia, Ulcer, Gall Bladder Disease Musculoskeletal: Yes Degenerate Disk Disease, Arthritis, Chronic Back Pain Endocrine: Yes (BILAT THYROID MASSES--S/P THYROIDECTOMY ; MORBID OBESITY) HEENT: Yes (Ringing in bilateral ears) Cataract Loss of Vision: Denies Hearing Impairment: Hard of Hearing Cancer: Yes Skin What Type of Treatment Did You: Surgical Intervention Psychosocial: Yes (SCHIZOAFFECTIVE DISORDER) Anxiety, PTSD, Suicide Attempts, Personality Disorder, Depression Integumentary: No Blood Disorders: Yes (anemia) Adverse Reaction/Blood Tranf: No (VIRIDIANA DOMINGUEZ) Family Medical History No Pertinent Family Hx (VIRIDIANA DOMINGUEZ) Physical Exam Vital Signs Vital Signs - First Documented 11/10/19 13:29 Temp 36.3 Pulse 65 Resp 18 B/P (MAP) 128/89 (102) Pulse Ox 96 O2 Delivery Room Air (BENJAMÍN GRIFFITH) Vital Signs Capillary Refill : Less Than 3 Seconds (VIRIDIANA DOMINGUEZ MED STUDENT) Height, Weight, BMI Height: 5'6.00" Weight: 276lbs. 0.6oz. 130.414843dl; 47.00 BMI Method:Stated General Appearance: no apparent distress, obese, other (anxious) HEENT: PERRL/EOMI; No scleral icterus (R), No scleral icterus (L) Neck: non-tender, full range of motion, supple, normal inspection Cardiovascular: regular rate, rhythm, no edema, no JVD, no murmur Respiratory: chest non-tender, lungs clear, normal breath sounds, no respiratory distress, no accessory muscle use Shoulder: No deformity; pain Elbow/Forearm: Right, bone tenderness, pain, soft tissue tenderness Wrist: No asymmetry; Yes pain; No swelling Neurologic/Psychiatric: alert, normal mood/affect, oriented x 3 Skin: normal color, warm/dry R knee abrasion, no swelling or deformity, no tenderness to patella or anterior tibial plateau (VIRIDIANA DOMINGUEZ MED STUDENT) Elbow/Forearm: pain (r) Wrist: Yes pain (mild tenderness to compression of distal radius/Ulna.) Hand: normal inspection, non-tender, no evidence of injury, normal ROM, Right (BENJAMÍN GRIFFITH) Procedures/Interventions Splinting and Joint Reduction : Location: right elbow Pre-Proc Neuro Vasc Exam: normal Post-Proc Neuro Vasc Exam: normal, unchanged from pre-exam Progress Posterior right arm splint placed using 4 inch fiberglass and 3 inch Jignesh bandages. After the splint was placed the patient had sensation in all 5 finge rtips, brisk less than 2 second capillary refill, good 2+ out of 4 symmetric radial pulse bilaterally. Pre-Procedure NV Exam: Yes Jignesh wrap: Yes Arm Sling: Large Hand-Made Type: fiberglass Splint Application: Long Arm (BENJAMÍN GRIFFITH) Progress/Results/Core Measures Results/Orders My Orders Orders - BENJAMÍN GRIFFITH Hydrocodone/Apap 5/325 Tablet (Lortab 5 (11/10/19 14:00) Elbow, Right, 3 Views (11/10/19 14:00) Wrist, Right, 3 Views Or More (11/10/19 14:00) Ketamine Syringe (Ed Only) (Ketamine Syr (11/10/19 14:45) Fentanyl Injection (Sublimaze Injection (11/10/19 14:45) Ed Iv/Invasive Line Start (11/10/19 14:39) Ns (Ivpb) (Sodium Chloride 0.9% Ivpb Bag (11/10/19 14:42) Hydrocodone/Apap 5/325 Tablet (Lortab 5 (11/10/19 16:30) (BENJAMÍN GRIFFITH) Medications Given in ED Current Medications Medications Dose Ordered Sig/Dariel Route Start Time Stop Time Status Last Admin Dose Admin Acetaminophen/ Hydrocodone Bitart 1 tab ONCE ONCE PO 11/10/19 14:00 11/10/19 14:03 DC 11/10/19 14:14 1 TAB Acetaminophen/ Hydrocodone Bitart 1 tab ONCE ONCE PO 11/10/19 16:30 11/10/19 16:31 DC 11/10/19 16:48 1 TAB Fentanyl Citrate 50 mcg ONCE ONCE IVP 11/10/19 14:45 11/10/19 14:46 DC 11/10/19 14:54 50 MCG Ketamine HCl 25 mg ONCE ONCE IV 11/10/19 14:45 11/10/19 14:46 DC 11/10/19 14:58 25 MG Sodium Chloride 100 ml @ [facility]-MED ONCE .ROUTE 11/10/19 14:42 11/10/19 14:46 DC 11/10/19 14:40 100 MLS/HR (BENJAMÍN GRIFFITH) Vital Signs/I&O 11/10/19 11/10/19 13:29 16:51 Temp 36.3 Pulse 65 97 Resp 18 18 B/P (MAP) 128/89 (102) 135/86 Pulse Ox 96 97 O2 Delivery Room Air Room Air (BENJAMÍN GRIFFITH) Blood Pressure Mean: 102 Progress Progress Note : Progress Note Started hydrocodone 5/325 Provided ice for R elbow Xray of R elbow and wrist Offered xray of knee after explaining it was not necessary, patient agreed and declined knee xray (VIRIDIANA DOMINGUEZ MED STUDENT) Progress Note #1: Time: 14:31 Progress Note No overt deformity, The patient does endorse pain and inability to supinate the right forearm. X-rays of the right elbow and wrist are obtained. Ice supplied for swelling. Hydrocodone for pain. I attest that I saw this patient alongside the medical student and agree with his documented history, physical exam and review of systems except as otherwise noted. Progress Note #2: Time: 14:42 Progress Note Patient has overt fracture of the proximal radius and ulna with possible displacement. We only got one view so far. Plan to give her 50 g of fentanyl, 25 mg ketamine for better pain control so we can get a second view. (BENJAMÍN GRIFFITH) Diagnostic Imaging Diagonstic Imaging: Xray Plain Films/CT/US/NM/MRI: elbow (right) Comments [facility], [place] NAME: MULU ROCA MED REC#: [id number] PT STATUS: REG ER : 1955 PHYSICIAN: BENJAMÍN GRIFFITH MD ADMIT DATE: 11/10/19/ER Signed Date of Exam:11/10/19 ELBOW, RIGHT, 3 VIEWS INDICATION: Fall with right elbow injury. TIME OF EXAM: 02:32 p.m. FINDINGS: Three views of the right elbow were obtained. There are comminuted and displaced fractures involving the proximal radius and ulna. Fractures of the proximal ulna involve the olecranon. Fracture of the proximal radius appears to involve the region of the radial neck. There is elbow joint effusion. IMPRESSION: Comminuted and displaced fractures of the proximal radius and ulna. Dictated by: Dictated on workstation # [id number] Dict: 11/10/19 1528 Trans: 11/10/19 1550 [id number] Interpreted by: HEATHER GALE MD Electronically signed by: HEATHER GALE MD 11/10/19 1550 Reviewed: Reviewed by Me Diagonstic Imaging: Xray Plain Films/CT/US/NM/MRI: other (right wrist) Comments NAME: MULU ROCA MED REC#: [id number] PT STATUS: REG ER : 1955 PHYSICIAN: BENJAMÍN GRIFFITH MD ADMIT DATE: 11/10/19/ER Signed Date of Exam:11/10/19 WRIST, RIGHT, 3 VIEWS OR MORE INDICATION: Fall with injury to the right wrist. TIME OF EXAM: 02:29 p.m. FINDINGS: Three views of the right wrist were obtained. Distal radius and ulna are intact. Carpus is intact. Metacarpals are unremarkable. No fractures are seen. IMPRESSION: No acute bony abnormality is detected. Dictated by: Dictated on workstation # [id number] Dict: 11/10/19 1527 Trans: 11/10/19 1551 [id number] Interpreted by: HEATHER GALE MD Electronically signed by: HEATHER GALE MD 11/10/19 155 Reviewed: Reviewed by Me (BENJAMÍN GRIFFITH) Consults : Consulting Physician: MILES GUEVARA MD Consults Notes Recommends posterior splint and follow-up with him in the clinic on next available appointment. Thursday would be fine. He is not recommend does we try and do anything to reduce this at this time. (BENJAMÍN GRIFFITH) Departure Impression Primary Impression: Fall Qualified Codes: W19.XXXA - Unspecified fall, initial encounter Additional Impressions: Elbow fracture, right Qualified Codes: S42.401A - Unspecified fracture of lower end of right humerus, initial encounter for closed fracture Abrasion, right knee, initial encounter Disposition: HOME, SELF-CARE Condition: Improved Departure-Patient Inst. Decision time for Depature: 16:00 (BENJAMÍN GRIFFITH) Referrals: MAJO LUCIA MD (PCP/Family) Primary Care Physician MILES GUEVARA MD Patient Instructions: Elbow Fracture (DC) Add. Discharge Instructions: Wear the splint at all times except to bathe. If you have swelling, increased pain or decreased sensation in your fingertips then you can rewrap the bandage looser and elevate the arm above the level of your heart. Ice applied for 20 minutes every 2 hours while awake for the first 2-3 days can be helpful for pain and swelling. Hydrocodone one to 2 tablets every 6 hours as necessary to control pain. Hydrocodone will cause drowsiness as well as constipation and should be used sparingly. MiraLAX can be used up to 3 times a day to control constipation. Follow-up 11/14/[address] Guevara's office at 2:30 in the afternoon. All discharge instructions reviewed with patient and/or family. Voiced understanding. Scripts Hydrocodone/Acetaminophen (Hydrocodone-Acetamin 5-325 mg) 1 Each Tablet 1 EACH PO Q6H PRN for PAIN-BREAKTHROUGH, #30 TAB 0 Refills Prov: BENJAMÍN GRIFFITH 11/10/19 Copy Copies To 1: MILES GUEVARA MD, EVAN MED STUDENT Nov 10, 2019 13:45 BENJAMÍN GRIFFITH Nov 10, 2019 14:32
[2019-11-10] MEDS ORDERED: HYDROcodone/APAP 5 MG/325 MG (LORTAB) TAB PO ONE ×2 (14:00→16:30)
[2019-11-10] MEDS ORDERED: NS (IVPB) 100 ML ONE (14:42)
[2019-11-10] MEDS ORDERED: fentaNYL INJECTION 100 MCG/2 ML AMP IVP ONE (14:45)
[2019-11-10] MEDS ORDERED: KETAMINE/NaCl 50 MG/5 ML SYRINGE (ED ONLY) IV ONE (14:45)
--- NOTE | 2019-11-10 15:29 | Diagnostic Imaging Report ---
INDICATION: Fall with injury to the right wrist. TIME OF EXAM: 02:29 p.m. FINDINGS: Three views of the right wrist were obtained. Distal radius and ulna are intact. Carpus is intact. Metacarpals are unremarkable. No fractures are seen. IMPRESSION: No acute bony abnormality is detected. Dictated by: Dictated on workstation # [id number]
--- NOTE | 2019-11-10 15:32 | Diagnostic Imaging Report ---
INDICATION: Fall with right elbow injury. TIME OF EXAM: 02:32 p.m. FINDINGS: Three views of the right elbow were obtained. There are comminuted and displaced fractures involving the proximal radius and ulna. Fractures of the proximal ulna involve the olecranon. Fracture of the proximal radius appears to involve the region of the radial neck. There is elbow joint effusion. IMPRESSION: Comminuted and displaced fractures of the proximal radius and ulna. Dictated by: Dictated on workstation # [id number]
[2019-11-10] MEDS ORDERED: HYDR-3812 PO (16:22)
[2019-11-10 16:51] VITALS: BP 135/86
== END 2019-11-10 16:30 | disposition home or self-care (01) ==
LOC: EDUNIT# 13:25 → ER 13:28
DX: S42.401A Unspecified fracture of lower end of right humerus, initial encounter for closed fracture (principal); S80.211A Abrasion, right knee, initial encounter; J44.9 Chronic obstructive pulmonary disease, unspecified; I12.9 Hypertensive chronic kidney disease with stage 1 through stage 4 chronic kidney disease, or unspecified chronic kidney disease; N18.9 Chronic kidney disease, unspecified; E78.00 Pure hypercholesterolemia, unspecified; I25.10 Atherosclerotic heart disease of native coronary artery without angina pectoris; G89.29 Other chronic pain; M54.9 Dorsalgia, unspecified; D64.9 Anemia, unspecified; Z79.891 Long term (current) use of opiate analgesic; Z88.0 Allergy status to penicillin; Z88.8 Allergy status to other drugs, medicaments and biological substances; Z88.5 Allergy status to narcotic agent; Z85.828 Personal history of other malignant neoplasm of skin; Z88.6 Allergy status to analgesic agent; Z79.51 Long term (current) use of inhaled steroids; W01.0XXA Fall on same level from slipping, tripping and stumbling without subsequent striking against object, initial encounter
CPT/HCPCS: 73080; 73110

== ENCOUNTER 2019-12-12 10:21 | Outpatient (RCR) | payer MEDICARE, OTHER ==
[2019-10-03 10:14] LABS: BASOPHILS % (AUTO) 0 % (0-10); EOSINOPHILS # (AUTO) 0.2 10^3/uL (0.0-0.3); EOSINOPHILS % (AUTO) 2 % (0-10); HEMATOCRIT 39 % (35-52); HEMOGLOBIN 13.1 G/DL (11.5-16.0); LYMPHOCYTES # (AUTO) 3.8 X 10^3 (1.0-4.0); LYMPHOCYTES % (AUTO) 38 % (12-44); MEAN CORPUSCULAR HEMOGLOBIN 32 PG (25-34); MEAN CORPUSCULAR HGB CONC 33 G/DL (32-36); MEAN CORPUSCULAR VOLUME 95 FL (80-99); MEAN PLATELET VOLUME 10.1 FL (7.4-10.4); MONOCYTES # (AUTO) 0.9 X 10^3 (0.0-1.0); MONOCYTES % (AUTO) 9 % (0-12); NEUTROPHILS # (AUTO) 5.2 X 10^3 (1.8-7.8); NEUTROPHILS % (AUTO) 52 % (42-75); PLATELET COUNT 308 10^3/uL (130-400); WHITE BLOOD COUNT 10.2 10^3/uL (4.3-11.0)
[2019-10-03 10:35] LABS: BILIRUBIN,TOTAL 0.4 MG/DL (0.1-1.0); CALCIUM 9.3 MG/DL (8.5-10.1); CREATININE SERUM 0.99 MG/DL (0.60-1.30); POTASSIUM 4.2 MMOL/L (3.6-5.0)
[~2019-12-12 10:21] MED LIST changes: +ACHD5005 PO; -LISI1TAB25 PO; +LISI1TAB46 PO; -OXYC-465 PO; +OXYC-556 PO
== END 2020-01-01 | disposition home or self-care (01) ==
LOC: ONC 10:21
PROVIDERS: ATTEND Internal Medicine Hematology & Oncology
DX: C73 Malignant neoplasm of thyroid gland (principal); E89.0 Postprocedural hypothyroidism; Z90.89 Acquired absence of other organs; Z79.899 Other long term (current) drug therapy; Z98.890 Other specified postprocedural states; N18.30 Chronic kidney disease, stage 3 unspecified
CPT/HCPCS: 80053; 84432; 84443; 85025; 86800; 99213

== ENCOUNTER 2020-02-13 10:52 | Outpatient (RCR) | payer MEDICARE, OTHER ==
[~2020-02-13 10:52] MED LIST changes: +CLN.1T PO; -CLON0.1T PO
== END 2020-04-02 15:09 | disposition home or self-care (01) ==
LOC: ONC 10:52
PROVIDERS: ATTEND Internal Medicine Hematology & Oncology
DX: C73 Malignant neoplasm of thyroid gland (principal); N18.30 Chronic kidney disease, stage 3 unspecified; E89.0 Postprocedural hypothyroidism; R79.89 Other specified abnormal findings of blood chemistry; Z90.89 Acquired absence of other organs; Z79.899 Other long term (current) drug therapy; Z98.890 Other specified postprocedural states
CPT/HCPCS: 84443

== ENCOUNTER 2020-04-09 10:56 | Outpatient (RCR) | payer MEDICARE, OTHER ==
[2020-04-03 11:10] LABS: HEMATOCRIT 41 % (35-52); HEMOGLOBIN 13.1 g/dL (11.5-16.0); LYMPHOCYTES % (AUTO) 33 % (12-44); MEAN CORPUSCULAR HEMOGLOBIN 30 pg (25-34); MEAN CORPUSCULAR HGB CONC 32 g/dL (32-36); MEAN CORPUSCULAR VOLUME 94 fL (80-99); NEUTROPHILS % (AUTO) 58 % (42-75); PLATELET COUNT 299 10^3/uL (130-400); WHITE BLOOD COUNT 10.3 10^3/uL (4.3-11.0)
[2020-04-03 11:11] LABS: BASOPHILS % (AUTO) 0 % (0-10); EOSINOPHILS # (AUTO) 0.2 10^3/uL (0.0-0.3); EOSINOPHILS % (AUTO) 2 % (0-10); LYMPHOCYTES # (AUTO) 3.4 10^3/uL (1.0-4.0); MONOCYTES # (AUTO) 0.7 10^3/uL (0.0-1.0); MONOCYTES % (AUTO) 7 % (0-12)
[2020-04-03 11:29] LABS: ALBUMIN 3.9 GM/DL (3.2-4.5); BILIRUBIN,TOTAL 0.3 MG/DL (0.1-1.0); CREATININE SERUM 1.03 MG/DL (0.60-1.30); POTASSIUM 4.3 MMOL/L (3.6-5.0); TOTAL PROTEIN 7.1 GM/DL (6.4-8.2)
[~2020-04-09 10:56] MED LIST changes: -LISI10TA2 PO; +LISI10TA25 PO; +METH-732 PO; -METH750T3 PO
== END 2020-06-12 10:36 | disposition home or self-care (01) ==
LOC: ONC 10:56
PROVIDERS: ATTEND Internal Medicine Hematology & Oncology
DX: C73 Malignant neoplasm of thyroid gland (principal); N18.30 Chronic kidney disease, stage 3 unspecified; E03.9 Hypothyroidism, unspecified; R79.89 Other specified abnormal findings of blood chemistry; Z90.89 Acquired absence of other organs; Z79.899 Other long term (current) drug therapy; Z98.890 Other specified postprocedural states
CPT/HCPCS: 80053; 84432; 84443; 85025; 86800; 99213

== ENCOUNTER → 2020-06-15 | Outpatient (CLI) | payer MEDICARE, OTHER, MEDICAID ==
--- NOTE | 2020-06-15 09:27 | Diagnostic Imaging Report ---
INDICATION: Elevated liver enzymes TECHNIQUE: Multiple grayscale sonographic images were obtained of the right upper quadrant of the abdomen. CORRELATION STUDY: None FINDINGS: LIVER: There is increased echotexture within the visualized portions of the liver. There is normal, hepatopedal direction of flow within the main portal vein. Hepatomegaly, 19 cm. GALLBLADDER: Cholecystectomy. COMMON BILE DUCT: Mildly dilated at 1.1 cm. PANCREAS: Visualized portions appearing unremarkable. AORTA/IVC: Not well visualized. RIGHT KIDNEY: 10.0 x 5.8 x 5.7 cm. No hydronephrosis. OTHER: None. IMPRESSION: 1. Borderline hepatomegaly with hepatic steatosis. 2. Common bile duct is mildly prominent, may be largely attributed to post cholecystectomy state. Dictated by: Dictated on workstation # [id number]
== END ==
LOC: RAD 08:02
PROVIDERS: ATTEND Internal Medicine Gastroenterology
DX: K76.9 Liver disease, unspecified (principal); R16.0 Hepatomegaly, not elsewhere classified; R94.5 Abnormal results of liver function studies
CPT/HCPCS: 36415; 76705; 82977

== ENCOUNTER 2020-08-08 11:30 | Outpatient (RCR) | payer MEDICARE, OTHER, MEDICAID | END 2020-09-10 | disposition home or self-care (01) | LOC: ONC 11:30 | PROVIDERS: ATTEND Internal Medicine Hematology & Oncology | DX: E03.9 Hypothyroidism, unspecified (principal); E78.2 Mixed hyperlipidemia; E66.01 Morbid (severe) obesity due to excess calories; I27.20 Pulmonary hypertension, unspecified; G47.33 Obstructive sleep apnea (adult) (pediatric); F41.8 Other specified anxiety disorders; I65.29 Occlusion and stenosis of unspecified carotid artery; J44.9 Chronic obstructive pulmonary disease, unspecified; Z79.899 Other long term (current) drug therapy; Z98.890 Other specified postprocedural states; Z90.89 Acquired absence of other organs; Z85.850 Personal history of malignant neoplasm of thyroid | CPT/HCPCS: 84443 ==

== ENCOUNTER → 2020-10-03 | Outpatient (CLI) | payer MEDICARE, OTHER, MEDICAID ==
[2020-10-03 10:15] LABS: ALBUMIN 3.7 GM/DL (3.2-4.5); BILIRUBIN,TOTAL 0.5 MG/DL (0.1-1.0); CALCIUM 9.2 MG/DL (8.5-10.1); CREATININE SERUM 0.97 MG/DL (0.60-1.30); POTASSIUM 3.7 MMOL/L (3.6-5.0); TOTAL PROTEIN 6.8 GM/DL (6.4-8.2)
== END ==
LOC: LAB 09:43
PROVIDERS: ATTEND Internal Medicine Cardiovascular Disease
DX: E78.2 Mixed hyperlipidemia (principal)
CPT/HCPCS: 36415; 80053; 80061

== ENCOUNTER → 2020-10-29 | Outpatient (CLI) | payer MEDICARE, OTHER, MEDICAID ==
--- NOTE | 2020-10-29 16:05 | Diagnostic Imaging Report ---
PROCEDURE: CT abdomen and pelvis without contrast. TECHNIQUE: Multiple contiguous axial images were obtained through the abdomen and pelvis without the use of intravenous contrast. Auto Exposure Controls were utilized during the CT exam to meet ALARA standards for radiation dose reduction. INDICATION: Adrenal adenoma. Comparison is made with prior CT from 11/07/2019. The lung bases are stable. The liver is unremarkable. Gallbladder is surgically absent. Pancreas and spleen are unremarkable. Right adrenal nodule measures 26 mm x 20 mm compared with 26 mm x 19 mm. This remains consistent with an adenoma. Left adrenal gland is unremarkable. There is a tiny nonobstructing calculus in the upper pole of the right kidney. No hydronephrosis is identified. Aorta is nonaneurysmal. There is no central retroperitoneal or mesenteric lymphadenopathy. The small and large bowel loops are normal caliber. There is no obstruction. Small fat-containing umbilical hernia is noted. There are diverticuli throughout the sigmoid colon and descending colon but there is no evidence of acute diverticulitis. No free fluid or fluid collection is identified. Bladder is decompressed. The uterus is absent or atrophic. No abdominal or pelvic lymphadenopathy is detected. Bony structures demonstrate significant degenerative disc disease at L4-L5 level. IMPRESSION: 1. Stable right adrenal nodule suggestive of an adenoma when compared prior exam from 11/07/2019. 2. Uncomplicated diverticulosis. 3. No acute feature in the abdomen or pelvis is identified. Dictated by: Dictated on workstation # [id number]
== END ==
LOC: RAD 15:15
PROVIDERS: ATTEND Internal Medicine Nephrology
DX: K57.30 Diverticulosis of large intestine without perforation or abscess without bleeding (principal); D35.01 Benign neoplasm of right adrenal gland
CPT/HCPCS: 74176

== ENCOUNTER 2020-12-10 08:48 | Outpatient (RCR) | payer MEDICARE, OTHER, MEDICAID ==
[2020-10-03 09:50] LABS: BASOPHILS % (AUTO) 0 % (0-10); EOSINOPHILS # (AUTO) 0.2 10^3/uL (0.0-0.3); EOSINOPHILS % (AUTO) 2 % (0-10); HEMATOCRIT 41 % (35-52); HEMOGLOBIN 13.3 g/dL (11.5-16.0); LYMPHOCYTES # (AUTO) 3.8 10^3/uL (1.0-4.0); LYMPHOCYTES % (AUTO) 36 % (12-44); MEAN CORPUSCULAR HEMOGLOBIN 30 pg (25-34); MEAN CORPUSCULAR HGB CONC 32 g/dL (32-36); MEAN CORPUSCULAR VOLUME 94 fL (80-99); MEAN PLATELET VOLUME 10.6 fL (9.0-12.2); MONOCYTES # (AUTO) 0.8 10^3/uL (0.0-1.0); MONOCYTES % (AUTO) 8 % (0-12); NEUTROPHILS # (AUTO) 5.6 10^3/uL (1.8-7.8); NEUTROPHILS % (AUTO) 54 % (42-75); PLATELET COUNT 304 10^3/uL (130-400); WHITE BLOOD COUNT 10.4 10^3/uL (4.3-11.0)
[2020-10-03 10:12] LABS: ALBUMIN 3.7 GM/DL (3.2-4.5); BILIRUBIN,TOTAL 0.4 MG/DL (0.1-1.0); CALCIUM 9.2 MG/DL (8.5-10.1); CREATININE SERUM 0.95 MG/DL (0.60-1.30); POTASSIUM 3.7 MMOL/L (3.6-5.0); TOTAL PROTEIN 6.8 GM/DL (6.4-8.2)
== END 2020-12-17 | disposition home or self-care (01) ==
LOC: ONC 08:48
PROVIDERS: ATTEND Internal Medicine Hematology & Oncology
DX: E03.9 Hypothyroidism, unspecified (principal); E78.2 Mixed hyperlipidemia; E66.01 Morbid (severe) obesity due to excess calories; I27.20 Pulmonary hypertension, unspecified; G47.33 Obstructive sleep apnea (adult) (pediatric); I65.23 Occlusion and stenosis of bilateral carotid arteries; J44.9 Chronic obstructive pulmonary disease, unspecified; F41.8 Other specified anxiety disorders
CPT/HCPCS: 80053; 84432; 84443; 85025; 86800; 99213

== ENCOUNTER 2021-01-21 09:35 | Outpatient (RCR) | payer MEDICARE, OTHER, MEDICAID | END 2021-03-29 | disposition home or self-care (01) | LOC: ONC 09:35 | PROVIDERS: ATTEND Internal Medicine Hematology & Oncology | DX: E03.9 Hypothyroidism, unspecified (principal) | CPT/HCPCS: 84443 ==

== ENCOUNTER 2021-04-01 11:53 | Outpatient (RCR) | payer MEDICARE, OTHER, MEDICAID ==
[2021-04-01 12:00] LABS: BASOPHILS % (AUTO) 0 % (0-10); EOSINOPHILS # (AUTO) 0.2 10^3/uL (0.0-0.3); EOSINOPHILS % (AUTO) 2 % (0-10); HEMATOCRIT 43 % (35-52); HEMOGLOBIN 13.6 g/dL (11.5-16.0); LYMPHOCYTES # (AUTO) 3.7 10^3/uL (1.0-4.0); LYMPHOCYTES % (AUTO) 34 % (12-44); MEAN CORPUSCULAR HEMOGLOBIN 30 pg (25-34); MEAN CORPUSCULAR HGB CONC 32 g/dL (32-36); MEAN CORPUSCULAR VOLUME 94 fL (80-99); MEAN PLATELET VOLUME 10.4 fL (9.0-12.2); MONOCYTES # (AUTO) 0.6 10^3/uL (0.0-1.0); MONOCYTES % (AUTO) 6 % (0-12); NEUTROPHILS # (AUTO) 6.2 10^3/uL (1.8-7.8); NEUTROPHILS % (AUTO) 58 % (42-75); PLATELET COUNT 300 10^3/uL (130-400); WHITE BLOOD COUNT 10.8 10^3/uL (4.3-11.0)
[2021-04-01 12:22] LABS: ALBUMIN 3.9 GM/DL (3.2-4.5); BILIRUBIN,TOTAL 0.3 MG/DL (0.1-1.0); CALCIUM 9.1 MG/DL (8.5-10.1); CREATININE SERUM 1.08 MG/DL (0.60-1.30); POTASSIUM 4.1 MMOL/L (3.6-5.0); TOTAL PROTEIN 6.8 GM/DL (6.4-8.2)
== END 2021-04-29 | disposition home or self-care (01) ==
LOC: ONC 11:53
PROVIDERS: ATTEND Internal Medicine Hematology & Oncology
DX: E03.9 Hypothyroidism, unspecified (principal); I10 Essential (primary) hypertension; I25.10 Atherosclerotic heart disease of native coronary artery without angina pectoris; E78.2 Mixed hyperlipidemia; G47.33 Obstructive sleep apnea (adult) (pediatric); I65.23 Occlusion and stenosis of bilateral carotid arteries
CPT/HCPCS: 80053; 84432; 84443; 85025; 86800

== ENCOUNTER → 2021-05-08 | Outpatient (CLI) | payer MEDICARE, OTHER, MEDICAID | LOC: LABNPT 08:22 | PROVIDERS: ATTEND Internal Medicine | DX: R50.9 Fever, unspecified (principal); R19.7 Diarrhea, unspecified; R68.83 Chills (without fever); M79.10 Myalgia, unspecified site; Z20.822 Contact with and (suspected) exposure to COVID-19 | CPT/HCPCS: 87635 ==

== ENCOUNTER 2021-09-15 12:49 | Emergency (ER) | payer MEDICARE, OTHER ==
[~2021-09-15] VITALS: Ht 169 cm; Wt 124.7 kg
[2021-09-15 13:10] VITALS: BP 146/124
[2021-09-15 13:30] LABS: BILIRUBIN,URINE NEGATIVE (NEGATIVE); CLARITY,URINE SL CLOUDY; COLOR,URINE YELLOW; GLUCOSE, URINE (UA) NEGATIVE (NEGATIVE); KETONES,URINE NEGATIVE (NEGATIVE); LEUKOCYTE ESTERASE ,URINE NEGATIVE (NEGATIVE); NITRITE,URINE NEGATIVE (NEGATIVE); PROTEIN,URINE TRACE (NEGATIVE)
[2021-09-15] MEDS ORDERED: ONDANSETRON 4 MG (ZOFRAN) ORAL DISSOLVE TAB PO STA (13:39)
[2021-09-15 13:40] LABS: BACTERIA,URINE FEW /HPF; RBC,URINE 0-2 /HPF
[2021-09-15] MEDS ORDERED: HYDROcodone/APAP 5 MG/325 MG (LORTAB) TAB PO ONE (13:45)
--- NOTE | 2021-09-15 13:47 | ED Abdominal Pain ---
General Chief Complaint: - Reproductive Stated Complaint: RIGHT FLANK PAIN Nursing Triage Note: RT FLANK PAIN- PT REPORTS PAIN STARTED LAST NIGHT, HX OF KIDNEY STONES, NO APPETITE. Source of Information: Patient Exam Limitations: No Limitations History of Present Illness Date Seen by Provider: Sep 15, 2021 Time Seen by Provider: 13:30 Initial Comments Patient is a 65-year-old female who presents to the emergency department today with a chief complaint of right flank pain/right back pain. She states she had "a backache" yesterday and it slowly settled in her right flank. She states she has not urinated as much today as normal. She states she has a history of chronic kidney disease as well as kidney stones but its been "many moons" since she had a kidney stone. She denies noticeable hematuria, dysuria, urgency or frequency. No abnormal vaginal discharge. No fevers or chills. She has had "dry heaves". She has had a Vivian fundoplication and "cannot" vomit. Normal bowel movement this morning, nonblack nonbloody. Laying flat makes her pain worse sitting up makes her pain better. She is taken Tylenol for the pain. She is due she states at 2:00 for another dose. She took a muscle relaxer this morning and yesterday which seem to have alleviated her pain. She denies any trauma, falls, heavy lifting. She limits her activity at home, she lives alone with 3 cats. All other review of systems reviewed and negative except as stated. Timing/Duration: 24 Hours Severity/Quality: Moderate, Aching Location: Flank (right) Radiation: No Radiation Activities at Onset: None Modifying Factors: Improves With Other (nausea) Associated Symptoms: Back Pain (right back) Allergies and Home Medications Allergies Coded Allergies: Penicillins (Unverified Allergy, Severe, ANAPHYLAXIS, 08/28/10) aspirin (Unverified Allergy, Mild, RASH, 08/28/10) gabapentin (Verified Allergy, Unknown, 08/17/17) iodine (Unverified Allergy, Unknown, RASH, 12/01/13) morphine (Unverified Allergy, Unknown, "MAKES GO OUT", 12/01/13) pramipexole (Verified Allergy, Unknown, HIVES, 08/17/17) codeine (Unverified Adverse Reaction, Mild, N/V, 08/28/10) acetaminophen (Unverified Adverse Reaction, Unknown, 05/12/16) adhesive tape (Unverified Adverse Reaction, Unknown, 05/12/16) ibuprofen (Unverified Adverse Reaction, Unknown, 05/12/16) niacin (Unverified Adverse Reaction, Unknown, 05/12/16) propoxyphene (Unverified Adverse Reaction, Unknown, 05/12/16) Uncoded Allergies: ANTIDEPRESSANTS (Allergy, Unknown, MAKES SUICIDAL, 12/01/13) Patient Home Medication List Home Medication List Reviewed: Yes Acetaminophen (Acetaminophen) 500 Mg Tablet, 1,000 MG PO Q6H PRN for PAIN-MILD, (Reported) Entered as Reported by: NASEEM RODRIGUEZ on 05/12/16 174 Albuterol Sulfate (Proair Hfa) 1 Puff Puff, 2 PUFF IH Q6H PRN for SHORTNESS OF BREATH, (Reported) Entered as Reported by: SARA BROOKS on 08/17/17 110 Albuterol Sulfate (Albuterol Sulfate) 2.5 Mg/3 Ml Vial.neb, 2.5 MG NEB Q6H PRN for SHORTNESS OF BREATH, (Reported) Entered as Reported by: PRICE FULLER on 08/17/17 1331 Allopurinol (Allopurinol) 100 Mg Tablet, 100 MG PO DAILY, (Reported) Entered as Reported by: SARA BROOKS on 08/17/17 1111 Atenolol (Atenolol) 50 Mg Tablet, 50 MG PO DAILY, (Reported) Entered as Reported by: NASEEM RODRIGUEZ on 05/12/161742 Budesonide/Formoterol Fumarate (Symbicort 160-4.5 Mcg Inhaler) 10.2 Gm Hfa. aer.ad, 1 PUFF IH BID, (Reported) Entered as Reported by: SARA BROOKS on 08/17/17 1104 Diphenhydramine HCl (Banophen) 50 Mg Capsule, 50 MG PO HS, (Reported) Entered as Reported by: SARA BROOKS on 08/17/17 1101 Ferrous Sulfate (Ferrous Sulfate) 325 Mg Tablet, 325 MG PO 1200, (Reported) Entered as Reported by: SARA BROOKS on 08/17/17 1101 Fluticasone Propionate (Fluticasone Propionate) 16 Gm [place].susp, 1 SPRAY NS TID, (Reported) Entered as Reported by: NASEEM RODRIGUEZ on 05/12/16 1743 Furosemide (Furosemide) 40 Mg Tablet, 40 MG PO DAILY, (Reported) Entered as Reported by: SARA BROOKS on 08/17/17 1101 Guaifenesin/Dextromethorphan (Robitussin Cough-Chest Dm Liq) 237 Ml Liquid, 2 TBS PO HS, (Reported) Entered as Reported by: SARA BROOKS on 08/17/17 1101 Hydrocodone/Acetaminophen (Hydrocodone-Acetamin 5-325 mg) 1 Each Tablet, 1 EACH PO Q6H PRN for PAIN-BREAKTHROUGH Prescribed by: BENJAMÍN GRIFFITH on 11/10/19 1622 Ipratropium/Albuterol Sulfate (Iprat-Albut 0.5-3(2.5) mg/3 ml) 3 Ml Ampul.neb, 3 ML INH RTBID Prescribed by: CHELSEA NESS on 09/02/17 1501 Levothyroxine Sodium (Synthroid) 88 Mcg Tablet, 88 MCG PO DAILY Prescribed by: TJ GIRALDO on 08/28/17 0852 Lisinopril (Lisinopril) 10 Mg Tablet, 10 MG PO DAILY, (Reported) Entered as Reported by: SARA BROOKS on 08/17/17 1101 Loratadine (Loratadine) 10 Mg Tablet, 10 MG PO DAILY, (Reported) Entered as Reported by: SARA BROOKS on 08/17/17 1101 Methocarbamol (Methocarbamol) 750 Mg Tablet, 750 MG PO BID, (Reported) Entered as Reported by: SARA BROOKS on 08/17/17 1101 Miscellaneous Medical Supply (Suction Tube Attachment Device) 1 Each Each, EACH MC PRN, (DME) Prescribed by: TJ GIRALDO on 08/27/17 1601 Ondansetron (Ondansetron Odt) 4 Mg Tab.rapdis, 4 MG PO Q8H Prescribed by: NI BROWN on 09/15/21 1353 Ondansetron HCl (Ondansetron HCl) 4 Mg Tablet, 4 MG PO Q4H PRN for NAUSEA/VOMITING-1ST LINE, (Reported) Entered as Reported by: SARA BROOKS on 08/17/17 1101 Simvastatin (Simvastatin) 20 Mg Tablet, 20 MG PO HS, (Reported) Entered as Reported by: SARA BROOKS on 08/17/17 1101 Surgical Suction Tubing (Beason Connecting Tubes) 1 Each Each, EACH MC PRN, (DME) Prescribed by: TJ GIRALDO on 08/27/17 1601 Review of Systems Review of Systems Constitutional: see HPI EENTM: No Symptoms Reported Respiratory: No Symptoms Reported Cardiovascular: No Symptoms Reported Gastrointestinal: Abdominal Pain (diffuse), Nausea, Vomiting (dry heaves) Musculoskeletal: back pain (right flank) Skin: no symptoms reported Psychiatric/Neurological: No Symptoms Reported All Other Systems Reviewed Negative Unless Noted: Yes Past Wqtqxej-Djmhmg-Rpzmik Hx Patient Social History Tobacco Use?: No Substance use?: No Alcohol Use?: No Pt feels they are or have been: No Seasonal Allergies Seasonal Allergies: Yes Past Medical History Surgeries: Yes (hiatal hernia with small amount of stomach removed, BACK SX x3) Adenoidectomy, Gallbladder, Hysterectomy, Oophorectomy, Orthopedic, Thyroidectomy, Tonsillectomy, Tracheostomy Respiratory: Yes (Recent placement trach July 2017) Chronic Bronchitis, COPD Currently Using CPAP: No Currently Using BIPAP: No Cardiac: Yes Atrial Fibrillation, Coronary Artery Disease, High Cholesterol, Hypertension, Palpitations Neurological: Yes (FEBRILE SEIZURES) 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, Menopausal Genitourinary: Yes (CHRONIC KIDNEY DZ--NO DIALYSIS) Renal Failure Gastrointestinal: Yes (PEPTIC ULCER,S/P CHOLECYSTECTOMY ) Gastroesophageal Reflux, Diverticulosis, Hiatal Hernia, Ulcer, Gall Bladder Disease Musculoskeletal: Yes Degenerate Disk Disease, Arthritis, Chronic Back Pain Endocrine: Yes (BILAT THYROID MASSES--S/P THYROIDECTOMY ; MORBID OBESITY) HEENT: Yes (Ringing in bilateral ears) Cataract Loss of Vision: Denies Hearing Impairment: Hard of Hearing Cancer: Yes Skin What Type of Treatment Did You: Surgical Intervention Psychosocial: Yes (SCHIZOAFFECTIVE DISORDER) Anxiety, PTSD, Suicide Attempts, Personality Disorder, Depression Integumentary: No Blood Disorders: Yes (anemia) Adverse Reaction/Blood Tranf: No Family Medical History No Pertinent Family Hx Physical Exam Vital Signs Vital Signs - First Documented Capillary Refill : Less Than 3 Seconds Height/Weight/BMI Height: 5'6.00" Weight: 276lbs. 0.6oz. [id number]; 43.00 BMI Method:Stated General Appearance: WD/WN, no apparent distress HEENT: PERRL/EOMI Respiratory: lungs clear, normal breath sounds, no respiratory distress, no accessory muscle use Cardiovascular: regular rate, rhythm Gastrointestinal: soft, other (Patient initially manifested "tenderness" on palpation of the left lower quadrant. However when I lifted her shirt to examine her skin and started asking her about her surgical scars she became distracted describing her various surgeries and I was able to palpate all over the abdomen fairly deeply without reproducing any tenderness. No involuntary guarding, nondistended, normal bowel sounds.) Extremities: normal range of motion, normal inspection Neurologic/Psychiatric: no motor/sensory deficits, alert, normal mood/affect, oriented x 3 Skin: normal color, warm/dry Progress/Results/Core Measures Results/Orders Lab Results Laboratory Tests Test 09/15/21 13:17 Range/Units Urine Color YELLOW Urine Clarity SL CLOUDY Urine pH 7.0 5-9 Urine Specific Rachel 1.015 L 1.016-1.022 Urine Protein TRACE H NEGATIVE Urine Glucose (UA) NEGATIVE NEGATIVE Urine Ketones NEGATIVE NEGATIVE Urine Nitrite NEGATIVE NEGATIVE Urine Bilirubin NEGATIVE NEGATIVE Urine Urobilinogen 0.2 < = 1.0 MG/DL Urine Leukocyte Esterase NEGATIVE NEGATIVE Urine RBC (Auto) NEGATIVE NEGATIVE Urine RBC 0-2 /HPF Urine WBC NONE /HPF Urine Squamous Epithelial Cells 10-25 H /HPF Urine Crystals NONE /LPF Urine Bacteria FEW H /HPF Urine Casts NONE /LPF Urine Mucus NEGATIVE /LPF Urine Culture Indicated NO My Orders Orders - NI BROWN MD Ondansetron Oral Dissolve Tab (Zofran (09/15/21 13:39) Hydrocodone/Apap 5/325 Tablet (Lortab 5 (09/15/21 13:45) Medications Given in ED Current Medications Medications Dose Ordered Sig/Dariel Route Start Time Stop Time Status Last Admin Dose Admin Acetaminophen/ Hydrocodone Bitart 1 ea ONCE ONCE PO 09/15/21 13:45 09/15/21 13:46 DC 09/15/21 13:49 1 EA Vital Signs/I&O 09/15/21 09/15/21 13:10 13:10 Temp 37.1 35.9 Pulse 93 101 Resp 24 22 B/P (MAP) 146/124 (131) Pulse Ox 96 94 O2 Delivery Room Air Room Air Blood Pressure Mean: 131 Departure Impression Primary Impression: Right flank pain Disposition: 01 HOME, SELF-CARE Condition: Stable Departure-Patient Inst. Decision time for Depature: 13:45 Referrals: MAJO LUCIA MD (PCP/Family) Primary Care Physician Patient Instructions: Flank Pain ED Add. Discharge Instructions: Drink plenty of fluids to stay well hydrated. Continue your muscle relaxers for pain as you have been taking. Zofran/Ondansetron 4mg every 8 hours as needed for nausea/dry heaving. You can use over the counter lidocaine spray to the right flank (follow packa ging instructions for dosing) as needed for pain or continue to use Biofreeze. Please call your family doctor tomorrow for a follow up appointment for this pain, this week. Return to the Emergency Department for any new, concerning or emergent complaints. Scripts Ondansetron (Ondansetron Odt) 4 Mg Tab.rapdis 4 MG PO Q8H, #12 TAB Prov: NI BROWN MD 09/15/21 Copy Copies To 1: MAJO LUCIA MD, KATHRYN M MD Sep 15, 2021 13:47
[2021-09-15] MEDS ORDERED: ONDA4TAB11 PO (13:53)
== END 2021-09-15 15:02 | disposition home or self-care (01) ==
LOC: EDUNIT# 12:49 → ER 12:51
DX: R10.32 Left lower quadrant pain (principal); Z87.442 Personal history of urinary calculi; Z87.19 Personal history of other diseases of the digestive system; Z87.11 Personal history of peptic ulcer disease; Z90.49 Acquired absence of other specified parts of digestive tract; Z90.710 Acquired absence of both cervix and uterus; Z90.722 Acquired absence of ovaries, bilateral
CPT/HCPCS: 81000; 99283

== ENCOUNTER → 2021-09-17 | Outpatient (CLI) | payer MEDICARE, OTHER ==
[~2021-09-17] MED LIST changes: +ONDA4TAB11 PO
--- NOTE | 2021-09-17 12:40 | Diagnostic Imaging Report ---
EXAMINATION: Lumbosacral spine 2 or 3 views HISTORY: Back pain. No known injury. COMPARISON: 10/29/2020. FINDINGS: There is no acute fracture or dislocation of the lumbar spine. Alignment is anatomic. The vertebral body heights are well maintained. There is generalized osteopenia. No focal osseous lesions are seen. Endplate sclerotic changes are seen at the L4-L5 level. Prior laminectomy changes are visualized at L3, L4-L5. Degenerative changes are present in the lumbar spine with facet hypertrophy and marginal osteophytes, most prominent at the L4-L5 and L5-S1 levels. The surrounding soft tissues of the lumbar spine are unremarkable. IMPRESSION: 1. No acute fracture or dislocation in the lumbar spine. 2. Degenerative changes in the lumbar spine greatest at L4-L5. Dictated by: Dictated on workstation # [id number]
--- NOTE | 2021-09-17 12:48 | Diagnostic Imaging Report ---
CLINICAL HISTORY: Back pain. No known injury. COMPARISON: 10/29/2020. TECHNIQUE: Three views of the thoracic spine. FINDINGS: There is no acute fracture or dislocation of the thoracic spine. There is mild exaggerated kyphosis of the upper thoracic spine. No focal osseous lesions are seen. The included chest is clear. The paraspinal soft tissues are unremarkable. IMPRESSION: 1. No acute fracture or dislocation in the thoracic spine. Dictated by: Dictated on workstation # [id number]
== END ==
LOC: RAD 08:44
PROVIDERS: ATTEND Nurse Practitioner Family
DX: M47.816 Spondylosis without myelopathy or radiculopathy, lumbar region (principal)
CPT/HCPCS: 72072; 72100

== ENCOUNTER → 2021-09-19 | Outpatient (CLI) | payer MEDICARE, OTHER | LOC: CARD 15:00 | PROVIDERS: ATTEND Physician Assistant | DX: I11.9 Hypertensive heart disease without heart failure (principal) | CPT/HCPCS: 93306 ==